=== PATIENT | female | born 1990 | race Caucasian/White ===

== ENCOUNTER 2016-06-28 21:13 | Emergency (ER) | payer OTHER ==
[2016-06-28 21:19] VITALS: RESP 16; TEMP 99.4
--- NOTE | 2016-06-28 22:00 | ED ---
General Adult HPI - General Chief complaint: Abdominal Pain Stated complaint: 17 weeks PG/ Abd Pain/back pain Time Seen by Provider: 06/28/16 21:20 Source: patient, RN notes reviewed, old records reviewed Mode of arrival: ambulatory Limitations: no limitations - History of Present Illness Initial comments: This is a 25-year-old female the ER for evaluation. This patient does reevaluation of abdominal pain. Cramping in lower pelvic pain beginning this morning. No bleeding. No significant change in discharge will she has had persistent discharge. No nausea vomiting or diarrhea. Patient was recently in the ER a few days ago for evaluation of cough and congestion, patient is a smoker, patient found to have bronchitis at the time of surgery on azithromycin. No new significant complaints. No fever. No other modifying factors for symptoms. Patient denies vaginal bleeding patient's concern is that she had similar symptoms before with prior miscarriage - Related Data Home Medications Medication Instructions Recorded Confirmed Albuterol Inhaler [Ventolin Hfa 1 puff INHALATION RT-BID PRN 04/15/14 06/28/16 Inhaler] Pnv with Ca,No.72/Iron/FA 1 tab PO DAILY 05/02/16 06/28/16 [ Plus Tablet] Acetaminophen Tab [Tylenol Tab] 650 mg PO Q6H PRN 06/28/16 06/28/16 Previous Rx's Medication Instructions Recorded Azithromycin [Zithromax Z-pack] 250 mg PO DIRECTED #6 tab 06/25/16 Allergies Allergy/AdvReac Type Severity Reaction Status Date / Time metronidazole [From Flagyl] AdvReac Nausea Verified 06/28/16 21:16 Metronidazole HCl AdvReac Nausea Verified 06/28/16 21:16 [From Flagyl] tramadol AdvReac Nausea Verified 06/28/16 21:16 Review of Systems ROS Statement: Those systems with pertinent positive or pertinent negative responses have been documented in the HPI. ROS Other: All systems not noted in ROS Statement are negative. Past Medical History Additional Past Medical History / Comment(s): poly cystic ovarian syndrome History of Any Multi-Drug Resistant Organisms: None Reported Past Surgical History: Adenoidectomy, Cholecystectomy, Orthopedic Surgery, Tonsillectomy Additional Past Surgical History / Comment(s): right knee; ganglion cyst removal bilateral hands Past Anesthesia/Blood Transfusion Reactions: No Reported Reaction Past Psychological History: Anxiety, Bipolar, Depression Smoking Status: Current every day smoker Past Alcohol Use History: None Reported Past Drug Use History: None Reported General Exam Limitations: no limitations General appearance: alert, in no apparent distress Head exam: Present: atraumatic, normocephalic, normal inspection Eye exam: Present: normal appearance, PERRL, EOMI. Absent: scleral icterus, conjunctival injection, periorbital swelling ENT exam: Present: normal exam, mucous membranes moist Neck exam: Present: normal inspection. Absent: tenderness, meningismus, lymphadenopathy Respiratory exam: Present: normal lung sounds bilaterally. Absent: respiratory distress, wheezes, rales, rhonchi, stridor Cardiovascular Exam: Present: regular rate, normal rhythm, normal heart sounds. Absent: systolic murmur, diastolic murmur, rubs, gallop, clicks GI/Abdominal exam: Present: soft, normal bowel sounds. Absent: distended, tenderness, guarding, rebound, rigid Extremities exam: Present: normal inspection, full ROM, normal capillary refill. Absent: tenderness, pedal edema, joint swelling, calf tenderness Back exam: Present: normal inspection Neurological exam: Present: alert, oriented X3, CN II-XII intact Psychiatric exam: Present: normal affect, normal mood Skin exam: Present: warm, dry, intact, normal color. Absent: rash Course Vital Signs 06/28/16 21:16 Temperature 99.4 F Pulse Rate 91 Respiratory 16 Rate Blood Pressure 131/69 O2 Sat by Pulse 97 Oximetry Medical Decision Making - Medical Decision Making 25 female with abdominal pain and . Patient will continue outpatient treatment for bronchitis, ultrasound shows positive IUP, urine is negative we' ll culture patient can be discharged home - Lab Data Lab Results 06/28/16 Range/Units 21:30 Urine Color Yellow Urine Appearance Cloudy H (Clear) Urine pH 6.5 (5.0-8.0) Ur Specific [place] 1.011 (1.001-1.035) Urine Protein Negative (Negative) Urine Glucose (UA) Negative (Negative) Urine Ketones Negative (Negative) Urine Blood Negative (Negative) Urine Nitrate Negative (Negative) Urine Bilirubin Negative (Negative) Urine Urobilinogen <2.0 (<2.0) mg/dL Ur Leukocyte Esterase Trace H (Negative) Urine RBC 1 (0-5) /hpf Urine WBC 7 H (0-5) /hpf Ur Squamous Epith Cells 40 H (0-4) /hpf Amorphous Sediment Occasional H (None) /hpf Hyaline Casts 5 H (0-2) /lpf Urine Mucus Rare H (None) /hpf - Radiology Data Radiology results: report reviewed (Ultrasound abdomen and pelvis positive IUP heart rate 142), image reviewed Disposition Clinical Impression: Abdominal pain, Abdominal pain affecting Disposition: HOME SELF-CARE Condition: Good Instructions: Abdominal Pain in (ED) Referrals: Manuel Melgar DO [Primary Care Provider] - 1-2 days
[2016-06-28 22:14] LABS: Amorphous Sediment,Urine Occasional /hpf; Appearance,Urine Cloudy (Clear); Bilirubin,Urine Negative (Negative); Glucose,Urine (UA) Negative (Negative); Ketones,Urine Negative (Negative); Leukocyte Esterase,Urine Trace (Negative); Mucus,Urine Rare /hpf; Nitrite,Urine Negative (Negative); PH, Urine 6.5 (5.0-8.0); Particle Count 14108; Protein,Urine Negative (Negative); RBC,Urine 1 /hpf (0-5); Specific Gravity,Urine 1.011 (1.001-1.035); Squamous Epithelial Cell,Urine 40 /hpf (0-4); UA Billing (MACRO vs. MICRO) MICRO; Urobilinogen,Urine <2.0 mg/dL (<2.0); WBC,Urine 7 /hpf (0-5)
--- NOTE | 2016-06-29 00:07 | US ---
EXAMINATION TYPE: US OB >= 14 wk fetus DATE OF EXAM: 06/28/2016 10:52 PM COMPARISON:05/02/2016 CLINICAL HISTORY: Pelvic pain, no bleeding TECHNIQUE: TA GESTATIONAL AGE / DATING Physician Established: (17 weeks/0 days) EDC: 12/06/2016 Dates by LMP: (18 weeks/3 days) EDC: 11/26/2016 Dates by First Scan: (17 weeks/0 days) EDC: 12/06/2016 Dates by Current Scan: (17 weeks/3 days) EDC: 12/03/2016 SURVEY PLACENTA: anterior PREVIA: No Previa SHIRA: 14.4 cm CERVICAL LENGTH (transabdominal: norm > 3.0cm): 3.1 cm BIOMETRY LIE: vertex BPD: 3.9 cm 17 weeks / 5 days HC: 14.4 cm 17 weeks / 4 days AC: 11.2 cm 17 weeks / 0 days FL: 2.5 cm 17 weeks / 3 days ESTIMATED WEIGHT IN GRAMS: 187 grams ESTIMATED WEIGHT IN LBS/OZS: 0 lbs. 7 oz. WEIGHT PERCENTAGE BASED ON ESTABLISHED DATES: 61% HC/AC: 1.2 Normal FL/AC: 21.9 Normal HEART RATE: 142 bpm RHYTHM: Normal IMPRESSION: Single live intrauterine of 17 weeks and 3 days with a heart rate of 1 42 bpm. Average gestational age by current ultrasound is 17 weeks and 3 days with ABIGAIL of 12/03/2016.
[2016-06-29 00:30] VITALS: BP 110/64; PULSE 64
== END 2016-06-29 00:30 | disposition home or self-care (01) ==
LOC: EC 21:13
DX: O26.92 Pregnancy related conditions, unspecified, second trimester (principal); R10.9 Unspecified abdominal pain; F17.200 Nicotine dependence, unspecified, uncomplicated; Z3A.17 17 weeks gestation of pregnancy; Z88.5 Allergy status to narcotic agent; Z88.1 Allergy status to other antibiotic agents
CPT/HCPCS: 76805; 81001; 87086; 87491; 87591; 99284

== ENCOUNTER 2017-08-31 11:02 | Emergency (ER) | payer OTHER ==
[2017-08-31 11:15] VITALS: BP 118/75; PULSE 85; RESP 18; TEMP 97.5
--- NOTE | 2017-08-31 11:47 | XR ---
EXAMINATION TYPE: XR hand complete RT DATE OF EXAM: 08/31/2017 COMPARISON: 12/05/2014 HISTORY: Pain after fall TECHNIQUE: Three-view right hand FINDINGS: Soft tissues appear normal. Joint spaces are preserved. No acute fractures are evident. Follow-up exam can be performed 7-10 days from acute trauma for continued pain. IMPRESSION: 1. Normal three-view right hand.
--- NOTE | 2017-08-31 11:51 | ED ---
Upper Extremity HPI - General Chief Complaint: Extremity Injury, Upper Stated Complaint: RT HAND INJURY Time Seen by Provider: 08/31/17 11:40 Source: patient, RN notes reviewed Mode of arrival: ambulatory Limitations: no limitations - History of Present Illness Initial Comments: This is a 26-year-old old female who presents to the emergency department with chief complaint of right hand injury. Patient states that at approximately 10: 30 this morning she was coming down a set of stairs at home when she tripped on her child's blanket and hit her hand on the wall. She has full range of motion of her fingers but has noticed bruising and swelling. Denies any other injury or trauma. Denies fever, chills, abdominal pain, nausea or vomiting, numbness or tingling, headache or vision changes. - Related Data Home Medications Medication Instructions Recorded Confirmed Citalopram Hydrobromide [CeleXA] 20 mg PO DAILY 08/31/17 08/31/17 LORazepam [Ativan] 1 mg PO TID 08/31/17 08/31/17 Allergies Allergy/AdvReac Type Severity Reaction Status Date / Time metronidazole [From Flagyl] AdvReac Nausea Verified 08/31/17 11:25 Metronidazole HCl AdvReac Nausea Verified 08/31/17 11:25 [From Flagyl] tramadol AdvReac Nausea Verified 08/31/17 11:25 Review of Systems ROS Statement: Those systems with pertinent positive or pertinent negative responses have been documented in the HPI. ROS Other: All systems not noted in ROS Statement are negative. Past Medical History Additional Past Medical History / Comment(s): poly cystic ovarian syndrome History of Any Multi-Drug Resistant Organisms: None Reported Past Surgical History: Adenoidectomy, Cholecystectomy, Orthopedic Surgery, Tonsillectomy Additional Past Surgical History / Comment(s): right knee; ganglion cyst removal bilateral hands Past Anesthesia/Blood Transfusion Reactions: No Reported Reaction Past Psychological History: Anxiety, Bipolar, Depression Smoking Status: Current every day smoker Past Alcohol Use History: None Reported Past Drug Use History: Marijuana General Exam - General Exam Comments Initial Comments: General: Awake and alert, well-developed; in no apparent distress. HEENT: Head atraumatic, normocephalic. Pupils are equal, round and reactive to light. Extraocular movements intact. Oropharynx moist without erythema or exudate. Neck: Supple. Normal ROM. Cardiovascular: Regular rate and rhythm. No murmurs, rubs or gallops. Chest symmetrical. Respiratory: Lungs clear to auscultation bilaterally. No wheezes, rales or rhonchi. Normal respiratory effort with no use of accessory muscles. Musculoskeletal: Normal range of motion of right hand and digits. There is mild soft tissue swelling and bruising noted to the ulnar aspect dorsal hand. Tenderness on palpation of metacarpals 3 through 5. Sensation is intact. Radial pulses are 2+ equal and palpable bilaterally. Skin: [place], warm and dry without rashes or lesions. Neurological: Alert and oriented x3. CN II-XII grossly intact. Speech is fluent and answers are appropriate. No focal neuro deficits. Psychiatric: Normal mood and affect. No overt signs of depression or anxiety noted. Limitations: no limitations Course Vital Signs 08/31/17 11:11 Temperature 97.5 F L Pulse Rate 85 Respiratory 18 Rate Blood Pressure 118/75 O2 Sat by Pulse 98 Oximetry Medical Decision Making - Medical Decision Making This is a 26-year-old female who presents to the emergency department with chief complaint of right hand injury. There is bruising and mild soft tissue swelling noted to the ulnar aspect of the dorsal right hand. Patient has full range of motion and is neurovascularly intact. X-ray revealed no evidence for an acute fracture or dislocation. Patient suffering from a hand contusion. Recommended ice, elevation, compression and use of Tylenol or Motrin for pain. She is in no acute distress and will be discharged home. She is in agreement with plan and voices understanding. All questions were answered. - Radiology Data Radiology results: report reviewed X-ray right hand findings: Soft tissues appear normal. Joint spaces are preserved. No acute fractures are evident. Impression: Normal 3 view right hand. Disposition Clinical Impression: Hand contusion Disposition: HOME SELF-CARE Condition: Good Instructions: Contusion in Adults (ED) Additional Instructions: Please ice, elevate and use Tylenol or Motrin as needed for pain. Please follow up with primary care provider within 1-2 days. Return to emergency department if symptoms should worsen or any concerns arise. Referrals: Manuel Melgar DO [Primary Care Provider] - 1-2 days Time of Disposition: 12:00
== END 2017-08-31 12:12 | disposition home or self-care (01) ==
LOC: EC 11:02
DX: S60.221A Contusion of right hand, initial encounter (principal); F41.9 Anxiety disorder, unspecified; F32.9 Major depressive disorder, single episode, unspecified; F17.200 Nicotine dependence, unspecified, uncomplicated; Z79.899 Other long term (current) drug therapy; Z88.1 Allergy status to other antibiotic agents; Z88.6 Allergy status to analgesic agent; W22.01XA Walked into wall, initial encounter; Y92.009 Unspecified place in unspecified non-institutional (private) residence as the place of occurrence of the external cause; Y93.89 Activity, other specified
CPT/HCPCS: 99283

== ENCOUNTER 2018-04-21 19:15 | Emergency (ER) | payer OTHER ==
[2018-04-21 19:31] VITALS: BP 134/85; PULSE 99; RESP 18; TEMP 98.5
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
--- NOTE | 2018-04-21 20:19 | XR ---
EXAMINATION TYPE: XR hand complete bilateral DATE OF EXAM: 04/21/2018 COMPARISON: Right hand 08/31/2017 HISTORY: Pain TECHNIQUE: 3 views each hand FINDINGS: 3 views of each hand were obtained and show no fracture nor dislocation. Joint spaces are n ormal. Metacarpals are intact. IMPRESSION: Negative bilateral hand exam. No fracture.
--- NOTE | 2018-04-21 20:22 | XR ---
EXAMINATION TYPE: XR wrist complete LT DATE OF EXAM: 04/21/2018 COMPARISON: NONE HISTORY: Pain TECHNIQUE: 4 views FINDINGS: Carpal bones are intact. I see no fracture nor dislocation. Joint spaces are normal. IMPRESSION: Negative left wrist exam.
== END 2018-04-21 21:10 | disposition home or self-care (01) ==
LOC: EC 19:15
DX: S60.221A Contusion of right hand, initial encounter (principal); S10.91XA Abrasion of unspecified part of neck, initial encounter; S69.92XA Unspecified injury of left wrist, hand and finger(s), initial encounter; F31.9 Bipolar disorder, unspecified; F41.9 Anxiety disorder, unspecified; F17.200 Nicotine dependence, unspecified, uncomplicated; Z79.899 Other long term (current) drug therapy; Z88.5 Allergy status to narcotic agent; Z88.1 Allergy status to other antibiotic agents; Y04.0XXA Assault by unarmed brawl or fight, initial encounter
CPT/HCPCS: 99284

== ENCOUNTER → 2018-10-24 | Outpatient (CLI) | payer OTHER ==
--- NOTE | 2018-10-25 07:44 | CT ---
EXAMINATION TYPE: CT brain wo/w con DATE OF EXAM: 10/24/2018 COMPARISON: 01/17/2015 HISTORY: 27-year-old female with migraines X 1 month TECHNIQUE: Examination was done in axial plane before and after IV contrast administration. 100 mL I sovue 300 IV contrast was administered. Coronal and sagittal reconstructions performed. CT DLP: 2131 mGycm Automated exposure control for dose reduction was used. FINDINGS: There is no evidence of acute intracranial hemorrhage, acute ischemic changes, mass, mass-effect, or extra-axial fluid collection. There is no effacement of cerebral sulci or basal subarachnoid cister ns. There is no hydrocephalus. There is no midline shift. Limon-white matter distinction is preserv ed. The craniocervical junction appears normal. No empty sella. No enhancing intracranial lesions are identified. Dural venous sinuses are patent. There is moderate mucosal thickening throughout the ethmoid air cells, increased from 2014 and trace within the bilateral maxillary sinuses. Mastoid air cells well pneumatized. Orbits and globes appear intact. IMPRESSION: No intracranial abnormality seen. If chronic migraines and concern for secondary areas of ischemic de myelination, MRI can further evaluate. Moderate chronic ethmoid sinus disease and trace within the maxillary sinuses.
== END | disposition home or self-care (01) ==
LOC: RADCTMAIN 15:29
PROVIDERS: ATTEND Family Medicine
DX: G43.909 Migraine, unspecified, not intractable, without status migrainosus (principal)
CPT/HCPCS: 70470; Q9967

== ENCOUNTER 2019-10-12 15:16 | Emergency (ER) | payer OTHER ==
[2019-10-12 16:09] LABS: Appearance,Urine Clear (Clear); Bacteria,Urine Rare /hpf; Bilirubin,Urine Negative (Negative); Blood,Urine Trace (Negative); Color,Urine Light Yellow; Glucose,Urine (UA) Negative (Negative); Ketones,Urine Negative (Negative); Leukocyte Esterase,Urine Negative (Negative); Mucus,Urine Rare /hpf; Nitrite,Urine Negative (Negative); Protein,Urine Negative (Negative); RBC,Urine 1 /hpf (0-5); Specific Gravity,Urine 1.015 (1.001-1.035); Squamous Epithelial Cell,Urine 4 /hpf (0-4); Urobilinogen,Urine <2.0 mg/dL (<2.0); WBC,Urine 1 /hpf (0-5)
[2019-10-12 16:19] LABS: Basophils # (A) 0.1 k/uL (0-0.2); Basophils % (A) 1 %; Eosinophils # (A) 0.6 k/uL (0-0.7); Eosinophils % (A) 4 %; HCT 45.7 % (34.0-46.0); HGB 15.2 gm/dL (11.4-16.0); Lymphocytes # (A) 2.5 k/uL (1.0-4.8); Lymphocytes % (A) 18 %; MCHC 33.3 g/dL (31.0-37.0); Mean Platelet Volume 8.4; Monocytes # (A) 0.3 k/uL (0-1.0); Monocytes % (A) 2 %; Neutrophils # (A) 10.3 k/uL (1.3-7.7); Neutrophils % (A) 74 %; Platelet Count 275 k/uL (150-450); RBC 5.26 m/uL (3.80-5.40); RDW 12.8 % (11.5-15.5); WBC 13.9 k/uL (3.8-10.6)
--- NOTE | 2019-10-12 16:30 | XR ---
EXAMINATION TYPE: XR KUB DATE OF EXAM: 10/12/2019 Comparison: 04/07/2014 Clinical History: 28-year-old female abdominal pain Findings: Lung bases are clear. No evidence for free intraperitoneal air. No dilated small bowel or air-fluid levels. Air throughout the colon extending distally to the rectum. No significant stool burden. Cholecystectomy clips. No suspicious calcifications seen. Gentle dextroconvex curvature of the lumbar spine. Impression: No evidence for free air or bowel obstruction. No significant stool burden.
[2019-10-12 16:32] LABS: ALT 19 U/L (4-34); AST 21 U/L (14-36); African American GFR (CKD) >90 (>60 ml/min/1.73 sqM); Albumin 4.6 g/dL (3.5-5.0); Alkaline Phosphatase 63 U/L (38-126); Amylase 63 U/L (30-110); Anion Gap 9 mmol/L; Blood Urea Nitrogen 13 mg/dL (7-17); Calcium 9.6 mg/dL (8.4-10.2); Carbon Dioxide 24 mmol/L (22-30); Chloride 106 mmol/L (98-107); Glucose 89 mg/dL (74-99); Non-African American GFR(CKD) >90 (>60 ml/min/1.73 sqM); Potassium 4.7 mmol/L (3.5-5.1); Sodium 139 mmol/L (137-145); Total Bilirubin 0.3 mg/dL (0.2-1.3); Total Protein 7.7 g/dL (6.3-8.2)
[2019-10-12 16:50] LABS: HCG,Quantitative Serum <2.4 mIU/mL
--- NOTE | 2019-10-12 17:05 | ED ---
Abdominal Pain HPI - General Chief Complaint: Abdominal Pain Stated Complaint: Abd pain Time Seen by Provider: 10/12/19 15:35 Source: patient Mode of arrival: ambulatory Limitations: no limitations - History of Present Illness Initial Comments: 28-year-old female presenting today for chief complaint of crampy pain in the right lower area of the pelvic region. Patient states that today she developed a crampy sensation in the right pelvic region. She states it feels ovarian. Patient denies any vaginal bleeding but states she has not had a period Sep . She states that in August she did have a positive urine test. Patient states she's had subsequent negative test and did have some bleeding on 08/22 that was after her period. She states it was light however has not tried any heavy bleeding since. Patient denies a vaginal discharge or odors. Patient denies any pain with sex. Patient denies dysuria urgency frequency or hematuria denies any flank pain. Patient denies any upper abdominal pain she denies any nausea vomiting or fevers. Patient denies any lack of appetite. Patient does not appears in distress on arrival. Urine HCG (- ). - Related Data Home Medications Medication Instructions Recorded Confirmed Citalopram Hydrobromide [CeleXA] 20 mg PO DAILY 08/31/17 08/31/17 LORazepam [Ativan] 1 mg PO TID 08/31/17 08/31/17 Allergies Allergy/AdvReac Type Severity Reaction Status Date / Time metronidazole [From Flagyl] AdvReac Nausea Verified 10/12/19 15:33 Metronidazole HCl AdvReac Nausea Verified 10/12/19 15:33 [From Flagyl] tramadol AdvReac Nausea Verified 10/12/19 15:33 Review of Systems ROS Statement: Those systems with pertinent positive or pertinent negative responses have been documented in the HPI. ROS Other: All systems not noted in ROS Statement are negative. Past Medical History Additional Past Medical History / Comment(s): poly cystic ovarian syndrome History of Any Multi-Drug Resistant Organisms: None Reported Past Surgical History: Adenoidectomy, Cholecystectomy, Orthopedic Surgery, Tonsillectomy Additional Past Surgical History / Comment(s): right knee; ganglion cyst removal bilateral hands Past Anesthesia/Blood Transfusion Reactions: No Reported Reaction Past Psychological History: Anxiety, Bipolar, Depression Smoking Status: Current every day smoker Past Alcohol Use History: None Reported Past Drug Use History: Marijuana General Exam - General Exam Comments Initial Comments: General: The patient is awake and alert, in no distress, and does not appear acutely ill. Eye: +3 mm pupils are equal, round and reactive to light, extra-ocular movements are intact. No nystagmus. There is normal conjunctiva bilaterally. No signs of icterus. Ears, nose, mouth and throat: There are moist mucous membranes and no oral lesions. Neck: The neck is supple, there is no tenderness or JVD. Cardiovascular: There is a regular rate and rhythm. No murmur, rub or gallop is appreciated. Respiratory: Lungs are clear to auscultation, respirations are non-labored, breath sounds are equal. No wheezes, stridor, rales, or rhonchi. Gastrointestinal: Soft, non-distended, what appears and is described as mild tenderness to palpation of the right lower pelvic region, no pain at McBurneys point, no pain in the left pelvic region or upper abdomen, remaining abdomen without masses or organomegaly noted. There is no rebound or guarding present. Musculoskeletal: Normal ROM, no tenderness. Strength 5/5. Sensation intact. Radial pulses equal bilaterally 2+. Neurological: A&O x 3. CN II-XII intact grossly, There are no obvious motor or sensory deficits. Coordination appears grossly intact. Speech is normal. Skin: Skin is warm and dry and no rashes or lesions are noted. Psychiatric: Cooperative, appropriate mood & affect, normal judgment. Limitations: no limitations Course Vital Signs 10/12/19 10/12/19 15:32 17:51 Temperature 98.8 F 98.2 F Pulse Rate 81 68 Respiratory 17 16 Rate Blood Pressure 120/80 120/73 O2 Sat by Pulse 98 100 Oximetry Medical Decision Making - Medical Decision Making 28 yo female presenting for pelvic pain,right sided, HCG serum and urine (-). Labs mild leukocytosis. Denies concern for STI. no vaginal discharge. Patient US revealed most likely ruptured ovarian cyst which appears to clinically correlate. Patient states she is comfortable at this time. Patient VS stable. Discussed appropriate f/u. Return parameters and taking at home over the country an[place]. patient is agreeable. Patient discharged appearing well. - Lab Data Result diagrams: 10/12/19 16:05 10/12/19 16:05 Lab Results 10/12/19 10/12/19 10/12/19 Range/Units 15:50 15:50 16:05 WBC 13.9 H (3.8-10.6) k/uL RBC 5.26 (3.80-5.40) m/uL Hgb 15.2 (11.4-16.0) gm/dL Hct 45.7 (34.0-46.0) % MCV 87.0 (80.0-100.0) fL MCH 29.0 (25.0-35.0) pg MCHC 33.3 (31.0-37.0) g/dL RDW 12.8 (11.5-15.5) % Plt Count 275 (150-450) k/uL Neutrophils % 74 % Lymphocytes % 18 % Monocytes % 2 % Eosinophils % 4 % Basophils % 1 % Neutrophils # 10.3 H (1.3-7.7) k/uL Lymphocytes # 2.5 (1.0-4.8) k/uL Monocytes # 0.3 (0-1.0) k/uL Eosinophils # 0.6 (0-0.7) k/uL Basophils # 0.1 (0-0.2) k/uL Sodium (137-145) mmol/L Potassium (3.5-5.1) mmol/L Chloride (98-107) mmol/L Carbon Dioxide (22-30) mmol/L Anion Gap mmol/L BUN (7-17) mg/dL Creatinine (0.52-1.04) mg/dL Est GFR (CKD-EPI)AfAm (>60 ml/min/1.73 sqM) Est GFR (CKD-EPI)NonAf (>60 ml/min/1.73 sqM) Glucose (74-99) mg/dL Calcium (8.4-10.2) mg/dL Total Bilirubin (0.2-1.3) mg/dL AST (14-36) U/L ALT (4-34) U/L Alkaline Phosphatase (38-126) U/L Total Protein (6.3-8.2) g/dL Albumin (3.5-5.0) g/dL Amylase (30-110) U/L Lipase (23-300) U/L HCG, Quant mIU/mL Urine Color Light Yellow Urine Appearance Clear (Clear) Urine pH 7.0 (5.0-8.0) Ur Specific [place] 1.015 (1.001-1.035) Urine Protein Negative (Negative) Urine Glucose (UA) Negative (Negative) Urine Ketones Negative (Negative) Urine Blood Trace H (Negative) Urine Nitrite Negative (Negative) Urine Bilirubin Negative (Negative) Urine Urobilinogen <2.0 (<2.0) mg/dL Ur Leukocyte Esterase Negative (Negative) Urine RBC 1 (0-5) /hpf Urine WBC 1 (0-5) /hpf Ur Squamous Epith Cells 4 (0-4) /hpf Urine Bacteria Rare H (None) /hpf Urine Mucus Rare H (None) /hpf Urine HCG, Qual Not Detected (Not Detectd) 10/12/19 Range/Units 16:05 WBC (3.8-10.6) k/uL RBC (3.80-5.40) m/uL Hgb (11.4-16.0) gm/dL Hct (34.0-46.0) % MCV (80.0-100.0) fL MCH (25.0-35.0) pg MCHC (31.0-37.0) g/dL RDW (11.5-15.5) % Plt Count (150-450) k/uL Neutrophils % % Lymphocytes % % Monocytes % % Eosinophils % % Basophils % % Neutrophils # (1.3-7.7) k/uL Lymphocytes # (1.0-4.8) k/uL Monocytes # (0-1.0) k/uL Eosinophils # (0-0.7) k/uL Basophils # (0-0.2) k/uL Sodium 139 (137-145) mmol/L Potassium 4.7 (3.5-5.1) mmol/L Chloride 106 (98-107) mmol/L Carbon Dioxide 24 (22-30) mmol/L Anion Gap 9 mmol/L BUN 13 (7-17) mg/dL Creatinine 0.73 (0.52-1.04) mg/dL Est GFR (CKD-EPI)AfAm >90 (>60 ml/min/1.73 sqM) Est GFR (CKD-EPI)NonAf >90 (>60 ml/min/1.73 sqM) Glucose 89 (74-99) mg/dL Calcium 9.6 (8.4-10.2) mg/dL Total Bilirubin 0.3 (0.2-1.3) mg/dL AST 21 (14-36) U/L ALT 19 (4-34) U/L Alkaline Phosphatase 63 (38-126) U/L Total Protein 7.7 (6.3-8.2) g/dL Albumin 4.6 (3.5-5.0) g/dL Amylase 63 (30-110) U/L Lipase 112 (23-300) U/L HCG, Quant <2.4 mIU/mL Urine Color Urine Appearance (Clear) Urine pH (5.0-8.0) Ur Specific [place] (1.001-1.035) Urine Protein (Negative) Urine Glucose (UA) (Negative) Urine Ketones (Negative) Urine Blood (Negative) Urine Nitrite (Negative) Urine Bilirubin (Negative) Urine Urobilinogen (<2.0) mg/dL Ur Leukocyte Esterase (Negative) Urine RBC (0-5) /hpf Urine WBC (0-5) /hpf Ur Squamous Epith Cells (0-4) /hpf Urine Bacteria (None) /hpf Urine Mucus (None) /hpf Urine HCG, Qual (Not Detectd) Disposition Clinical Impression: Ovarian cyst, Pelvic pain Disposition: HOME SELF-CARE Condition: Good Instructions (If sedation given, give patient instructions): Ovarian Cyst (ED), Ruptured Ovarian Cyst (ED) Additional Instructions: Please use medication as discussed. Please follow-up with family doctor in the next 2 days, Dr Jeff in next week, contact her office to discuss results and follow-up. Please return to emergency room if the symptoms increase or worsen or for any other concerns. Is patient prescribed a controlled substance at d/c from ED?: No Referrals: Manuel Melgar DO [Primary Care Provider] - 1-2 days Yesy Esquivel MD [REFERRING] - 1-2 days Time of Disposition: 17:29
--- NOTE | 2019-10-12 17:19 | US ---
EXAMINATION TYPE: US transvaginal plus Dopplers DATE OF EXAM: 10/12/2019 COMPARISON: None CLINICAL HISTORY: 28-year-old female right ovarian pain. Right pelvic pain x 1 day, 6, para 1 , miscarriage 5 TECHNIQUE: Transvaginal ER exam. Color Doppler and spectral waveform analysis of the ovarian arteries and veins. Date of LMP: 08/13/2019 FINDINGS: EXAM MEASUREMENTS: Uterus: 7.8 x 3.8 x 5.1 cm Endometrial Stripe: 0.6 cm Right Ovary: 3.4 x 3.1 x 2.8 cm for a volume of 15.5 mL Left Ovary: 3.6 x 2.3 x 1.7 cm for a volume of 7.4 mL 1. Uterus: anteverted, wnl 2. Endometrium: wnl 3. Right Ovary: 1.8 x 1.3 x 1.4cm thin-walled, hypoechoic area seen, a few follicles 4. Left Ovary: A few follicles Spectral, color and waveform doppler imaging shows good arterial and venous flow within the ovaries ; there is no evidence for ovarian torsion. 5. Bilateral Adnexa: wnl 6. Posterior cul-de-sac: small amount of free fluid IMPRESSION: 1. No sonographic evidence for ovarian torsion 2. A 1.8 cm thin-walled hypoechoic structure within the right ovary, suspect hemorrhagic cyst/hemorrh agic corpus luteum. Follow-up in 6-8 weeks to assess for involution. 3. Small amount of cul-de-sac free fluid likely physiologic.
[2019-10-12 17:53] VITALS: BP 120/73; PULSE 68; RESP 16; TEMP 98.2
== END 2019-10-12 17:53 | disposition home or self-care (01) ==
LOC: EC 15:16
DX: N83.201 Unspecified ovarian cyst, right side (principal); D72.829 Elevated white blood cell count, unspecified; F31.9 Bipolar disorder, unspecified; F41.9 Anxiety disorder, unspecified; F17.200 Nicotine dependence, unspecified, uncomplicated; Z79.899 Other long term (current) drug therapy; Z88.1 Allergy status to other antibiotic agents; Z88.6 Allergy status to analgesic agent; Z90.49 Acquired absence of other specified parts of digestive tract
CPT/HCPCS: 36415; 74018; 76830; 80053; 81001; 81025; 82150; 83690; 84702; 85025; 93975; 99284

== ENCOUNTER 2019-11-30 21:31 | Emergency (ER) | payer OTHER ==
[2019-11-30 21:40] VITALS: TEMP 98
[2019-11-30] MEDS ORDERED: SODIUM CHLORIDE 0.9% 1,000 ML IV STA (22:02)
[2019-11-30] MEDS ORDERED: diphenhydrAMINE 50 MG/ML 1 ML VIAL IVP STA (22:02)
[2019-11-30] MEDS ORDERED: PANTOPRAZOLE 40 MG/10 ML VIAL IVP STA (22:02)
[2019-11-30] MEDS ORDERED: LORazepam 2 MG/ML INJ IV STA (22:02)
[2019-11-30] MEDS ORDERED: KETOROLAC 30 MG/ML 1 ML VIAL IVP STA (22:02)
[2019-11-30] MEDS ORDERED: METOCLOPRAMIDE 5 MG/ML 2 ML VIAL IVP STA (22:02)
--- NOTE | 2019-11-30 22:10 | ED ---
Headache HPI - General Chief Complaint: Headache Stated Complaint: Migraine, vomiting Time Seen by Provider: 11/30/19 21:57 Source: RN notes reviewed, old records reviewed Mode of arrival: ambulatory Limitations: no limitations - History of Present Illness Initial Comments: This is a 29-year-old female DF for evaluation history of headaches coming with likely. No traumas no fevers. No recent travel history or sick contacts. Patient states headache is a normal headache in nature. Denies chance or possibility of .Patient does admit active nausea and vomiting. Symptoms are throbbing headache with nausea and photophobia and phonophobia patient takes Topamax for was unable to keep it down MD Complaint: headache, "migraine" -: hour(s) Onset Description: gradual Location: frontal, temporal Severity: moderate Severity scale (1-10): 6 Quality: aching, throbbing Consistency: constant Improves With: nothing Worsens With: none Context: occurred at rest Associated Symptoms: nausea, vomiting Treatments Prior to Arrival: none - Related Data Home Medications Medication Instructions Recorded Confirmed Citalopram Hydrobromide [CeleXA] 20 mg PO DAILY 08/31/17 08/31/17 LORazepam [Ativan] 1 mg PO TID 08/31/17 08/31/17 Allergies Allergy/AdvReac Type Severity Reaction Status Date / Time metronidazole [From Flagyl] AdvReac Nausea Verified 11/30/19 21:40 Metronidazole HCl AdvReac Nausea Verified 11/30/19 21:40 [From Flagyl] tramadol AdvReac Nausea Verified 11/30/19 21:40 Review of Systems ROS Statement: Those systems with pertinent positive or pertinent negative responses have been documented in the HPI. ROS Other: All systems not noted in ROS Statement are negative. Past Medical History Additional Past Medical History / Comment(s): poly cystic ovarian syndrome History of Any Multi-Drug Resistant Organisms: None Reported Past Surgical History: Adenoidectomy, Cholecystectomy, Orthopedic Surgery, Tonsillectomy Additional Past Surgical History / Comment(s): right knee; ganglion cyst removal bilateral hands Past Anesthesia/Blood Transfusion Reactions: No Reported Reaction Past Psychological History: Anxiety, Bipolar, Depression Smoking Status: Current every day smoker Past Alcohol Use History: None Reported Past Drug Use History: Marijuana General Exam Limitations: no limitations General appearance: alert, in no apparent distress Head exam: Present: atraumatic, normocephalic, normal inspection Eye exam: Present: normal appearance, PERRL, EOMI. Absent: scleral icterus, conjunctival injection, periorbital swelling ENT exam: Present: normal exam, mucous membranes moist Neck exam: Present: normal inspection. Absent: tenderness, meningismus, lymphadenopathy Respiratory exam: Present: normal lung sounds bilaterally. Absent: respiratory distress, wheezes, rales, rhonchi, stridor Cardiovascular Exam: Present: regular rate, normal rhythm, normal heart sounds. Absent: systolic murmur, diastolic murmur, rubs, gallop, clicks GI/Abdominal exam: Present: soft, normal bowel sounds. Absent: distended, tenderness, guarding, rebound, rigid Extremities exam: Present: normal inspection, full ROM, normal capillary refill. Absent: tenderness, pedal edema, joint swelling, calf tenderness Back exam: Present: normal inspection Neurological exam: Present: alert, oriented X3, CN II-XII intact Psychiatric exam: Present: normal affect, normal mood Skin exam: Present: warm, dry, intact, normal color. Absent: rash Course Vital Signs 11/30/19 11/30/19 21:37 23:14 Temperature 98 F Pulse Rate 84 75 Respiratory 18 16 Rate Blood Pressure 139/78 101/51 O2 Sat by Pulse 100 100 Oximetry - Reevaluation(s) Reevaluation #1: Medical records reviewed Headache resolved Medical Decision Making - Medical Decision Making 29 female acute on chronic headaches. No acute distress headache resolved patient can be discharged - Lab Data Lab Results 11/30/19 11/30/19 Range/Units 22:15 22:15 Urine Color Yellow Urine Appearance Turbid H (Clear) Urine pH 6.0 (5.0-8.0) Ur Specific [place] 1.026 (1.001-1.035) Urine Protein 1+ H (Negative) Urine Glucose (UA) Negative (Negative) Urine Ketones Negative (Negative) Urine Blood Small H (Negative) Urine Nitrite Negative (Negative) Urine Bilirubin Negative (Negative) Urine Urobilinogen 2.0 (<2.0) mg/dL Ur Leukocyte Esterase Small H (Negative) Urine RBC 16 H (0-5) /hpf Urine WBC 8 H (0-5) /hpf Ur Squamous Epith Cells 104 H (0-4) /hpf Calcium Oxalate Crystal Few H (None) /hpf Urine Mucus Many H (None) /hpf Urine HCG, Qual Not Detected (Not Detectd) Disposition Clinical Impression: Migraine headache, Vomiting Disposition: HOME SELF-CARE Condition: Good Instructions (If sedation given, give patient instructions): Acute Headache (ED) Is patient prescribed a controlled substance at d/c from ED?: No Referrals: Manuel Melgar DO [Primary Care Provider] - 1-2 days
[2019-11-30 22:25] LABS: Appearance,Urine Turbid (Clear); Bilirubin,Urine Negative (Negative); Blood,Urine Small (Negative); Calcium Oxalate Crystals,Urine Few /hpf; Color,Urine Yellow; Glucose,Urine (UA) Negative (Negative); Ketones,Urine Negative (Negative); Leukocyte Esterase,Urine Small (Negative); Mucus,Urine Many /hpf; Nitrite,Urine Negative (Negative); Protein,Urine 1+ (Negative); RBC,Urine 16 /hpf (0-5); Specific Gravity,Urine 1.026 (1.001-1.035); Squamous Epithelial Cell,Urine 104 /hpf (0-4); WBC,Urine 8 /hpf (0-5)
[2019-11-30 23:14] VITALS: BP 101/51; PULSE 75; RESP 16
== END 2019-11-30 23:15 | disposition home or self-care (01) ==
LOC: EC 21:31
DX: G43.909 Migraine, unspecified, not intractable, without status migrainosus (principal); F41.9 Anxiety disorder, unspecified; F31.9 Bipolar disorder, unspecified; F17.200 Nicotine dependence, unspecified, uncomplicated; Z79.899 Other long term (current) drug therapy; Z88.5 Allergy status to narcotic agent; Z88.1 Allergy status to other antibiotic agents
CPT/HCPCS: 81001; 81025; 99283; 96365; 96375 ×5; J2060; J1200; J2765; J2930; J1885; C9113

== ENCOUNTER → 2020-02-22 | Outpatient (CLI) | payer OTHER ==
--- NOTE | 2020-02-22 11:16 | XR ---
EXAMINATION TYPE: XR hand complete RT DATE OF EXAM: 02/22/2020 CLINICAL HISTORY: pain TECHNIQUE: Frontal, lateral and oblique images of the right hand are obtained. COMPARISON: None. FINDINGS: There is no acute fracture/dislocation evident. The joint spaces appear within normal limi ts. The overlying soft tissue appears unremarkable. IMPRESSION: There is no acute fracture or dislocation ICD 10 NO FRACTURE, INITIAL EVALUATION
== END | disposition home or self-care (01) ==
LOC: RADXRMAIN 10:54
PROVIDERS: ATTEND Family Medicine
DX: M79.643 Pain in unspecified hand (principal)

== ENCOUNTER → 2020-04-08 | Outpatient (CLI) | payer OTHER | END | disposition home or self-care (01) | LOC: LABWHC1 08:36 | PROVIDERS: ATTEND Family Medicine | DX: Z20.828 Contact with and (suspected) exposure to other viral communicable diseases (principal) | CPT/HCPCS: U0003; C9803 ==

== ENCOUNTER 2020-06-29 14:05 | Emergency (ER) | payer OTHER ==
[2020-06-29 14:16] VITALS: RESP 18
[2020-06-29] MEDS ORDERED: SODIUM CHLORIDE 0.9% 1,000 ML IV STA (14:16)
[2020-06-29 14:49] LABS: Basophils # (A) 0.2 k/uL (0-0.2); Basophils % (A) 1 %; Eosinophils # (A) 0.6 k/uL (0-0.7); Eosinophils % (A) 5 %; HGB 16.4 gm/dL (11.4-16.0); Lymphocytes % (A) 23 %; MCH 29.3 pg (25.0-35.0); MCHC 34.1 g/dL (31.0-37.0); Mean Platelet Volume 8.4; Monocytes # (A) 0.5 k/uL (0-1.0); Monocytes % (A) 4 %; Neutrophils # (A) 8.7 k/uL (1.3-7.7); Neutrophils % (A) 67 %; Platelet Count 255 k/uL (150-450); RBC 5.58 m/uL (3.80-5.40); RDW 13.1 % (11.5-15.5)
[2020-06-29 15:17] LABS: ALT 25 U/L (4-34); AST 18 U/L (14-36); African American GFR (CKD) >90 (>60 ml/min/1.73 sqM); Albumin 3.7 g/dL (3.5-5.0); Alkaline Phosphatase 53 U/L (38-126); Anion Gap 4 mmol/L; Blood Urea Nitrogen 11 mg/dL (7-17); Calcium 9.2 mg/dL (8.4-10.2); Carbon Dioxide 22 mmol/L (22-30); Chloride 111 mmol/L (98-107); Glucose 117 mg/dL (74-99); Magnesium 1.8 mg/dL (1.6-2.3); Non-African American GFR(CKD) >90 (>60 ml/min/1.73 sqM); Potassium 4.3 mmol/L (3.5-5.1); Sodium 137 mmol/L (137-145); Total Bilirubin 0.3 mg/dL (0.2-1.3); Total Protein 6.3 g/dL (6.3-8.2)
[2020-06-29 15:19] LABS: Prothrombin Time 10.3 sec (9.0-12.0)
[2020-06-29 15:45] VITALS: BP 106/74; PULSE 90; TEMP 98
--- NOTE | 2020-06-29 15:48 | XR ---
EXAMINATION TYPE: XR chest 2V DATE OF EXAM: 06/29/2020 COMPARISON: NONE HISTORY: Syncope TECHNIQUE: 2 views FINDINGS: Heart and mediastinum are normal. Lungs are clear. Diaphragm is normal. Bony thorax appears normal. IMPRESSION: Normal chest
[2020-06-29 15:51] LABS: Appearance,Urine Cloudy (Clear); Bacteria,Urine Rare /hpf; Bilirubin,Urine Negative (Negative); Blood,Urine Trace (Negative); Calcium Oxalate Crystals,Urine Many /hpf; Color,Urine Yellow; Glucose,Urine (UA) Negative (Negative); Ketones,Urine Negative (Negative); Leukocyte Esterase,Urine Negative (Negative); Mucus,Urine Many /hpf; Nitrite,Urine Negative (Negative); Protein,Urine Trace (Negative); RBC,Urine 2 /hpf (0-5); Specific Gravity,Urine 1.024 (1.001-1.035); Squamous Epithelial Cell,Urine 13 /hpf (0-4); WBC,Urine 4 /hpf (0-5)
--- NOTE | 2020-06-29 16:13 | XR ---
EXAMINATION TYPE: XR lumbar spine 2 or 3V DATE OF EXAM: 06/29/2020 COMPARISON: NONE HISTORY: Back pain TECHNIQUE: 3 views FINDINGS: Lumbar vertebra have normal spacing and alignment. Posterior elements are intact. There is no compression fracture. Sacroiliac joints appear normal. IMPRESSION: Negative lumbar spine exam.
--- NOTE | 2020-06-29 16:14 | XR ---
EXAMINATION TYPE: XR wrist complete RT DATE OF EXAM: 06/29/2020 COMPARISON: NONE HISTORY: Wrist pain. Fall. TECHNIQUE: 4 views FINDINGS: Carpal bones appear intact. Joint spaces are normal. Soft tissues appear normal. Metacarpal s appear intact. There are no pathologic calcifications. IMPRESSION: Negative right wrist exam.
--- NOTE | 2020-06-29 16:34 | CT ---
EXAMINATION TYPE: CT brain lizabethine wo con DATE OF EXAM: 06/29/2020 COMPARISON: CT brain 10/24/2018 HISTORY: syncope Headache. Neck pain CT DLP: 1401.4 mGycm Automated exposure control for dose reduction was used. The ventricles and sulci appear normal. There is no mass effect nor midline shift. There is no sign o f intracranial hemorrhage. The calvarium is intact. Cervical vertebra have normal alignment. Posterior elements are intact. Facet joints appear normal. D isc spaces are normal. There is normal aeration of the mastoid sinuses. Skull base is intact. I see n o bony destructive process. IMPRESSION: Normal CT scan of the brain. Normal CT scan cervical spine.
--- NOTE | 2020-06-29 16:56 | ED ---
General Adult HPI - General Chief complaint: Syncope Stated complaint: Syncope Time Seen by Provider: 06/29/20 14:16 Source: EMS Mode of arrival: EMS Limitations: no limitations - History of Present Illness Initial comments: 29-year-old female presenting today for chief complaint of syncopal episode. Patient states she had a syncopal episode approximately 20 minute after donating plasma she states that she went to rock [employer] told to perform [facility] when she was at checkout she felt like her vision was getting black and spotty and she told because she recall the EMS because she was not feeling right and she states she passed out she states she is not sure if she fell and hit her head. Patient states she only has right wrist pain and some low back pain she denies any headache dizziness nausea vomiting chest pain shortness of breath pain with deep inspiration leg swelling calf pain or recent upper respiratory infection or fevers. Patient denies . She denies abdominal pain she denies noting need upper back pain. Patient states the last time she gave plasma approximately one year ago she had a syncopal episode just like today. She states the first time since then that she has given plasma. Patient believes this is all secondary to donating plasma. Patient denies additional complaints and she denies any family history of sudden cardiac arrest or HOCM. patient denies any known heart conditions. patient very pleasant and appears well on arrival - Related Data Home Medications Medication Instructions Recorded Confirmed Citalopram Hydrobromide [CeleXA] 20 mg PO DAILY 08/31/17 08/31/17 LORazepam [Ativan] 1 mg PO TID 08/31/17 08/31/17 Allergies Allergy/AdvReac Type Severity Reaction Status Date / Time metronidazole [From Flagyl] AdvReac Nausea Verified 06/29/20 14:16 Metronidazole HCl AdvReac Nausea Verified 06/29/20 14:16 [From Flagyl] tramadol AdvReac Nausea Verified 06/29/20 14:16 Review of Systems ROS Statement: Those systems with pertinent positive or pertinent negative responses have been documented in the HPI. ROS Other: All systems not noted in ROS Statement are negative. Past Medical History Additional Past Medical History / Comment(s): poly cystic ovarian syndrome History of Any Multi-Drug Resistant Organisms: None Reported Past Surgical History: Adenoidectomy, Cholecystectomy, Orthopedic Surgery, Tonsillectomy Additional Past Surgical History / Comment(s): right knee; ganglion cyst removal bilateral hands Past Anesthesia/Blood Transfusion Reactions: No Reported Reaction Past Psychological History: Anxiety, Bipolar, Depression Smoking Status: Current every day smoker Past Alcohol Use History: None Reported Past Drug Use History: Marijuana General Exam - General Exam Comments Initial Comments: General: The patient is awake and alert, in no distress, and does not appear acutely ill. Eye: +3 mm pupils are equal, round and reactive to light, extra-ocular movements are intact. No nystagmus. There is normal conjunctiva bilaterally. No signs of icterus. Ears, nose, mouth and throat: There are moist mucous membranes and no oral lesions. No raccoon or Morrow sign Neck: The neck is supple, there is no tenderness or JVD. No midline tenderness with patient the cervical spine Cardiovascular: There is a regular rate and rhythm. No murmur, rub or gallop is appreciated. Respiratory: Lungs are clear to auscultation, respirations are non-labored, breath sounds are equal. No wheezes, stridor, rales, or rhonchi. Gastrointestinal: Soft, non-distended, non-tender abdomen without masses or organomegaly noted. There is no rebound or guarding present. Musculoskeletal: Normal ROM, no tenderness. Strength 5/5 of all 5 digits of the right hand as well as LE and wrists b/l. no snuffbox tenderness, pain along the ulnar aspect.. Sensation intact of the UE and LE b/l. Radial pulses equal bilaterally 2+. Neurological: A&O x 3. CN II-XII intact, There are no obvious motor or sensory deficits. Coordination appears grossly intact. Speech is normal. Skin: Skin is warm and dry and no rashes or lesions are noted. No scalp hematomas or any lacerations appreciated. No LE edema. no calf pain. Psychiatric: Cooperative, appropriate mood & affect, normal judgment. Limitations: no limitations Course Vital Signs 06/29/20 06/29/20 14:09 15:33 Temperature 99.1 F 98 F Pulse Rate 92 90 Respiratory 18 18 Rate Blood Pressure 106/76 106/74 O2 Sat by Pulse 97 100 Oximetry EKG Findings - EKG Comments: EKG Findings:: Ventricular rate 60 bpm, SC interval 150 ms, QRS duration 84 ms, QT/QTC 398/[address] elevation or depression no evidence of Brugada syndrome or delta wave. Medical Decision Making - Medical Decision Making labs stable. hcg (-). ekg no acute findings. no murmur on exam. no extremity findings such as swelling.pain to palpation ulnar aspect of right wrist. Neurovascularly intact. No snuffbox tenderness. Patient x-ray negative for a cute osseous process. As well as the lumbar spine imaging studies. No loss of bowel bladder control or urinary retention no loss of sensation or radiation of pain down the legs and no weakness of the lower extremities patient is able to her. She denies any current symptoms aside from wrist and mild low back pain. Patient at this time feel stiffer discharge with outpatient f/u. patient discharged appearing well. Dr Oro agreeable to care plan. - Lab Data Result diagrams: 06/29/20 14:40 06/29/20 14:40 Lab Results 06/29/20 06/29/20 06/29/20 Range/Units 14:40 14:40 14:40 WBC 13.0 H (3.8-10.6) k/uL RBC 5.58 H (3.80-5.40) m/uL Hgb 16.4 H (11.4-16.0) gm/dL Hct 48.0 H (34.0-46.0) % MCV 86.0 (80.0-100.0) fL MCH 29.3 (25.0-35.0) pg MCHC 34.1 (31.0-37.0) g/dL RDW 13.1 (11.5-15.5) % Plt Count 255 (150-450) k/uL MPV 8.4 Neutrophils % 67 % Lymphocytes % 23 % Monocytes % 4 % Eosinophils % 5 % Basophils % 1 % Neutrophils # 8.7 H (1.3-7.7) k/uL Lymphocytes # 3.0 (1.0-4.8) k/uL Monocytes # 0.5 (0-1.0) k/uL Eosinophils # 0.6 (0-0.7) k/uL Basophils # 0.2 (0-0.2) k/uL PT 10.3 (9.0-12.0) sec INR 1.0 (<1.2) APTT 22.0 (22.0-30.0) sec Sodium 137 (137-145) mmol/L Potassium 4.3 (3.5-5.1) mmol/L Chloride 111 H (98-107) mmol/L Carbon Dioxide 22 (22-30) mmol/L Anion Gap 4 mmol/L BUN 11 (7-17) mg/dL Creatinine 0.77 (0.52-1.04) mg/dL Est GFR (CKD-EPI)AfAm >90 (>60 ml/min/1.73 sqM) Est GFR (CKD-EPI)NonAf >90 (>60 ml/min/1.73 sqM) Glucose 117 H (74-99) mg/dL Calcium 9.2 (8.4-10.2) mg/dL Magnesium 1.8 (1.6-2.3) mg/dL Total Bilirubin 0.3 (0.2-1.3) mg/dL AST 18 (14-36) U/L ALT 25 (4-34) U/L Alkaline Phosphatase 53 (38-126) U/L Troponin I (0.000-0.034) ng/mL Total Protein 6.3 (6.3-8.2) g/dL Albumin 3.7 (3.5-5.0) g/dL Urine Color Urine Appearance (Clear) Urine pH (5.0-8.0) Ur Specific [place] (1.001-1.035) Urine Protein (Negative) Urine Glucose (UA) (Negative) Urine Ketones (Negative) Urine Blood (Negative) Urine Nitrite (Negative) Urine Bilirubin (Negative) Urine Urobilinogen (<2.0) mg/dL Ur Leukocyte Esterase (Negative) Urine RBC (0-5) /hpf Urine WBC (0-5) /hpf Ur Squamous Epith Cells (0-4) /hpf Calcium Oxalate Crystal (None) /hpf Urine Bacteria (None) /hpf Urine Mucus (None) /hpf Urine HCG, Qual (Not Detectd) 06/29/20 06/29/20 06/29/20 Range/Units 14:40 15:19 15:19 WBC (3.8-10.6) k/uL RBC (3.80-5.40) m/uL Hgb (11.4-16.0) gm/dL Hct (34.0-46.0) % MCV (80.0-100.0) fL MCH (25.0-35.0) pg MCHC (31.0-37.0) g/dL RDW (11.5-15.5) % Plt Count (150-450) k/uL MPV Neutrophils % % Lymphocytes % % Monocytes % % Eosinophils % % Basophils % % Neutrophils # (1.3-7.7) k/uL Lymphocytes # (1.0-4.8) k/uL Monocytes # (0-1.0) k/uL Eosinophils # (0-0.7) k/uL Basophils # (0-0.2) k/uL PT (9.0-12.0) sec INR (<1.2) APTT (22.0-30.0) sec Sodium (137-145) mmol/L Potassium (3.5-5.1) mmol/L Chloride (98-107) mmol/L Carbon Dioxide (22-30) mmol/L Anion Gap mmol/L BUN (7-17) mg/dL Creatinine (0.52-1.04) mg/dL Est GFR (CKD-EPI)AfAm (>60 ml/min/1.73 sqM) Est GFR (CKD-EPI)NonAf (>60 ml/min/1.73 sqM) Glucose (74-99) mg/dL Calcium (8.4-10.2) mg/dL Magnesium (1.6-2.3) mg/dL Total Bilirubin (0.2-1.3) mg/dL AST (14-36) U/L ALT (4-34) U/L Alkaline Phosphatase (38-126) U/L Troponin I <0.012 (0.000-0.034) ng/mL Total Protein (6.3-8.2) g/dL Albumin (3.5-5.0) g/dL Urine Color Yellow Urine Appearance Cloudy H (Clear) Urine pH 6.0 (5.0-8.0) Ur Specific [place] 1.024 (1.001-1.035) Urine Protein Trace H (Negative) Urine Glucose (UA) Negative (Negative) Urine Ketones Negative (Negative) Urine Blood Trace H (Negative) Urine Nitrite Negative (Negative) Urine Bilirubin Negative (Negative) Urine Urobilinogen 2.0 (<2.0) mg/dL Ur Leukocyte Esterase Negative (Negative) Urine RBC 2 (0-5) /hpf Urine WBC 4 (0-5) /hpf Ur Squamous Epith Cells 13 H (0-4) /hpf Calcium Oxalate Crystal Many H (None) /hpf Urine Bacteria Rare H (None) /hpf Urine Mucus Many H (None) /hpf Urine HCG, Qual Not Detected (Not Detectd) Disposition Clinical Impression: Syncope, Right wrist pain, Low back pain Disposition: HOME SELF-CARE Condition: Good Instructions (If sedation given, give patient instructions): Syncope (ED), R.I.C.E. Treatment (ED) Additional Instructions: Please use medication as discussed. Please follow-up with family doctor in the next 2 days. Please return to emergency room if the symptoms increase or worsen or for any other concerns. Is patient prescribed a controlled substance at d/c from ED?: No Referrals: Manuel Melgar DO [Primary Care Provider] - 1-2 days Time of Disposition: 16:55
== END 2020-06-29 17:34 | disposition home or self-care (01) ==
LOC: EC 14:05
DX: R55 Syncope and collapse (principal); M54.5 Low back pain; M25.531 Pain in right wrist; F41.9 Anxiety disorder, unspecified; F31.9 Bipolar disorder, unspecified; F17.200 Nicotine dependence, unspecified, uncomplicated; Z79.899 Other long term (current) drug therapy; Z88.1 Allergy status to other antibiotic agents; Z88.6 Allergy status to analgesic agent; Z90.49 Acquired absence of other specified parts of digestive tract; Z90.89 Acquired absence of other organs
CPT/HCPCS: 36415; 70450; 71046; 72100; 72125; 80053; 81001; 81025; 83735; 84484; 85025; 85610; 85730; 93005; 96360; 96361; 99284

== ENCOUNTER 2020-12-07 17:21 | Emergency (ER) | payer OTHER ==
[2020-12-07 17:28] VITALS: RESP 18
--- NOTE | 2020-12-07 17:45 | ED ---
General Adult HPI - General Chief complaint: Psychiatric Symptoms Stated complaint: Mental health Time Seen by Provider: 12/07/20 17:42 Source: patient, EMS Mode of arrival: EMS Limitations: no limitations - History of Present Illness Initial comments: Patient presents to the ED by ambulance for evaluation. Patient states she got into a verbal argument with her mother earlier today, then ran out of the house, stating that she wanted to kill herself by driving her car into a tree. Patient now states that she was very upset when she made these comments, and she denies being suicidal. Patient admits to marijuana use earlier today. Patient denies any other illicit drug use or alcohol use. Patient denies medication abuse or overdose. Patient denies suicidal attempt, homicidal ideations, hallucinations, trauma or injury, any pain, fever or chills, dyspnea, dizziness, nausea or vomiting, or any other symptoms or complaints. - Related Data Home Medications Medication Instructions Recorded Confirmed Citalopram Hydrobromide [CeleXA] 20 mg PO DAILY 08/31/17 08/31/17 LORazepam [Ativan] 1 mg PO TID 08/31/17 08/31/17 Allergies Allergy/AdvReac Type Severity Reaction Status Date / Time metronidazole [From Flagyl] AdvReac Nausea Verified 06/29/20 14:16 Metronidazole HCl AdvReac Nausea Verified 06/29/20 14:16 [From Flagyl] tramadol AdvReac Nausea Verified 06/29/20 14:16 Review of Systems ROS Statement: Those systems with pertinent positive or pertinent negative responses have been documented in the HPI. ROS Other: All systems not noted in ROS Statement are negative. Past Medical History Past Medical History: Asthma Additional Past Medical History / Comment(s): poly cystic ovarian syndrome History of Any Multi-Drug Resistant Organisms: None Reported Past Surgical History: Adenoidectomy, Cholecystectomy, Orthopedic Surgery, Tonsillectomy Additional Past Surgical History / Comment(s): right knee; ganglion cyst removal bilateral hands, hemroidectomy 2019. Past Anesthesia/Blood Transfusion Reactions: No Reported Reaction Past Psychological History: ADD/ADHD, Anxiety, Bipolar, Depression Smoking Status: Current every day smoker Past Alcohol Use History: None Reported Past Drug Use History: Marijuana General Exam Limitations: no limitations General appearance: alert, in no apparent distress Head exam: Present: atraumatic, normocephalic Eye exam: Present: normal appearance, PERRL, EOMI ENT exam: Present: mucous membranes moist Neck exam: Present: other (Trachea is in midline) Respiratory exam: Present: normal lung sounds bilaterally. Absent: respiratory distress, wheezes, rales, rhonchi, stridor Cardiovascular Exam: Present: regular rate, normal rhythm, normal heart sounds, other (Normal radial pulses bilaterally) GI/Abdominal exam: Present: soft. Absent: distended, tenderness, guarding Extremities exam: Absent: tenderness, pedal edema Neurological exam: Present: alert, oriented X3. Absent: motor sensory deficit Psychiatric exam: Present: normal affect, normal mood Skin exam: Present: warm, dry, intact, normal color Course Vital Signs 12/07/20 12/07/20 17:22 21:38 Temperature 98.4 F 98.7 F Pulse Rate 78 67 Respiratory 18 18 Rate Blood Pressure 124/86 132/84 O2 Sat by Pulse 97 99 Oximetry Medical Decision Making - Medical Decision Making Patient denies being suicidal and she states that her suicidal remarks were made out of frustration. Patient has been seen and evaluated by EPS nurse in the ED. EPS nurse recommends discharging the patient home with outpatient psychiatric/[facility] follow-up. - Lab Data Lab Results 12/07/20 Range/Units 18:17 Urine Opiates Screen Not Detected (NotDetected) Ur Oxycodone Screen Not Detected (NotDetected) Urine Methadone Screen Not Detected (NotDetected) Ur Propoxyphene Screen Not Detected (NotDetected) Ur Barbiturates Screen Not Detected (NotDetected) U Tricyclic Antidepress Not Detected (NotDetected) Ur Phencyclidine Scrn Not Detected (NotDetected) Ur Amphetamines Screen Detected H (NotDetected) U Methamphetamines Scrn Not Detected (NotDetected) U Benzodiazepines Scrn Not Detected (NotDetected) Urine Cocaine Screen Not Detected (NotDetected) U Marijuana (THC) Screen Detected H (NotDetected) Disposition Clinical Impression: Drug abuse Narrative: suicidal remarks Disposition: HOME SELF-CARE Condition: Stable Instructions (If sedation given, give patient instructions): Suicide Prevention (ED), Cannabis Abuse (ED) Additional Instructions: Return to the ER if you develop thoughts of hurting herself or others, hallucinations, any significant pain, shortness of breath, feeling dizzy or faint, or new or worsening symptoms. Follow up closely with your primary care provider, as well as psychiatry. Is patient prescribed a controlled substance at d/c from ED?: No Referrals: Manuel Melgar DO [Primary Care Provider] - 1-2 days Time of Disposition: 21:45
[2020-12-07 18:44] LABS: Amphetamine Screen,Urine Detected (NotDetected); Barbiturate Screen,Urine Not Detected (NotDetected); Benzodiazepines Screen,Urine Not Detected (NotDetected); Cocaine Screen,Urine Not Detected (NotDetected); Methadone Screen, Urine Not Detected (NotDetected); Opiate Screen,Urine Not Detected (NotDetected); Oxycodone Screen, Urine Not Detected (NotDetected); Phencyclidine Screen,Urine Not Detected (NotDetected); Tricyclic Antidepressant,Urine Not Detected (NotDetected); Urn Cannabinoid Scrn Detected (NotDetected)
[2020-12-07 21:39] VITALS: BP 132/84; PULSE 67; TEMP 98.7
== END 2020-12-07 22:09 | disposition home or self-care (01) ==
LOC: EC 17:21
DX: F19.10 Other psychoactive substance abuse, uncomplicated (principal); R45.851 Suicidal ideations; J45.909 Unspecified asthma, uncomplicated; F31.9 Bipolar disorder, unspecified; F41.9 Anxiety disorder, unspecified; F90.9 Attention-deficit hyperactivity disorder, unspecified type; F17.200 Nicotine dependence, unspecified, uncomplicated; F12.90 Cannabis use, unspecified, uncomplicated; Z88.1 Allergy status to other antibiotic agents; Z88.5 Allergy status to narcotic agent; Z88.8 Allergy status to other drugs, medicaments and biological substances
CPT/HCPCS: 80306; 82075; 99284

== ENCOUNTER → 2021-01-08 | Outpatient (CLI) | payer OTHER ==
--- NOTE | 2021-01-08 21:07 | CONS ---
CONSULTATION DATE OF SERVICE: 01/08/2021 This is a 30-year-old lady has been evaluated in the sleep center for possible obstructive sleep apnea-hypopnea syndrome and significant excessive daytime sleepiness. HISTORY OF PRESENT ILLNESS/ SLEEP-WAKE EVALUATION: SLEEP SCHEDULE: Patient usual sleep schedule from 10 p.m. until 9:00 am. FALLING ASLEEP: The patient does have problems with falling asleep, has TV set in bedroom. DURING SLEEP: She sleeps in different position. According to her mother, she snores and has episodes of stopped breathing during sleep. Positive history of sleep talking. The patient wakes up from sleep 3 times with nocturia. No history of sleep paralysis or hypnogogical hallucinations. Patient may be experiencing some new weakness in her chest area during this strong emotions like laughing which might indicate symptoms of cataplexy, but definitely not typical. DURING THE DAY/SLEEP WAKE EVALUATION: [place] Sleepiness Scale today is 12. She may take naps several times during the day and she seeing dreams during the naps. Patient is on treatment with D amphetamine and with that medication her [place] sleep scale is 12. The patient has difficulties paying attention during the day, has problems with concentration, irritability, depression, anxiety. PAST MEDICAL HISTORY: Positive for depression, anxiety, acid reflux, ADHD. SOCIAL HISTORY: Patient smokes for 12 years, presently 1 pack a day. Alcohol consumption: None. MEDICATIONS: Hydroxyzine 25 mg 3 times a day as needed. Fluoxetine 40 mg once a day. Omeprazole 20 mg once a day. 1 time at bedtime, D amphetamine 30 mg once a day, topiramate 50 mg at bedtime. PAST SURGICAL HISTORY: Tonsillectomy and adenoidectomy, right knee arthroscopic surgery, right wrist cyst removed. FAMILY HISTORY: Positive for hypertension, stroke, emphysema, cancer. REVIEW OF SYSTEMS: Multiple awakenings from sleep. Significant sleepiness during the day. PHYSICAL EXAMINATION: GENERAL: Patient in no distress. BP 128/68, HR 76, RR 18, height 5 feet 1 inch, weight 224.6, temperature 96.3, oxygen saturation at room air 96%, BMI of 42.3. HEENT: PERRLA, EOMI. Oropharynx low position of soft palate. Mallampati 3. Wide neck 18 inches in circumference. NECK: Supple, no JVD. Thyroid is not palpable. LUNGS: Clear to percussion and to auscultation. Good air exchange. No wheezing or rhonchi. HEART: S1, S2 regular. No murmurs, gallops, or rubs. ABDOMEN: Obese. Soft and nontender. Bowel sounds are present. No organomegaly appreciated. EXTREMITIES: No clubbing or cyanosis. SKIDDER LOADER: Awake, alert, and oriented X3. Cranial nerves 2 to 7 intact. There is no fasciculation or atrophy. noted. No focal deficits observed. IMPRESSION: 1. Snoring, witnessed episodes of stopped breathing during sleep. Low position of soft palate, wide neck 18 inches in circumference, sleepiness, obstructive sleep apnea-hypopnea syndrome. 2. Very strong sleepiness during specific situations, positive history of vivid dreams, naps several times during the day. Differential diagnosis should include narcolepsy. [place] Sleepiness Scale is 12 while patient is on treatment with D amphetamine. 3. Obesity. BMI 42.3. 4. Depression. 5. Anxiety. 6. History of attention-deficit/hyperactivity disorder. 7. Acid reflux. PLAN: PLAN: 1. Polysomnography for evaluation of patient's breathing during sleep. 2. CPAP/BiPAP titration if sleep study confirms obstructive sleep apnea-hypopnea syndrome. 3. Preferable position during sleep on the side. 4. No driving if patient feels any sleepiness. 5. I will see patient for follow up visit to explain results of testing and following plan. 6. The patient may need multiple sleep latency test for objective evaluation of symptoms of excessive daytime sleepiness. If she will continue to feel sleepy while her respirations under full control. Thank you very much for referring this patient for consultation. Sincerely. Biju Castillo MD, PhD, FAASM Diplomat of [employer] Producer of [facility] MMODL / IJN: [id number] /
== END ==
LOC: SLEEP 13:31
PROVIDERS: ATTEND Internal Medicine
DX: G47.33 Obstructive sleep apnea (adult) (pediatric) (principal); E66.9 Obesity, unspecified; F32.9 Major depressive disorder, single episode, unspecified; F41.9 Anxiety disorder, unspecified; K21.9 Gastro-esophageal reflux disease without esophagitis; F90.9 Attention-deficit hyperactivity disorder, unspecified type; F17.200 Nicotine dependence, unspecified, uncomplicated; Z68.41 Body mass index [BMI] 40.0-44.9, adult; Z79.899 Other long term (current) drug therapy; Z88.1 Allergy status to other antibiotic agents; Z88.6 Allergy status to analgesic agent
CPT/HCPCS: 99211

== ENCOUNTER → 2021-03-06 | Outpatient (CLI) | payer OTHER ==
--- NOTE | 2021-03-06 13:07 | XR ---
EXAMINATION TYPE: XR hand complete RT DATE OF EXAM: 03/06/2021 CLINICAL HISTORY: pain TECHNIQUE: Frontal, lateral and oblique images of the right hand are obtained. COMPARISON: None. FINDINGS: There is no acute fracture/dislocation evident. The joint spaces appear within normal limi ts. The overlying soft tissue appears unremarkable. IMPRESSION: There is no acute fracture or dislocation ICD 10 NO FRACTURE, INITIAL EVALUATION
== END | disposition home or self-care (01) ==
LOC: RADXRMAIN 12:41
PROVIDERS: ATTEND Family Medicine
DX: M79.641 Pain in right hand (principal)

== ENCOUNTER 2021-03-09 09:51 | Inpatient (IN) | payer MEDICAID, OTHER ==
[2021-03-09] MEDS ORDERED: LIDOCAINE 1% INJ 10MG/ML (20 ML MDV) SQ ONE (10:43)
[2021-03-09 11:12] LABS: Amphetamine Screen,Urine Not Detected (NotDetected); Barbiturate Screen,Urine Not Detected (NotDetected); Benzodiazepines Screen,Urine Not Detected (NotDetected); Cocaine Screen,Urine Not Detected (NotDetected); Methadone Screen, Urine Not Detected (NotDetected); Opiate Screen,Urine Not Detected (NotDetected); Oxycodone Screen, Urine Not Detected (NotDetected); Phencyclidine Screen,Urine Not Detected (NotDetected); Tricyclic Antidepressant,Urine Not Detected (NotDetected); Urn Cannabinoid Scrn Detected (NotDetected)
--- NOTE | 2021-03-09 12:18 | ED ---
Psych HPI - General Chief Complaint: Psychiatric Symptoms Stated Complaint: Mental Health/wrist lac Time Seen by Provider: 03/09/21 10:34 Source: patient Mode of arrival: ambulatory - History of Present Illness Initial Comments: Patient is a 30-year-old female presenting to the emergency department for psychiatric evaluation. Patient states that her and her boyfriend got into an argument, and when the boyfriend went to leave and she got mad, took a razor she uses from her eyebrows and cut the inside of her left arm. Patient told triage that she was still suicidal. When asked at this time, she denies being suicidal, no suicidal thoughts, no homicidal thoughts. She denies any alcohol or drug use. She does take Ativan and Celexa, prescribed by her primary doctor, she does see a counselor however has not seen her in quite some time. Patient denies any other complaints today, no chest pain or shortness of breath, she denies being . She has no further complaints. Her vital signs are stable upon arrival. - Related Data Home Medications Medication Instructions Recorded Confirmed Citalopram Hydrobromide [CeleXA] 20 mg PO DAILY 08/31/17 08/31/17 LORazepam [Ativan] 1 mg PO TID 08/31/17 08/31/17 Allergies Allergy/AdvReac Type Severity Reaction Status Date / Time metronidazole [From Flagyl] AdvReac Nausea & Verified 03/09/21 13:30 Vomiting & Diarrhea Metronidazole HCl AdvReac Nausea & Verified 03/09/21 13:30 [From Flagyl] Vomiting tramadol AdvReac Nausea & Verified 03/09/21 13:30 Vomiting & Diarrhea Review of Systems ROS Statement: Those systems with pertinent positive or pertinent negative responses have been documented in the HPI. ROS Other: All systems not noted in ROS Statement are negative. Past Medical History Past Medical History: Asthma Additional Past Medical History / Comment(s): poly cystic ovarian syndrome History of Any Multi-Drug Resistant Organisms: None Reported Past Surgical History: Adenoidectomy, Cholecystectomy, Orthopedic Surgery, Tonsillectomy Additional Past Surgical History / Comment(s): right knee; ganglion cyst removal bilateral hands, hemroidectomy 2019. Past Anesthesia/Blood Transfusion Reactions: No Reported Reaction Past Psychological History: ADD/ADHD, Anxiety, Bipolar, Depression Smoking Status: Current every day smoker Past Alcohol Use History: None Reported Past Drug Use History: Marijuana General Exam - General Exam Comments Initial Comments: GENERAL: Patient is well-developed and well-nourished. Patient is nontoxic and in no acute distress. HEAD: Atraumatic, normocephalic. EYES: Pupils equal round and reactive to light, extraocular movements intact, sclera anicteric, conjunctiva are normal. Eyelids were unremarkable. ENT: Nares patent, oropharynx clear without exudates. Moist mucous membranes. NECK: Normal range of motion, supple without lymphadenopathy or JVD. LUNGS: Unlabored respirations. Breath sounds clear to auscultation bilaterally and equal. No wheezes rales or rhonchi. HEART: Regular rate and rhythm without murmurs, rubs or gallops. ABDOMEN: Soft, nontender, normoactive bowel sounds. No guarding, no rebound. No masses appreciated. : Deferred MUSCULOSKELETAL: Normal extremities with adequate strength and normal range of motion, no pitting or edema. No clubbing or cyanosis. NEUROLOGICAL: Patient is alert and oriented x 3. Motor and sensory are also intact. Cranial nerves II through XII grossly intact. Symmetrical smile. Normal speech, normal gait. PSYCH: Normal mood, normal affect. SKIN: Warm, Dry, normal turgor. Patient has an approximate 12 cm laceration on the palmar aspect of her left forearm, most of it is superficial, about 3 cm of this wound is requiring suturing secondary to it being deeper. She also has a few other superficial lacerations to her left forearm also the inside part of her left leg. These appear old in nature and are healing appropriately, no signs of infection at this time. Limitations: no limitations Course Vital Signs 03/09/21 10:25 Temperature 98.1 F Pulse Rate 81 Respiratory 18 Rate Blood Pressure 139/98 O2 Sat by Pulse 95 Oximetry Procedures - Laceration Laceration #1 Consent Obtained: verbal consent Indication: laceration Site: upper extremity (Left forearm, palmar aspect) Size (cm): 3 Description: linear Depth: simple, single layer Anesthetic Used: lidocaine 1% Anesthesia Technique: local infiltration Amount (mls): 4 Pre-repair: irrigated extensively Type of Sutures: nylon Size of Sutures: 5-0 Number of Sutures: 8 Technique: simple, interrupted Patient Tolerated Procedure: well Medical Decision Making - Medical Decision Making Patient is a 30-year-old female here for psychiatric evaluation. Patient states she got RhoGAM with her boyfriend, the boyfriend went to leave and she did not want him to leave so took a razor blade to her left forearm. Patient has a superficial 12 cm wound to the left forearm, 3 cm of it did require suturing, did place 8 sutures. She tolerated procedure well. She denies any suicidal or homicidal thoughts at this time. Patient was evaluated by EPS and will be admitted. She signed herself in. Case discussed with Dr. Bryant. - Lab Data Lab Results 03/09/21 Range/Units 10:50 Urine Opiates Screen Not Detected (NotDetected) Ur Oxycodone Screen Not Detected (NotDetected) Urine Methadone Screen Not Detected (NotDetected) Ur Propoxyphene Screen Not Detected (NotDetected) Ur Barbiturates Screen Not Detected (NotDetected) U Tricyclic Antidepress Not Detected (NotDetected) Ur Phencyclidine Scrn Not Detected (NotDetected) Ur Amphetamines Screen Not Detected (NotDetected) U Methamphetamines Scrn Not Detected (NotDetected) U Benzodiazepines Scrn Not Detected (NotDetected) Urine Cocaine Screen Not Detected (NotDetected) U Marijuana (THC) Screen Detected H (NotDetected) Disposition Clinical Impression: Suicidal ideation Disposition: TRANSFER TO PSYCH HOSP/UNIT Condition: Stable Referrals: Manuel Melgar DO [Primary Care Provider] - 1-2 days Decision Date: 03/09/21 Decision Time: 13:42
[2021-03-09] MEDS ORDERED: ONDANSETRON ODT 4 MG TAB PO STA (12:28)
[2021-03-09] MEDS ORDERED: KETOROLAC 15 MG/ML 1 ML VIAL IM STA (12:28)
[2021-03-09] MEDS ORDERED: NICOTINE 14MG/24HR PATCH TRANSDERM STA (12:54)
[2021-03-09] MEDS ORDERED: MAGNESIUM HYDROXIDE 2,400 MG/10 ML CUP PO PRN (14:25)
[2021-03-09] MEDS ORDERED: MAG HYDROX/AL HYDROX/SIMETH 30 ML CUP PO PRN (14:25)
[2021-03-09] MEDS ORDERED: LORazepam 2 MG/ML INJ IM PRN (14:27)
[2021-03-09] MEDS ORDERED: FLUoxetine HCL 20 MG CAP PO SCH (14:30)
[2021-03-09] MEDS: PANTOPRAZOLE 40 MG TABLET PO SCH (15:26)
[2021-03-09] MEDS: FLUoxetine HCL 20 MG CAP PO SCH (15:27)
[2021-03-09] MEDS: hydrOXYzine HCL 25 MG TAB PO SCH ×2 (16:47→21:05)
[2021-03-09] MEDS: ACETAMINOPHEN TAB 325 MG TAB PO PRN (16:55)
[2021-03-09] MEDS ORDERED: cloNIDine HCL 0.1 MG TAB PO SCH (21:00)
[2021-03-09] MEDS: TOPIRAMATE 25 MG TAB PO SCH (21:05)
[2021-03-09] MEDS: ARIPiprazole 5 MG TAB PO SCH (21:05)
[2021-03-10 04:24] LABS: Hemoglobin A1C 5.5 % (4.0-6.0)
[2021-03-10 07:15] LABS: Basophils # (A) 0.1 k/uL (0-0.2); Basophils % (A) 1 %; Eosinophils # (A) 0.4 k/uL (0-0.7); Eosinophils % (A) 4 %; HCT 44.1 % (34.0-46.0); HGB 14.5 gm/dL (11.4-16.0); Lymphocytes % (A) 20 %; MCH 29.7 pg (25.0-35.0); Mean Platelet Volume 9.2; Monocytes # (A) 0.4 k/uL (0-1.0); Monocytes % (A) 4 %; Neutrophils # (A) 7.1 k/uL (1.3-7.7); Neutrophils % (A) 70 %; Platelet Count 253 k/uL (150-450); RBC 4.89 m/uL (3.80-5.40); WBC 10.1 k/uL (3.8-10.6)
[2021-03-10 07:35] LABS: ALT 31 U/L (4-34); AST 31 U/L (14-36); African American GFR (CKD) >90 (>60 ml/min/1.73 sqM); Albumin 3.8 g/dL (3.5-5.0); Alkaline Phosphatase 70 U/L (38-126); Anion Gap 7 mmol/L; Blood Urea Nitrogen 8 mg/dL (7-17); Calcium 9.6 mg/dL (8.4-10.2); Carbon Dioxide 24 mmol/L (22-30); Chloride 108 mmol/L (98-107); Glucose 104 mg/dL (74-99); Non-African American GFR(CKD) >90 (>60 ml/min/1.73 sqM); Potassium 4.6 mmol/L (3.5-5.1); Sodium 139 mmol/L (137-145); Total Bilirubin 0.4 mg/dL (0.2-1.3); Total Protein 6.4 g/dL (6.3-8.2)
[2021-03-10] MEDS: hydrOXYzine HCL 25 MG TAB PO SCH ×3 (08:10→21:35)
[2021-03-10] MEDS: FLUoxetine HCL 20 MG CAP PO SCH (08:10)
[2021-03-10] MEDS: PANTOPRAZOLE 40 MG TABLET PO SCH (08:10)
[2021-03-10] MEDS ORDERED: NICOTINE 14MG/24HR PATCH TRANSDERM SCH (09:00)
[2021-03-10] MEDS: NICOTINE 21MG/24HR PATCH TRANSDERM SCH (10:11)
--- NOTE | 2021-03-10 11:41 | P.HP ---
Psychiatric H&P - . H&P Date: 03/10/21 History & Physical: Allergies Allergy/AdvReac Type Severity Reaction Status Date / Time metronidazole From Flagyl AdvReac Nausea & Verified 03/09/21 13:30 Vomiting & Diarrhea Metronidazole HCl AdvReac Nausea & Verified 03/09/21 13:30 From Flagyl Vomiting tramadol AdvReac Nausea & Verified 03/09/21 13:30 Vomiting & Diarrhea Vital Signs Temp 97.6 F 03/10/21 06:36 Pulse 61 03/10/21 06:36 Resp 16 03/10/21 06:36 BP 102/67 03/10/21 06:36 Pulse Ox 97 03/09/21 15:00 Intake & Output 03/09/21 03/10/21 03/10/21 18:59 06:59 18:59 Weight 99.4 kg Laboratory Last Values WBC 10.1 k/uL (3.8-10.6) 03/10/21 06:54 RBC 4.89 m/uL (3.80-5.40) 03/10/21 06:54 Hgb 14.5 gm/dL (11.4-16.0) 03/10/21 06:54 Hct 44.1 % (34.0-46.0) 03/10/21 06:54 MCV 90.0 fL (80.0-100.0) 03/10/21 06:54 MCH 29.7 pg (25.0-35.0) 03/10/21 06:54 MCHC 33.0 g/dL (31.0-37.0) 03/10/21 06:54 RDW 13.0 % (11.5-15.5) 03/10/21 06:54 Plt Count 253 k/uL (150-450) 03/10/21 06:54 MPV 9.2 03/10/21 06:54 Neutrophils % 70 % 03/10/21 06:54 Lymphocytes % 20 % 03/10/21 06:54 Monocytes % 4 % 03/10/21 06:54 Eosinophils % 4 % 03/10/21 06:54 Basophils % 1 % 03/10/21 06:54 Neutrophils # 7.1 k/uL (1.3-7.7) 03/10/21 06:54 Lymphocytes # 2.0 k/uL (1.0-4.8) 03/10/21 06:54 Monocytes # 0.4 k/uL (0-1.0) 03/10/21 06:54 Eosinophils # 0.4 k/uL (0-0.7) 03/10/21 06:54 Basophils # 0.1 k/uL (0-0.2) 03/10/21 06:54 Sodium 139 mmol/L (137-145) 03/10/21 06:54 Potassium 4.6 mmol/L (3.5-5.1) 03/10/21 06:54 Chloride 108 mmol/L (98-107) H 03/10/21 06:54 Carbon Dioxide 24 mmol/L (22-30) 03/10/21 06:54 Anion Gap 7 mmol/L 03/10/21 06:54 BUN 8 mg/dL (7-17) 03/10/21 06:54 Creatinine 0.76 mg/dL (0.52-1.04) 03/10/21 06:54 Est GFR (CKD-EPI)AfAm >90 (>60 ml/min/1.73 sqM) 03/10/21 06:54 Est GFR (CKD-EPI)NonAf >90 (>60 ml/min/1.73 sqM) 03/10/21 06:54 Glucose 104 mg/dL (74-99) H 03/10/21 06:[address] Glu mg/dL 111 03/09/21 15:36 Hemoglobin A1c 5.5 % (4.0-6.0) 03/09/21 15:36 Calcium 9.6 mg/dL (8.4-10.2) 03/10/21 06:54 Total Bilirubin 0.4 mg/dL (0.2-1.3) 03/10/21 06:54 AST 31 U/L (14-36) 03/10/21 06:54 ALT 31 U/L (4-34) 03/10/21 06:54 Alkaline Phosphatase 70 U/L (38-126) 03/10/21 06:54 Total Protein 6.4 g/dL (6.3-8.2) 03/10/21 06:54 Albumin 3.8 g/dL (3.5-5.0) 03/10/21 06:54 TSH 0.975 mIU/L (0.465-4.680) 03/10/21 06:54 HCG, Quant <2.4 mIU/mL 03/09/21 15:36 Urine Opiates Screen Not Detected (NotDetected) 03/09/21 10:50 Ur Oxycodone Screen Not Detected (NotDetected) 03/09/21 10:50 Urine Methadone Screen Not Detected (NotDetected) 03/09/21 10:50 Ur Propoxyphene Screen Not Detected (NotDetected) 03/09/21 10:50 Ur Barbiturates Screen Not Detected (NotDetected) 03/09/21 10:50 U Tricyclic Antidepress Not Detected (NotDetected) 03/09/21 10:50 Ur Phencyclidine Scrn Not Detected (NotDetected) 03/09/21 10:50 Ur Amphetamines Screen Not Detected (NotDetected) 03/09/21 10:50 U Methamphetamines Scrn Not Detected (NotDetected) 03/09/21 10:50 U Benzodiazepines Scrn Not Detected (NotDetected) 03/09/21 10:50 Urine Cocaine Screen Not Detected (NotDetected) 03/09/21 10:50 U Marijuana (THC) Screen Detected (NotDetected) H 03/09/21 10:50 Coronavirus (PCR) Not Detected (Not Detectd) 03/09/21 12:56 03/10/21 11:06 IDENTIFYING DATA: Patient is a 30-year-old female who currently lives with her boyfriend, her son and currently works at a [employer]. HPI: Patient presented to the hospital yesterday for a psychiatric evaluation in the ER. Patient apparently had just been in a fight with her boyfriend who threatened to leave her. According to ER report patient took a razor blade and cut her left arm requiring sutures. Patient apparently was suicidal in the ER however denied it shortly after. She currently goes to [facility] for follow-up and also is doing counseling. Her UDS was positive for marijuana. Patient was admitted to the psychiatric unit for observation and treatment. Patient was seen in the hallways and agreeable to speak to assembly instructions writer today. Patient appeared to have a disheveled appearance with unkempt hair. She presented with a calm d emeanor however states that her and her boyfriend have been getting into more frequent arguments lately. She states that this is been a big stressor for her at home. She states that he recently relapsed back on drinking and had had a problem with up with alcoholism in the past. She states that this has been affecting their relationship. She also claims that he was packing his belongings and moving out of the apartment when she got upset with him and took a razor blade and cut her wrist. She states that after that he threatened to call the network admin and then left the apartment. She states that she got in her car and went to her mother's house who made her father bring her into the hospital. She claims that she is not suffering from depression at this time but does have significant anxiety. She states that she does have mood swings at times however has been smoking marijuana to help with this approximately $40 per day. She states that she does have an difficulty with anger management and also impulsivity. She is denying any racing thoughts or any other manic symptoms today. She claims that her sleep has been fair. She claims that she has been noncompliant with her medications and follows up at [facility] recently. She is denying any alcohol or any other recreational drug use. She states that she smokes cigarettes daily. Patient denies any current suicidal or homicidal ideations intent or plan. At this time patient denies any auditory or visual hallucinations. Patient denies any flight of ideas racing thoughts and increased in goal directed behavior. PAST PSYCHIATRIC HISTORY: Patient states that she was previously on Prozac, Abilify, Vistaril and being prescribed Adderall by her primary care physician. She also states that recently she started taking clonidine at nighttime however does not know why. She states that she has been following up with [facility] and was last seen in January 2021. She claims that she does do some counseling. She claims that this is her first psychiatric admission. Patient denies any history of suicide attempts in the past. PMH:denies ALLERGIES: as per EMR CHEMICAL DEPENDENCY HISTORY: as per HPI FAMILY PSYCHIATRIC/SUBSTANCE USE HISTORY: She states that her father and brother both have bipolar disorder. She states that her mother has depression. SOCIAL HISTORY: Patient was born and raised in [place]. She states that she completed up to the 10th grade and then dropped out. She states that she currently works at a [employer] and is currently living with her son and boyfriend in a apartment where the boyfriend has recently left. She states that she is currently on probation after being charged with assault and battery and also domestic violence in October 2020. MENTAL STATUS EXAM: General Appearance: Patient appears to be overweight, stated age is alert, directable, and attempts to cooperate. Patient appears to have poor hygiene and grooming. Unkempt hair. Behavior: Patient is seated without any agitated behavior. Vague and guarded at times. Speech: Patient's speech is fluent and nonpressured. Mood/Affect: Patient reports their mood is "anxious but not depressed", affect is congruent and constricted. Suicidality/Homicidality: Patient denies having any homicidal ideation intent or plan. Denies any suicidal ideations intent or plan Perceptions: Patient denies any visual hallucinations and denies any auditory hallucinations Though content/process: There is no evidence of any delusional thought content and thought process is linear and goal-directed. Focused on her medications and being discharged. Minimizing her symptoms. Memory and concentration: AOX3, grossly intact for the purposes of this session. Can spell "WORLD" backwards Judgment and insight: poor STRENGTHS/WEAKNESSES: strength is that patient is resilient. Weakness is that patient has poor judgment and is impulsive INTELLECT: average IMPRESSIONS: Bipolar disorder unspecified Likely borderline personality disorder Cannabis use disorder Nicotine dependence PLAN: -Patient is admitted under voluntary status to MHU for stabilization of psychiatric symptoms and safety. Patient has signed adult voluntary form and medication consent and is placed in patient's chart. -Medications : Will start patient on her home dose of Abilify 5 mg daily for mood stabilization. Discontinued Prozac at this time and replaced with Zoloft 50 mg daily for mood/anxiety. Decrease Vistaril to 50 mg 3 times a day for anxiety. Trazodone 50 mg daily at bedtime when necessary for insomnia. Discontinued clonidine. -Ativan and Haldol PRN for agitation/aggression -Patient was counselled on substance abuse and desired to cut back on use -Patient was informed of the risks, benefits and side effects of the medication and patient verbally consented to taking the medications. Patient signed med consent form and was placed in chart. -Internal Medicine consult to perform medical evaluation and physical. -NRT - nicotine patch -SW on board for discharge planning. Encourage patient to participate in groups to work on coping skills. 03/10/21 11:34
[2021-03-10 15:20] LABS: Chol/HDL Ratio 5.26; Cholesterol 179 mg/dL (0-200); LDL Cholesterol,Calculated 74.4 mg/dL (0.0-131.0)
[2021-03-10] MEDS: ARIPiprazole 5 MG TAB PO SCH (21:35)
[2021-03-10] MEDS: TOPIRAMATE 25 MG TAB PO SCH (21:35)
[2021-03-10] MEDS: traZODone HCL 50 MG TAB PO PRN (21:36)
[2021-03-11] MEDS: ACETAMINOPHEN TAB 325 MG TAB PO PRN (08:47)
[2021-03-11] MEDS: hydrOXYzine HCL 25 MG TAB PO SCH ×3 (08:47→20:30)
[2021-03-11] MEDS: PANTOPRAZOLE 40 MG TABLET PO SCH (08:48)
[2021-03-11] MEDS: NICOTINE 21MG/24HR PATCH TRANSDERM SCH (08:48)
[2021-03-11] MEDS: SERTRALINE 50 MG TAB PO SCH (08:48)
--- NOTE | 2021-03-11 10:17 | P.PN ---
Progress Note - Text Progress Note Date: 03/11/21 Interval History: Patient was seen lying in her bed today and was directable and agreeable to sp kali with procedure writer in the office. She claims that she is doing mildly better overall in terms of her mood and anxiety. She continues to have unkempt hair however states that she did shower yesterday. She claims that she has been going to groups and participating best she can however is not getting much out of the groups. She was asking about discharge before the weekend. She claims that she feels the Zoloft has been helping little bit more. She claims that she does feel tired during the day and was agreeable to have her Vistaril decreased. At this time patient denies any suicidal or homical ideations, intent or plan. Patient denies any auditory, visual hallucinations and denies any paranoia or delusions. She has been taking her medications. She continues to be fairly guarded about the events that occurred before coming into the hospital. Mental Status Exam: General Appearance: Patient appears to be overweight, stated age is alert, directable, and attempts to cooperate. Patient appears to have poor hygiene and grooming. Unkempt hair. Behavior: Patient is seated without any agitated behavior. Vague and guarded at times, improving mildly Speech: Patient's speech is fluent and nonpressured. [place] Mood/Affect: Patient reports their mood is improving mildly, affect is congruent and constricted. Suicidality/Homicidality: Patient denies having any homicidal ideation intent or plan. Denies any suicidal ideations intent or plan Perceptions: Patient denies any visual hallucinations and denies any auditory hallucinations Though content/process: There is no evidence of any delusional thought content and thought process is linear and goal-directed. Focused on being discharged. Minimizing her symptoms. Memory and concentration: AOX3, grossly intact for the purposes of this session. Judgment and insight: poor, improving mildly Assessment Bipolar disorder unspecified Likely borderline personality disorder Cannabis use disorder Nicotine dependence Plan: -Patient continues to meet criteria for inpatient psychiatric admission for symptom stabilization and safety. Patient has signed adult voluntary form and medication consent and was placed in patient's chart. -Medications: Continue with Abilify 5 mg daily for mood stabilization/mood adjunct, Zoloft 50 mg daily for mood/anxiety. Decrease Vistaril to 25 mg 3 times a day for anxiety. Continue trazodone 50 mg daily at bedtime when necessary for insomnia. -When necessary Ativan and Haldol for agitation/aggression. -NRT - nicotine patch -SW on board for discharge planning. Encouraged the patient to participate in milieu.
[2021-03-11] MEDS: ARIPiprazole 5 MG TAB PO SCH (20:30)
[2021-03-11] MEDS: traZODone HCL 50 MG TAB PO PRN (20:30)
[2021-03-11] MEDS: TOPIRAMATE 25 MG TAB PO SCH (20:30)
[2021-03-12] MEDS: NICOTINE 21MG/24HR PATCH TRANSDERM SCH (08:06)
[2021-03-12] MEDS: hydrOXYzine HCL 25 MG TAB PO SCH ×3 (08:06→20:32)
[2021-03-12] MEDS: SERTRALINE 50 MG TAB PO SCH (08:06)
[2021-03-12] MEDS: PANTOPRAZOLE 40 MG TABLET PO SCH (08:06)
--- NOTE | 2021-03-12 10:36 | P.PN ---
Progress Note - Text Progress Note Date: 03/12/21 Interval History: Patient was seen lying in her bed today and was directable and agreeable to arpita bass with credit underwriter in the office. She continues to claim that her mood and anxiety improving. She states that she had a nightmare last night and found it difficult to sleep however claims that it was most likely related to not taking her nicotine patch. She states that she has not spoken with her boyfriend since coming to the hospital and that they are on a "no contact order". She states that she will most likely be going to her mother's house upon discharge. She continues to have unkempt hair however states that she did shower yesterday and has been having in improving appetite. She claims that she has been going to groups and participating best she can however is not getting much out of the groups. He claims that her energy level during the day has been improving. At this time patient denies any suicidal or homical ideations, intent or plan. Patient denies any auditory, visual hallucinations and denies any paranoia or delusions. She has been taking her medications. Mental Status Exam: General Appearance: Patient appears to be overweight, stated age is alert, directable, and attempts to cooperate. Patient appears to have poor hygiene and grooming. Unkempt hair. Behavior: Patient is seated without any agitated behavior. Speech: Patient's speech is fluent and nonpressured. [place] Mood/Affect: Patient reports their mood is improving mildly, affect is congruent and constricted. Suicidality/Homicidality: Patient denies having any homicidal ideation intent or plan. Denies any suicidal ideations intent or plan Perceptions: Patient denies any visual hallucinations and denies any auditory hallucinations Though content/process: There is no evidence of any delusional thought content and thought process is linear and goal-directed. Focused on being discharged. Memory and concentration: AOX3, grossly intact for the purposes of this session. Judgment and insight: improving mildly Assessment Bipolar disorder unspecified Likely borderline personality disorder Cannabis use disorder Nicotine dependence Plan: -Patient continues to meet criteria for inpatient psychiatric admission for symptom stabilization and safety. Patient has signed adult voluntary form and medication consent and was placed in patient's chart. -Medications: Continue with Abilify 5 mg daily for mood stabilization/mood adjunct, Zoloft 50 mg daily for mood/anxiety. continue with Vistaril to 25 mg 3 times a day for anxiety. Continue trazodone 50 mg daily at bedtime when necessary for insomnia. -When necessary Ativan and Haldol for agitation/aggression. -NRT - nicotine patch -SW on board for discharge planning. Encouraged the patient to participate in milieu. sand control worker to call mother and prepare for likely discharge tomorrow.
[2021-03-12] MEDS: LORazepam 1 MG TAB PO PRN ×2 (13:28→22:05)
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
[2021-03-12] MEDS: ARIPiprazole 5 MG TAB PO SCH (20:32)
[2021-03-12] MEDS: TOPIRAMATE 25 MG TAB PO SCH (20:32)
[2021-03-12 21:58] LABS: Basophils # (A) 0.1 k/uL (0-0.2); Basophils % (A) 1 %; Eosinophils # (A) 0.5 k/uL (0-0.7); Eosinophils % (A) 4 %; HCT 43.6 % (34.0-46.0); HGB 14.6 gm/dL (11.4-16.0); Lymphocytes # (A) 2.9 k/uL (1.0-4.8); Lymphocytes % (A) 22 %; MCH 30.2 pg (25.0-35.0); MCHC 33.5 g/dL (31.0-37.0); MCV 90.4 fL (80.0-100.0); Mean Platelet Volume 8.8; Monocytes # (A) 0.4 k/uL (0-1.0); Monocytes % (A) 3 %; Neutrophils # (A) 8.9 k/uL (1.3-7.7); Neutrophils % (A) 69 %; Platelet Count 284 k/uL (150-450); RBC 4.82 m/uL (3.80-5.40); RDW 12.9 % (11.5-15.5); WBC 12.9 k/uL (3.8-10.6)
[2021-03-12] MEDS: polyethylene glycoL 3350 17 GM POWD.PACK PO SCH (22:03)
[2021-03-12] MEDS: traZODone HCL 50 MG TAB PO PRN (22:05)
[2021-03-12] MEDS: BENZOCAINE 20% HEMORRHOIDAL OINT 28GM RECTAL SCH (22:05)
[2021-03-13 07:13] VITALS: BP 101/53; PULSE 75; RESP 18; TEMP 97.7
[2021-03-13 07:28] LABS: Basophils # (A) 0.1 k/uL (0-0.2); Basophils % (A) 1 %; Eosinophils # (A) 0.4 k/uL (0-0.7); Eosinophils % (A) 4 %; HCT 43.9 % (34.0-46.0); HGB 14.3 gm/dL (11.4-16.0); Lymphocytes # (A) 2.5 k/uL (1.0-4.8); Lymphocytes % (A) 22 %; MCH 29.5 pg (25.0-35.0); MCHC 32.7 g/dL (31.0-37.0); MCV 90.1 fL (80.0-100.0); Mean Platelet Volume 8.8; Monocytes # (A) 0.4 k/uL (0-1.0); Monocytes % (A) 4 %; Neutrophils # (A) 7.8 k/uL (1.3-7.7); Neutrophils % (A) 69 %; Platelet Count 265 k/uL (150-450); RBC 4.87 m/uL (3.80-5.40); RDW 12.9 % (11.5-15.5); WBC 11.3 k/uL (3.8-10.6)
[2021-03-13] MEDS: NICOTINE 21MG/24HR PATCH TRANSDERM SCH (08:28)
[2021-03-13] MEDS: SERTRALINE 50 MG TAB PO SCH (08:28)
[2021-03-13] MEDS: hydrOXYzine HCL 25 MG TAB PO SCH (08:28)
[2021-03-13] MEDS: PANTOPRAZOLE 40 MG TABLET PO SCH (08:28)
[2021-03-13] MEDS: LORazepam 1 MG TAB PO PRN (08:29)
[2021-03-13] MEDS: BENZOCAINE 20% HEMORRHOIDAL OINT 28GM RECTAL SCH (08:29)
[2021-03-13] MEDS: polyethylene glycoL 3350 17 GM POWD.PACK PO SCH (08:29)
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
[2021-03-13] MEDS ORDERED: BACITRACIN OINT 1 EACH PACKET TOPICAL ONE (10:13)
== END 2021-03-13 11:03 | disposition home or self-care (01) | DRG 885 ==
LOC: EC 09:51 → 3MHU 14:17
PROVIDERS: ADMIT Psychiatry & Neurology Psychiatry; ATTEND Psychiatry & Neurology Psychiatry
PROC: 0JQH3ZZ Repair Left Lower Arm Subcutaneous Tissue and Fascia, Percutaneous Approach (ICD-10-PCS; principal; 2021-03-09)
DX: F31.9 Bipolar disorder, unspecified (principal); Z68.41 Body mass index [BMI] 40.0-44.9, adult; Z91.128 Patient's intentional underdosing of medication regimen for other reason; E28.2 Polycystic ovarian syndrome; F12.10 Cannabis abuse, uncomplicated; F60.3 Borderline personality disorder; F10.20 Alcohol dependence, uncomplicated; Z20.822 Contact with and (suspected) exposure to COVID-19; E66.9 Obesity, unspecified; F90.9 Attention-deficit hyperactivity disorder, unspecified type; S41.112A Laceration without foreign body of left upper arm, initial encounter; S61.519A Laceration without foreign body of unspecified wrist, initial encounter; F41.8 Other specified anxiety disorders; J45.909 Unspecified asthma, uncomplicated; K21.9 Gastro-esophageal reflux disease without esophagitis; R45.87 Impulsiveness; T50.906A Underdosing of unspecified drugs, medicaments and biological substances, initial encounter; G47.00 Insomnia, unspecified; F17.210 Nicotine dependence, cigarettes, uncomplicated; Z71.6 Tobacco abuse counseling; Z79.899 Other long term (current) drug therapy; Z90.49 Acquired absence of other specified parts of digestive tract; Z87.19 Personal history of other diseases of the digestive system; Z87.39 Personal history of other diseases of the musculoskeletal system and connective tissue; Z98.890 Other specified postprocedural states; Z65.3 Problems related to other legal circumstances; Z88.5 Allergy status to narcotic agent; Z88.8 Allergy status to other drugs, medicaments and biological substances; Z81.8 Family history of other mental and behavioral disorders
CPT/HCPCS: 12002; 80053; 80061; 80306; 82075; 83036; 84443; 84702; 85025; 87635; 96372; 99285

== ENCOUNTER → 2021-03-27 | Outpatient (CLI) | payer OTHER ==
--- NOTE | 2021-03-28 07:42 | MR ---
EXAMINATION TYPE: MR knee LT wo con DATE OF EXAM: 03/27/2021 COMPARISON: Outside left knee x-ray March 16, 2021 HISTORY: Twisted left knee 1.5 weeks ago, pain in the knee since. TECHNIQUE: Multiplanar, multisequence imaging of the left knee is performed without IV contrast. FINDINGS: Slightly suboptimal as there is some artifact related to patient motion. MEDIAL MENISCUS: Anterior and posterior horns are intact without tear. LATERAL MENISCUS: Anterior and posterior horns are intact without tear. CRUCIATE LIGAMENTS: The anterior and posterior cruciate ligaments are intact and unremarkable. COLLATERAL LIGAMENTS: The medial collateral ligament and lateral collateral ligament complex are inta ct and unremarkable. EXTENSOR MECHANISM: Visualized quadriceps and patellar tendons are intact. EFFUSION: No significant suprapatellar joint effusion. POPLITEAL CYST: No popliteal/dumont cyst. TRICOMPARTMENT SPACES: Tricompartment joint spaces are maintained. No significant spurring is seen. CARTILAGE: Tricompartment articular cartilage is preserved. BONE MARROW SIGNAL: Some heterogeneity consistent with red marrow reconversion. No suspicious edema. OTHER: No additional significant abnormality is appreciated. IMPRESSION: No meniscal or ligamentous tear is seen. Unremarkable study.
== END | disposition home or self-care (01) ==
LOC: RADMRIMAIN 20:16
PROVIDERS: ATTEND Orthopaedic Surgery
DX: M25.562 Pain in left knee (principal)

== ENCOUNTER 2021-08-16 22:22 | Emergency (ER) | payer OTHER ==
[2021-08-16 22:26] VITALS: TEMP 97.2
[2021-08-16] MEDS ORDERED: MORPHINE SULFATE 4 MG/ML SYRINGE IV STA (23:22)
[2021-08-16] MEDS ORDERED: ONDANSETRON 4 MG/2 ML VIAL IVP STA (23:22)
[2021-08-16] MEDS ORDERED: SODIUM CHLORIDE 0.9% 1,000 ML IV STA (23:22)
--- NOTE | 2021-08-16 23:39 | ED ---
General Adult HPI - General Chief complaint: Urogenital Stated complaint: Side pain Time Seen by Provider: 08/16/21 23:15 Source: patient, RN notes reviewed Mode of arrival: ambulatory Limitations: no limitations - History of Present Illness Initial comments: This is a pleasant 30-year-old female with history of asthma and previous cholecystectomy who presents to the emergency department with sharp left flank pain which started at about 4 PM. Her to quite suddenly. She also has urinary urgency. No hematuria. No changes in bowel movements. No vaginal discharge. Patient states her last menstrual period was July 19. No headache, no fever or chills, no changes in vision or hearing, no sore throat or difficulty with speech, no neck pain, no chest pain or shortness of breath, no nausea or vomiting, no changes in urination or bowel movements, no numbness or tingling, no extremity pain, no skin rashes or lesions. - Related Data Home Medications Medication Instructions Recorded Confirmed Topiramate [Topamax] 50 mg PO HS 03/09/21 07/23/21 Previous Rx's Medication Instructions Recorded ARIPiprazole [Abilify] 5 mg PO HS 30 Days #0 03/13/21 Acetaminophen Tab [Tylenol] 650 mg PO Q4HR PRN tab 03/13/21 HYDROcodone/APAP 5-325MG [[place] 1 tab PO Q6HR PRN 3 Days #12 tab 08/17/21 5-325] Naproxen [Naprosyn] 375 mg PO Q12HR PRN #20 tablet 08/17/21 Ondansetron Odt [Zofran Odt] 4 mg PO Q6HR PRN #20 tab 08/17/21 Sulfamethox-Tmp 800-160Mg [Bactrim 1 tab PO Q12HR #14 tab 08/17/21 DS 800-160 mg] Tamsulosin [Flomax] 0.4 mg PO DAILY #5 cap 08/17/21 Allergies Allergy/AdvReac Type Severity Reaction Status Date / Time metronidazole [From Flagyl] AdvReac Nausea & Verified 08/16/21 22:26 Vomiting & Diarrhea Metronidazole HCl AdvReac Nausea & Verified 08/16/21 22:26 [From Flagyl] Vomiting tramadol AdvReac Nausea & Verified 08/16/21 22:26 Vomiting & Diarrhea Review of Systems ROS Statement: Those systems with pertinent positive or pertinent negative responses have been documented in the HPI. ROS Other: All systems not noted in ROS Statement are negative. Past Medical History Past Medical History: Asthma Additional Past Medical History / Comment(s): polycystic ovarian syndrome History of Any Multi-Drug Resistant Organisms: None Reported Past Surgical History: Adenoidectomy, Cholecystectomy, Orthopedic Surgery, Tonsillectomy Additional Past Surgical History / Comment(s): right knee; ganglion cyst removal bilateral hands, hemroidectomy 2019. Past Anesthesia/Blood Transfusion Reactions: No Reported Reaction Past Psychological History: ADD/ADHD, Anxiety, Bipolar, Depression Smoking Status: Current every day smoker Past Alcohol Use History: None Reported Past Drug Use History: Marijuana General Exam - General Exam Comments Initial Comments: 30-year-old female in moderate distress secondary to left flank pain. Limitations: no limitations General appearance: alert, in distress, obese Head exam: Present: atraumatic, normocephalic, normal inspection Eye exam: Present: normal appearance, PERRL, EOMI. Absent: scleral icterus, conjunctival injection, periorbital swelling ENT exam: Present: normal exam, mucous membranes moist Neck exam: Present: normal inspection. Absent: tenderness, meningismus, lymphadenopathy Respiratory exam: Present: normal lung sounds bilaterally. Absent: respiratory distress, wheezes, rales, rhonchi, stridor Cardiovascular Exam: Present: regular rate, normal rhythm, normal heart sounds. Absent: systolic murmur, diastolic murmur, rubs, gallop, clicks GI/Abdominal exam: Present: soft, tenderness, normal bowel sounds, other (Patient has minimal tenderness in the area of the left flank and left CVA). Absent: distended, guarding, rebound, rigid Extremities exam: Present: normal inspection, full ROM, normal capillary refill. Absent: tenderness, pedal edema, joint swelling, calf tenderness Back exam: Present: normal inspection, CVA tenderness (L). Absent: CVA tenderness (R) Neurological exam: Present: alert, oriented X3, CN II-XII intact Psychiatric exam: Present: normal affect, normal mood Skin exam: Present: warm, dry, intact, normal color. Absent: rash Course Vital Signs 08/16/21 22:23 Temperature 97.2 F L Pulse Rate 79 Respiratory 18 Rate Blood Pressure 144/79 O2 Sat by Pulse 99 Oximetry - Reevaluation(s) Reevaluation #1: 08/17/21 00:22 Medical record is reviewed Symptoms are improved here in the emergency department Patient is informed of results and questions answered Patient in no distress Urinalysis shows significant number of red cells. Few white cells. Few bacteria. Going to cover the patient with Rocephin as she does have urinary urgency and elevated white blood cell count. Reevaluation #2: 08/17/21 01:35 Medical record is reviewed Symptoms are improved here in the emergency department Patient is informed of results and questions answered Patient in no distress Medical Decision Making - Medical Decision Making Given the patient's symptomology, ureteral stone/renal colic would be high on the list of the differential. Less likely to be infectious etiology or ovarian pathology given the distribution of the patient's pain. Patient given follow-up with urology. Patient was comfortable after medication here. There is a 5 mm distal left ureteral stone with mild hydronephrosis. Minh singh counseled on findings. Counseled on treatment plan. Voice understanding. All questions answered. The case was discussed in detail with ED attending physician. Presentation, findings, treatment plan discussed in detail. I am going to cover the patient with antibiotics based on the urinary tract findings. Patient was told to return to the ER for any signs or symptoms worsen. Told to return immediately if any other problems arise. All questions answered. Treatment plan discussed. Patient in agreement Every effort has been made to ensure accuracy of this dictation. However, due to the limitations of electronic medical records and dictation devices, errors in charting still occur. - Lab Data Result diagrams: 08/16/21 23:36 08/16/21 23:36 Lab Results 08/16/21 08/16/21 08/16/21 Range/Units 23:36 23:36 23:36 WBC 15.7 H (3.8-10.6) k/uL RBC 4.86 (3.80-5.40) m/uL Hgb 14.2 (11.4-16.0) gm/dL Hct 43.7 (34.0-46.0) % MCV 89.9 (80.0-100.0) fL MCH 29.3 (25.0-35.0) pg MCHC 32.6 (31.0-37.0) g/dL RDW 13.5 (11.5-15.5) % Plt Count 286 (150-450) k/uL MPV 8.2 Neutrophils % 78 % Lymphocytes % 13 % Monocytes % 4 % Eosinophils % 3 % Basophils % 1 % Neutrophils # 12.3 H (1.3-7.7) k/uL Lymphocytes # 2.1 (1.0-4.8) k/uL Monocytes # 0.6 (0-1.0) k/uL Eosinophils # 0.5 (0-0.7) k/uL Basophils # 0.1 (0-0.2) k/uL Sodium (137-145) mmol/L Potassium (3.5-5.1) mmol/L Chloride (98-107) mmol/L Carbon Dioxide (22-30) mmol/L Anion Gap mmol/L BUN (7-17) mg/dL Creatinine (0.52-1.04) mg/dL Est GFR (CKD-EPI)AfAm (>60 ml/min/1.73 sqM) Est GFR (CKD-EPI)NonAf (>60 ml/min/1.73 sqM) Glucose (74-99) mg/dL Calcium (8.4-10.2) mg/dL Total Bilirubin (0.2-1.3) mg/dL AST (14-36) U/L ALT (4-34) U/L Alkaline Phosphatase (38-126) U/L Total Protein (6.3-8.2) g/dL Albumin (3.5-5.0) g/dL Lipase (23-300) U/L Urine Color Yellow Urine Appearance Cloudy H (Clear) Urine pH 5.5 (5.0-8.0) Ur Specific [place] 1.028 (1.001-1.035) Urine Protein 1+ H (Negative) Urine Glucose (UA) Negative (Negative) Urine Ketones Negative (Negative) Urine Blood Large H (Negative) Urine Nitrite Negative (Negative) Urine Bilirubin Negative (Negative) Urine Urobilinogen 2.0 (<2.0) mg/dL Ur Leukocyte Esterase Trace H (Negative) Urine RBC 106 H (0-5) /hpf Urine WBC 6 H (0-5) /hpf Ur Squamous Epith Cells 11 H (0-4) /hpf Urine Bacteria Few H (None) /hpf Urine Mucus Many H (None) /hpf Urine HCG, Qual Not Detected (Not Detectd) 08/16/21 Range/Units 23:36 WBC (3.8-10.6) k/uL RBC (3.80-5.40) m/uL Hgb (11.4-16.0) gm/dL Hct (34.0-46.0) % MCV (80.0-100.0) fL MCH (25.0-35.0) pg MCHC (31.0-37.0) g/dL RDW (11.5-15.5) % Plt Count (150-450) k/uL MPV Neutrophils % % Lymphocytes % % Monocytes % % Eosinophils % % Basophils % % Neutrophils # (1.3-7.7) k/uL Lymphocytes # (1.0-4.8) k/uL Monocytes # (0-1.0) k/uL Eosinophils # (0-0.7) k/uL Basophils # (0-0.2) k/uL Sodium 140 (137-145) mmol/L Potassium 4.0 (3.5-5.1) mmol/L Chloride 108 H (98-107) mmol/L Carbon Dioxide 22 (22-30) mmol/L Anion Gap 10 mmol/L BUN 13 (7-17) mg/dL Creatinine 0.91 (0.52-1.04) mg/dL Est GFR (CKD-EPI)AfAm >90 (>60 ml/min/1.73 sqM) Est GFR (CKD-EPI)NonAf 85 (>60 ml/min/1.73 sqM) Glucose 133 H (74-99) mg/dL Calcium 10.0 (8.4-10.2) mg/dL Total Bilirubin 0.6 (0.2-1.3) mg/dL AST 28 (14-36) U/L ALT 43 H (4-34) U/L Alkaline Phosphatase 66 (38-126) U/L Total Protein 7.4 (6.3-8.2) g/dL Albumin 4.3 (3.5-5.0) g/dL Lipase 109 (23-300) U/L Urine Color Urine Appearance (Clear) Urine pH (5.0-8.0) Ur Specific [place] (1.001-1.035) Urine Protein (Negative) Urine Glucose (UA) (Negative) Urine Ketones (Negative) Urine Blood (Negative) Urine Nitrite (Negative) Urine Bilirubin (Negative) Urine Urobilinogen (<2.0) mg/dL Ur Leukocyte Esterase (Negative) Urine RBC (0-5) /hpf Urine WBC (0-5) /hpf Ur Squamous Epith Cells (0-4) /hpf Urine Bacteria (None) /hpf Urine Mucus (None) /hpf Urine HCG, Qual (Not Detectd) - Radiology Data Radiology results: report reviewed, image reviewed Disposition Clinical Impression: Ureterolithiasis, Renal colic on left side Disposition: HOME SELF-CARE Condition: Stable Instructions (If sedation given, give patient instructions): Kidney Stones (ED), How to Strain Your Urine (ED) Additional Instructions: Make a follow-up appointment with your regular physician. I also provided the on-call urologist name. Drink plenty of fluids. Take medications as directed. Follow-up with your regular physician as directed. Return to the ER immediately if any symptoms worsen, new symptoms arise, or any other problems develop. Prescriptions: Sulfamethox-Tmp 800-160Mg [Bactrim DS 800-160 mg] 1 tab PO Q12HR #14 tab Tamsulosin [Flomax] 0.4 mg PO DAILY #5 cap Naproxen [Naprosyn] 375 mg PO Q12HR PRN #20 tablet PRN Reason: Pain HYDROcodone/APAP 5-325MG [[place] 5-325] 1 tab PO Q6HR PRN 3 Days #12 tab PRN Reason: Pain Ondansetron Odt [Zofran Odt] 4 mg PO Q6HR PRN #20 tab PRN Reason: Nausea Is patient prescribed a controlled substance at d/c from ED?: Yes When asked, does pt state using other controlled substances?: No If prescribed controlled substance>3 days was MAPS reviewed?: Yes If opioid is for acute pain is fill amount 7 days or less?: Yes If Rx opioid, was Start Talking consent form obtained?: Yes Referrals: Manuel Melgar DO [Primary Care Provider] - 08/19/21 Zachery Powell MD [STAFF PHYSICIAN] - 08/19/21 Time of Disposition: 01:38
[2021-08-16 23:51] LABS: Basophils # (A) 0.1 k/uL (0-0.2); Basophils % (A) 1 %; Eosinophils # (A) 0.5 k/uL (0-0.7); Eosinophils % (A) 3 %; HCT 43.7 % (34.0-46.0); HGB 14.2 gm/dL (11.4-16.0); Lymphocytes # (A) 2.1 k/uL (1.0-4.8); Lymphocytes % (A) 13 %; MCH 29.3 pg (25.0-35.0); MCHC 32.6 g/dL (31.0-37.0); MCV 89.9 fL (80.0-100.0); Mean Platelet Volume 8.2; Monocytes # (A) 0.6 k/uL (0-1.0); Monocytes % (A) 4 %; Neutrophils # (A) 12.3 k/uL (1.3-7.7); Neutrophils % (A) 78 %; Platelet Count 286 k/uL (150-450); RBC 4.86 m/uL (3.80-5.40); RDW 13.5 % (11.5-15.5); WBC 15.7 k/uL (3.8-10.6)
[2021-08-17 00:01] LABS: Appearance,Urine Cloudy (Clear); Bacteria,Urine Few /hpf; Bilirubin,Urine Negative (Negative); Blood,Urine Large (Negative); Color,Urine Yellow; Glucose,Urine (UA) Negative (Negative); Ketones,Urine Negative (Negative); Leukocyte Esterase,Urine Trace (Negative); Mucus,Urine Many /hpf; Nitrite,Urine Negative (Negative); PH, Urine 5.5 (5.0-8.0); Protein,Urine 1+ (Negative); RBC,Urine 106 /hpf (0-5); Specific Gravity,Urine 1.028 (1.001-1.035); Squamous Epithelial Cell,Urine 11 /hpf (0-4); WBC,Urine 6 /hpf (0-5)
[2021-08-17] MEDS ORDERED: cefTRIAXone IN SWFI 1,000 MG/10 ML SYRINGE IVP STA (00:18)
--- NOTE | 2021-08-17 00:25 | CT ---
EXAMINATION TYPE: CT abdomen pelvis wo con DATE OF EXAM: 08/17/2021 COMPARISON: None HISTORY: left flank pain CT DLP: 1114.4 mGycm Automated exposure control for dose reduction was used. Images obtained from the diaphragm to the floor the pelvis with no contrast. The lung bases are clear. There is no pleural effusion. There is subsegmental atelectasis right lung base. Heart size is normal. There is no pericardial effusion. Liver spleen and stomach pancreas appear intact. The bile duct is not dilated. There are clips from c holecystectomy. There is no adrenal mass. Kidneys have normal size. There is left-sided hydronephrosis. There is a 5 mm obstructing calculus at the left ureteropelvic junction. There is mild edema. There is no retroper itoneal adenopathy. No other calculus seen. The appendix is posterior and appears normal. The bladder distends smoothly. There is no inguinal hernia. There is no free fluid in the pelvis. The uterus is anteverted. Lumbar vertebrae abnormal spacing and alignment. Posterior elements are intact. There is no compressi on fracture bony pelvis is intact. The hip joints are intact. Sacroiliac joints appear normal. There is no mesenteric edema. There is no ascites or free air. There is no bowel obstruction. IMPRESSION: Obstructing small calculus at the left ureteropelvic junction with left-sided hydronephrosis. Normal appendix.
[2021-08-17] MEDS ORDERED: TAMSULOSIN 0.4 MG CAP.ER.24H PO STA (00:37)
[2021-08-17] MEDS ORDERED: KETOROLAC 15 MG/ML 1 ML VIAL IVP STA (00:38)
[2021-08-17 01:34] LABS: ALT 43 U/L (4-34); AST 28 U/L (14-36); African American GFR (CKD) >90 (>60 ml/min/1.73 sqM); Albumin 4.3 g/dL (3.5-5.0); Alkaline Phosphatase 66 U/L (38-126); Anion Gap 10 mmol/L; Blood Urea Nitrogen 13 mg/dL (7-17); Carbon Dioxide 22 mmol/L (22-30); Chloride 108 mmol/L (98-107); Glucose 133 mg/dL (74-99); Lipase 109 U/L (23-300); Non-African American GFR(CKD) 85 (>60 ml/min/1.73 sqM); Sodium 140 mmol/L (137-145); Total Bilirubin 0.6 mg/dL (0.2-1.3); Total Protein 7.4 g/dL (6.3-8.2)
[2021-08-17 03:05] VITALS: BP 158/70; PULSE 88; RESP 15
== END 2021-08-17 03:19 | disposition home or self-care (01) ==
LOC: EC 22:22
DX: N20.1 Calculus of ureter (principal); N23 Unspecified renal colic; J45.909 Unspecified asthma, uncomplicated; F41.9 Anxiety disorder, unspecified; F31.9 Bipolar disorder, unspecified; F17.200 Nicotine dependence, unspecified, uncomplicated; F12.90 Cannabis use, unspecified, uncomplicated; Z88.1 Allergy status to other antibiotic agents; Z90.49 Acquired absence of other specified parts of digestive tract; F90.9 Attention-deficit hyperactivity disorder, unspecified type
CPT/HCPCS: 99284; 96374; 96375 ×3; 96361; 36415; 80053; 83690; 85025; 81001; 81025; 74176; J2270; J2405; J0696; J1885

== ENCOUNTER → 2021-10-15 | Outpatient (CLI) | payer OTHER ==
[2021-10-15 18:28] LABS: Basophils # (A) 0.04 X 10*3/uL (0.00-0.10); Basophils % (A) 0.2 %; Eosinophils # (A) 0.01 X 10*3/uL (0.04-0.35); Eosinophils % (A) 0.1 %; HCT 44.9 % (37.2-46.3); HGB 14.1 g/dL (12.0-15.0); Immature Grans, Automated 0.4 %; Lymphocytes # (A) 1.28 X 10*3/uL (0.90-5.00); Lymphocytes % (A) 7.1 %; MCH 28.1 pg (27.0-32.0); MCHC 31.4 g/dL (32.0-37.0); MCV 89.4 fL (80.0-97.0); Mean Platelet Volume 11.4 fL (9.5-12.2); Monocytes # (A) 0.41 X 10*3/uL (0.20-1.00); Monocytes % (A) 2.3 %; NRBC Per 100 WBC 0 /100 WBCS (0.0-0.0); Neutrophils # (A) 16.13 X 10*3/uL (1.80-7.70); Neutrophils % (A) 89.9 %; Platelet Count 294 X 10*3/uL (140-440); RBC 5.02 X 10*6/uL (4.10-5.20); RDW 13.6 % (11.5-14.5); WBC 17.95 X 10*3/uL (4.50-10.00)
[2021-10-15 18:30] LABS: African American GFR (CKD) 121.2 (60.0-200.0); Anion Gap 12.9 mmol/L (10.00-18.00); BUN/Creat Ratio 9.42 Ratio (12.00-20.00); Blood Urea Nitrogen 7.2 mg/dL (9.0-27.0); Calcium 9.3 mg/dL (8.7-10.3); Carbon Dioxide 21.6 mmol/L (20.0-27.5); Non-African American GFR(CKD) 104.6 (60.0-200.0); Potassium 4.3 mmol/L (3.5-5.5)
[2021-10-15 20:05] LABS: Appearance,Urine Clear (Clear); Bacteria,Urine None Seen /HPF (None Seen); Bilirubin,Urine Negative (Negative); Blood,Urine Negative (Negative); Color,Urine Yellow (Yellow); Ketones,Urine Negative (Negative); Nitrite,Urine Negative (Negative); Specific Gravity,Urine 1.013 (1.001-1.030); Urobilinogen,Urine 0.2 (0.2,1.0)
== END | disposition home or self-care (01) ==
LOC: LABPAT 11:09
PROVIDERS: ATTEND Urology
DX: Z01.812 Encounter for preprocedural laboratory examination (principal); N20.1 Calculus of ureter
CPT/HCPCS: 80048; 81001; 85025; 87086

== ENCOUNTER 2021-10-23 11:59 | Day surgery (SDC) | payer OTHER ==
[2021-10-21 12:44] VITALS: BMI 39.6
--- NOTE | 2021-10-23 10:49 | P.HPIHPCON ---
History of Present Illness H&P Date: 10/23/21 Chief Complaint: left-sided ureteral stone this is a 30-year-old female with history of a 5 mm left-sided ureteral stone, she is symptomatic from her stone, has failed medical expulsive therapy. Discussed with her the option of left-sided ureteroscopy with holmium laser lit hotripsy. Discussed the risk which includes but not limited to bleeding, infection, injury to the ureter. Discussed also risks from anesthesia. She understood all the risk and agreed to proceed left-sided ureteroscopy with holmium laser lithotripsy, stone basketing and stent insertion Consent for Procedure: I have explained the operation/procedure to the patient, including the risks, benefits, side effects, alternative therapies (including not receiving the proposed treatment or service), the likelihood of the patient achieving his/her goals, and potential recuperation problems for the procedure/sedation/analgesia, as well as any blood products, if indicated. I also explained to the patient the risks, benefits and side effects of the alternatives, as well as the risks related to not receiving the proposed procedure, care, treatment, or services. - Constitutional Constitutional: Denies chills, Denies fever - Cardiovascular Cardiovascular: Denies chest pain, Denies shortness of breath Past Medical History Past Medical History: Asthma Additional Past Medical History / Comment(s): Polycystic Ovarian Syndrome. History of Any Multi-Drug Resistant Organisms: None Reported Past Surgical History: Adenoidectomy, Cholecystectomy, Orthopedic Surgery, Tonsillectomy Additional Past Surgical History / Comment(s): Right knee surgery, ganglion cyst removal bilateral hands, hemorrhoidectomy, colonoscopy, EGD. Past Anesthesia/Blood Transfusion Reactions: No Reported Reaction Past Psychological History: ADD/ADHD, Anxiety, Bipolar, Depression Smoking Status: Current every day smoker Past Alcohol Use History: None Reported Additional Past Alcohol Use History / Comment(s): DOWN TO 3-4 CIGARETTES FROM 1PPD-HAS BEEN SMOKING SINCE AGE 18. Past Drug Use History: Marijuana Additional Drug Use History / Comment(s): Aware no Marijuana 24 hrs prior to procedure. - Past Family History Mother Family Medical History: No Reported History Medications and Allergies Home Medications Medication Instructions Recorded Confirmed Type ARIPiprazole [Abilify] 5 mg PO HS 30 Days #0 03/13/21 10/21/21 Rx Acetaminophen Tab [Tylenol] 650 mg PO Q4HR PRN tab 03/13/21 10/21/21 Rx Ondansetron Odt [Zofran ODT] 4 mg PO Q6HR PRN #20 tab 08/17/21 10/21/21 Rx Cyclobenzaprine [Flexeril] 10 mg PO TID 09/30/21 10/21/21 History Phentermine HCl [Adipex-P] 37.5 mg PO DAILY 09/30/21 10/21/21 History traMADol HCL [Ultram] 50 mg PO BID 09/30/21 10/21/21 History Omeprazole [PriLOSEC] 40 mg PO QAM 10/21/21 10/21/21 History Sertraline HCl [Zoloft] 100 mg PO HS 10/21/21 10/21/21 History Allergies Allergy/AdvReac Type Severity Reaction Status Date / Time metronidazole [From Flagyl] AdvReac Nausea & Verified 10/21/21 12:34 Vomiting & Diarrhea Metronidazole HCl AdvReac Nausea & Verified 10/21/21 12:34 [From Flagyl] Vomiting Surgical - Exam - General no distress, moderate pain - Eyes normal ocular movement, no pale - ENT normal nares, normal mucosa - Respiratory normal expansion, normal respiratory effort - Abdomen Abdomen: soft, non tender - Psychiatric oriented to time, oriented to person, oriented to place Assessment and Plan Assessment: OR for left-sided ureteroscopy with holmium laser lithotripsy, stone basketing and stent insertion
[~2021-10-23 11:59] MED LIST: DEXAMETHASONE SOD PHOSPHATE 4 MG/ML 1 ML VIAL IV ONE; LACTATED RINGERS 1,000 ML IV SCH; MIDAZOLAM 2 MG/2 ML VIAL IV PRN; ONDANSETRON 4 MG/2 ML VIAL IVP ONE; SCOPOLAMINE 1 MG/72 HR PATCH TRANSDERM ONE
--- NOTE | 2021-10-23 12:16 | XR ---
EXAMINATION TYPE: XR KUB DATE OF EXAM: 10/23/2021 12:09 PM CLINICAL HISTORY: Presurgical study. Left-sided kidney stone TECHNIQUE: Two supine KUB images of the abdomen are obtained. COMPARISON: Most recent CT October 01, 2021. FINDINGS: Small 5 to 6 mm calculus in the distal left ureter overlying the left pelvis on CT is less clearly seen on plain films. No additional renal calculi. Cholecystectomy clips are redemonstrated. Overall nonobstructive bowel gas pattern. Visualized osseou s structures are intact. Lung bases are clear. IMPRESSION: As above.
[2021-10-23] MEDS ORDERED: SUCCINYLCHOLINE CHLORIDE 100 MG/5 ML SYR IV ONE (14:08)
[2021-10-23] MEDS ORDERED: LIDOCAINE 2% INJ 20 MG/ML (2 ML VIAL) ONE (14:08)
[2021-10-23] MEDS ORDERED: PROPOFOL 10 MG/ML 20 ML VIAL IV ONE (14:08)
[2021-10-23] MEDS ORDERED: fentaNYL (PF) 50 MCG/ML 2 ML AMP ONE (14:08)
[2021-10-23] MEDS ORDERED: MIDAZOLAM 2 MG/2 ML VIAL ONE (14:08)
[2021-10-23 14:48] VITALS: RESP 16; TEMP 97
--- NOTE | 2021-10-23 14:51 | P.OP ---
Date of Procedure: 10/23/21 Preoperative Diagnosis: Left ureteral stone Postoperative Diagnosis: Same Procedure(s) Performed: Cystoscopy, left ureteroscopy Implants: None Anesthesia: EMILIA Surgeon: Jackson Buck Estimated Blood Loss (ml): 1 Pathology: none sent Condition: stable Disposition: PACU Indications for Procedure: this is a 30-year-old female with history of a 5 mm left-sided ureteral stone, she is symptomatic from her stone, has failed medical expulsive therapy. Discu ssed with her the option of left-sided ureteroscopy with holmium laser lithotripsy. Discussed the risk which includes but not limited to bleeding, infection, injury to the ureter. Discussed also risks from anesthesia. She understood all the risk and agreed to proceed left-sided ureteroscopy with holmium laser lithotripsy, stone basketing and stent insertion Operative Findings: Normal ureteroscopy, no stone visualized Description of Procedure: Patient brought to the operating room, general anesthesia was induced. She was prepped and draped in sterile fashion and placed in dorsal lithotomy position. Cystoscopy fitted 21-Italian sheath was inserted per urethra, cystoscopy was performed which showed no abnormality within the bladder. At this time a semirigid ureteroscope was inserted through the urethra and advanced up the left ureteral orifice. Of note the ureteral orifice was dilated. Next the semirigid ureteroscope was advanced up the ureter and the ureteroscope was advanced all the way up to the UPJ which showed no evidence of stones. Pullback ureteroscopy was performed showed no injury to the ureter or any ureteral stones. But of note the ureter was dilated consistent with a recent passed stone. The bladder was emptied at the end of the case. Patient tolerated procedure well was taken to recovery in stable condition
[2021-10-23] MEDS: HYDROmorphone 0.5 MG/0.5 ML SYRINGE IVP PRN ×2 (14:55→15:05)
[2021-10-23] MEDS ORDERED: diphenhydrAMINE 50 MG/ML 1 ML VIAL IVP ONE (15:16)
[2021-10-23 16:07] VITALS: BP 125/84; PULSE 72
== END 2021-10-23 16:21 | disposition home or self-care (01) ==
LOC: OR 11:59
PROVIDERS: ATTEND Urology
DX: N20.1 Calculus of ureter (principal); J45.909 Unspecified asthma, uncomplicated; E28.2 Polycystic ovarian syndrome; Z90.49 Acquired absence of other specified parts of digestive tract; Z98.890 Other specified postprocedural states; F90.9 Attention-deficit hyperactivity disorder, unspecified type; F41.9 Anxiety disorder, unspecified; F31.9 Bipolar disorder, unspecified; F17.210 Nicotine dependence, cigarettes, uncomplicated; K21.9 Gastro-esophageal reflux disease without esophagitis; Z97.2 Presence of dental prosthetic device (complete) (partial); Z79.891 Long term (current) use of opiate analgesic; Z79.899 Other long term (current) drug therapy; Z88.1 Allergy status to other antibiotic agents
CPT/HCPCS: 81025; 74018; 52351; C1769; J2250; J1200; J1100; J0690; J2405; J3010; J0330; J2704; J1170; J2001

== ENCOUNTER 2022-03-17 20:37 | Emergency (ER) | payer OTHER ==
[2022-03-17 20:54] VITALS: BP 115/69; RESP 24; TEMP 98.7
[2022-03-17] MEDS ORDERED: ALBUTEROL NEBULIZED 2.5 MG/3 ML INHALATION STA (21:24)
[2022-03-17] MEDS ORDERED: predniSONE 20 MG TAB PO STA (21:24)
--- NOTE | 2022-03-17 21:42 | ED ---
SOB HPI - General Chief Complaint: Shortness of Breath Stated Complaint: SOB Time Seen by Provider: 03/17/22 21:02 Source: patient Mode of arrival: ambulatory Limitations: no limitations - History of Present Illness Initial Comments: This patient is a 31-year-old woman who presents to evaluation of cough, congestion and right ear pain. She states the symptoms have been going on between 1 and 2 weeks. She was seen by the clinic doctor and she was given a course of antibiotic and steroid. She states that the symptoms had improved a bit but continued and then when the medications and she was feeling worse again. She states that things started with congestion, bilateral her pain, coughing and wheeze. She has not noted fevers. No chest pain. No thick productive sputum. MD Complaint: shortness of breath, cough Onset/Timin -: week(s) Consistency: constant Improves With: nothing Worsens With: nothing Associated Symptoms: cough Treatments Prior to Arrival: bronchodilator - Related Data Home Oxygen Therapy: No Home Medications Medication Instructions Recorded Confirmed Cyclobenzaprine [Flexeril] 10 mg PO TID 09/30/21 11/04/21 Phentermine HCl [Adipex-P] 37.5 mg PO DAILY 09/30/21 11/04/21 traMADol HCL [Ultram] 50 mg PO BID 09/30/21 11/04/21 Omeprazole [PriLOSEC] 40 mg PO QAM 10/21/21 11/04/21 Sertraline HCl [Zoloft] 100 mg PO HS 10/21/21 11/04/21 Previous Rx's Medication Instructions Recorded ARIPiprazole [Abilify] 5 mg PO HS 30 Days #0 03/13/21 Acetaminophen Tab [Tylenol] 650 mg PO Q4HR PRN tab 03/13/21 Albuterol Inhaler [Ventolin Hfa 1 - 2 puff INHALATION Q6HR PRN #1 03/17/22 Inhaler] each predniSONE 60 mg PO DAILY #30 tab 03/17/22 Allergies Allergy/AdvReac Type Severity Reaction Status Date / Time metronidazole [From Flagyl] AdvReac Nausea & Verified 03/17/22 20:54 Vomiting & Diarrhea Metronidazole HCl AdvReac Nausea & Verified 03/17/22 20:54 [From Flagyl] Vomiting Review of Systems ROS Statement: Those systems with pertinent positive or pertinent negative responses have been documented in the HPI. ROS Other: All systems not noted in ROS Statement are negative. Constitutional: Denies: fever, chills ENT: Reports: ear pain, congestion Respiratory: Reports: cough, dyspnea, wheezes Cardiovascular: Denies: chest pain, palpitations, edema, syncope Gastrointestinal: Denies: abdominal pain, vomiting, diarrhea Genitourinary: Denies: dysuria, hematuria Musculoskeletal: Denies: back pain Skin: Denies: rash Neurological: Denies: headache, weakness Past Medical History Past Medical History: Asthma Additional Past Medical History / Comment(s): Polycystic Ovarian Syndrome. History of Any Multi-Drug Resistant Organisms: None Reported Past Surgical History: Adenoidectomy, Cholecystectomy, Orthopedic Surgery, Tonsillectomy Additional Past Surgical History / Comment(s): Right knee surgery, ganglion cyst removal bilateral hands, hemorrhoidectomy, colonoscopy, EGD. Past Anesthesia/Blood Transfusion Reactions: No Reported Reaction Past Psychological History: ADD/ADHD, Anxiety, Bipolar, Depression Smoking Status: Current every day smoker Past Alcohol Use History: None Reported Past Drug Use History: Marijuana - Past Family History Mother Family Medical History: No Reported History General Exam Limitations: no limitations General appearance: alert, in no apparent distress Head exam: Present: atraumatic, normocephalic Eye exam: Present: normal appearance. Absent: scleral icterus, conjunctival injection ENT exam: Present: normal oropharynx, mucous membranes moist, TM's normal bilaterally, normal external ear exam Neck exam: Present: normal inspection, full ROM. Absent: meningismus Respiratory exam: Present: wheezes. Absent: respiratory distress, rales, rhonchi, stridor, accessory muscle use, decreased breath sounds, prolonged expiratory Cardiovascular Exam: Present: regular rate, normal rhythm, normal heart sounds. Absent: systolic murmur, diastolic murmur, rubs, gallop GI/Abdominal exam: Present: soft. Absent: distended, tenderness, guarding, rebound, rigid, mass Extremities exam: Present: normal inspection, normal capillary refill. Absent: pedal edema, calf tenderness Back exam: Present: normal inspection Neurological exam: Present: alert Skin exam: Present: warm, dry, intact, normal color. Absent: rash Course Vital Signs 03/17/22 03/17/22 03/17/22 20:49 21:59 22:09 Temperature 98.7 F Pulse Rate 84 80 83 Respiratory 24 Rate Blood Pressure 115/69 O2 Sat by Pulse 97 Oximetry Medical Decision Making - Lab Data Lab Results 03/17/22 Range/Units 21:28 Coronavirus (PCR) Not Detected (Not Detectd) Disposition Clinical Impression: Bronchitis Disposition: HOME SELF-CARE Condition: Good Instructions (If sedation given, give patient instructions): Acute Bronchitis (ED) Prescriptions: predniSONE 60 mg PO DAILY #30 tab Albuterol Inhaler [Ventolin Hfa Inhaler] 1 - 2 puff INHALATION Q6HR PRN #1 each PRN Reason: Wheezing Is patient prescribed a controlled substance at d/c from ED?: No Referrals: None,Stated [REFERRING] - 1-2 days
--- NOTE | 2022-03-17 21:58 | XR ---
EXAMINATION TYPE: XR chest 2V DATE OF EXAM: 03/17/2022 9:31 PM COMPARISON: Chest radiographs from TECHNIQUE: XR chest 2V Frontal and lateral views of the chest. CLINICAL INDICATION:Female, 31 years old with history of cough; FINDINGS: Lungs/Pleura: There is no evidence of pleural effusion, focal consolidation, or pneumothorax. Pulmonary vascularity: Unremarkable. Heart/mediastinum: Cardiomediastinal silhouette is unremarkable. Musculoskeletal: No acute osseous pathology. IMPRESSION: No acute cardiopulmonary disease/process.
[2022-03-17 22:09] VITALS: PULSE 83
== END 2022-03-17 23:08 | disposition home or self-care (01) ==
LOC: EC 20:37
DX: J45.909 Unspecified asthma, uncomplicated (principal); F31.9 Bipolar disorder, unspecified; F41.9 Anxiety disorder, unspecified; F17.200 Nicotine dependence, unspecified, uncomplicated; F12.90 Cannabis use, unspecified, uncomplicated; Z88.1 Allergy status to other antibiotic agents; Z79.51 Long term (current) use of inhaled steroids; Z79.899 Other long term (current) drug therapy; Z20.822 Contact with and (suspected) exposure to COVID-19
CPT/HCPCS: 94640; 87635; 71046; 99285; J7512

== ENCOUNTER 2022-05-02 18:32 | Emergency (ER) | payer OTHER ==
[2022-05-02] MEDS ORDERED: diphenhydrAMINE 50 MG/ML 1 ML VIAL IVP STA (19:50)
[2022-05-02] MEDS ORDERED: KETOROLAC 15 MG/ML 1 ML VIAL IVP STA (19:50)
[2022-05-02] MEDS ORDERED: SODIUM CHLORIDE 0.9% 1,000 ML IV STA (19:50)
[2022-05-02] MEDS ORDERED: DEXAMETHASONE SOD PHOSPHATE 10 MG/ML 1 ML VIAL IV STA (19:50)
[2022-05-02] MEDS ORDERED: METOCLOPRAMIDE 5 MG/ML 2 ML VIAL IVP STA (19:50)
[2022-05-02 19:52] VITALS: TEMP 98.2
--- NOTE | 2022-05-02 20:09 | ED ---
Headache HPI - General Chief Complaint: Headache Stated Complaint: Headache Time Seen by Provider: 05/02/22 19:43 Source: patient, RN notes reviewed Mode of arrival: ambulatory Limitations: no limitations - History of Present Illness Initial Comments: This is a 31-year-old female who presents to the emergency department with a migraine. Patient states that she has a history of migraines and this feels exactly the same. She would not describe this as the worst headache of her life. The migraine started this morning. Reports taking Tylenol and ibuprofen with no relief. She does get auras beforehand with spots in her vision. She is not on any preventative or abortive medication for migraines. States that she rarely gets them. She has nausea but denies any vomiting. Denies any fevers, chills, sore throat, cough, dyspnea, chest pain, palpitations, abdominal pain, vomiting, diarrhea, or back pain. MD Complaint: "migraine" Location: occipital Associated Symptoms: nausea Treatments Prior to Arrival: Acetaminophen, Ibuprofen - Related Data Previous Rx's Medication Instructions Recorded Ondansetron Odt [Zofran Odt] 4 mg PO Q8HR PRN #10 tab 05/02/22 SUMAtriptan succinate 100 mg PO DIRECTED PRN #15 05/02/22 tablet Allergies Allergy/AdvReac Type Severity Reaction Status Date / Time metronidazole [From Flagyl] Allergy Vomiting Verified 05/02/22 18:54 Review of Systems ROS Statement: Those systems with pertinent positive or pertinent negative responses have been documented in the HPI. ROS Other: All systems not noted in ROS Statement are negative. Past Medical History Past Medical History: Asthma Additional Past Medical History / Comment(s): migraine History of Any Multi-Drug Resistant Organisms: None Reported Past Surgical History: Adenoidectomy, Cholecystectomy, Orthopedic Surgery, Tonsillectomy Past Psychological History: Bipolar, Depression Smoking Status: Current every day smoker Past Alcohol Use History: None Reported Past Drug Use History: None Reported General Exam Limitations: no limitations General appearance: alert, in no apparent distress Head exam: Present: atraumatic, normocephalic, normal inspection Eye exam: Present: normal appearance, PERRL, EOMI. Absent: scleral icterus, conjunctival injection, periorbital swelling Neck exam: Present: normal inspection. Absent: tenderness, meningismus, lymphadenopathy Respiratory exam: Present: normal lung sounds bilaterally. Absent: respiratory distress, wheezes, rales, rhonchi, stridor Cardiovascular Exam: Present: regular rate, normal rhythm, normal heart sounds. Absent: systolic murmur, diastolic murmur, rubs, gallop, clicks Neurological exam: Present: alert, oriented X3, CN II-XII intact Psychiatric exam: Present: normal affect, normal mood Skin exam: Present: warm, dry, intact, normal color. Absent: rash Course Vital Signs 05/02/22 05/02/22 05/02/22 18:50 19:51 22:00 Temperature 98.1 F 98.2 F Pulse Rate 85 83 81 Respiratory 16 17 16 Rate Blood Pressure 110/70 123/70 121/77 O2 Sat by Pulse 98 98 98 Oximetry Medical Decision Making - Medical Decision Making This is a 31-year-old female who presents to the emergency department for a migraine. Cepheid 4-plex negative for COVID, influenza, and RSV. She was given a migraine cocktail consisting of Reglan, Benadryl, Decadron, and Toradol, along with IV fluids. States that this did substantially improve her migraine. She was then given a dose of sumatriptan and for additional relief. Patient stable for discharge home. Prescription for sumatriptan provided for any additional migraines. Instructed her to take this at the onset of a migraine when she is experiencing an aura, and repeating this in 2 hours if the migraine does not improve. She is instructed to avoid taking more than 2 tablets in a 24-hour period. Starter pack and prescription for Zofran provided as well. Return precautions reviewed in depth, the patient is instructed to return to the emergency department with any new, worsening, or concerning symptoms. Patient verbalized understanding. This case was discussed in detail with the attending ED physician. Presentation, findings, and treatment plan discussed in detail as well. - Lab Data Lab Results 05/02/22 Range/Units 19:29 Influenza Type A (PCR) Not Detected (Not Detectd) Influenza Type B (PCR) Not Detected (Not Detectd) RSV (PCR) Not Detected (Not Detectd) SARS-CoV-2 (PCR) Not Detected (Not Detectd) Disposition Clinical Impression: Migraine headache Disposition: HOME SELF-CARE Instructions (If sedation given, give patient instructions): Migraine Headache (ED) Additional Instructions: Return to the emergency department with any new, worsening, or concerning symptoms. If you get any migraines in the future, take a sumatriptan at the onset, such as when you experience an aura. You may repeat the dose in 2 hours if symptoms do not improve. Take the Zofran up to every 8 hours as needed for nausea and vomiting. Follow up with your primary care provider in 1-2 days. Prescriptions: SUMAtriptan succinate 100 mg PO DIRECTED PRN #15 tablet PRN Reason: Migraine Headache Ondansetron Odt [Zofran Odt] 4 mg PO Q8HR PRN #10 tab PRN Reason: Nausea And Vomiting Is patient prescribed a controlled substance at d/c from ED?: No Referrals: Manuel Melgar DO [Primary Care Provider] - 1-2 days
[2022-05-02] MEDS ORDERED: ONDANSETRON 4 MG ODT STARTER PACK 2 TAB BTL PO STA (21:08)
[2022-05-02] MEDS ORDERED: SUMAtriptan succinate 6 MG/0.5 ML VIAL SQ STA (21:25)
[2022-05-02 22:32] VITALS: BP 121/77; PULSE 81; RESP 16
== END 2022-05-02 22:32 | disposition home or self-care (01) ==
LOC: MERGE 18:32 → EC 18:32
DX: G43.909 Migraine, unspecified, not intractable, without status migrainosus (principal); J45.909 Unspecified asthma, uncomplicated; F31.9 Bipolar disorder, unspecified; F17.200 Nicotine dependence, unspecified, uncomplicated; Z88.1 Allergy status to other antibiotic agents; Z79.899 Other long term (current) drug therapy; Z20.822 Contact with and (suspected) exposure to COVID-19
CPT/HCPCS: 87636; 99284; 96374; 96375 ×3; 96361; J3030; J1200; J1100; J2765; J1885; S0119

== ENCOUNTER 2022-05-03 14:44 | Emergency (ER) | payer OTHER ==
[2022-05-03 15:36] VITALS: TEMP 98
[2022-05-03] MEDS ORDERED: KETOROLAC 15 MG/ML 1 ML VIAL IVP STA (16:26)
[2022-05-03] MEDS ORDERED: SODIUM CHLORIDE 0.9% 1,000 ML IV STA (16:26)
[2022-05-03] MEDS ORDERED: DEXAMETHASONE SOD PHOSPHATE 10 MG/ML 1 ML VIAL IV STA (16:26)
[2022-05-03] MEDS ORDERED: METOCLOPRAMIDE 5 MG/ML 2 ML VIAL IVP STA (16:26)
[2022-05-03] MEDS ORDERED: diphenhydrAMINE 50 MG/ML 1 ML VIAL IVP STA (16:26)
--- NOTE | 2022-05-03 17:08 | XR ---
EXAMINATION TYPE: XR ankle complete RT DATE OF EXAM: 05/03/2022 COMPARISON: NONE HISTORY: Pain TECHNIQUE: 3 views FINDINGS: There is mild soft tissue swelling over the lateral malleolus. Ankle mortise is anatomic. T here is no fracture nor dislocation. Joint spaces are normal. IMPRESSION: Soft tissue swelling. No fracture seen.
--- NOTE | 2022-05-03 17:22 | ED ---
Lower Extremity Injury HPI - General Chief Complaint: Extremity Injury, Lower Stated Complaint: Ankle injury,Headache Time Seen by Provider: 05/03/22 15:46 Source: patient Mode of arrival: ambulatory Limitations: no limitations - History of Present Illness Initial Comments: Patient is a 41-year-old female presenting with chief complaint of right ankle pain and headache. Patient has had a headache since yesterday, she has history of migraines and this feels consistent with her usual episodes. Her sumatriptan at home was not helping alleviate the pain. Patient states that her family at home was recently tested positive for Covid, she tested negative yesterday and earlier today. On her way here patient tripped on the curb and twisted her right ankle. She admits to pain and swelling. She is able to fully bear weight and ambulate. Denies numbness, tingling, weakness, neck pain or stiffness, nausea, vomiting, chest pain, difficulty breathing, fever, chills, cough, congestion. - Related Data Home Medications Medication Instructions Recorded Confirmed Cyclobenzaprine [Flexeril] 10 mg PO TID 09/30/21 11/04/21 Phentermine HCl [Adipex-P] 37.5 mg PO DAILY 09/30/21 11/04/21 traMADol HCL [Ultram] 50 mg PO BID 09/30/21 11/04/21 Omeprazole [PriLOSEC] 40 mg PO QAM 10/21/21 11/04/21 Sertraline HCl [Zoloft] 100 mg PO HS 10/21/21 11/04/21 Previous Rx's Medication Instructions Recorded ARIPiprazole [Abilify] 5 mg PO HS 30 Days #0 03/13/21 Acetaminophen Tab [Tylenol] 650 mg PO Q4HR PRN tab 03/13/21 Albuterol Inhaler [Ventolin Hfa 1 - 2 puff INHALATION Q6HR PRN #1 03/17/22 Inhaler] each Azithromycin [Zithromax] 0 mg PO DIRECTED #6 tab 03/17/22 predniSONE 60 mg PO DAILY #30 tab 03/17/22 Ondansetron Odt [Zofran Odt] 4 mg PO Q8HR PRN #10 tab 05/02/22 SUMAtriptan succinate 100 mg PO DIRECTED PRN #15 05/02/22 tablet Allergies Allergy/AdvReac Type Severity Reaction Status Date / Time metronidazole [From Flagyl] AdvReac Nausea & Verified 05/03/22 08:11 Vomiting & Diarrhea Metronidazole HCl AdvReac Nausea & Verified 05/03/22 08:11 [From Flagyl] Vomiting Review of Systems ROS Statement: Those systems with pertinent positive or pertinent negative responses have been documented in the HPI. ROS Other: All systems not noted in ROS Statement are negative. Past Medical History Past Medical History: Asthma Additional Past Medical History / Comment(s): migraine History of Any Multi-Drug Resistant Organisms: None Reported Past Surgical History: Adenoidectomy, Cholecystectomy, Orthopedic Surgery, Tonsillectomy Additional Past Surgical History / Comment(s): Right knee surgery, ganglion cyst removal bilateral hands, hemorrhoidectomy, colonoscopy, EGD. Past Anesthesia/Blood Transfusion Reactions: No Reported Reaction Past Psychological History: ADD/ADHD, Anxiety, Bipolar, Depression Past Drug Use History: Marijuana, None Reported - Past Family History Mother Family Medical History: No Reported History General Exam Limitations: no limitations General appearance: alert, in no apparent distress Head exam: Present: atraumatic, normocephalic, normal inspection Eye exam: Present: normal appearance, PERRL, EOMI. Absent: scleral icterus, conjunctival injection, periorbital swelling Pupils: Present: normal accommodation Neck exam: Present: normal inspection, full ROM. Absent: tenderness Respiratory exam: Present: normal lung sounds bilaterally. Absent: respiratory distress, wheezes, rales, rhonchi, stridor Cardiovascular Exam: Present: regular rate, normal rhythm, normal heart sounds. Absent: systolic murmur, diastolic murmur, rubs, gallop, clicks Right Ankle exam: Present: full ROM, tenderness, swelling, ecchymosis Neurovascular tendon exam: Present: no vascular compromise. Absent: motor deficit, sensory deficit, tendon deficit Neurological exam: Present: alert, oriented X3, CN II-XII intact Expanded Patient oriented to: Present: person, place, time Speech: Present: fluid speech Cranial nerves: EOM's Intact: Normal, Facial Sensation: Normal Sensory exam: Upper Extremity Light Touch: Normal, Lower Extremity Light Touch: Normal Motor strength exam: RUE: 5, LUE: 5, RLE: 5, LLE: 5 Eye Response: (4) open spontaneously Motor Response: (6) obeys commands Verbal Response: (5) oriented Hiram Total: 15 Psychiatric exam: Present: normal affect, normal mood Skin exam: Present: warm, dry, intact, normal color. Absent: rash Course Vital Signs 05/03/22 05/03/22 15:34 17:51 Temperature 98 F Pulse Rate 82 57 L Respiratory 16 18 Rate Blood Pressure 123/73 147/87 O2 Sat by Pulse 99 100 Oximetry Medical Decision Making - Medical Decision Making Patient is a 31-year-old female presenting for evaluation of migraine and right ankle pain. Patient states her migraines consistent with usual flareups, on her way here she twisted her right ankle. On physical examination there are no focal neurological deficits, patient has full range of motion of the neck tenderness. There is some lateral tenderness and swelling to the right ankle, some bruising is noted anteriorly. She has full range of motion and sensation, normal pulses. X-ray shows no acute fracture or dislocation. After migraine cocktail patient reports improvement in her symptoms. She provided with ankle stirrup splint and instructed to follow-up with her PCP. Educated on supportive treatment for migraines. Follow-up with PCP. Report back to ER with any new or worsening symptoms. Discussed return parameters and answered all questions. Patient conveyed verbal understanding and agreed to the plan. I discussed this case in detail with my attending Dr. Bryant Disposition Clinical Impression: Ankle sprain, Migraine Disposition: HOME SELF-CARE Condition: Good Instructions (If sedation given, give patient instructions): Ankle Sprain (ED), Migraine Headache (ED) Additional Instructions: Follow-up with PCP. Report back to ER with any new or worsening symptoms. Is patient prescribed a controlled substance at d/c from ED?: No Referrals: Manuel Melgar DO [Primary Care Provider] - 1-2 days Time of Disposition: 17:22
[2022-05-03 17:52] VITALS: BP 147/87; PULSE 57; RESP 18
== END 2022-05-03 17:51 | disposition home or self-care (01) ==
LOC: EC 14:44
DX: S93.401A Sprain of unspecified ligament of right ankle, initial encounter (principal); G43.909 Migraine, unspecified, not intractable, without status migrainosus; J45.909 Unspecified asthma, uncomplicated; F41.9 Anxiety disorder, unspecified; F31.9 Bipolar disorder, unspecified; F12.90 Cannabis use, unspecified, uncomplicated; Z88.1 Allergy status to other antibiotic agents; Z79.51 Long term (current) use of inhaled steroids; X50.9XXA Other and unspecified overexertion or strenuous movements or postures, initial encounter
CPT/HCPCS: 73610; 99284; 96374; 96375 ×3; 96361; J1200; J1100; J2765; J1885

== ENCOUNTER 2022-05-09 20:50 | Emergency (ER) | payer OTHER ==
[2022-05-09 21:17] VITALS: BP 108/77; PULSE 80; RESP 16; TEMP 97.7
[2022-05-09] MEDS ORDERED: ONDANSETRON 4 MG/2 ML VIAL IVP STA (21:29)
[2022-05-09] MEDS ORDERED: SODIUM CHLORIDE 0.9% 1,000 ML IV STA (21:29)
[2022-05-09] MEDS ORDERED: diphenhydrAMINE 50 MG/ML 1 ML VIAL IVP STA (21:29)
[2022-05-09] MEDS ORDERED: KETOROLAC 15 MG/ML 1 ML VIAL IVP STA (21:29)
--- NOTE | 2022-05-09 22:27 | ED ---
General Adult HPI - General Chief complaint: Headache Stated complaint: Covid +, Headache Time Seen by Provider: 05/09/22 21:24 Source: patient, RN notes reviewed Mode of arrival: ambulatory Limitations: no limitations - History of Present Illness Initial comments: 31-year-old female presents to the emergency Department with complaints of migraine headache, onset this afternoon. Describes this as typical migraine for her. Did take her Imitrex at home with no improvement. Complains of mild nausea and photophobia. Additionally, patient complains of body aches and cough. Reports close contact exposure to Covid-positive individual. Denies fever, chills, dizziness, vision changes, chest pain, shortness of breath, abdominal pain, diarrhea, dysuria, hematuria, loss of appetite. - Related Data Home Medications Medication Instructions Recorded Confirmed Cyclobenzaprine [Flexeril] 10 mg PO TID 09/30/21 11/04/21 Phentermine HCl [Adipex-P] 37.5 mg PO DAILY 09/30/21 11/04/21 traMADol HCL [Ultram] 50 mg PO BID 09/30/21 11/04/21 Omeprazole [PriLOSEC] 40 mg PO QAM 10/21/21 11/04/21 Sertraline HCl [Zoloft] 100 mg PO HS 10/21/21 11/04/21 Previous Rx's Medication Instructions Recorded ARIPiprazole [Abilify] 5 mg PO HS 30 Days #0 03/13/21 Acetaminophen Tab [Tylenol] 650 mg PO Q4HR PRN tab 03/13/21 Albuterol Inhaler [Ventolin Hfa 1 - 2 puff INHALATION Q6HR PRN #1 03/17/22 Inhaler] each Azithromycin [Zithromax] 0 mg PO DIRECTED #6 tab 03/17/22 predniSONE 60 mg PO DAILY #30 tab 03/17/22 Ondansetron Odt [Zofran Odt] 4 mg PO Q8HR PRN #10 tab 05/02/22 SUMAtriptan succinate 100 mg PO DIRECTED PRN #15 05/02/22 tablet Allergies Allergy/AdvReac Type Severity Reaction Status Date / Time metronidazole [From Flagyl] AdvReac Nausea & Verified 05/09/22 21:14 Vomiting & Diarrhea Metronidazole HCl AdvReac Nausea & Verified 11/13/22 21:14 [From Flagyl] Vomiting Review of Systems ROS Statement: Those systems with pertinent positive or pertinent negative responses have been documented in the HPI. ROS Other: All systems not noted in ROS Statement are negative. Past Medical History Past Medical History: Asthma Additional Past Medical History / Comment(s): migraine History of Any Multi-Drug Resistant Organisms: None Reported Past Surgical History: Adenoidectomy, Cholecystectomy, Orthopedic Surgery, Tonsillectomy Additional Past Surgical History / Comment(s): Right knee surgery, ganglion cyst removal bilateral hands, hemorrhoidectomy, colonoscopy, EGD. Past Anesthesia/Blood Transfusion Reactions: No Reported Reaction Past Psychological History: ADD/ADHD, Anxiety, Bipolar, Depression Past Drug Use History: Marijuana, None Reported - Past Family History Mother Family Medical History: No Reported History General Exam Limitations: no limitations General appearance: alert, in no apparent distress Eye exam: Present: normal appearance, PERRL, EOMI. Absent: scleral icterus, conjunctival injection ENT exam: Present: normal exam, normal oropharynx, mucous membranes moist Respiratory exam: Present: normal lung sounds bilaterally. Absent: respiratory distress, wheezes, rales, rhonchi, stridor Cardiovascular Exam: Present: regular rate, normal rhythm, normal heart sounds. Absent: systolic murmur, diastolic murmur, rubs, gallop, clicks GI/Abdominal exam: Present: soft, normal bowel sounds. Absent: distended, tenderness, guarding, rebound, rigid Neurological exam: Present: alert, oriented X3, CN II-XII intact, normal gait Psychiatric exam: Present: normal affect, normal mood Skin exam: Present: warm, dry, intact, normal color. Absent: rash Course Vital Signs 05/09/22 21:14 Temperature 97.7 F Pulse Rate 80 Respiratory 16 Rate Blood Pressure 108/77 O2 Sat by Pulse 98 Oximetry - Reevaluation(s) Reevaluation #1: 05/09/22 22:23 Upon reassessment, patient reports feeling improved. Nausea has resolved, headache is minimal. Discussed results. Patient will be given a work note and is instructed to home for the next 5 days. Medical Decision Making - Medical Decision Making This is a 31-year-old female with a past medical history of migraine headaches presents to the emergency department for evaluation of headache and body aches. Patient reports close contact Covid exposure. Upon exam, patient is neurolo gically intact with no focal deficits. Lung sounds are clear to auscultation with no evidence of increased work of breathing. Vital signs are stable. Patient was given migraine cocktail with significant improvement. Covid test is positive. Patient is instructed quarantine for the next 5 days and was provided a note for work. Symptomatic treatment was discussed. Patient is encouraged follow-up with her PCP for recheck if needed. Return parameters were discussed in detail. Patient verbalizes understanding and agrees with this plan. Attending: Segundo. - Lab Data Lab Results 05/09/22 Range/Units 21:17 Coronavirus (PCR) Detected A (Not Detectd) Disposition Clinical Impression: COVID-19, Migraine headache Disposition: HOME SELF-CARE Condition: Stable Instructions (If sedation given, give patient instructions): COVID-19 (Coronavirus Disease 2019) (ED) Additional Instructions: Rest. Increase fluids. Take Tylenol or Motrin for fever and body aches. Remain home for the next 5 days. Follow-up with your PCP for a recheck if needed. Return to the emergency department with any new, worsening, or concerning symptoms. Is patient prescribed a controlled substance at d/c from ED?: No Referrals: Manuel Melgar DO [Primary Care Provider] - 1-2 days Time of Disposition: 22:26
== END 2022-05-09 22:47 | disposition home or self-care (01) ==
LOC: EC 20:50
DX: U07.1 COVID-19 (principal); J45.909 Unspecified asthma, uncomplicated; F90.9 Attention-deficit hyperactivity disorder, unspecified type; F41.9 Anxiety disorder, unspecified; F31.9 Bipolar disorder, unspecified; F12.90 Cannabis use, unspecified, uncomplicated; Z79.51 Long term (current) use of inhaled steroids; Z79.899 Other long term (current) drug therapy; Z88.1 Allergy status to other antibiotic agents
CPT/HCPCS: 87635; 99284; 96374; 96375 ×2; 96361; J1200; J2405; J1885

== ENCOUNTER → 2022-06-07 | Outpatient (CLI) | payer OTHER ==
[2022-06-07 11:17] VITALS: BMI 40.4
== END | disposition home or self-care (01) ==
LOC: BARWHC3 08:44
PROVIDERS: ATTEND Surgery Plastic and Reconstructive Surgery
DX: Z71.3 Dietary counseling and surveillance (principal); E66.01 Morbid (severe) obesity due to excess calories; Z88.8 Allergy status to other drugs, medicaments and biological substances; F17.200 Nicotine dependence, unspecified, uncomplicated; Z68.41 Body mass index [BMI] 40.0-44.9, adult
CPT/HCPCS: 97804

== ENCOUNTER 2022-06-12 20:42 | Emergency (ER) | payer OTHER ==
[2022-06-12 20:55] VITALS: RESP 18; TEMP 99
[2022-06-12] MEDS ORDERED: SODIUM CHLORIDE 0.9% 1,000 ML IV STA (21:44)
[2022-06-12] MEDS ORDERED: ONDANSETRON 4 MG/2 ML VIAL IVP STA (21:44)
[2022-06-12] MEDS ORDERED: DEXAMETHASONE SOD PHOSPHATE 10 MG/ML 1 ML VIAL IVP STA (21:45)
--- NOTE | 2022-06-12 22:43 | XR ---
EXAMINATION TYPE: XR chest 2V DATE OF EXAM: 06/12/2022 COMPARISON: 03/17/2022 HISTORY: Short of breath TECHNIQUE: 2 views FINDINGS: Heart and mediastinum are normal. Lungs are clear. The diaphragm is normal. Bony thorax appears normal. Costophrenic angles are clear IMPRESSION: Normal chest. No change.
[2022-06-12 22:45] LABS: Basophils # (A) 0.1 k/uL (0-0.2); Basophils % (A) 1 %; Eosinophils # (A) 0.3 k/uL (0-0.7); Eosinophils % (A) 4 %; HCT 37.4 % (34.0-46.0); Lymphocytes # (A) 0.6 k/uL (1.0-4.8); Lymphocytes % (A) 9 %; MCH 29.6 pg (25.0-35.0); MCHC 34.7 g/dL (31.0-37.0); MCV 85.3 fL (80.0-100.0); Monocytes # (A) 0.3 k/uL (0-1.0); Monocytes % (A) 5 %; Neutrophils # (A) 5.5 k/uL (1.3-7.7); Neutrophils % (A) 81 %; Platelet Count 87 k/uL (150-450); RBC 4.38 m/uL (3.80-5.40); RDW 13.9 % (11.5-15.5); WBC 6.7 k/uL (3.8-10.6)
--- NOTE | 2022-06-12 22:47 | ED ---
General Adult HPI - General Chief complaint: Upper Respiratory Infection Stated complaint: Body aches Time Seen by Provider: 06/12/22 21:02 Source: patient, RN notes reviewed Mode of arrival: ambulatory Limitations: no limitations - History of Present Illness Initial comments: 31-year-old female presents to the emergency Department with complaints of body aches, fever, and cough, onset today. Patient states she woke up feeling this way. Reports having taken Tylenol at home without improvement. Has had multiple sick contacts. Reports feeling short of breath with coughing and activity. Complains of migraine headache with photophobia and mild nausea. Denies chest pain, abdominal pain, vomiting, diarrhea, and dysuria. - Related Data Home Medications Medication Instructions Recorded Confirmed Cyclobenzaprine [Flexeril] 10 mg PO TID 09/30/21 11/04/21 Phentermine HCl [Adipex-P] 37.5 mg PO DAILY 09/30/21 11/04/21 traMADol HCL [Ultram] 50 mg PO BID 09/30/21 11/04/21 Omeprazole [PriLOSEC] 40 mg PO QAM 10/21/21 11/04/21 Sertraline HCl [Zoloft] 100 mg PO HS 10/21/21 11/04/21 Previous Rx's Medication Instructions Recorded ARIPiprazole [Abilify] 5 mg PO HS 30 Days #0 03/13/21 Acetaminophen Tab [Tylenol] 650 mg PO Q4HR PRN tab 03/13/21 Albuterol Inhaler [Ventolin Hfa 1 - 2 puff INHALATION Q6HR PRN #1 03/17/22 Inhaler] each Azithromycin [Zithromax] 0 mg PO DIRECTED #6 tab 03/17/22 predniSONE 60 mg PO DAILY #30 tab 03/17/22 Ondansetron Odt [Zofran Odt] 4 mg PO Q8HR PRN #10 tab 05/02/22 SUMAtriptan succinate 100 mg PO DIRECTED PRN #15 05/02/22 tablet Oseltamivir Phosphate 75 mg PO BID 5 Days #10 capsule 06/12/22 Allergies Allergy/AdvReac Type Severity Reaction Status Date / Time metronidazole [From Flagyl] AdvReac Nausea & Verified 06/12/22 20:55 Vomiting & Diarrhea Metronidazole HCl AdvReac Nausea & Verified 06/12/22 20:55 [From Flagyl] Vomiting Review of Systems ROS Statement: Those systems with pertinent positive or pertinent negative responses have been documented in the HPI. ROS Other: All systems not noted in ROS Statement are negative. Past Medical History Past Medical History: Asthma Additional Past Medical History / Comment(s): migraine History of Any Multi-Drug Resistant Organisms: None Reported Past Surgical History: Adenoidectomy, Cholecystectomy, Orthopedic Surgery, Ton sillectomy Additional Past Surgical History / Comment(s): Right knee surgery, ganglion cyst removal bilateral hands, hemorrhoidectomy, colonoscopy, EGD. Past Anesthesia/Blood Transfusion Reactions: No Reported Reaction Past Psychological History: ADD/ADHD, Anxiety, Bipolar, Depression Smoking Status: Current every day smoker Past Alcohol Use History: None Reported Past Drug Use History: Marijuana, None Reported - Past Family History Mother Family Medical History: No Reported History General Exam Limitations: no limitations General appearance: alert, in no apparent distress ENT exam: Present: normal exam, normal oropharynx, mucous membranes moist, TM's normal bilaterally Neck exam: Present: normal inspection, full ROM. Absent: lymphadenopathy Respiratory exam: Present: normal lung sounds bilaterally. Absent: respiratory distress, wheezes, rales, rhonchi, stridor, chest wall tenderness Cardiovascular Exam: Present: regular rate, normal rhythm, normal heart sounds. Absent: systolic murmur, diastolic murmur, rubs, gallop, clicks GI/Abdominal exam: Present: soft, normal bowel sounds. Absent: distended, tenderness, guarding, rebound, rigid Neurological exam: Present: alert, oriented X3, CN II-XII intact Psychiatric exam: Present: normal affect, normal mood Skin exam: Present: warm, dry, intact, normal color. Absent: rash Course Vital Signs 06/12/22 06/13/22 20:49 00:07 Temperature 99.0 F Pulse Rate 99 85 Respiratory 18 18 Rate Blood Pressure 119/78 127/75 O2 Sat by Pulse 99 99 Oximetry - Reevaluation(s) Reevaluation #1: 06/12/22 23:54 Patient updated on results. Reports improvement. Will be discharged home with prescription for Tamiflu and instructed to follow up with PCP for recheck. Medical Decision Making - Medical Decision Making Mrs. fernandez 31-year-old female who presents to the emergency Department with complaints of headache and body aches accompanied by fever. Upon exam, patient is well-appearing and in no acute distress. She has no neck pain, nuchal rigidity, or altered level of consciousness. Patient does have dry cough and mild nausea. Laboratory studies were obtained and indicative of viral infection. Swab positive for influenza A. patient given migraine cocktail and IV fluids with improvement. She is prescribed Tamiflu as her symptoms began less than 24 hours ago. Encouraged to follow up with PCP for a recheck this week. Return parameters discussed in detail. Patient verbalizes understanding and agrees with this plan. Attending: Viola. - Lab Data Result diagrams: 06/12/22 22:20 06/12/22 22:20 Lab Results 06/12/22 06/12/22 06/12/22 Range/Units 22:20 22:20 22:20 WBC 6.7 (3.8-10.6) k/uL RBC 4.38 (3.80-5.40) m/uL Hgb 13.0 (11.4-16.0) gm/dL Hct 37.4 (34.0-46.0) % MCV 85.3 (80.0-100.0) fL MCH 29.6 (25.0-35.0) pg MCHC 34.7 (31.0-37.0) g/dL RDW 13.9 (11.5-15.5) % Plt Count 87 L (150-450) k/uL MPV 11.0 Neutrophils % 81 % Lymphocytes % 9 % Monocytes % 5 % Eosinophils % 4 % Basophils % 1 % Neutrophils # 5.5 (1.3-7.7) k/uL Lymphocytes # 0.6 L (1.0-4.8) k/uL Monocytes # 0.3 (0-1.0) k/uL Eosinophils # 0.3 (0-0.7) k/uL Basophils # 0.1 (0-0.2) k/uL Sodium 138 (137-145) mmol/L Potassium 4.2 (3.5-5.1) mmol/L Chloride 110 H (98-107) mmol/L Carbon Dioxide 22 (22-30) mmol/L Anion Gap 6 mmol/L BUN 6 L (7-17) mg/dL Creatinine 0.67 (0.52-1.04) mg/dL Est GFR (CKD-EPI)AfAm >90 (>60 ml/min/1.73 sqM) Est GFR (CKD-EPI)NonAf >90 (>60 ml/min/1.73 sqM) Glucose 94 (74-99) mg/dL Calcium 8.6 (8.4-10.2) mg/dL Total Bilirubin 0.2 (0.2-1.3) mg/dL AST 22 (14-36) U/L ALT 21 (4-34) U/L Alkaline Phosphatase 53 (38-126) U/L Total Protein 6.0 L (6.3-8.2) g/dL Albumin 3.7 (3.5-5.0) g/dL Urine Color Urine Appearance (Clear) Urine pH (5.0-8.0) Ur Specific [place] (1.001-1.035) Urine Protein (Negative) Urine Glucose (UA) (Negative) Urine Ketones (Negative) Urine Blood (Negative) Urine Nitrite (Negative) Urine Bilirubin (Negative) Urine Urobilinogen (<2.0) mg/dL Ur Leukocyte Esterase (Negative) Urine RBC (0-5) /hpf Urine WBC (0-5) /hpf Ur Squamous Epith Cells (0-4) /hpf Amorphous Sediment (None) /hpf Urine Bacteria (None) /hpf Urine Mucus (None) /hpf Urine HCG, Qual (Not Detectd) Coronavirus (PCR) (Not Detectd) Influenza Type A RNA Detected H (Not Detectd) Influenza Type B (PCR) Not Detected (Not Detectd) 06/12/22 06/12/22 06/12/22 Range/Units 22:20 23:24 23:24 WBC (3.8-10.6) k/uL RBC (3.80-5.40) m/uL Hgb (11.4-16.0) gm/dL Hct (34.0-46.0) % MCV (80.0-100.0) fL MCH (25.0-35.0) pg MCHC (31.0-37.0) g/dL RDW (11.5-15.5) % Plt Count (150-450) k/uL MPV Neutrophils % % Lymphocytes % % Monocytes % % Eosinophils % % Basophils % % Neutrophils # (1.3-7.7) k/uL Lymphocytes # (1.0-4.8) k/uL Monocytes # (0-1.0) k/uL Eosinophils # (0-0.7) k/uL Basophils # (0-0.2) k/uL Sodium (137-145) mmol/L Potassium (3.5-5.1) mmol/L Chloride (98-107) mmol/L Carbon Dioxide (22-30) mmol/L Anion Gap mmol/L BUN (7-17) mg/dL Creatinine (0.52-1.04) mg/dL Est GFR (CKD-EPI)AfAm (>60 ml/min/1.73 sqM) Est GFR (CKD-EPI)NonAf (>60 ml/min/1.73 sqM) Glucose (74-99) mg/dL Calcium (8.4-10.2) mg/dL Total Bilirubin (0.2-1.3) mg/dL AST (14-36) U/L ALT (4-34) U/L Alkaline Phosphatase (38-126) U/L Total Protein (6.3-8.2) g/dL Albumin (3.5-5.0) g/dL Urine Color Yellow Urine Appearance Cloudy H (Clear) Urine pH 6.5 (5.0-8.0) Ur Specific [place] 1.025 (1.001-1.035) Urine Protein Trace H (Negative) Urine Glucose (UA) Negative (Negative) Urine Ketones Negative (Negative) Urine Blood Negative (Negative) Urine Nitrite Negative (Negative) Urine Bilirubin Negative (Negative) Urine Urobilinogen 2.0 (<2.0) mg/dL Ur Leukocyte Esterase Negative (Negative) Urine RBC 1 (0-5) /hpf Urine WBC 3 (0-5) /hpf Ur Squamous Epith Cells 10 H (0-4) /hpf Amorphous Sediment Occasional H (None) /hpf Urine Bacteria Rare H (None) /hpf Urine Mucus Few H (None) /hpf Urine HCG, Qual Not Detected (Not Detectd) Coronavirus (PCR) Not Detected (Not Detectd) Influenza Type A RNA (Not Detectd) Influenza Type B (PCR) (Not Detectd) - Radiology Data Radiology results: report reviewed, image reviewed Interpreted by me: Chest x-ray interpreted by me shows no focal area of consolidation or infiltrate. Two-view chest x-ray was obtained. Report was reviewed in its entirety. Impression per Dr. Tierney is normal chest. No change. Disposition Clinical Impression: Influenza A Disposition: HOME SELF-CARE Condition: Stable Instructions (If sedation given, give patient instructions): Influenza (ED) Additional Instructions: Rest. Increase fluids. Alternate Tylenol and Motrin for fever control and body aches. Take Tamiflu as prescribed. Follow up with PCP for recheck in 48-72 hours. Return to the emergency department with any new, worsening, or concerning symptoms. Prescriptions: Oseltamivir Phosphate 75 mg PO BID 5 Days #10 capsule Is patient prescribed a controlled substance at d/c from ED?: No Referrals: Manuel Melgar DO [Primary Care Provider] - 1-2 days Time of Disposition: 23:56
[2022-06-12 23:01] LABS: ALT 21 U/L (4-34); AST 22 U/L (14-36); African American GFR (CKD) >90 (>60 ml/min/1.73 sqM); Albumin 3.7 g/dL (3.5-5.0); Alkaline Phosphatase 53 U/L (38-126); Anion Gap 6 mmol/L; Blood Urea Nitrogen 6 mg/dL (7-17); Calcium 8.6 mg/dL (8.4-10.2); Carbon Dioxide 22 mmol/L (22-30); Chloride 110 mmol/L (98-107); Glucose 94 mg/dL (74-99); Non-African American GFR(CKD) >90 (>60 ml/min/1.73 sqM); Potassium 4.2 mmol/L (3.5-5.1); Sodium 138 mmol/L (137-145); Total Bilirubin 0.2 mg/dL (0.2-1.3)
[2022-06-12 23:54] LABS: Amorphous Sediment,Urine Occasional /hpf; Appearance,Urine Cloudy (Clear); Bacteria,Urine Rare /hpf; Bilirubin,Urine Negative (Negative); Blood,Urine Negative (Negative); Color,Urine Yellow; Glucose,Urine (UA) Negative (Negative); Ketones,Urine Negative (Negative); Leukocyte Esterase,Urine Negative (Negative); Mucus,Urine Few /hpf; Nitrite,Urine Negative (Negative); PH, Urine 6.5 (5.0-8.0); Protein,Urine Trace (Negative); RBC,Urine 1 /hpf (0-5); Specific Gravity,Urine 1.025 (1.001-1.035); Squamous Epithelial Cell,Urine 10 /hpf (0-4); WBC,Urine 3 /hpf (0-5)
[2022-06-13 00:08] VITALS: BP 127/75; PULSE 85
== END 2022-06-13 00:07 | disposition home or self-care (01) ==
LOC: EC 20:42
DX: J10.1 Influenza due to other identified influenza virus with other respiratory manifestations (principal); J45.909 Unspecified asthma, uncomplicated; F17.200 Nicotine dependence, unspecified, uncomplicated; F12.90 Cannabis use, unspecified, uncomplicated; F41.9 Anxiety disorder, unspecified; F32.A Depression, unspecified; Z20.822 Contact with and (suspected) exposure to COVID-19; Z90.89 Acquired absence of other organs; Z79.899 Other long term (current) drug therapy
CPT/HCPCS: 36415; 80053; 85025; 81001; 81025; 87502; 87635; 71046; 99284; 96374; 96375; 96361; J1100; J2405

== ENCOUNTER 2022-06-19 03:17 | Emergency (ER) | payer OTHER ==
[2022-06-19 03:23] VITALS: BP 133/83; PULSE 78; RESP 16; TEMP 98.1
[2022-06-19] MEDS ORDERED: OFLOXACIN 0.3% OPHTH DROPS 5 ML BOTTLE RIGHT EAR STA (03:31)
--- NOTE | 2022-06-19 03:34 | ED ---
ENT HPI - General Chief complaint: ENT Stated complaint: Ear Pain Time Seen by Provider: 06/19/22 03:20 Source: patient, RN notes reviewed Mode of arrival: ambulatory Limitations: no limitations - History of Present Illness Initial comments: This is a pleasant 31-year-old female with a history of asthma and a recent upper respiratory infection. Patient is in complaining of right ear pain which was bothering her all day. Patient then started using [id number]-scivtod eardrops and now noticed a small amount of bleeding from the right ear. Patient was concerned about a perforated tympanic membrane. No headache, no fever or chills, RIGHT ear pain, no sore throat or difficulty with speech, no neck pain, no chest pain or shortness of breath, no abdominal pain, no nausea or vomiting, no changes in urination or bowel movements, no numbness or tingling, no extremity pain, no skin rashes or lesions. Past medical, surgical, social, and family history reviewed. Positive cigarette smoker, denies chance of - Related Data Home Medications Medication Instructions Recorded Confirmed Cyclobenzaprine [Flexeril] 10 mg PO TID 09/30/21 11/04/21 Phentermine HCl [Adipex-P] 37.5 mg PO DAILY 09/30/21 11/04/21 traMADol HCL [Ultram] 50 mg PO BID 09/30/21 11/04/21 Omeprazole [PriLOSEC] 40 mg PO QAM 10/21/21 11/04/21 Sertraline HCl [Zoloft] 100 mg PO HS 10/21/21 11/04/21 Previous Rx's Medication Instructions Recorded ARIPiprazole [Abilify] 5 mg PO HS 30 Days #0 03/13/21 Acetaminophen Tab [Tylenol] 650 mg PO Q4HR PRN tab 03/13/21 Albuterol Inhaler [Ventolin Hfa 1 - 2 puff INHALATION Q6HR PRN #1 03/17/22 Inhaler] each Azithromycin [Zithromax] 0 mg PO DIRECTED #6 tab 03/17/22 predniSONE 60 mg PO DAILY #30 tab 03/17/22 Ondansetron Odt [Zofran Odt] 4 mg PO Q8HR PRN #10 tab 05/02/22 SUMAtriptan succinate 100 mg PO DIRECTED PRN #15 05/02/22 tablet Oseltamivir Phosphate 75 mg PO BID 5 Days #10 capsule 06/12/22 Ofloxacin 0.3% Otic Soln [Floxin 5 drops RIGHT EAR BID #5 ml 06/19/22 0.3% Otic Soln] Allergies Allergy/AdvReac Type Severity Reaction Status Date / Time metronidazole [From Flagyl] AdvReac Nausea & Verified 06/19/22 03:19 Vomiting & Diarrhea Metronidazole HCl AdvReac Nausea & Verified 06/19/22 03:19 [From Flagyl] Vomiting Review of Systems ROS Statement: Those systems with pertinent positive or pertinent negative responses have been documented in the HPI. ROS Other: All systems not noted in ROS Statement are negative. Past Medical History Past Medical History: Asthma Additional Past Medical History / Comment(s): migraine History of Any Multi-Drug Resistant Organisms: None Reported Past Surgical History: Adenoidectomy, Cholecystectomy, Orthopedic Surgery, Tonsillectomy Additional Past Surgical History / Comment(s): Right knee surgery, ganglion cyst removal bilateral hands, hemorrhoidectomy, colonoscopy, EGD. Past Anesthesia/Blood Transfusion Reactions: No Reported Reaction Past Psychological History: ADD/ADHD, Anxiety, Bipolar, Depression Smoking Status: Current every day smoker Past Alcohol Use History: None Reported Past Drug Use History: Marijuana, None Reported - Past Family History Mother Family Medical History: No Reported History General Exam - General Exam Comments Initial Comments: Patient in no significant distress. Minimal serous drainage with a tiny amount of blood noticed from the right ear. Limitations: no limitations General appearance: alert, in no apparent distress Head exam: Present: atraumatic, normocephalic, normal inspection Eye exam: Present: normal appearance, EOMI. Absent: scleral icterus, conjunctival injection ENT exam: Present: mucous membranes moist, normal external ear exam Expanded TM/Canal exam: Erythema: Right TM, Effusion: Right TM (Serious), Perforation: Right TM (Perforation with some evidence of serous fluid, no definitive purulent fluid.) Mouth exam: Present: normal external inspection, tongue normal. Absent: drooling, trismus, muffled voice, tongue elevation, laceration Teeth exam: Present: normal inspection, dental caries Throat exam: normal inspection Respiratory exam: Present: normal lung sounds bilaterally. Absent: respiratory distress, wheezes, rales, rhonchi, stridor Cardiovascular Exam: Present: regular rate, normal rhythm, normal heart sounds. Absent: systolic murmur, diastolic murmur, rubs, gallop, clicks GI/Abdominal exam: Present: soft. Absent: tenderness Extremities exam: Present: normal inspection Back exam: Present: normal inspection Neurological exam: Present: alert, oriented X3, CN II-XII intact. Absent: motor sensory deficit Psychiatric exam: Present: normal affect, normal mood Skin exam: Present: warm, dry, intact, normal color. Absent: rash, cyanosis, diaphoretic, erythema, urticaria, vesicles Course Vital Signs 06/19/22 03:19 Temperature 98.1 F Pulse Rate 78 Respiratory 16 Rate Blood Pressure 133/83 O2 Sat by Pulse 98 Oximetry Medical Decision Making - Medical Decision Making Was pt. sent in by a medical professional or institution? @ -no Did you speak to anyone other than the patient for history? @ -no Did you review nursing and triage notes? @ -yes Were old charts reviewed? @ -no Differential Diagnosis? @ -Otitis externa, otitis media, mastoiditis, perforated tympanic membrane, barotrauma, Belle Zhou syndrome What meds were considered but not given? Why? @ -I did consider oral antibiotics. However ofloxacin is an appropriate treatment for ear infection with tympanic membrane perforation. Did you discuss the management of the patient with other professionals? @ -ED attending physician Did you reconcile home meds? @ -. Was smoking cessation discussed for >3mins.? @ -Was counseled on smoking cessation for greater than 3 minutes. Concurs with need to stop. What co-morbidities impacted this encounter? (DM, HTN, Smoking, COPD, CAD, Cancer, CVA, Hep., AIDS, mental health diagnosis, sleep apnea, morbid obesity)? @ -Asthma, cigarette smoking Was patient admitted / discharged? @ -Patient was discharged in stable condition. Ofloxacin was started here in the ER. Undiagnosed new problem with uncertain prognosis? @ -[none] Drug Therapy requiring intensive monitoring for toxicity (Heparin, Nitro, Insulin, Cardizem)? @ -[none] Were any procedures done? @ -[none] Diagnosis/symptom? @ -Otalgia with right tympanic membrane perforation Acute, or Chronic, or Acute on Chronic? @ -Acute Uncomplicated (without systemic symptoms) or Complicated (systemic symptoms)? @ -Upper located Side effects of treatment? @ -[none] Exacerbation, Progression, or Severe Exacerbation] @ -[no] Poses a threat to life or bodily function? @ -[Unlikely Disposition Clinical Impression: Perforated right tympanic membrane on examination, Otalgia, right ear, Cigarette smoker Disposition: HOME SELF-CARE Condition: Good Instructions (If sedation given, give patient instructions): Ruptured Eardrum (ED), Earache (ED), How to Stop Smoking (ED) Additional Instructions: Ofloxacin eardrops, 5 drops to the affected ear twice daily for 7 days. Follow- up with your regular physician as directed. Return to the ER immediately if any symptoms worsen, new symptoms arise, or any other problems develop. Follow-up with your regular physician or the ear nose and throat doctor Prescriptions: Ofloxacin 0.3% Otic Soln [Floxin 0.3% Otic Soln] 5 drops RIGHT EAR BID #5 ml Is patient prescribed a controlled substance at d/c from ED?: No Referrals: Kang Velasquez MD [STAFF PHYSICIAN] - 06/23/22 Manuel Melgar DO [Primary Care Provider] - 06/23/22 Time of Disposition: 03:33
== END 2022-06-19 04:25 | disposition home or self-care (01) ==
LOC: EC 03:17
DX: H72.01 Central perforation of tympanic membrane, right ear (principal); J45.909 Unspecified asthma, uncomplicated; F90.9 Attention-deficit hyperactivity disorder, unspecified type; F41.9 Anxiety disorder, unspecified; F32.A Depression, unspecified; F17.200 Nicotine dependence, unspecified, uncomplicated; F12.90 Cannabis use, unspecified, uncomplicated; Z79.899 Other long term (current) drug therapy; Z88.1 Allergy status to other antibiotic agents
CPT/HCPCS: 99282

== ENCOUNTER 2022-06-20 18:26 | Emergency (ER) | payer OTHER ==
[2022-06-20 18:39] VITALS: RESP 18; TEMP 98.7
--- NOTE | 2022-06-20 20:37 | ED ---
General Adult HPI - General Chief complaint: ENT Stated complaint: Ear Pain Time Seen by Provider: 06/20/22 20:19 Source: patient Mode of arrival: ambulatory Limitations: no limitations - History of Present Illness Initial comments: Dictation was produced using [employer] dictation software. please excuse any grammatical, word or spelling errors. Chief Complaint: 31-year-old female presents to the emergency department with persistent right ear pain History of Present Illness: 31-year-old female she was seen here in emergency department yesterday for right ear pain she was diagnosed with ear infection. She was prescribed ofloxacin otic drops. Patient states that she had a conversation with the family member told her to stop taking eardrops and to come to the emergency department to be reevaluated. Patient complains of right mastoid pain. Patient also has a cough. Denies . Patient does utilize marijuana regularly. The ROS documented in this emergency department record has been reviewed and confirmed by me. Those systems with pertinent positive or negative responses have been documented in the HPI. All other systems are other negative and/or noncontributory. PHYSICAL EXAM: General Impression: Alert and oriented x3, not in acute distress HEENT: Normocephalic atraumatic, extra-ocular movements intact, pupils equal and reactive to light bilaterally, mucous membranes moist, palpatory right mastoid pain, tenderness with manipulation of the external ear, probably erythematous tympanic membrane on the right Cardiovascular: Heart regular rate and rhythm Chest: Able to complete full sentences, no retractions, no tachypnea Abdomen: abdomen soft, non-tender, non-distended, no organomegaly Musculoskeletal: Pulses present and equal in all extremities, no peripheral edema Motor: no focal deficits noted Neurological: CN II-XII grossly intact, no focal motor or sensory deficits noted Skin: Intact with no visualized rashes Psych: Normal affect and mood ED course: 31-year-old female presents emergency department for right ear pain. She has associated right mastoid pain. Vital signs upon arrival are within acceptable limits. Nursing notes and chart review was performed For panel viral PCR is negative per chest x-ray is negative. Computed tomography scan of the mastoids shows severe pansinusitis and severe mastoiditis. Patient started on vancomycin and Zosyn. We do not have ENT coverage today. It's unclear if we have ENT coverage over the week. Case discussed with [facility] emergency department. Patient will be transferred for further care. Patient case accepted by Dr. Ireland at [facility]. - Related Data Home Medications Medication Instructions Recorded Confirmed Cyclobenzaprine [Flexeril] 10 mg PO TID 09/30/21 11/04/21 Phentermine HCl [Adipex-P] 37.5 mg PO DAILY 09/30/21 11/04/21 traMADol HCL [Ultram] 50 mg PO BID 09/30/21 11/04/21 Omeprazole [PriLOSEC] 40 mg PO QAM 10/21/21 11/04/21 Sertraline HCl [Zoloft] 100 mg PO HS 10/21/21 11/04/21 Previous Rx's Medication Instructions Recorded ARIPiprazole [Abilify] 5 mg PO HS 30 Days #0 03/13/21 Acetaminophen Tab [Tylenol] 650 mg PO Q4HR PRN tab 03/13/21 Albuterol Inhaler [Ventolin Hfa 1 - 2 puff INHALATION Q6HR PRN #1 03/17/22 Inhaler] each Azithromycin [Zithromax] 0 mg PO DIRECTED #6 tab 03/17/22 predniSONE 60 mg PO DAILY #30 tab 03/17/22 Ondansetron Odt [Zofran Odt] 4 mg PO Q8HR PRN #10 tab 05/02/22 SUMAtriptan succinate 100 mg PO DIRECTED PRN #15 05/02/22 tablet Oseltamivir Phosphate 75 mg PO BID 5 Days #10 capsule 06/12/22 Ofloxacin 0.3% Otic Soln [Floxin 5 drops RIGHT EAR BID #5 ml 06/19/22 0.3% Otic Soln] Allergies Allergy/AdvReac Type Severity Reaction Status Date / Time metronidazole [From Flagyl] AdvReac Nausea & Verified 06/20/22 18:39 Vomiting & Diarrhea Metronidazole HCl AdvReac Nausea & Verified 06/20/22 18:39 [From Flagyl] Vomiting Review of Systems ROS Statement: Those systems with pertinent positive or pertinent negative responses have been documented in the HPI. ROS Other: All systems not noted in ROS Statement are negative. Past Medical History Past Medical History: Asthma Additional Past Medical History / Comment(s): migraine History of Any Multi-Drug Resistant Organisms: None Reported Past Surgical History: Adenoidectomy, Cholecystectomy, Orthopedic Surgery, Tonsillectomy Additional Past Surgical History / Comment(s): Right knee surgery, ganglion cyst removal bilateral hands, hemorrhoidectomy, colonoscopy, EGD. Past Anesthesia/Blood Transfusion Reactions: No Reported Reaction Past Psychological History: ADD/ADHD, Anxiety, Bipolar, Depression Smoking Status: Current every day smoker Past Alcohol Use History: None Reported Past Drug Use History: Marijuana, None Reported - Past Family History Mother Family Medical History: No Reported History General Exam Limitations: no limitations Course Vital Signs 06/20/22 06/20/22 18:37 22:14 Temperature 98.7 F Pulse Rate 90 88 Respiratory 18 18 Rate Blood Pressure 113/71 120/73 O2 Sat by Pulse 99 98 Oximetry Medical Decision Making - Lab Data Lab Results 06/20/22 Range/Units 20:35 Influenza Type A (PCR) Not Detected (Not Detectd) Influenza Type B (PCR) Not Detected (Not Detectd) RSV (PCR) Not Detected (Not Detectd) SARS-CoV-2 (PCR) Not Detected (Not Detectd) Disposition Clinical Impression: Mastoiditis Disposition: OTHER INSTITUTION NOT DEFINED Condition: Serious Referrals: Manuel Melgar DO [Primary Care Provider] - 1-2 days Time of Disposition: 22:36 - Out of Hospital Transfer - Req. Specs Out of Hospital Transfer - Requested Specifics: Other Emergency Center ([facility])
--- NOTE | 2022-06-20 20:57 | XR ---
EXAMINATION TYPE: XR chest 2V DATE OF EXAM: 06/20/2022 COMPARISON: 06/12/2022 HISTORY: Cough TECHNIQUE: FINDINGS: Heart is normal. Lungs are clear. Diaphragm is normal. Bony thorax appears normal. IMPRESSION: Normal chest. No change.
--- NOTE | 2022-06-20 21:19 | CT ---
EXAMINATION TYPE: CT mastoid wo con DATE OF EXAM: 06/20/2022 COMPARISON: CT brain 06/29/2020 HISTORY: Right mastoid pain. CT DLP: 387.4 mGycm Automated exposure control for dose reduction was used. Images obtained from the bottom of the skull base to the frontal sinuses with no contrast. There is extensive mucosal thickening in the mastoid air cells. There is extensive mucosal thickening in the maxillary frontal ethmoid and sphenoid sinuses. No focal bone destruction. There is extensive bilateral opacification of the middle ear cavities. There is mucosal thickening at the internal shy ry canal on the left side adjacent to the tympanic membrane. No focal bone destruction. The internal auditory canals are symmetric. No evidence of cerebellopontine angle mass. IMPRESSION: Severe pansinusitis. Severe mastoiditis. Opacification is seen significantly in the middle ear cavity consistent with otit is media. There is also evidence for left-sided otitis externa..
[2022-06-20] MEDS ORDERED: VANCOMYCIN IV PER PHARMACY 1 EACH MISC MISCELLANE PRN (21:45)
[2022-06-20] MEDS ORDERED: PIPERACILLIN-TAZOBACTAM 3.375 GM in SODIUM CHLORIDE 0.9% 100 ML IVPB STA (21:46)
[2022-06-20] MEDS ORDERED: MORPHINE SULFATE 4 MG/ML SYRINGE IVP STA (21:50)
[2022-06-20 23:05] LABS: Basophils # (A) 0.1 k/uL (0-0.2); Basophils % (A) 1 %; Eosinophils # (A) 0.5 k/uL (0-0.7); Eosinophils % (A) 4 %; HCT 42.1 % (34.0-46.0); HGB 14.1 gm/dL (11.4-16.0); Lymphocytes % (A) 24 %; MCH 28.5 pg (25.0-35.0); MCHC 33.5 g/dL (31.0-37.0); MCV 85.1 fL (80.0-100.0); Mean Platelet Volume 9.7; Monocytes # (A) 0.6 k/uL (0-1.0); Monocytes % (A) 5 %; Neutrophils # (A) 8.1 k/uL (1.3-7.7); Neutrophils % (A) 65 %; RBC 4.95 m/uL (3.80-5.40); RDW 13.4 % (11.5-15.5); WBC 12.5 k/uL (3.8-10.6)
[2022-06-20 23:10] LABS: Platelet Count 308 k/uL (150-450)
[2022-06-20] MEDS ORDERED: VANCOMYCIN 2,000 MG in SODIUM CHLORIDE 0.9% 500 ML 500 ML IVPB ONE (23:30)
[2022-06-20 23:33] LABS: African American GFR (CKD) >90 (>60 ml/min/1.73 sqM); Anion Gap 8 mmol/L; Blood Urea Nitrogen 8 mg/dL (7-17); Calcium 9.2 mg/dL (8.4-10.2); Carbon Dioxide 23 mmol/L (22-30); Chloride 108 mmol/L (98-107); Glucose 87 mg/dL (74-99); Non-African American GFR(CKD) >90 (>60 ml/min/1.73 sqM); Potassium 3.9 mmol/L (3.5-5.1); Sodium 139 mmol/L (137-145)
[2022-06-20 23:52] VITALS: BP 122/81; PULSE 82
== END 2022-06-20 23:52 | disposition other institution (70) ==
LOC: EC 18:26
DX: H70.91 Unspecified mastoiditis, right ear (principal); H60.92 Unspecified otitis externa, left ear; J45.909 Unspecified asthma, uncomplicated; J32.4 Chronic pansinusitis; F17.200 Nicotine dependence, unspecified, uncomplicated; F12.90 Cannabis use, unspecified, uncomplicated; F90.9 Attention-deficit hyperactivity disorder, unspecified type; F41.9 Anxiety disorder, unspecified; F31.9 Bipolar disorder, unspecified; Z20.822 Contact with and (suspected) exposure to COVID-19; Z88.1 Allergy status to other antibiotic agents
CPT/HCPCS: 36415; 80048; 85025; 87040; 87636; 71046; 70486; 99285; 96365; 96367; 96375; J2543; J3370; J2270

== ENCOUNTER → 2022-09-16 | Outpatient (CLI) | payer OTHER ==
--- NOTE | 2022-09-16 13:22 | XR ---
EXAMINATION TYPE: XR ankle complete 3 views RT, XR foot complete 3 views RT DATE OF EXAM: 09/16/2022 COMPARISON: NONE HISTORY: 31-year-old female M2 5.571, pain especially to the fifth metatarsal FINDINGS: Ankle: The ankle mortise is congruent with preservation of the distal tibiofibular overlap. Talar dome is in tact. No acute fracture, subluxation, or dislocation. Tiny posterior and plantar heel spurs. Subtalar joint align. Foot: No acute fracture, subluxation, dislocation is seen. There may be very minimal early marginal spurrin g at the first MTP joint. IMPRESSION: Right ankle and foot without acute osseous abnormality seen.
== END | disposition home or self-care (01) ==
LOC: RADXRMAIN 09:20
PROVIDERS: ATTEND Family Medicine
DX: M25.571 Pain in right ankle and joints of right foot (principal)

== ENCOUNTER 2022-09-22 18:51 | Emergency (ER) | payer OTHER ==
--- NOTE | 2022-09-22 19:25 | ED ---
ENT HPI - General Source: patient Mode of arrival: ambulatory Limitations: no limitations <Emily Bang - Last Filed: 09/22/22 19:35> - General Source: RN notes reviewed, old records reviewed <Mike Jon Pacheco - Last Filed: 09/22/22 23:05> - General Chief complaint: ENT Stated complaint: headache Time Seen by Provider: 09/22/22 19:25 - History of Present Illness Initial comments: Patient is a 31 year old female who presents to the emergency department for right ear pain. Patient has history of right mastoiditis is diagnosed here in the emergency department in May and transferred to [facility] for management by ENT. Patient states she was discharged with antibiotics her symptoms did improve however they never resolved fully. Patient reports intermittent right ear and right jaw pain which has became consistent for the past 2 days. Patient reports worsening of pain. She does have some nausea without any vomiting. Denies fever, chills, cough, sore throat, trouble breathing. Patient has appointment with her ENT specialist Dr. Santiago on September 28. (Emily Bang) - Related Data Home Medications Medication Instructions Recorded Confirmed Cyclobenzaprine [Flexeril] 10 mg PO TID 09/30/21 11/04/21 Phentermine HCl [Adipex-P] 37.5 mg PO DAILY 09/30/21 11/04/21 traMADol HCL [Ultram] 50 mg PO BID 09/30/21 11/04/21 Omeprazole [PriLOSEC] 40 mg PO QAM 10/21/21 11/04/21 Sertraline HCl [Zoloft] 100 mg PO HS 10/21/21 11/04/21 Previous Rx's Medication Instructions Recorded ARIPiprazole [Abilify] 5 mg PO HS 30 Days #0 03/13/21 Acetaminophen Tab [Tylenol] 650 mg PO Q4HR PRN tab 03/13/21 Albuterol Inhaler [Ventolin Hfa 1 - 2 puff INHALATION Q6HR PRN #1 03/17/22 Inhaler] each Azithromycin [Zithromax] 0 mg PO DIRECTED #6 tab 03/17/22 predniSONE 60 mg PO DAILY #30 tab 03/17/22 Ondansetron Odt [Zofran Odt] 4 mg PO Q8HR PRN #10 tab 05/02/22 SUMAtriptan succinate 100 mg PO DIRECTED PRN #15 05/02/22 tablet Oseltamivir Phosphate 75 mg PO BID 5 Days #10 capsule 06/12/22 Ofloxacin 0.3% Otic Soln [Floxin 5 drops RIGHT EAR BID #5 ml 06/19/22 0.3% Otic Soln] Ibuprofen [Motrin] 600 mg PO Q8HR PRN #30 tab 08/14/22 Allergies Allergy/AdvReac Type Severity Reaction Status Date / Time metronidazole [From Flagyl] AdvReac Nausea & Verified 09/22/22 19:12 Vomiting & Diarrhea Metronidazole HCl AdvReac Nausea & Verified 09/22/22 19:12 [From Flagyl] Vomiting Review of Systems ROS Other: All systems not noted in ROS Statement are negative. <Emily Bang - Last Filed: 09/22/22 19:35> ROS Other: All systems not noted in ROS Statement are negative. <Mike Jon - Last Filed: 09/22/22 23:05> ROS Statement: Those systems with pertinent positive or pertinent negative responses have been documented in the HPI. Past Medical History Past Medical History: Asthma Additional Past Medical History / Comment(s): migraine History of Any Multi-Drug Resistant Organisms: None Reported Past Surgical History: Adenoidectomy, Cholecystectomy, Orthopedic Surgery, Tonsillectomy Additional Past Surgical History / Comment(s): Right knee surgery, ganglion cyst removal bilateral hands, hemorrhoidectomy, colonoscopy, EGD. Past Anesthesia/Blood Transfusion Reactions: No Reported Reaction Past Psychological History: ADD/ADHD, Anxiety, Bipolar, Depression Smoking Status: Current every day smoker Past Alcohol Use History: None Reported Past Drug Use History: Marijuana, None Reported - Past Family History Mother Family Medical History: No Reported History <Emily Bang - Last Filed: 09/22/22 19:35> General Exam Limitations: no limitations <Emily Bang - Last Filed: 09/22/22 19:35> General appearance: alert, in no apparent distress Head exam: Present: atraumatic, normocephalic Eye exam: Present: normal appearance, PERRL ENT exam: Present: normal oropharynx. Absent: TM's normal bilaterally (Right tympanic membrane is opacified) Respiratory exam: Present: normal lung sounds bilaterally. Absent: respiratory distress, wheezes Cardiovascular Exam: Present: regular rate, normal rhythm GI/Abdominal exam: Present: soft. Absent: distended, tenderness Extremities exam: Present: normal inspection, normal capillary refill Neurological exam: Present: alert, oriented X3 Psychiatric exam: Present: normal affect, normal mood Skin exam: Present: warm, dry, intact, other (Mastoid on the right, not erythematous, no induration no significant tenderness) <Mike Jon N - Last Filed: 09/22/22 23:05> - General Exam Comments Initial Comments: Visual Physical Exam Vital signs reviewed General: Well-appearing, nontoxic, no acute distress. Head: Normocephalic, atraumatic Eyes: PERRLA, EOMI ENT: Airway patent Chest: Nonlabored breathing Skin: No visual rash, normal skin tone Neuro: Alert and oriented 3 Musculoskeletal: No gross abnormalities (BetiHudsonEmily) Course Vital Signs 09/22/22 19:09 Temperature 98.1 F Pulse Rate 73 Respiratory 20 Rate Blood Pressure 105/71 O2 Sat by Pulse 99 Oximetry Medical Decision Making - Lab Data Result diagrams: 09/22/22 22:16 09/22/22 22:16 <Mike Jon N - Last Filed: 09/22/22 23:05> - Medical Decision Making Was pt. sent in by a medical professional or institution (MILY Ramirez, [employer], urgent care, hospital, or custodial...) When possible be specific @ -No Did you speak to anyone other than the patient for history (EMS, parent, family, police, friend...)? What history was obtained from this source @ -No Did you review nursing and triage notes (agree or disagree)? Why? @ -I reviewed and agree with nursing and triage notes Were old charts reviewed (outside hosp., previous admission, EMS record, old EKG, old radiological studies, urgent care reports/EKG's, custodial records)? Report findings @ -No old charts were reviewed Differential Diagnosis (chest pain, altered mental status, abdominal pain women, abdominal pain men, vaginal bleeding, weakness, fever, dyspnea, syncope, headache, dizziness, GI bleed, back pain, seizure, CVA, palpatations, mental health, musculoskeletal)? @ -Otitis media, otitis externa, mastoiditis EKG interpreted by me (3pts min.). @ -As above X-rays interpreted by me (1pt min.). @ -None done CT interpreted by me (1pt min.). @ -CT negative for mastoiditis, no acute findings U/S interpreted by me (1pt. min.). @ -None done What testing was considered but not performed or refused? (CT, X-rays, U/S, labs)? Why? @ -None What meds were considered but not given or refused? Why? @ -None Did you discuss the management of the patient with other professionals (professionals i.e. , PA, SURGICAL [employer], lab, RT, psych nurse, rn social services, sow manager, teacher, boating safety officer, disability case manager)? Give summary @ -No Was smoking cessation discussed for >3mins.? @ -No Was critical care preformed (if so, how long)? @ -No Were there social determinants of health that impacted care today? How? (Homelessness, low income, unemployed, alcoholism, drug addiction, transportation, low edu. Level, literacy, decrease access to med. care, penitentiary, rehab)? @ -No Was there de-escalation of care discussed even if they declined (Discuss DNR or withdrawal of care, Hospice)? DNR status @ -No What co-morbidities impacted this encounter? (DM, HTN, Smoking, COPD, CAD, Cancer, CVA, ARF, Chemo, Hep., AIDS, mental health diagnosis, sleep apnea, morbid obesity)? @ -None Was patient admitted / discharged? Hospital course, mention meds given and route, prescriptions, significant lab abnormalities, going to OR and other pertinent info. @ -Patient with history of mastoiditis presenting with right ear pain. Workup in the emergency Department is unremarkable, stable vitals, no fever. No erythema over the mastoid. There is some opacification of the right tympanic membrane. Patient has an appointment with ENT in 4 days. She started on Augmentin. Undiagnosed new problem with uncertain prognosis? @ Drug Therapy requiring intensive monitoring for toxicity (Heparin, Nitro, Insulin, Cardizem)? @ -No Were any procedures done? @ -No Diagnosis/symptom? @ -Otitis media Acute, or Chronic, or Acute on Chronic? @ -Acute on chronic Uncomplicated (without systemic symptoms) or Complicated (systemic symptoms)? @ -Complicated (Helmreich,Mike N) - Lab Data Lab Results 09/22/22 09/22/22 09/22/22 Range/Units 22:16 22:16 22:16 WBC 10.4 (3.8-10.6) k/uL RBC 4.78 (3.80-5.40) m/uL Hgb 13.3 (11.4-16.0) gm/dL Hct 41.5 (34.0-46.0) % MCV 86.9 (80.0-100.0) fL MCH 27.8 (25.0-35.0) pg MCHC 32.1 (31.0-37.0) g/dL RDW 13.9 (11.5-15.5) % Plt Count 330 (150-450) k/uL MPV 8.5 Neutrophils % 61 % Lymphocytes % 26 % Monocytes % 4 % Eosinophils % 6 % Basophils % 1 % Neutrophils # 6.4 (1.3-7.7) k/uL Lymphocytes # 2.7 (1.0-4.8) k/uL Monocytes # 0.4 (0-1.0) k/uL Eosinophils # 0.6 (0-0.7) k/uL Basophils # 0.1 (0-0.2) k/uL Sodium 141 (137-145) mmol/L Potassium 4.1 (3.5-5.1) mmol/L Chloride 105 (98-107) mmol/L Carbon Dioxide 28 (22-30) mmol/L Anion Gap 8 mmol/L BUN 10 (7-17) mg/dL Creatinine 0.77 (0.52-1.04) mg/dL Est GFR (CKD-EPI)AfAm >90 (>60 ml/min/1.73 sqM) Est GFR (CKD-EPI)NonAf >90 (>60 ml/min/1.73 sqM) Glucose 97 (74-99) mg/dL Plasma Lactic Acid Artie 1.5 (0.7-2.0) mmol/L Calcium 9.3 (8.4-10.2) mg/dL Total Bilirubin 0.2 (0.2-1.3) mg/dL AST 18 (14-36) U/L ALT 23 (4-34) U/L Alkaline Phosphatase 51 (38-126) U/L Total Protein 6.9 (6.3-8.2) g/dL Albumin 4.1 (3.5-5.0) g/dL Disposition <Emily Bang - Last Filed: 09/22/22 19:35> Is patient prescribed a controlled substance at d/c from ED?: No Time of Disposition: 23:05 <Mike Jon - Last Filed: 09/22/22 23:05> Clinical Impression: Otitis media Disposition: HOME SELF-CARE Condition: Good Instructions (If sedation given, give patient instructions): Earache (ED) Additional Instructions: Please follow up with your ENT as planned. Referrals: Manuel Melgar DO [Primary Care Provider] - 1-2 days
--- NOTE | 2022-09-22 20:15 | CT ---
EXAMINATION TYPE: CT mastoid wo con DATE OF EXAM: 09/22/2022 COMPARISON: None HISTORY: right ear pain CT DLP: 291.2 mGycm Automated exposure control for dose reduction was used. Images obtained from the skull base to the top of the orbits without contrast. There is normal aeration of the mastoid air cells. The external auditory canals appear normal. There is normal aeration of the epitympanic recess bilaterally. The temporal bones appear intact. The inter nal auditory canals appear intact. No evidence of a posterior fossa mass. The fourth ventricle is in the midline. No focal bone destruction. The temporomandibular joints appear intact. Zygomatic arches appear normal. IMPRESSION: Negative CT scan of the temporal bones. I do not see a cause for right-sided pain.
[2022-09-22 22:25] LABS: Basophils # (A) 0.1 k/uL (0-0.2); Basophils % (A) 1 %; Eosinophils # (A) 0.6 k/uL (0-0.7); Eosinophils % (A) 6 %; HCT 41.5 % (34.0-46.0); HGB 13.3 gm/dL (11.4-16.0); Lymphocytes # (A) 2.7 k/uL (1.0-4.8); Lymphocytes % (A) 26 %; MCH 27.8 pg (25.0-35.0); MCHC 32.1 g/dL (31.0-37.0); MCV 86.9 fL (80.0-100.0); Mean Platelet Volume 8.5; Monocytes # (A) 0.4 k/uL (0-1.0); Monocytes % (A) 4 %; Neutrophils # (A) 6.4 k/uL (1.3-7.7); Neutrophils % (A) 61 %; Platelet Count 330 k/uL (150-450); RBC 4.78 m/uL (3.80-5.40); RDW 13.9 % (11.5-15.5); WBC 10.4 k/uL (3.8-10.6)
[2022-09-22] MEDS ORDERED: KETOROLAC 15 MG/ML 1 ML VIAL IVP STA (22:33)
[2022-09-22 22:35] LABS: Potassium 4.1 mmol/L (3.5-5.1)
[2022-09-22 22:36] LABS: ALT 23 U/L (4-34); AST 18 U/L (14-36); African American GFR (CKD) >90 (>60 ml/min/1.73 sqM); Albumin 4.1 g/dL (3.5-5.0); Alkaline Phosphatase 51 U/L (38-126); Anion Gap 8 mmol/L; Blood Urea Nitrogen 10 mg/dL (7-17); Calcium 9.3 mg/dL (8.4-10.2); Carbon Dioxide 28 mmol/L (22-30); Chloride 105 mmol/L (98-107); Glucose 97 mg/dL (74-99); Non-African American GFR(CKD) >90 (>60 ml/min/1.73 sqM); Sodium 141 mmol/L (137-145); Total Bilirubin 0.2 mg/dL (0.2-1.3); Total Protein 6.9 g/dL (6.3-8.2)
[2022-09-22] MEDS ORDERED: AMOXIC-POT CLAV 875-125MG 1 EACH TAB PO STA (23:02)
[2022-09-23 01:03] VITALS: BP 127/72; PULSE 67; RESP 16; TEMP 98.7
== END 2022-09-23 01:09 | disposition home or self-care (01) ==
LOC: EC 18:51
DX: H66.91 Otitis media, unspecified, right ear (principal); J45.909 Unspecified asthma, uncomplicated; F41.9 Anxiety disorder, unspecified; F31.9 Bipolar disorder, unspecified; F12.90 Cannabis use, unspecified, uncomplicated; F17.200 Nicotine dependence, unspecified, uncomplicated; Z79.52 Long term (current) use of systemic steroids; Z79.899 Other long term (current) drug therapy; Z88.1 Allergy status to other antibiotic agents; Z88.8 Allergy status to other drugs, medicaments and biological substances
CPT/HCPCS: 36415; 80053; 83605; 85025; 70486; 99284; 96374; J1885

== ENCOUNTER 2022-10-04 15:30 | Emergency (ER) | payer OTHER ==
[2022-10-04 15:33] VITALS: TEMP 98.1
--- NOTE | 2022-10-04 16:42 | ED ---
General Adult HPI - General Source: patient, RN notes reviewed Mode of arrival: ambulatory Limitations: no limitations <Brianna Fuentes - Last Filed: 10/04/22 16:40> <Juan Luis Rod - Last Filed: 10/04/22 21:15> - General Chief complaint: Back Pain/Injury Stated complaint: Abd Pain Time Seen by Provider: 10/04/22 16:40 - History of Present Illness Initial comments: 31-year-old female with no significant past medical history presents to the emergency department with a chief complaint of right flank pain that started last name. She is complaining of his associated symptoms of dysuria. Denies any fever, chills, nausea, vomiting. (Brianna Fuentes) - Related Data Home Medications Medication Instructions Recorded Confirmed Cyclobenzaprine [Flexeril] 10 mg PO TID 09/30/21 11/04/21 Phentermine HCl [Adipex-P] 37.5 mg PO DAILY 09/30/21 11/04/21 traMADol HCL [Ultram] 50 mg PO BID 09/30/21 11/04/21 Omeprazole [PriLOSEC] 40 mg PO QAM 10/21/21 11/04/21 Sertraline HCl [Zoloft] 100 mg PO HS 10/21/21 11/04/21 Previous Rx's Medication Instructions Recorded ARIPiprazole [Abilify] 5 mg PO HS 30 Days #0 03/13/21 Acetaminophen Tab [Tylenol] 650 mg PO Q4HR PRN tab 03/13/21 Albuterol Inhaler [Ventolin Hfa 1 - 2 puff INHALATION Q6HR PRN #1 03/17/22 Inhaler] each Azithromycin [Zithromax] 0 mg PO DIRECTED #6 tab 03/17/22 predniSONE 60 mg PO DAILY #30 tab 03/17/22 Ondansetron Odt [Zofran Odt] 4 mg PO Q8HR PRN #10 tab 05/02/22 SUMAtriptan succinate 100 mg PO DIRECTED PRN #15 05/02/22 tablet Oseltamivir Phosphate 75 mg PO BID 5 Days #10 capsule 06/12/22 Ofloxacin 0.3% Otic Soln [Floxin 5 drops RIGHT EAR BID #5 ml 06/19/22 0.3% Otic Soln] Ibuprofen [Motrin] 600 mg PO Q8HR PRN #30 tab 08/14/22 Allergies Allergy/AdvReac Type Severity Reaction Status Date / Time metronidazole [From Flagyl] AdvReac Nausea & Verified 09/22/22 19:12 Vomiting & Diarrhea Metronidazole HCl AdvReac Nausea & Verified 09/22/22 19:12 [From Flagyl] Vomiting Review of Systems ROS Other: All systems not noted in ROS Statement are negative. <Brianna Fuentes - Last Filed: 10/04/22 16:40> ROS Other: All systems not noted in ROS Statement are negative. <Juan Luis Rod - Last Filed: 10/04/22 21:15> ROS Statement: Those systems with pertinent positive or pertinent negative responses have been documented in the HPI. Past Medical History Past Medical History: Asthma Additional Past Medical History / Comment(s): migraine History of Any Multi-Drug Resistant Organisms: None Reported Past Surgical History: Adenoidectomy, Cholecystectomy, Orthopedic Surgery, Tonsillectomy Additional Past Surgical History / Comment(s): Right knee surgery, ganglion cyst removal bilateral hands, hemorrhoidectomy, colonoscopy, EGD. Past Anesthesia/Blood Transfusion Reactions: No Reported Reaction Past Psychological History: ADD/ADHD, Anxiety, Bipolar, Depression Smoking Status: Current every day smoker Past Alcohol Use History: None Reported Past Drug Use History: Marijuana, None Reported - Past Family History Mother Family Medical History: No Reported History <Brianna Fuentes - Last Filed: 10/04/22 16:40> General Exam Limitations: no limitations <Brianna Fuentes - Last Filed: 10/04/22 16:40> - General Exam Comments Initial Comments: Visual Physical Exam Vital signs reviewed General: Well-appearing, nontoxic, no acute distress. Head: Normocephalic, atraumatic Eyes: PERRLA, EOMI ENT: Airway patent Chest: Nonlabored breathing Skin: No visual rash, normal skin tone Neuro: Alert and oriented 3 Musculoskeletal: No gross abnormalities (Brianna Fuentes) Course Vital Signs 10/04/22 10/04/22 15:31 18:37 Temperature 98.1 F Pulse Rate 72 63 Respiratory 18 17 Rate Blood Pressure 125/75 101/60 O2 Sat by Pulse 99 98 Oximetry Medical Decision Making - Lab Data Result diagrams: 10/04/22 17:50 10/04/22 17:50 <Juan Luis Rod - Last Filed: 10/04/22 21:15> - Lab Data Lab Results 10/04/22 10/04/22 10/04/22 Range/Units 17:03 17:03 17:50 WBC 12.5 H (3.8-10.6) k/uL RBC 5.08 (3.80-5.40) m/uL Hgb 14.1 (11.4-16.0) gm/dL Hct 43.2 (34.0-46.0) % MCV 85.1 (80.0-100.0) fL MCH 27.8 (25.0-35.0) pg MCHC 32.7 (31.0-37.0) g/dL RDW 13.8 (11.5-15.5) % Plt Count 317 (150-450) k/uL MPV 8.7 Neutrophils % 64 % Lymphocytes % 24 % Monocytes % 4 % Eosinophils % 5 % Basophils % 1 % Neutrophils # 8.1 H (1.3-7.7) k/uL Lymphocytes # 3.0 (1.0-4.8) k/uL Monocytes # 0.5 (0-1.0) k/uL Eosinophils # 0.6 (0-0.7) k/uL Basophils # 0.1 (0-0.2) k/uL Sodium (137-145) mmol/L Potassium (3.5-5.1) mmol/L Chloride (98-107) mmol/L Carbon Dioxide (22-30) mmol/L Anion Gap mmol/L BUN (7-17) mg/dL Creatinine (0.52-1.04) mg/dL Est GFR (CKD-EPI)AfAm (>60 ml/min/1.73 sqM) Est GFR (CKD-EPI)NonAf (>60 ml/min/1.73 sqM) Glucose (74-99) mg/dL Calcium (8.4-10.2) mg/dL Total Bilirubin (0.2-1.3) mg/dL AST (14-36) U/L ALT (4-34) U/L Alkaline Phosphatase (38-126) U/L Total Protein (6.3-8.2) g/dL Albumin (3.5-5.0) g/dL Urine Color Yellow Urine Appearance Cloudy H (Clear) Urine pH 6.0 (5.0-8.0) Ur Specific Weaver 1.021 (1.001-1.035) Urine Protein Trace H (Negative) Urine Glucose (UA) Negative (Negative) Urine Ketones Negative (Negative) Urine Blood Negative (Negative) Urine Nitrite Negative (Negative) Urine Bilirubin Negative (Negative) Urine Urobilinogen <2.0 (<2.0) mg/dL Ur Leukocyte Esterase Trace H (Negative) Urine RBC 2 (0-5) /hpf Urine WBC 2 (0-5) /hpf Ur Squamous Epith Cells 7 H (0-4) /hpf Urine Mucus Few H (None) /hpf Urine HCG, Qual Not Detected (Not Detectd) 10/04/22 Range/Units 17:50 WBC (3.8-10.6) k/uL RBC (3.80-5.40) m/uL Hgb (11.4-16.0) gm/dL Hct (34.0-46.0) % MCV (80.0-100.0) fL MCH (25.0-35.0) pg MCHC (31.0-37.0) g/dL RDW (11.5-15.5) % Plt Count (150-450) k/uL MPV Neutrophils % % Lymphocytes % % Monocytes % % Eosinophils % % Basophils % % Neutrophils # (1.3-7.7) k/uL Lymphocytes # (1.0-4.8) k/uL Monocytes # (0-1.0) k/uL Eosinophils # (0-0.7) k/uL Basophils # (0-0.2) k/uL Sodium 140 (137-145) mmol/L Potassium 4.5 (3.5-5.1) mmol/L Chloride 107 (98-107) mmol/L Carbon Dioxide 24 (22-30) mmol/L Anion Gap 9 mmol/L BUN 10 (7-17) mg/dL Creatinine 0.71 (0.52-1.04) mg/dL Est GFR (CKD-EPI)AfAm >90 (>60 ml/min/1.73 sqM) Est GFR (CKD-EPI)NonAf >90 (>60 ml/min/1.73 sqM) Glucose 99 (74-99) mg/dL Calcium 9.7 (8.4-10.2) mg/dL Total Bilirubin 0.3 (0.2-1.3) mg/dL AST 21 (14-36) U/L ALT 28 (4-34) U/L Alkaline Phosphatase 56 (38-126) U/L Total Protein 7.3 (6.3-8.2) g/dL Albumin 4.4 (3.5-5.0) g/dL Urine Color Urine Appearance (Clear) Urine pH (5.0-8.0) Ur Specific Weaver (1.001-1.035) Urine Protein (Negative) Urine Glucose (UA) (Negative) Urine Ketones (Negative) Urine Blood (Negative) Urine Nitrite (Negative) Urine Bilirubin (Negative) Urine Urobilinogen (<2.0) mg/dL Ur Leukocyte Esterase (Negative) Urine RBC (0-5) /hpf Urine WBC (0-5) /hpf Ur Squamous Epith Cells (0-4) /hpf Urine Mucus (None) /hpf Urine HCG, Qual (Not Detectd) Disposition <Brianna Fuentes - Last Filed: 10/04/22 16:40> Is patient prescribed a controlled substance at d/c from ED?: No Time of Disposition: 21:10 <Juan Luis Rod - Last Filed: 10/04/22 21:15> Clinical Impression: Thoracic back pain, Mid back pain, Kidney stones Disposition: HOME SELF-CARE Condition: Good Instructions (If sedation given, give patient instructions): Acute Low Back Pain (ED), Kidney Stones (ED) Referrals: Manuel Melgar DO [Primary Care Provider] - 1-2 days
[2022-10-04 17:16] LABS: Appearance,Urine Cloudy (Clear); Bilirubin,Urine Negative (Negative); Blood,Urine Negative (Negative); Color,Urine Yellow; Glucose,Urine (UA) Negative (Negative); Ketones,Urine Negative (Negative); Leukocyte Esterase,Urine Trace (Negative); Mucus,Urine Few /hpf; Nitrite,Urine Negative (Negative); Protein,Urine Trace (Negative); RBC,Urine 2 /hpf (0-5); Specific Gravity,Urine 1.021 (1.001-1.035); Squamous Epithelial Cell,Urine 7 /hpf (0-4); Urobilinogen,Urine <2.0 mg/dL (<2.0); WBC,Urine 2 /hpf (0-5)
[2022-10-04 18:27] LABS: ALT 28 U/L (4-34); AST 21 U/L (14-36); African American GFR (CKD) >90 (>60 ml/min/1.73 sqM); Albumin 4.4 g/dL (3.5-5.0); Alkaline Phosphatase 56 U/L (38-126); Anion Gap 9 mmol/L; Blood Urea Nitrogen 10 mg/dL (7-17); Calcium 9.7 mg/dL (8.4-10.2); Carbon Dioxide 24 mmol/L (22-30); Chloride 107 mmol/L (98-107); Glucose 99 mg/dL (74-99); Non-African American GFR(CKD) >90 (>60 ml/min/1.73 sqM); Potassium 4.5 mmol/L (3.5-5.1); Sodium 140 mmol/L (137-145); Total Bilirubin 0.3 mg/dL (0.2-1.3); Total Protein 7.3 g/dL (6.3-8.2)
[2022-10-04 18:39] VITALS: BP 101/60; PULSE 63; RESP 17
[2022-10-04 19:05] LABS: Basophils # (A) 0.1 k/uL (0-0.2); Basophils % (A) 1 %; Eosinophils # (A) 0.6 k/uL (0-0.7); Eosinophils % (A) 5 %; HCT 43.2 % (34.0-46.0); HGB 14.1 gm/dL (11.4-16.0); Lymphocytes % (A) 24 %; MCH 27.8 pg (25.0-35.0); MCHC 32.7 g/dL (31.0-37.0); MCV 85.1 fL (80.0-100.0); Mean Platelet Volume 8.7; Monocytes # (A) 0.5 k/uL (0-1.0); Monocytes % (A) 4 %; Neutrophils # (A) 8.1 k/uL (1.3-7.7); Neutrophils % (A) 64 %; Platelet Count 317 k/uL (150-450); RBC 5.08 m/uL (3.80-5.40); RDW 13.8 % (11.5-15.5); WBC 12.5 k/uL (3.8-10.6)
--- NOTE | 2022-10-04 19:11 | CT ---
The EXAMINATION TYPE: CT abdomen pelvis wo con DATE OF EXAM: 10/04/2022 COMPARISON: 10/01/2021 HISTORY: right flank pain CT DLP: 1084.4 mGycm Examination of the solid and hollow viscera is limited given the lack of contrast. FINDINGS: LUNG BASES: No evidence for nodule. No evidence for infiltrate. LIVER/GB: The gallbladder is surgically absent. No space-occupying hepatic lesion. PANCREAS: No pancreatic mass identified. No inflammatory process seen. SPLEEN: No evidence for splenomegaly. No intrasplenic lesions seen. ADRENALS: No adrenal nodules identified. No evidence for thickening. KIDNEYS: No evidence for renal mass. No nephrolithiasis. No hydronephrosis. BOWEL: Appendix has a normal appearance. No evidence of bowel obstruction. No inflammatory process. Lymph nodes: No evidence for adenopathy greater than 1 cm. Abdominal aorta: Atheromatous changes seen. No evidence for aneurysm. Genital organs: No significant abnormality. Other: No significant abnormality. IMPRESSION: NO ACUTE PROCESS IDENTIFIED AT THIS TIME.
[2022-10-04] MEDS ORDERED: KETOROLAC 15 MG/ML 1 ML VIAL IVP STA (20:07)
[2022-10-04] MEDS ORDERED: MORPHINE SULFATE 4 MG/ML SYRINGE IVP STA (20:07)
[2022-10-04] MEDS ORDERED: TAMSULOSIN 0.4 MG CAP.ER.24H PO STA (20:07)
[2022-10-04] MEDS ORDERED: ONDANSETRON 4 MG/2 ML VIAL IVP STA (20:07)
== END 2022-10-04 21:28 | disposition home or self-care (01) ==
LOC: EC 15:30
DX: M54.6 Pain in thoracic spine (principal); N20.0 Calculus of kidney; J45.909 Unspecified asthma, uncomplicated; F41.9 Anxiety disorder, unspecified; F31.9 Bipolar disorder, unspecified; F17.200 Nicotine dependence, unspecified, uncomplicated; F12.90 Cannabis use, unspecified, uncomplicated; Z88.8 Allergy status to other drugs, medicaments and biological substances; Z79.899 Other long term (current) drug therapy
CPT/HCPCS: 36415; 80053; 85025; 81001; 81025; 74176; 99284; 96374; 96375; J2405; J1885

== ENCOUNTER 2022-10-26 17:06 | Emergency (ER) | payer OTHER ==
[2022-10-26 17:34] VITALS: BP 129/89; PULSE 107; RESP 18; TEMP 98
[2022-10-26 19:47] LABS: Amphetamine Screen,Urine Not Detected (NotDetected); Barbiturate Screen,Urine Not Detected (NotDetected); Benzodiazepines Screen,Urine Detected (NotDetected); Cocaine Screen,Urine Not Detected (NotDetected); Methadone Screen, Urine Not Detected (NotDetected); Opiate Screen,Urine Not Detected (NotDetected); Oxycodone Screen, Urine Not Detected (NotDetected); Phencyclidine Screen,Urine Not Detected (NotDetected); Tricyclic Antidepressant,Urine Not Detected (NotDetected); Urn Cannabinoid Scrn Detected (NotDetected)
[2022-10-26 20:18] LABS: Appearance,Urine Cloudy (Clear); Bacteria,Urine Rare /hpf; Bilirubin,Urine Negative (Negative); Blood,Urine Trace (Negative); Color,Urine Yellow; Glucose,Urine (UA) Negative (Negative); Ketones,Urine Negative (Negative); Leukocyte Esterase,Urine Small (Negative); Mucus,Urine Few /hpf; Nitrite,Urine Negative (Negative); Protein,Urine 1+ (Negative); RBC,Urine 5 /hpf (0-5); Specific Gravity,Urine 1.027 (1.001-1.035); Squamous Epithelial Cell,Urine 33 /hpf (0-4); WBC,Urine 14 /hpf (0-5)
[2022-10-26] MEDS ORDERED: IBUPROFEN 400 MG TAB PO STA (21:14)
--- NOTE | 2022-10-26 21:50 | ED ---
Psych HPI - General Chief Complaint: Psychiatric Symptoms Stated Complaint: Mental Health Issues Time Seen by Provider: 10/26/22 19:05 Source: patient Mode of arrival: ambulatory - History of Present Illness Initial Comments: Patient is a 31-year-old female presenting with chief complaint of suicidal ideation. Patient states she started experiencing these thoughts yesterday. S he states that she has a plan "anything sharp or some pills". She is having no thoughts of harming others. She states that she has had some relationship troubles with her . Patient is complaining of a mild headache, "because I have been crying so much", no other symptoms at this time. - Related Data Home Medications Medication Instructions Recorded Confirmed Phentermine HCl [Adipex-P] 37.5 mg PO DAILY 09/30/21 10/26/22 Albuterol Inhaler [Ventolin Hfa 1 - 2 puff INHALATION RT-Q6H PRN 10/26/22 10/26/22 Inhaler] Varenicline [Chantix Starter Pack] See Taper PO DIRECTED 10/26/22 10/26/22 Allergies Allergy/AdvReac Type Severity Reaction Status Date / Time metronidazole [From Flagyl] AdvReac Nausea & Verified 10/26/22 20:37 Vomiting & Diarrhea Metronidazole HCl AdvReac Nausea & Verified 10/26/22 20:37 [From Flagyl] Vomiting Review of Systems ROS Statement: Those systems with pertinent positive or pertinent negative responses have been documented in the HPI. ROS Other: All systems not noted in ROS Statement are negative. Past Medical History Past Medical History: Asthma Additional Past Medical History / Comment(s): migraine History of Any Multi-Drug Resistant Organisms: None Reported Past Surgical History: Adenoidectomy, Cholecystectomy, Orthopedic Surgery, Tonsillectomy Additional Past Surgical History / Comment(s): Right knee surgery, ganglion cyst removal bilateral hands, hemorrhoidectomy, colonoscopy, EGD. Past Anesthesia/Blood Transfusion Reactions: No Reported Reaction Past Psychological History: ADD/ADHD, Anxiety, Bipolar, Depression Smoking Status: Current every day smoker Past Alcohol Use History: None Reported Past Drug Use History: Marijuana - Past Family History Mother Family Medical History: No Reported History General Exam Limitations: no limitations General appearance: alert, in no apparent distress Head exam: Present: atraumatic, normocephalic, normal inspection Eye exam: Present: normal appearance, EOMI. Absent: scleral icterus, periorbi andrew swelling Neck exam: Present: normal inspection, full ROM Respiratory exam: Present: normal lung sounds bilaterally. Absent: respiratory distress, wheezes, rales, rhonchi, stridor Cardiovascular Exam: Present: regular rate, normal rhythm, normal heart sounds. Absent: systolic murmur, diastolic murmur, rubs, gallop, clicks Neurological exam: Present: alert, oriented X3, CN II-XII intact Psychiatric exam: Present: normal affect, normal mood Skin exam: Present: warm, dry, intact, normal color. Absent: rash Course Vital Signs 10/26/22 17:31 Temperature 98 F Pulse Rate 107 H Respiratory 18 Rate Blood Pressure 129/89 O2 Sat by Pulse 99 Oximetry Medical Decision Making - Medical Decision Making Was pt. sent in by a medical professional or institution (, [facility]ILY, [employer], urgent care, hospital, or senior care...) When possible be specific @ -No Did you speak to anyone other than the patient for history (EMS, parent, family, police, friend...)? What history was obtained from this source @ -No Did you review nursing and triage notes (agree or disagree)? Why? @ -I reviewed and agree with nursing and triage notes Were old charts reviewed (outside hosp., previous admission, EMS record, old EKG, old radiological studies, urgent care reports/EKG's, senior care records)? Report findings @ -No old charts were reviewed Differential Diagnosis (chest pain, altered mental status, abdominal pain women, abdominal pain men, vaginal bleeding, weakness, fever, dyspnea, syncope, headache, dizziness, GI bleed, back pain, seizure, CVA, palpatations, mental health, musculoskeletal)? @ -Differential Mental Health Depression, anxiety, bipolar, psychosis, schizophrenia, borderline personality, situational depression, adjustment disorder, behavioral disorder, brain tumor, malingering, substance abuse, encephalopathy, medication reaction, dementia, hypothyroidism, degenerative neurologic disorder, lupus.... This is not meant to be all-inclusive list EKG interpreted by me (3pts min.). @ -As above X-rays interpreted by me (1pt min.). @ -None done CT interpreted by me (1pt min.). @ -None done U/S interpreted by me (1pt. min.). @ -None done What testing was considered but not performed or refused? (CT, X-rays, U/S, labs)? Why? @ -None What meds were considered but not given or refused? Why? @ -None Did you discuss the management of the patient with other professionals (professionals i.e. , PA, [employer]ER, lab, RT, psych nurse, social worker palliative care, cobbler upper, teacher, hotel security officer, correctional case manager)? Give summary @ -EPS nurse, who states that the patient is very nature oriented and her mother is able to stay with her in the coming days. She believes the patient is stable to be discharged home Was smoking cessation discussed for >3mins.? @ -No Was critical care preformed (if so, how long)? @ -No Were there social determinants of health that impacted care today? How? (Homelessness, low income, unemployed, alcoholism, drug addiction, transportation, low edu. Level, literacy, decrease access to med. care, longterm, rehab)? @ -No Was there de-escalation of care discussed even if they declined (Discuss DNR or withdrawal of care, Hospice)? DNR status @ -No What co-morbidities impacted this encounter? (DM, HTN, Smoking, COPD, CAD, Cancer, CVA, ARF, Chemo, Hep., AIDS, mental health diagnosis, sleep apnea, morbid obesity)? @ -None Was patient admitted / discharged? Hospital course, mention meds given and route, prescriptions, significant lab abnormalities, going to OR and other pertinent info. @ -Patient is a 31-year-old female presenting with chief complaint of suicidal ideation that started after her reportedly left her. No attempts. No homicidal ideation. Patient has a mild headache at this time, no other symptoms. Physical examination is WNL. Headache responds well to ibuprofen. Patient is evaluated by emergency psychiatric nurse, she reports to me that the patient is very future oriented and currently has her mother who she can stay within the coming days. EPS nurse and patient are comfortable with discharge home at this time.Follow-up with PCP. Report back to ER with any new or worsening symptoms. Discussed return parameters and answered all questions. Patient conveyed verbal understanding and agreed to the plan. I discussed this case in detail with my attending Dr. Plascencia Undiagnosed new problem with uncertain prognosis? @ -No Drug Therapy requiring intensive monitoring for toxicity (Heparin, Nitro, Insulin, Cardizem)? @ -No Were any procedures done? @ -No Diagnosis/symptom? @ -Acute adjustment reaction of adult life Acute, or Chronic, or Acute on Chronic? @ -Acute Uncomplicated (without systemic symptoms) or Complicated (systemic symptoms)? @ -Complicated Side effects of treatment? @ -No Exacerbation, Progression, or Severe Exacerbation? @ -No Poses a threat to life or bodily function? How? (Chest pain, [place], [place], pneumonia, PE, COPD, DKA, ARF, appy, cholecystitis, CVA, Diverticulitis, Homicidal, Suicidal, threat to staff... and all critical care pts) @ -Unlikely - Lab Data Lab Results 10/26/22 10/26/22 Range/Units 19:27 19:27 Urine Color Yellow Urine Appearance Cloudy H (Clear) Urine pH 6.0 (5.0-8.0) Ur Specific [place] 1.027 (1.001-1.035) Urine Protein 1+ H (Negative) Urine Glucose (UA) Negative (Negative) Urine Ketones Negative (Negative) Urine Blood Trace H (Negative) Urine Nitrite Negative (Negative) Urine Bilirubin Negative (Negative) Urine Urobilinogen 2.0 (<2.0) mg/dL Ur Leukocyte Esterase Small H (Negative) Urine RBC 5 (0-5) /hpf Urine WBC 14 H (0-5) /hpf Ur Squamous Epith Cells 33 H (0-4) /hpf Urine Bacteria Rare H (None) /hpf Urine Mucus Few H (None) /hpf Urine HCG, Qual Not Detected (Not Detectd) Urine Opiates Screen Not Detected (NotDetected) Ur Oxycodone Screen Not Detected (NotDetected) Urine Methadone Screen Not Detected (NotDetected) Ur Propoxyphene Screen Not Detected (NotDetected) Ur Barbiturates Screen Not Detected (NotDetected) U Tricyclic Antidepress Not Detected (NotDetected) Ur Phencyclidine Scrn Not Detected (NotDetected) Ur Amphetamines Screen Not Detected (NotDetected) U Methamphetamines Scrn Not Detected (NotDetected) U Benzodiazepines Scrn Detected H (NotDetected) Urine Cocaine Screen Not Detected (NotDetected) U Marijuana (THC) Screen Detected H (NotDetected) Disposition Clinical Impression: Adjustment reaction of adult life, Acute anxiety, Depression Disposition: HOME SELF-CARE Condition: Fair Instructions (If sedation given, give patient instructions): Depression (ED), Suicide Prevention (ED) Additional Instructions: Follow-up with PCP. Report back to ER with any new or worsening symptoms, including but not limited to thoughts of wanting to harm herself or others. Therapy may be beneficial. Follow plan developed with EPS Is patient prescribed a controlled substance at d/c from ED?: No Referrals: Manuel Melgar DO [Primary Care Provider] - 1-2 days Time of Disposition: 23:25
== END 2022-10-26 23:44 | disposition home or self-care (01) ==
LOC: EC 17:06
DX: F43.20 Adjustment disorder, unspecified (principal); F41.9 Anxiety disorder, unspecified; F32.A Depression, unspecified; J45.909 Unspecified asthma, uncomplicated; F90.9 Attention-deficit hyperactivity disorder, unspecified type; F17.200 Nicotine dependence, unspecified, uncomplicated; F12.90 Cannabis use, unspecified, uncomplicated; Z79.899 Other long term (current) drug therapy; Z88.8 Allergy status to other drugs, medicaments and biological substances
CPT/HCPCS: 80306; 81001; 81025; 82075; 99285

== ENCOUNTER 2023-01-22 01:05 | Emergency (ER) | payer OTHER ==
[2023-01-22 01:51] VITALS: TEMP 97.9
[2023-01-22] MEDS ORDERED: KETOROLAC 15 MG/ML 1 ML VIAL IM STA (02:16)
[2023-01-22] MEDS ORDERED: LIDOCAINE 5% PATCH TOPICAL STA (02:16)
[2023-01-22] MEDS ORDERED: methocarbamoL 750 MG TAB PO ONE (02:16)
[2023-01-22] MEDS ORDERED: HYDROmorphone 0.5 MG/0.5 ML SYRINGE IM STA (02:16)
--- NOTE | 2023-01-22 03:24 | ED ---
Back Pain HPI - General Chief Complaint: Back Pain/Injury Stated Complaint: Back pain shooting down legs Time Seen by Provider: 01/22/23 01:59 Source: patient, RN notes reviewed Mode of arrival: ambulatory Limitations: no limitations - History of Present Illness Initial Comments: This is a 32-year-old female who presents to the emergency department for lower back pain. 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 She ended up picking him up and turning at the same time, and has since had pain to her right lower back. Pain goes down the right leg. Denies any loss of bowel/bladder control or saddle anesthesia. She does have problems with chronic back pain and receives injections each month, but states that this is different from her typical back pain. Denies any fevers, chills, sore throat, cough, dyspnea, chest pain, palpitations, abdominal pain, nausea, vomiting, diarrhea, or headaches. MD Complaint: back pain - Related Data Home Medications Medication Instructions Recorded Confirmed Phentermine HCl [Adipex-P] 37.5 mg PO DAILY 09/30/21 10/26/22 Albuterol Inhaler [Ventolin Hfa 1 - 2 puff INHALATION RT-Q6H PRN 10/26/22 10/26/22 Inhaler] Varenicline [Chantix Starter Pack] See Taper PO DIRECTED 10/26/22 10/26/22 Previous Rx's Medication Instructions Recorded Lidocaine 5% Patch [Lidoderm 5% 1 patch TOPICAL DAILY PRN #30 patch 01/22/23 Patch] methocarbamoL [Robaxin-750] 1,500 mg PO QID PRN #30 tab 01/22/23 predniSONE 50 mg PO DAILY 5 Days #5 tab 01/22/23 Allergies Allergy/AdvReac Type Severity Reaction Status Date / Time metronidazole [From Flagyl] AdvReac Nausea & Verified 01/22/23 01:46 Vomiting & Diarrhea Metronidazole HCl AdvReac Nausea & Verified 01/22/23 01:46 [From Flagyl] Vomiting Review of Systems ROS Statement: Those systems with pertinent positive or pertinent negative responses have been documented in the HPI. ROS Other: All systems not noted in ROS Statement are negative. Past Medical History Past Medical History: Asthma Additional Past Medical History / Comment(s): migraine History of Any Multi-Drug Resistant Organisms: None Reported Past Surgical History: Adenoidectomy, Cholecystectomy, Orthopedic Surgery, Tons illectomy Additional Past Surgical History / Comment(s): Right knee surgery, ganglion cyst removal bilateral hands, hemorrhoidectomy, colonoscopy, EGD. Past Anesthesia/Blood Transfusion Reactions: No Reported Reaction Past Psychological History: ADD/ADHD, Anxiety, Bipolar, Depression Smoking Status: Current every day smoker Past Alcohol Use History: None Reported Past Drug Use History: Marijuana - Past Family History Mother Family Medical History: No Reported History General Exam Limitations: no limitations General appearance: alert, in no apparent distress Head exam: Present: atraumatic, normocephalic, normal inspection Respiratory exam: Present: normal lung sounds bilaterally. Absent: respiratory distress, wheezes, rales, rhonchi, stridor Cardiovascular Exam: Present: regular rate, normal rhythm, normal heart sounds. Absent: systolic murmur, diastolic murmur, rubs, gallop, clicks Back exam: Present: normal inspection, tenderness (Right lower back) Neurological exam: Present: alert, oriented X3, CN II-XII intact Psychiatric exam: Present: normal affect, normal mood Skin exam: Present: warm, dry, intact, normal color. Absent: rash Course Vital Signs 01/22/23 01/22/23 01:46 04:09 Temperature 97.9 F Pulse Rate 80 76 Respiratory 16 20 Rate Blood Pressure 110/78 113/78 O2 Sat by Pulse 98 96 Oximetry Medical Decision Making - Medical Decision Making This is a 32-year-old female who presents to the emergency department for lower back pain. Was pt. sent in by a medical professional or institution? @ -No Did you speak to anyone other than the patient for history? @ -No Did you review nursing and triage notes? @ -Yes, and I agree, it is accurate with regards to the patient's symptoms. Were old charts reviewed? @ -No Differential Diagnosis? @ -Differential Back Pain: Strain, zoster, cauda equina syndrome, epidural abscess, vertebral osteomyelitis, discitis, fracture, subluxation, disc herniation, DJD, spinal stenosis, dissection, AAA, pancreatitis, peptic ulcer disease, pyelonephritis, kidney stone, this is not meant to be an all-inclusive list. EKG interpreted by me (3pts min.)? @ -Not obtained X-rays interpreted by me (1pt min.)? @ -X-ray of the lumbar spine obtained. My interpretation identifies no acute fractures. CT interpreted by me (1pt min.)? @ -Not obtained U/S interpreted by me (1pt. min.)? @ -Not obtained What testing was considered but not performed? (CT, X-rays, U/S, labs)? Why? @ -None What meds were considered but not given? Why? @ -None Did you discuss the management of the patient with other professionals? @ -No Did you reconcile home meds? @ -No Was smoking cessation discussed for >3mins.? @ -No Was critical care preformed (if so, how long)? @ -No Were there social determinants of health that impacted care today? How? (Homelessness, low income, unemployed, alcoholism, drug addiction, transportation, low edu. Level, literacy, decrease access to med. care, assisted, rehab)? @ -No Was there de-escalation of care discussed even if they declined? (Discuss DNR or withdrawal of care, Hospice)? @ -No What co-morbidities impacted this encounter? (DM, HTN, Smoking, COPD, CAD, Cancer, CVA, Hep., AIDS, mental health diagnosis, sleep apnea, morbid obesity)? @ -Morbid obesity Was patient admitted / discharged? @ -Discharged. X-ray of the lumbar spine obtained revealing no acute findings. Patient has no red flag signs or symptoms. Advised that this is most likely related to a lumbar strain. Pain was controlled in the emergency department and she felt stable for discharge home. She was given a prescription for lidocaine patches, Robaxin, and a five-day course of prednisone. Dosing instructions reviewed. Advised that the Robaxin may be sedating and she should avoid driving or operating machinery when taking this. Undiagnosed new problem with uncertain prognosis? @ -None Drug Therapy requiring intensive monitoring for toxicity (Heparin, Nitro, Insulin, Cardizem)? @ -None Were any procedures done? @ -None Diagnosis/symptom? @ -Lumbar strain Acute, or Chronic, or Acute on Chronic? @ -Acute Uncomplicated (without systemic symptoms) or Complicated (systemic symptoms)? @ -Uncomplicated Side effects of treatment? @ -None Exacerbation, Progression, or Severe Exacerbation] @ -Not applicable Poses a threat to life or bodily function? @ -No Return precautions reviewed in depth, the patient is instructed to return to the emergency department with any new, worsening, or concerning symptoms. Patient verbalized understanding. This case was discussed in detail with the attending ED physician, Dr. Rod. Presentation, findings, and treatment plan discussed in detail as well. - Radiology Data Radiology results: report reviewed, image reviewed Disposition Clinical Impression: Strain of lumbar region Disposition: HOME SELF-CARE Condition: Stable Instructions (If sedation given, give patient instructions): Low Back Strain (ED), Acute Low Back Pain (ED) Additional Instructions: Return to the emergency department with any new, worsening, or concerning symptoms. Take the prednisone daily for 5 days. You can apply the lidocaine patches daily as well. Start with one tablet of the muscle relaxant and increased to 2 tablets if needed, up to 4 times daily. Beware that this may make you drowsy and he should avoid driving or operating machinery when taking this. Follow up with your primary care provider in 1-2 days. Prescriptions: Lidocaine 5% Patch [Lidoderm 5% Patch] 1 patch TOPICAL DAILY PRN #30 patch PRN Reason: Pain predniSONE 50 mg PO DAILY 5 Days #5 tab methocarbamoL [Robaxin-750] 1,500 mg PO QID PRN #30 tab PRN Reason: Pain Is patient prescribed a controlled substance at d/c from ED?: No Referrals: Manuel Melgar DO [Primary Care Provider] - 1-2 days
[2023-01-22] MEDS ORDERED: ACET/COD 300 MG/30 MG STARTER PACK 6 TAB BTL PO STA (03:53)
[2023-01-22] MEDS ORDERED: IBUPROFEN 600 MG STARTER PACK 4 TAB BTL PO STA (03:53)
[2023-01-22 04:10] VITALS: BP 113/78; PULSE 76; RESP 20
--- NOTE | 2023-01-22 05:28 | XR ---
EXAM: XR Lumbosacral Spine, 2 or 3 Views CLINICAL HISTORY: ITS.REASON XR Reason: Low back pain after injury TECHNIQUE: Frontal and lateral views of the lumbar spine and sacrum. COMPARISON: No relevant prior studies available. FINDINGS: Vertebrae: Mild S-shaped curvature to the thoracolumbar spine. No acute fracture. Sacrum/coccyx: Unremarkable as visualized. No acute fracture. Disc spaces: Mild degenerative changes are seen within the spine and hips. Soft tissues: Surgical clips are seen within the right upper quadrant. IMPRESSION: Mild degenerative changes with no acute findings.
== END 2023-01-22 04:36 | disposition home or self-care (01) ==
LOC: EC 01:05
DX: S39.012A Strain of muscle, fascia and tendon of lower back, initial encounter (principal); J45.909 Unspecified asthma, uncomplicated; F31.9 Bipolar disorder, unspecified; F41.9 Anxiety disorder, unspecified; F12.90 Cannabis use, unspecified, uncomplicated; F17.200 Nicotine dependence, unspecified, uncomplicated; Z79.899 Other long term (current) drug therapy; Z88.8 Allergy status to other drugs, medicaments and biological substances; Z88.1 Allergy status to other antibiotic agents; Z90.49 Acquired absence of other specified parts of digestive tract; X58.XXXA Exposure to other specified factors, initial encounter
CPT/HCPCS: 72100; 99284; 96372 ×2; J1885; J1170

== ENCOUNTER → 2023-02-01 | Outpatient (CLI) | payer OTHER ==
--- NOTE | 2023-02-01 22:37 | MR ---
EXAMINATION TYPE: MR lumbar spine wo con DATE OF EXAM: 02/01/2023 9:04 PM COMPARISON: None. CLINICAL INDICATION: Female, 32 years old with history of M54.16; PHH, Lower back pain into the right side TECHNIQUE: Multi planar, multi sequence imaging was performed utilizing: T1-weighted, T2-weighted, a nd turbo inversion recovery imaging of the lumbar spine. IV Contrast: None. FINDINGS: Alignment: The lumbar vertebral bodies have preserved heights and alignment. Cord: The conus medullaris and the distal spinal cord appear unremarkable with regards to their signa l intensity and morphology. Bones/Discs: Bone signal is within normal limits. No abnormal bony edema on inversion recovery sequen anne. Disc signal is maintained. T12-L1: No evidence of significant spinal canal stenosis or neural foraminal stenosis. L1-L2: No evidence of significant spinal canal stenosis or neural foraminal stenosis. L2-L3: No evidence of significant spinal canal stenosis or neural foraminal stenosis. L3-L4: No evidence of significant spinal canal stenosis or neural foraminal stenosis. L4-L5: No evidence of significant spinal canal stenosis or neural foraminal stenosis. L5-S1: The disc is rounded posterior morphology without significant spinal canal stenosis. Facet join t arthropathy with mild neural foraminal stenosis. No significant spinal canal or neural foraminal stenosis in the remainder of the visualized levels. Other findings: None. IMPRESSION: No definitive evidence of disc herniation or significant spinal canal or neural foraminal stenosis to explain the patient's pain.
== END | disposition home or self-care (01) ==
LOC: RADMRIMAIN 20:45
PROVIDERS: ATTEND Family Medicine
DX: M54.16 Radiculopathy, lumbar region (principal)
CPT/HCPCS: 72148

== ENCOUNTER 2023-04-08 15:38 | Emergency (ER) | payer OTHER ==
[2023-04-08 16:01] VITALS: PULSE 74; TEMP 98.5
[2023-04-08] MEDS ORDERED: MORPHINE SULFATE 4 MG/ML SYRINGE IM STA (16:35)
[2023-04-08] MEDS ORDERED: ACET/COD 300 MG/30 MG STARTER PACK 6 TAB BTL PO STA (16:36)
[2023-04-08] MEDS ORDERED: AMOXICILLIN 875 MG TAB PO STA (16:36)
--- NOTE | 2023-04-08 16:43 | ED ---
ENT HPI - General Chief complaint: ENT Stated complaint: right ear pain dizzy Time Seen by Provider: 04/08/23 16:23 Source: patient Mode of arrival: ambulatory Limitations: no limitations - History of Present Illness Initial comments: Patient is a 32-year-old female who presents to emergency Department for right ear pain. It started 2 days ago. Patient reports significant pain refractory to Tylenol or Motrin. States the pain is making her dizzy. She does have history of mastoiditis denies pain behind her ear. Denies fever, chills, other upper respiratory symptoms. No vomiting. - Related Data Home Medications Medication Instructions Recorded Confirmed Phentermine HCl [Adipex-P] 37.5 mg PO DAILY 09/30/21 10/26/22 Albuterol Inhaler [Ventolin Hfa 1 - 2 puff INHALATION RT-Q6H PRN 10/26/22 10/26/22 Inhaler] Varenicline [Chantix Starter Pack] See Taper PO DIRECTED 10/26/22 10/26/22 Previous Rx's Medication Instructions Recorded Lidocaine 5% Patch [Lidoderm 5% 1 patch TOPICAL DAILY PRN #30 patch 01/22/23 Patch] methocarbamoL [Robaxin-750] 1,500 mg PO QID PRN #30 tab 01/22/23 predniSONE 50 mg PO DAILY 5 Days #5 tab 01/22/23 Amoxicillin 875 mg PO Q12HR #20 tablet 04/08/23 Allergies Allergy/AdvReac Type Severity Reaction Status Date / Time metronidazole [From Flagyl] AdvReac Nausea & Verified 04/08/23 15:55 Vomiting & Diarrhea Metronidazole HCl AdvReac Nausea & Verified 04/08/23 15:55 [From Flagyl] Vomiting Review of Systems ROS Statement: Those systems with pertinent positive or pertinent negative responses have been documented in the HPI. ROS Other: All systems not noted in ROS Statement are negative. Past Medical History Past Medical History: Asthma Additional Past Medical History / Comment(s): migraine History of Any Multi-Drug Resistant Organisms: None Reported Past Surgical History: Adenoidectomy, Cholecystectomy, Orthopedic Surgery, Tonsillectomy Additional Past Surgical History / Comment(s): Right knee surgery, ganglion cyst removal bilateral hands, hemorrhoidectomy, colonoscopy, EGD. Past Anesthesia/Blood Transfusion Reactions: No Reported Reaction Past Psychological History: ADD/ADHD, Anxiety, Bipolar, Depression Smoking Status: Current every day smoker Past Alcohol Use History: None Reported Past Drug Use History: Marijuana - Past Family History Mother Family Medical History: No Reported History General Exam Limitations: no limitations General appearance: alert Eye exam: Present: normal appearance, PERRL, EOMI. Absent: scleral icterus, conjunctival injection, periorbital swelling ENT exam: Present: normal oropharynx, other (erythema and bulging right TM. No mastoid tenderness) Neck exam: Present: normal inspection, full ROM. Absent: tenderness, meningismus, lymphadenopathy Respiratory exam: Present: normal lung sounds bilaterally. Absent: respiratory distress, wheezes, rales, rhonchi, stridor Cardiovascular Exam: Present: regular rate, normal rhythm, normal heart sounds. Absent: systolic murmur, diastolic murmur, rubs, gallop, clicks Neurological exam: Present: alert Psychiatric exam: Present: normal affect, normal mood Skin exam: Present: warm, dry, intact, normal color. Absent: rash Course Vital Signs 04/08/23 15:53 Temperature 98.5 F Pulse Rate 74 Respiratory 18 Rate Blood Pressure 123/75 O2 Sat by Pulse 97 Oximetry Medical Decision Making - Medical Decision Making Was pt. sent in by a medical professional or institution (, PA, COMPENSATION SUPERVISOR, urgent care, hospital, or senior living...) When possible be specific @ -No Did you speak to anyone other than the patient for history (EMS, parent, family, police, friend...)? What history was obtained from this source @ -No Did you review nursing and triage notes (agree or disagree)? Why? @ -I reviewed and agree with nursing and triage notes Were old charts reviewed (outside hosp., previous admission, EMS record, old EKG, old radiological studies, urgent care reports/EKG's, senior living records)? Report findings @ -No old charts were reviewed Differential Diagnosis (chest pain, altered mental status, abdominal pain women, abdominal pain men, vaginal bleeding, weakness, fever, dyspnea, syncope, headache, dizziness, GI bleed, back pain, seizure, CVA, palpatations, mental health)? @ -[Acute otitis media, acute otitis externa, mastoiditis EKG interpreted by me (3pts min.). @ -As above X-rays interpreted by me (1pt min.). @ -None done CT interpreted by me (1pt min.). @ -None done U/S interpreted by me (1pt. min.). @ -None done What testing was considered but not performed or refused? (CT, X-rays, U/S, labs)? Why? @ -None What meds were considered but not given or refused? Why? @ -None Did you discuss the management of the patient with other professionals (professionals i.e. Dr., PA, COMPENSATION SUPERVISOR, lab, RT, psych nurse, social worker delinquency prevention, bacteriology research assistant, teacher, field artillery officer, case management manager)? Give summary @ -No Was smoking cessation discussed for >3mins.? @ -No Was critical care preformed (if so, how long)? @ -No Were there social determinants of health that impacted care today? How? (Homelessness, low income, unemployed, alcoholism, drug addiction, transportation, low edu. Level, literacy, decrease access to med. care, fpc, rehab)? @ -No Was there de-escalation of care discussed even if they declined (Discuss DNR or withdrawal of care, Hospice)? DNR status @ -No What co-morbidities impacted this encounter? (DM, HTN, Smoking, COPD, CAD, Cancer, CVA, ARF, Chemo, Hep., AIDS, mental health diagnosis, sleep apnea, morbid obesity)? @ -None Was patient admitted / discharged? Hospital course, mention meds given and route, prescriptions, significant lab abnormalities, going to OR and other pertinent info. @ -32-year-old with right ear pain. Acute otitis media is noted patient will be discharged with antibiotic treatment and pain management Undiagnosed new problem with uncertain prognosis? @ -No Drug Therapy requiring intensive monitoring for toxicity (Heparin, Nitro, Insulin, Cardizem)? @ -No Were any procedures done? @ -No Diagnosis/symptom? @ -right acute otitis media Acute, or Chronic, or Acute on Chronic? @ -acute Uncomplicated (without systemic symptoms) or Complicated (systemic symptoms)? @ -uncomplicated Side effects of treatment? @ -[No] Exacerbation, Progression, or Severe Exacerbation? @ -[No] Poses a threat to life or bodily function? How? (Chest pain, [place], [place], pneumonia, PE, COPD, DKA, ARF, appy, cholecystitis, CVA, Diverticulitis, Homicidal, Suicidal, threat to staff... and all critical care pts) @ -[No] Dr. Raymond is my attendin Disposition Clinical Impression: Right acute otitis media Disposition: HOME SELF-CARE Condition: Good Instructions (If sedation given, give patient instructions): Ear Infection (ED) Additional Instructions: Take medication as directed. Do not drink alcohol or operate machinery while taking Tylenol 3. Follow up with primary care provider in one to 2 days. Retur n to the emergency department if you experience new, concerning, or worsening symptoms Prescriptions: Amoxicillin 875 mg PO Q12HR #20 tablet Is patient prescribed a controlled substance at d/c from ED?: No Referrals: Manuel Melgar DO [Primary Care Provider] - 1-2 days
[2023-04-08 17:39] VITALS: BP 122/68; RESP 20
== END 2023-04-08 17:27 | disposition home or self-care (01) ==
LOC: EC 15:38
DX: H66.91 Otitis media, unspecified, right ear (principal); J45.909 Unspecified asthma, uncomplicated; F31.9 Bipolar disorder, unspecified; F41.9 Anxiety disorder, unspecified; F17.200 Nicotine dependence, unspecified, uncomplicated; F12.90 Cannabis use, unspecified, uncomplicated; Z88.1 Allergy status to other antibiotic agents; Z90.49 Acquired absence of other specified parts of digestive tract; Z79.899 Other long term (current) drug therapy
CPT/HCPCS: 99283; 96372; J2270

== ENCOUNTER 2023-06-05 08:35 | Emergency (ER) | payer OTHER ==
[2023-06-05 09:00] VITALS: TEMP 98.1
[2023-06-05] MEDS ORDERED: TRIAMCINOLONE 0.1% CREAM 80 GM TUBE TOPICAL ONE (09:20)
[2023-06-05] MEDS ORDERED: KETOROLAC 15 MG/ML 1 ML VIAL IM STA (09:20)
--- NOTE | 2023-06-05 09:20 | ED ---
ENT HPI - General Chief complaint: ENT Stated complaint: Congestion Time Seen by Provider: 06/05/23 08:47 Source: patient, RN notes reviewed Mode of arrival: ambulatory Limitations: no limitations - History of Present Illness Initial comments: This is a 32-year-old female who presents to the emergency department for right ear pain, congestion, a sore throat, and concerns of a rash. States that she had right sided ear pain beginning 10 days ago with some pain behind the ear as well. Denies any drainage from the ear or fevers. She was diagnosed with m astoiditis at our facility in May of last year and transferred to [facility] for further management. She was treated with antibiotics, however there was no surgical intervention. Symptoms are not as severe as they were at that time. While the ear pain started 10 days ago, the congestion and sore throat began yesterday. Also states that she has itching on the left side of her abdomen wrapping around to her back, but has not noticed a rash. This began yesterday. She had shingles on the left arm 10 years ago and had a burning and itching sensation that began before the rash, however she states that she only has the itching, denies currently having a burning sensation or any pain associated with this. MD complaint: ear pain - Related Data Home Medications Medication Instructions Recorded Confirmed Albuterol Inhaler [Ventolin Hfa 1 - 2 puff INHALATION RT-Q6H PRN 10/26/22 04/08/23 Inhaler] Previous Rx's Medication Instructions Recorded Amoxicillin 875 mg PO Q12HR #20 tablet 04/08/23 Amoxic-Pot Clav 875-125Mg 1 tab PO Q12HR 7 Days #14 tab 06/05/23 [Augmentin 875-125] Allergies Allergy/AdvReac Type Severity Reaction Status Date / Time metronidazole [From Flagyl] AdvReac Nausea & Verified 06/05/23 08:47 Vomiting & Diarrhea Metronidazole HCl AdvReac Nausea & Verified 06/05/23 08:47 [From Flagyl] Vomiting & Diarrhea Review of Systems ROS Statement: Those systems with pertinent positive or pertinent negative responses have been documented in the HPI. ROS Other: All systems not noted in ROS Statement are negative. Past Medical History Past Medical History: Asthma Additional Past Medical History / Comment(s): migraine History of Any Multi-Drug Resistant Organisms: None Reported Past Surgical History: Adenoidectomy, Cholecystectomy, Orthopedic Surgery, Tonsillectomy Additional Past Surgical History / Comment(s): Right knee surgery, ganglion cyst removal bilateral hands, hemorrhoidectomy, colonoscopy, EGD. Past Anesthesia/Blood Transfusion Reactions: No Reported Reaction Past Psychological History: ADD/ADHD, Anxiety, Bipolar, Depression Smoking Status: Current every day smoker Past Alcohol Use History: None Reported Past Drug Use History: Marijuana - Past Family History Mother Family Medical History: No Reported History General Exam Limitations: no limitations General appearance: alert, in no apparent distress Head exam: Present: atraumatic, normocephalic, normal inspection Eye exam: Present: normal appearance, PERRL, EOMI. Absent: scleral icterus, conjunctival injection, periorbital swelling ENT exam: Present: normal oropharynx, mucous membranes moist, other (Mild opacification of the right TM. There is no erythema or bulging. No tenderness to palpation of the tragus or pinna. Mild tenderness over the mastoid bone without any overlying erythema, swelling, or warmth.) Respiratory exam: Present: normal lung sounds bilaterally. Absent: respiratory distress, wheezes, rales, rhonchi, stridor Cardiovascular Exam: Present: regular rate, normal rhythm, normal heart sounds. Absent: systolic murmur, diastolic murmur, rubs, gallop, clicks Neurological exam: Present: alert, oriented X3, CN II-XII intact Psychiatric exam: Present: normal affect, normal mood Skin exam: Present: warm, dry, intact, normal color. Absent: rash Course Vital Signs 06/05/23 06/05/23 08:41 10:21 Temperature 98.1 F Pulse Rate 78 67 Respiratory 20 17 Rate Blood Pressure 112/77 115/78 O2 Sat by Pulse 97 97 Oximetry Medical Decision Making - Medical Decision Making This is a 32-year-old female who presents to the emergency department for coughing, congestion, and ear pain. Was pt. sent in by a medical professional or institution? @ -No Did you speak to anyone other than the patient for history? @ -No Did you review nursing and triage notes? @ -Yes, and I agree, it is accurate with regards to the patient's symptoms. Were old charts reviewed? @ -No Differential Diagnosis? @ -Differential Ear Pain: Otitis media, otitis externa, eustachian tube dysfunction, allergic rhinitis, barotrauma, bullous myringitis, this is not meant to be an all-inclusive list. EKG interpreted by me (3pts min.)? @ -Not obtained X-rays interpreted by me (1pt min.)? @ -Not obtained CT interpreted by me (1pt min.)? @ -Not obtained U/S interpreted by me (1pt. min.)? @ -Not obtained What testing was considered but not performed? (CT, X-rays, U/S, labs)? Why? @ -None What meds were considered but not given? Why? @ -None Did you discuss the management of the patient with other professionals? @ -No Did you reconcile home meds? @ -No Was smoking cessation discussed for >3mins.? @ -I discussed smoking cessation for greater than 3 minutes. The risk of smoking were discussed with the patient including but not limited to risks of cancer, stroke, coronary artery disease and COPD. Also discussed with patient were multiple methods of quitting smoking. Lastly we discussed the financial cost of smoking. Was critical care preformed (if so, how long)? @ -No Were there social determinants of health that impacted care today? How? (Homelessness, low income, unemployed, alcoholism, drug addiction, transportation, low edu. Level, literacy, decrease access to med. care, care home, rehab)? @ -No Was there de-escalation of care discussed even if they declined? (Discuss DNR or withdrawal of care, Hospice)? @ -No What co-morbidities impacted this encounter? (DM, HTN, Smoking, COPD, CAD, Cancer, CVA, Hep., AIDS, mental health diagnosis, sleep apnea, morbid obesity)? @ -Smoking Was patient admitted / discharged? @ -Discharged. COVID, influenza, and RSV testing are negative. Rapid strep test negative. Physical examination of the TM is consistent with possible mild serous otitis media. While she has minor tenderness over the mastoid process, there are no overlying skin changes or other findings to suggest mastoiditis, especially given the duration of her symptoms. Additionally, the area of pruritus on her abdomen has no associated rash. Advised she follow-up with her primary care provider or return to the emergency department if a rash develops, and she can be reevaluated for shingles, however no antiviral treatment will be initiated at this time. Rx for Augmentin provided with dosing instructions reviewed. Advised Ibuprofen and Tylenol as needed for pain relief. Patient discharged home in stable condition. Undiagnosed new problem with uncertain prognosis? @ -None Drug Therapy requiring intensive monitoring for toxicity (Heparin, Nitro, Insulin, Cardizem)? @ -None Were any procedures done? @ -None Diagnosis/symptom? @ -Serous otitis media, pruritis Acute, or Chronic, or Acute on Chronic? @ -Acute Uncomplicated (without systemic symptoms) or Complicated (systemic symptoms)? @ -Uncomplicated Side effects of treatment? @ -None Exacerbation, Progression, or Severe Exacerbation] @ -Not applicable Poses a threat to life or bodily function? @ -No Return precautions reviewed in depth, the patient is instructed to return to the emergency department with any new, worsening, or concerning symptoms. Patient verbalized understanding. This case was discussed in detail with the attending ED physician, Dr. Jon. Presentation, findings, and treatment plan discussed in detail as well. - Lab Data Lab Results 06/05/23 06/05/23 Range/Units 09:02 09:02 Influenza Type A (PCR) Not Detected (Not Detectd) Influenza Type B (PCR) Not Detected (Not Detectd) RSV (PCR) Not Detected (Not Detectd) SARS-CoV-2 (PCR) Not Detected (Not Detectd) Group A Strep (PCR) NOT DETECTED (Not Detectd) Disposition Clinical Impression: Nicotine dependence, Serous otitis media, Itching Disposition: HOME SELF-CARE Instructions (If sedation given, give patient instructions): Ear Infection (ED) Additional Instructions: Return to the emergency department with any new, worsening, or concerning symptoms especially if you develop a rash that looks like shingles. Take the antibiotic as prescribed for 7 days. Alternate with ibuprofen and Tylenol as needed for pain relief. Follow up with your primary care provider in 1-2 days. Prescriptions: Amoxic-Pot Clav 875-125Mg [Augmentin 875-125] 1 tab PO Q12HR 7 Days #14 tab Is patient prescribed a controlled substance at d/c from ED?: No Referrals: Manuel Melgar DO [Primary Care Provider] - 1-2 days
[2023-06-05] MEDS ORDERED: IBUPROFEN 600 MG STARTER PACK 4 TAB BTL PO STA (10:07)
[2023-06-05] MEDS ORDERED: ACET/COD 300 MG/30 MG STARTER PACK 6 TAB BTL PO STA (10:07)
[2023-06-05 10:33] VITALS: BP 115/78; PULSE 67; RESP 17
== END 2023-06-05 10:27 | disposition home or self-care (01) ==
LOC: EC 08:35
DX: H65.01 Acute serous otitis media, right ear (principal); L29.9 Pruritus, unspecified; F17.200 Nicotine dependence, unspecified, uncomplicated; J45.909 Unspecified asthma, uncomplicated; F41.9 Anxiety disorder, unspecified; F31.9 Bipolar disorder, unspecified; F12.90 Cannabis use, unspecified, uncomplicated; Z88.8 Allergy status to other drugs, medicaments and biological substances; Z79.899 Other long term (current) drug therapy; Z20.822 Contact with and (suspected) exposure to COVID-19
CPT/HCPCS: 87651; 87636; 99283; 96372; 99406; J1885

== ENCOUNTER 2023-07-01 02:26 | Emergency (ER) | payer OTHER ==
[2023-07-01 03:15] VITALS: TEMP 98.1
[2023-07-01 04:56] LABS: Basophils # (A) 0.1 k/uL (0-0.2); Basophils % (A) 1 %; Eosinophils # (A) 0.9 k/uL (0-0.7); Eosinophils % (A) 7 %; HGB 13.6 gm/dL (11.4-16.0); Lymphocytes # (A) 2.4 k/uL (1.0-4.8); Lymphocytes % (A) 20 %; MCH 29.2 pg (25.0-35.0); MCV 85.9 fL (80.0-100.0); Mean Platelet Volume 8.1; Monocytes # (A) 0.4 k/uL (0-1.0); Monocytes % (A) 4 %; Neutrophils # (A) 8.2 k/uL (1.3-7.7); Neutrophils % (A) 67 %; Platelet Count 269 k/uL (150-450); RBC 4.65 m/uL (3.80-5.40); WBC 12.1 k/uL (3.8-10.6)
[2023-07-01 05:06] LABS: ALT 20 U/L (4-34); AST 21 U/L (14-36); African American GFR (CKD) >90 (>60 ml/min/1.73 sqM); Albumin 3.6 g/dL (3.5-5.0); Alkaline Phosphatase 44 U/L (38-126); Anion Gap 9 mmol/L; Blood Urea Nitrogen 9 mg/dL (7-17); Carbon Dioxide 23 mmol/L (22-30); Chloride 107 mmol/L (98-107); Glucose 117 mg/dL (74-99); Non-African American GFR(CKD) >90 (>60 ml/min/1.73 sqM); Potassium 3.7 mmol/L (3.5-5.1); Sodium 139 mmol/L (137-145); Total Bilirubin 0.4 mg/dL (0.2-1.3)
[2023-07-01] MEDS ORDERED: HYDROCORTISONE SUPPOSITORY 25 MG SUPP RECTAL STA (06:19)
--- NOTE | 2023-07-01 06:19 | ED ---
GI Bleed HPI - General Chief complaint: GI Bleed Stated complaint: Bloody Stool Time Seen by Provider: 07/01/23 05:59 Source: patient, RN notes reviewed, old records reviewed Mode of arrival: ambulatory Limitations: no limitations - History of Present Illness Initial comments: This is a 32-year-old female to the ER today for evaluation today. Patient p resents today for evaluation regards to blood in stoo she has also noticed blood on the toiler paper also has been noticed. Patient fell fever has no other significant complaints MD complaint: blood on toilet paper, blood streaked stool -: days(s) Radiation: none Severity scale (1-10): 4 Quality: burning Consistency: constant Improves with: none Context: history of GI bleed, hemorrhoids Associated Symptoms: denies other symptoms Treatments Prior to Arrival: none - Related Data Home Medications Medication Instructions Recorded Confirmed Albuterol Inhaler [Ventolin Hfa 1 - 2 puff INHALATION RT-Q6H PRN 10/26/22 04/08/23 Inhaler] Previous Rx's Medication Instructions Recorded Amoxicillin 875 mg PO Q12HR #20 tablet 04/08/23 Amoxic-Pot Clav 875-125Mg 1 tab PO Q12HR 7 Days #14 tab 06/05/23 [Augmentin 875-125] Allergies Allergy/AdvReac Type Severity Reaction Status Date / Time metronidazole [From Flagyl] AdvReac Nausea & Verified 07/01/23 03:10 Vomiting & Diarrhea Metronidazole HCl AdvReac Nausea & Verified 07/01/23 03:10 [From Flagyl] Vomiting & Diarrhea Review of Systems ROS Statement: Those systems with pertinent positive or pertinent negative responses have been documented in the HPI. ROS Other: All systems not noted in ROS Statement are negative. Past Medical History Past Medical History: Asthma Additional Past Medical History / Comment(s): migraine History of Any Multi-Drug Resistant Organisms: None Reported Past Surgical History: Adenoidectomy, Cholecystectomy, Orthopedic Surgery, Tonsillectomy Additional Past Surgical History / Comment(s): Right knee surgery, ganglion cyst removal bilateral hands, hemorrhoidectomy, colonoscopy, EGD. Past Anesthesia/Blood Transfusion Reactions: No Reported Reaction Past Psychological History: ADD/ADHD, Anxiety, Bipolar, Depression Smoking Status: Current every day smoker Past Alcohol Use History: None Reported Past Drug Use History: Marijuana - Past Family History Mother Family Medical History: No Reported History General Exam Limitations: no limitations General appearance: alert, in no apparent distress Head exam: Present: atraumatic, normocephalic, normal inspection Eye exam: Present: normal appearance, PERRL, EOMI. Absent: scleral icterus, conjunctival injection, periorbital swelling ENT exam: Present: normal exam, mucous membranes moist Neck exam: Present: normal inspection. Absent: tenderness, meningismus, lymphadenopathy Respiratory exam: Present: normal lung sounds bilaterally. Absent: respiratory distress, wheezes, rales, rhonchi, stridor Cardiovascular Exam: Present: regular rate, normal rhythm, normal heart sounds. Absent: systolic murmur, diastolic murmur, rubs, gallop, clicks GI/Abdominal exam: Present: soft, normal bowel sounds. Absent: distended, tenderness, guarding, rebound, rigid Extremities exam: Present: normal inspection, full ROM, normal capillary refill. Absent: tenderness, pedal edema, joint swelling, calf tenderness Back exam: Present: normal inspection Neurological exam: Present: alert, oriented X3, CN II-XII intact Psychiatric exam: Present: normal affect, normal mood Skin exam: Present: warm, dry, intact, normal color. Absent: rash Course Vital Signs 07/01/23 07/01/23 03:10 06:32 Temperature 98.1 F Pulse Rate 71 Respiratory 16 Rate Blood Pressure 107/67 O2 Sat by Pulse 99 Oximetry - Reevaluation(s) Reevaluation #1: Medical record is reviewed Reevaluation #2: Patient symptoms are improved Reevaluation #3: Patient informed results and questions answered Reevaluation #4: Was pt. sent in by a medical professional or institution (, PA, WASTE DUSTER, urgent care, hospital, or snf...) When possible be specific @ -no Did you speak to anyone other than the patient for history (EMS, parent, family, police, friend...)? What history was obtained from this source @ -no Did you review nursing and triage notes (agree or disagree)? Why? @ -agree Are old charts reviewed (outside hosp., previous admission, EMS record, old EKG, old radiological studies, urgent care reports/EKG's, snf records)? Report findings @ -yes Differential Diagnosis (chest pain, altered mental status, abdominal pain women, abdominal pain men, vaginal bleeding, weakness, fever, dyspnea, syncope, headache, dizziness, GI bleed, back pain, seizure, CVA, palpatations, mental health, musculoskeletal)? @ -prior EKG interpreted by me (3pts min.). @ -no X-rays interpreted by me (1pt min.). @ -no CT interpreted by me (1pt min.). @ -no U/S interpreted by me (1pt. min.). @ -no What testing was considered but not performed or refused? (CT, X-rays, U/S, labs)? Why? @ -none What meds were considered but not given or refused? Why? @ -none Did you discuss the management of the patient with other professionals (professionals i.e. , PA, WASTE DUSTER, lab, RT, psych nurse, case management social worker, building inspection engineer, teacher, customer service officer, shoe parts caser)? Give summary @ -no Was smoking cessation discussed for >3mins.? @ -no Were there social determinants of health that impacted care today? How? (Homelessness, low income, unemployed, alcoholism, drug addiction, transportation, low edu. Level, literacy, decrease access to med. care, halfway, rehab)? @ -none Was there de-escalation of care discussed even if they declined (Discuss DNR or withdrawal of care, Hospice)? DNR status @ -no What co-morbidities impacted this encounter? (DM, HTN, Smoking, COPD, CAD, C ancer, CVA, ARF, Chemo, Hep., AIDS, mental health diagnosis, sleep apnea, morbid obesity)? @ -none Was patient admitted / discharged? Hospital course, mention meds given and route, prescriptions, significant lab abnormalities, going to OR and other pertinent info. @ - 32 female to the emergency department today for evaluation of GI bleed, hemorrhoids on exam. No abdominal pain and normal hemoglobin here in the ER patient can be discharged home Discharge Was critical care preformed (if so, how long)? @ -no Undiagnosed new problem with uncertain prognosis? @ -no Drug Therapy requiring intensive monitoring for toxicity (Heparin, Nitro, Insulin, Cardizem)? @ -no Were any procedures done? @ -no Diagnosis/symptom? @ -GI bleeding hemorrhoids Acute, or Chronic, or Acute on Chronic? @ -Acute Uncomplicated (without systemic symptoms) or Complicated (systemic symptoms)? @ -Complicated Side effects of treatment? @ -no Exacerbation, Progression, or Severe Exacerbation? @ -exacerbation Poses a threat to life or bodily function? How? (Chest pain, [place], [place], pneumonia, PE, COPD, DKA, ARF, appy, cholecystitis, CVA, Diverticulitis, Homicidal, Suicidal, threat to staff... and all critical care pts) @ -yes with acute and significant bleeding Medical Decision Making - Medical Decision Making 32 female to the emergency department today for evaluation of GI bleed, hemorrhoids on exam. No abdominal pain and normal hemoglobin here in the ER patient can be discharged home - Lab Data Result diagrams: 07/01/23 04:47 07/01/23 04:47 Lab Results 07/01/23 07/01/23 Range/Units 04:47 04:47 WBC 12.1 H (3.8-10.6) k/uL RBC 4.65 (3.80-5.40) m/uL Hgb 13.6 (11.4-16.0) gm/dL Hct 40.0 (34.0-46.0) % MCV 85.9 (80.0-100.0) fL MCH 29.2 (25.0-35.0) pg MCHC 34.0 (31.0-37.0) g/dL RDW 13.0 (11.5-15.5) % Plt Count 269 (150-450) k/uL MPV 8.1 Neutrophils % 67 % Lymphocytes % 20 % Monocytes % 4 % Eosinophils % 7 % Basophils % 1 % Neutrophils # 8.2 H (1.3-7.7) k/uL Lymphocytes # 2.4 (1.0-4.8) k/uL Monocytes # 0.4 (0-1.0) k/uL Eosinophils # 0.9 H (0-0.7) k/uL Basophils # 0.1 (0-0.2) k/uL Sodium 139 (137-145) mmol/L Potassium 3.7 (3.5-5.1) mmol/L Chloride 107 (98-107) mmol/L Carbon Dioxide 23 (22-30) mmol/L Anion Gap 9 mmol/L BUN 9 (7-17) mg/dL Creatinine 0.64 (0.52-1.04) mg/dL Est GFR (CKD-EPI)AfAm >90 (>60 ml/min/1.73 sqM) Est GFR (CKD-EPI)NonAf >90 (>60 ml/min/1.73 sqM) Glucose 117 H (74-99) mg/dL Calcium 9.0 (8.4-10.2) mg/dL Total Bilirubin 0.4 (0.2-1.3) mg/dL AST 21 (14-36) U/L ALT 20 (4-34) U/L Alkaline Phosphatase 44 (38-126) U/L Total Protein 6.0 L (6.3-8.2) g/dL Albumin 3.6 (3.5-5.0) g/dL Disposition Clinical Impression: Lower gastrointestinal hemorrhage, Hemorrhoids Disposition: HOME SELF-CARE Condition: Good Instructions (If sedation given, give patient instructions): Hemorrhoids (ED) Is patient prescribed a controlled substance at d/c from ED?: No Referrals: Manuel Melgar DO [Primary Care Provider] - 1-2 days Time of Disposition: 06:00
[2023-07-01 06:38] VITALS: BP 107/67; PULSE 71; RESP 16
== END 2023-07-01 06:51 | disposition home or self-care (01) ==
LOC: EC 02:26
DX: K92.2 Gastrointestinal hemorrhage, unspecified (principal); K64.9 Unspecified hemorrhoids; J45.909 Unspecified asthma, uncomplicated; F17.200 Nicotine dependence, unspecified, uncomplicated; F12.90 Cannabis use, unspecified, uncomplicated; Z79.899 Other long term (current) drug therapy; Z88.1 Allergy status to other antibiotic agents; Z90.49 Acquired absence of other specified parts of digestive tract
CPT/HCPCS: 36415; 80053; 85025; 99285

== ENCOUNTER 2023-08-09 06:13 | Emergency (ER) | payer OTHER ==
[2023-08-09 06:20] VITALS: BP 115/79; PULSE 75; RESP 18; TEMP 97.5
[2023-08-09] MEDS: ACET/COD 300 MG/30 MG STARTER PACK 6 TAB BTL PO STA (06:38)
[2023-08-09] MEDS: ORPHENADRINE 30 MG/ML 2 ML VIAL IM STA (06:38)
--- NOTE | 2023-08-09 06:38 | ED ---
Neck Injury/Pain HPI - General Chief Complaint: Neck Pain/Injury Stated Complaint: neck and shoulder pain Time Seen by Provider: 08/09/23 06:20 Source: RN notes reviewed Mode of arrival: ambulatory Limitations: no limitations - History of Present Illness Initial Comments: 32-year-old female presents emergency department chief complaint of right-sided neck, shoulder pain. Patient states that over the last day is worsening. She has pain that radiates down her right arm. She denies any focal weakness no trauma no rashes. - Related Data Home Medications Medication Instructions Recorded Confirmed Albuterol Inhaler [Ventolin Hfa 1 - 2 puff INHALATION RT-Q6H PRN 10/26/22 04/08/23 Inhaler] Previous Rx's Medication Instructions Recorded Amoxicillin 875 mg PO Q12HR #20 tablet 04/08/23 Amoxic-Pot Clav 875-125Mg 1 tab PO Q12HR 7 Days #14 tab 06/05/23 [Augmentin 875-125] Cyclobenzaprine [Flexeril] 10 mg PO TID PRN #15 tab 08/09/23 Ibuprofen [Motrin] 600 mg PO Q8HR PRN #20 tab 08/09/23 predniSONE 50 mg PO DAILY #5 tab 08/09/23 Allergies Allergy/AdvReac Type Severity Reaction Status Date / Time metronidazole [From Flagyl] AdvReac Nausea & Verified 08/09/23 06:19 Vomiting & Diarrhea Metronidazole HCl AdvReac Nausea & Verified 08/09/23 06:19 [From Flagyl] Vomiting & Diarrhea Review of Systems ROS Statement: Those systems with pertinent positive or pertinent negative responses have been documented in the HPI. ROS Other: All systems not noted in ROS Statement are negative. Past Medical History Past Medical History: Asthma Additional Past Medical History / Comment(s): migraine History of Any Multi-Drug Resistant Organisms: None Reported Past Surgical History: Adenoidectomy, Cholecystectomy, Orthopedic Surgery, Tonsillectomy Additional Past Surgical History / Comment(s): Right knee surgery, ganglion cyst removal bilateral hands, hemorrhoidectomy, colonoscopy, EGD. Past Anesthesia/Blood Transfusion Reactions: No Reported Reaction Past Psychological History: ADD/ADHD, Anxiety, Bipolar, Depression Smoking Status: Current every day smoker Past Alcohol Use History: None Reported Past Drug Use History: Marijuana - Past Family History Mother Family Medical History: No Reported History General Exam Limitations: no limitations General appearance: alert, in no apparent distress Head exam: Present: atraumatic, normocephalic, normal inspection Eye exam: Present: normal appearance, PERRL, EOMI. Absent: scleral icterus, conjunctival injection, periorbital swelling ENT exam: Present: normal exam, mucous membranes moist Neck exam: Present: normal inspection, tenderness (Right trapezius), full ROM (With moderate discomfort). Absent: meningismus, lymphadenopathy Respiratory exam: Present: normal lung sounds bilaterally. Absent: respiratory distress, wheezes, rales, rhonchi, stridor Cardiovascular Exam: Present: regular rate, normal rhythm, normal heart sounds. Absent: systolic murmur, diastolic murmur, rubs, gallop, clicks Extremities exam: Present: other (Upper extremity strength equal bilaterally, neurovascular intact) Neurological exam: Present: alert, oriented X3 Skin exam: Present: warm, dry, intact, normal color. Absent: rash Course Vital Signs 08/09/23 06:16 Temperature 97.5 F L Pulse Rate 75 Respiratory 18 Rate Blood Pressure 115/79 O2 Sat by Pulse 99 Oximetry Medical Decision Making - Medical Decision Making Was pt. sent in by a medical professional or institution (, PA, MARK UP DESIGNER, urgent care, hospital, or halfway...) When possible be specific @ -No Did you speak to anyone other than the patient for history (EMS, parent, family, police, friend...)? What history was obtained from this source @ -No Did you review nursing and triage notes (agree or disagree)? Why? @ -I reviewed and agree with nursing and triage notes Were old charts reviewed (outside hosp., previous admission, EMS record, old EKG, old radiological studies, urgent care reports/EKG's, halfway records)? Report findings @ -No old charts were reviewed Differential Diagnosis (chest pain, altered mental status, abdominal pain women, abdominal pain men, vaginal bleeding, weakness, fever, dyspnea, syncope, headache, dizziness, GI bleed, back pain, seizure, CVA, palpatations, mental health, musculoskeletal)? @ -Trapezius muscle spasm, cervical radiculopathy, cervical strain, shoulder strain EKG interpreted by me (3pts min.). @ -None none X-rays interpreted by me (1pt min.). @ -None done CT interpreted by me (1pt min.). @ -None done U/S interpreted by me (1pt. min.). @ -None done What testing was considered but not performed or refused? (CT, X-rays, U/S, labs)? Why? @ -None What meds were considered but not given or refused? Why? @ -None Did you discuss the management of the patient with other professionals (professionals i.e. DrBenjamin, PA, MARK UP DESIGNER, lab, RT, psych nurse, social services specialist, under cutting machine operator, teacher, public affairs officer, residential case manager)? Give summary @ -No Was smoking cessation discussed for >3mins.? @ -No Was critical care preformed (if so, how long)? @ -No Were there social determinants of health that impacted care today? How? (Homelessness, low income, unemployed, alcoholism, drug addiction, transportation, low edu. Level, literacy, decrease access to med. care, custodial, rehab)? @ -No Was there de-escalation of care discussed even if they declined (Discuss DNR or withdrawal of care, Hospice)? DNR status @ -No What co-morbidities impacted this encounter? (DM, HTN, Smoking, COPD, CAD, Cancer, CVA, ARF, Chemo, Hep., AIDS, mental health diagnosis, sleep apnea, morbid obesity)? @ -None Was patient admitted / discharged? Hospital course, mention meds given and route, prescriptions, significant lab abnormalities, going to OR and other pertinent info. @ -[Discharge patient has right trapezius muscle spasm, cervical C. Patient will be discharged in stable condition muscular x-rays return parameters lillian. Undiagnosed new problem with uncertain prognosis? @ -No Drug Therapy requiring intensive monitoring for toxicity (Heparin, Nitro, Insulin, Cardizem)? @ -No Were any procedures done? @ -No Diagnosis/symptom? @ -[Cervical radiculopathy Acute, or Chronic, or Acute on Chronic? @ -Acute Uncomplicated (without systemic symptoms) or Complicated (systemic symptoms)? @ -[Uncomplicated Side effects of treatment? @ -[No Exacerbation, Progression, or Severe Exacerbation? @ -No Poses a threat to life or bodily function? How? (Chest pain, [place], [place], pneumonia, PE, COPD, DKA, ARF, appy, cholecystitis, CVA, Diverticulitis, Homicidal, Suicidal, threat to staff... and all critical care pts) @ -No Disposition Clinical Impression: Trapezius muscle spasm, Neck pain Disposition: HOME SELF-CARE Condition: Stable Instructions (If sedation given, give patient instructions): Muscle Spasm (ED) Additional Instructions: Please return to the Emergency Department if symptoms worsen or any other concerns. Prescriptions: Cyclobenzaprine [Flexeril] 10 mg PO TID PRN #15 tab PRN Reason: Muscle Spasm Ibuprofen [Motrin] 600 mg PO Q8HR PRN #20 tab PRN Reason: Pain predniSONE 50 mg PO DAILY #5 tab Is patient prescribed a controlled substance at d/c from ED?: No Referrals: Manuel Melgar DO [Primary Care Provider] - 1-2 days Time of Disposition: 06:37
[2023-08-09] MEDS: HYDROcodone/APAP 5-325MG 1 EACH TAB PO STA (06:39)
== END 2023-08-09 06:50 | disposition home or self-care (01) ==
LOC: EC 06:13
DX: M62.830 Muscle spasm of back (principal); M54.2 Cervicalgia; J45.909 Unspecified asthma, uncomplicated; F17.200 Nicotine dependence, unspecified, uncomplicated; F12.90 Cannabis use, unspecified, uncomplicated; Z86.59 Personal history of other mental and behavioral disorders; Z88.8 Allergy status to other drugs, medicaments and biological substances
CPT/HCPCS: 99283; 96372; J2360

== ENCOUNTER 2023-09-13 06:05 | Emergency (ER) | payer OTHER ==
--- NOTE | 2023-09-13 06:28 | ED ---
Headache HPI - General Chief Complaint: Headache Stated Complaint: Headache Time Seen by Provider: 09/13/23 06:08 Source: patient, RN notes reviewed Mode of arrival: ambulatory Limitations: no limitations - History of Present Illness Initial Comments: 32-year-old female presents emergency department chief complaint of a headache. Patient states that she has been having ongoing headache which is typical for her. She states it starts at the base of her skull and wraps around like a band around her head. Patient states that she does take some Tylenol Motrin occasionally which seems to help but it comes back. She denies any fevers or chills no focal weakness no extremity injuries or weakness. Patient offers no other associated symptoms. - Related Data Home Medications Medication Instructions Recorded Confirmed Albuterol Inhaler [Ventolin Hfa 1 - 2 puff INHALATION RT-Q6H PRN 10/26/22 04/08/23 Inhaler] Previous Rx's Medication Instructions Recorded Amoxicillin 875 mg PO Q12HR #20 tablet 04/08/23 Amoxic-Pot Clav 875-125Mg 1 tab PO Q12HR 7 Days #14 tab 06/05/23 [Augmentin 875-125] Cyclobenzaprine [Flexeril] 10 mg PO TID PRN #15 tab 08/09/23 Ibuprofen [Motrin] 600 mg PO Q8HR PRN #20 tab 08/09/23 predniSONE 50 mg PO DAILY #5 tab 08/09/23 Allergies Allergy/AdvReac Type Severity Reaction Status Date / Time metronidazole [From Flagyl] AdvReac Nausea & Verified 09/13/23 06:23 Vomiting & Diarrhea Metronidazole HCl AdvReac Nausea & Verified 09/13/23 06:23 [From Flagyl] Vomiting & Diarrhea Review of Systems ROS Statement: Those systems with pertinent positive or pertinent negative responses have been documented in the HPI. ROS Other: All systems not noted in ROS Statement are negative. Past Medical History Past Medical History: Asthma Additional Past Medical History / Comment(s): migraine History of Any Multi-Drug Resistant Organisms: None Reported Past Surgical History: Adenoidectomy, Cholecystectomy, Orthopedic Surgery, Tonsillectomy Additional Past Surgical History / Comment(s): Right knee surgery, ganglion cyst removal bilateral hands, hemorrhoidectomy, colonoscopy, EGD. Past Anesthesia/Blood Transfusion Reactions: No Reported Reaction Past Psychological History: ADD/ADHD, Anxiety, Bipolar, Depression Smoking Status: Current every day smoker, Vaper Past Alcohol Use History: None Reported Past Drug Use History: Marijuana - Past Family History Mother Family Medical History: No Reported History General Exam Limitations: no limitations General appearance: alert, in no apparent distress Head exam: Present: atraumatic, normocephalic, normal inspection Eye exam: Present: normal appearance, PERRL, EOMI. Absent: scleral icterus, conjunctival injection, periorbital swelling ENT exam: Present: normal exam, normal oropharynx, mucous membranes moist Neck exam: Present: normal inspection, tenderness. Absent: meningismus, lymphadenopathy Respiratory exam: Present: normal lung sounds bilaterally. Absent: respiratory distress, wheezes, rales, rhonchi, stridor Cardiovascular Exam: Present: regular rate, normal rhythm, normal heart sounds. Absent: systolic murmur, diastolic murmur, rubs, gallop, clicks Neurological exam: Present: alert, oriented X3, CN II-XII intact, reflexes normal. Absent: motor sensory deficit Skin exam: Present: warm, dry, intact, normal color. Absent: rash Course Vital Signs 09/13/23 06:20 Temperature 98 F Pulse Rate 77 Respiratory 18 Rate Blood Pressure 111/66 O2 Sat by Pulse 98 Oximetry Medical Decision Making - Medical Decision Making Was pt. sent in by a medical professional or institution (MILY Ramirez, BAR ATTENDANT, urgent care, hospital, or jail...) When possible be specific @ -No Did you speak to anyone other than the patient for history (EMS, parent, family, police, friend...)? What history was obtained from this source @ -No Did you review nursing and triage notes (agree or disagree)? Why? @ -I reviewed and agree with nursing and triage notes Were old charts reviewed (outside hosp., previous admission, EMS record, old EKG, old radiological studies, urgent care reports/EKG's, jail records)? Report findings @ -No old charts were reviewed Differential Diagnosis (chest pain, altered mental status, abdominal pain women, abdominal pain men, vaginal bleeding, weakness, fever, dyspnea, syncope, headache, dizziness, GI bleed, back pain, seizure, CVA, palpatations, mental health, musculoskeletal)? @ -Differential Headache: Migraine, tension, cluster, carbon monoxide, central venous thrombosis, pension karma temporal arteritis, acute closure glaucoma, intercranial hemorrhage, mastoiditis, sinusitis, head injury, this is not meant to be an all-inclusive list. EKG interpreted by me (3pts min.). @ -None X-rays interpreted by me (1pt min.). @ -None done CT interpreted by me (1pt min.). @ -None done U/S interpreted by me (1pt. min.). @ -None done What testing was considered but not performed or refused? (CT, X-rays, U/S, labs)? Why? @ -None What meds were considered but not given or refused? Why? @ -None Did you discuss the management of the patient with other professionals (professionals i.e. Dr., PA, BAR ATTENDANT, lab, RT, psych nurse, psych social worker, kit planner, teacher, personnel officer, bottle caser)? Give summary @ -No Was smoking cessation discussed for >3mins.? @ -No Was critical care preformed (if so, how long)? @ -No Were there social determinants of health that impacted care today? How? (Homelessness, low income, unemployed, alcoholism, drug addiction, transportation, low edu. Level, literacy, decrease access to med. care, detention, rehab)? @ -No Was there de-escalation of care discussed even if they declined (Discuss DNR or withdrawal of care, Hospice)? DNR status @ -No What co-morbidities impacted this encounter? (DM, HTN, Smoking, COPD, CAD, Cancer, CVA, ARF, Chemo, Hep., AIDS, mental health diagnosis, sleep apnea, morbid obesity)? @ -None Was patient admitted / discharged? Hospital course, mention meds given and route, prescriptions, significant lab abnormalities, going to OR and other pertinent info. @ -Discharge patient presented for headache which is chronic issue. Patient was provided Norflex, Toradol and Benadryl. Patient agrees with this plan discharged in stable condition patient has neurological findings. Undiagnosed new problem with uncertain prognosis? @ -No Drug Therapy requiring intensive monitoring for toxicity (Heparin, Nitro, Insulin, Cardizem)? @ -No Were any procedures done? @ -No Diagnosis/symptom? @ -Headache Acute, or Chronic, or Acute on Chronic? @ -Acute Uncomplicated (without systemic symptoms) or Complicated (systemic symptoms)? @ -Uncomplicated Side effects of treatment? @ -No Exacerbation, Progression, or Severe Exacerbation? @ -No Poses a threat to life or bodily function? How? (Chest pain, [place], [place], pneumonia, PE, COPD, DKA, ARF, appy, cholecystitis, CVA, Diverticulitis, Homicidal, Suicidal, threat to staff... and all critical care pts) @ -No Disposition Clinical Impression: Headache Disposition: HOME SELF-CARE Condition: Stable Instructions (If sedation given, give patient instructions): Acute Headache (ED) Additional Instructions: Please return to the Emergency Department if symptoms worsen or any other concerns. Is patient prescribed a controlled substance at d/c from ED?: No Referrals: Manuel Melgar DO [Primary Care Provider] - 1-2 days Time of Disposition: 06:28
[2023-09-13] MEDS: KETOROLAC 15 MG/ML 1 ML VIAL IM STA (06:35)
[2023-09-13] MEDS: diphenhydrAMINE 50 MG CAP PO STA (06:36)
[2023-09-13] MEDS: ORPHENADRINE 30 MG/ML 2 ML VIAL IM STA (06:36)
[2023-09-13 06:39] VITALS: BP 111/66; PULSE 77; RESP 18; TEMP 98
== END 2023-09-13 07:02 | disposition home or self-care (01) ==
LOC: EC 06:05
DX: R51.9 Headache, unspecified (principal); F17.290 Nicotine dependence, other tobacco product, uncomplicated; Z88.8 Allergy status to other drugs, medicaments and biological substances; Z90.49 Acquired absence of other specified parts of digestive tract
CPT/HCPCS: 99284; 96372 ×2; J2360; J1885

== ENCOUNTER 2023-10-03 05:44 | Emergency (ER) | payer OTHER ==
[2023-10-03 06:03] VITALS: RESP 18
[2023-10-03] MEDS: KETOROLAC 15 MG/ML 1 ML VIAL IVP STA ×2 (06:46→07:32)
[2023-10-03] MEDS: SODIUM CHLORIDE 0.9% 500 ML 500 ML IV ONE (06:46)
[2023-10-03] MEDS: diphenhydrAMINE 50 MG/ML 1 ML VIAL IVP STA (06:46)
[2023-10-03] MEDS: ONDANSETRON 4 MG/2 ML VIAL IVP STA (06:46)
--- NOTE | 2023-10-03 06:46 | ED ---
Headache HPI - General Chief Complaint: Headache Stated Complaint: Migraine Time Seen by Provider: 10/03/23 06:01 Source: patient, RN notes reviewed Mode of arrival: ambulatory Limitations: no limitations - History of Present Illness Initial Comments: 32-year-old female with history of migraines presenting with headache x 12 hours. She describes a left-sided, throbbing pain that she describes as a 7 out of 10. She states this feels similar to previous migraines. She took Motrin and Tylenol at 3 AM with mild relief. Denies focal deficits, numbness, tingling, neck stiffness, fevers, chills, URI symptoms. She follows with her PCP regarding migraines however is not on any maintenance medications. Denies blood thinners, gastric bleeds, kidney issues, . - Related Data Home Medications Medication Instructions Recorded Confirmed Albuterol Inhaler [Ventolin Hfa 1 - 2 puff INHALATION RT-Q6H PRN 10/26/22 04/08/23 Inhaler] Previous Rx's Medication Instructions Recorded Amoxicillin 875 mg PO Q12HR #20 tablet 04/08/23 Amoxic-Pot Clav 875-125Mg 1 tab PO Q12HR 7 Days #14 tab 06/05/23 [Augmentin 875-125] Cyclobenzaprine [Flexeril] 10 mg PO TID PRN #15 tab 08/09/23 Ibuprofen [Motrin] 600 mg PO Q8HR PRN #20 tab 08/09/23 predniSONE 50 mg PO DAILY #5 tab 08/09/23 Allergies Allergy/AdvReac Type Severity Reaction Status Date / Time metronidazole [From Flagyl] AdvReac Nausea & Verified 10/03/23 05:55 Vomiting & Diarrhea Metronidazole HCl AdvReac Nausea & Verified 10/03/23 05:55 [From Flagyl] Vomiting & Diarrhea Review of Systems ROS Statement: Those systems with pertinent positive or pertinent negative responses have been documented in the HPI. ROS Other: All systems not noted in ROS Statement are negative. Past Medical History Past Medical History: Asthma Additional Past Medical History / Comment(s): migraine History of Any Multi-Drug Resistant Organisms: None Reported Past Surgical History: Adenoidectomy, Cholecystectomy, Orthopedic Surgery, Tonsillectomy Additional Past Surgical History / Comment(s): Right knee surgery, ganglion cyst removal bilateral hands, hemorrhoidectomy, colonoscopy, EGD. Past Anesthesia/Blood Transfusion Reactions: No Reported Reaction Past Psychological History: ADD/ADHD, Anxiety, Bipolar, Depression Smoking Status: Current every day smoker Past Alcohol Use History: None Reported Past Drug Use History: Marijuana - Past Family History Mother Family Medical History: No Reported History General Exam Limitations: no limitations General appearance: alert, in no apparent distress Head exam: Present: atraumatic, normocephalic, normal inspection Eye exam: Present: normal appearance, PERRL, EOMI. Absent: scleral icterus, conjunctival injection, periorbital swelling ENT exam: Present: normal exam, mucous membranes moist Neck exam: Present: normal inspection (Negative Kernig's and Bruzinski's sign). Absent: tenderness, meningismus, lymphadenopathy Respiratory exam: Present: normal lung sounds bilaterally. Absent: respiratory distress, wheezes, rales, rhonchi, stridor Cardiovascular Exam: Present: regular rate, normal rhythm, normal heart sounds. Absent: systolic murmur, diastolic murmur, rubs, gallop, clicks GI/Abdominal exam: Present: soft, normal bowel sounds. Absent: distended, tenderness, guarding, rebound, rigid Neurological exam: Present: alert, oriented X3, CN II-XII intact Psychiatric exam: Present: normal affect, normal mood Skin exam: Present: warm, dry, intact, normal color. Absent: rash Course Vital Signs 10/03/23 10/03/23 05:54 07:44 Temperature 97.7 F 97.9 F Pulse Rate 70 58 L Respiratory 18 18 Rate Blood Pressure 123/87 105/69 O2 Sat by Pulse 99 97 Oximetry Medical Decision Making - Medical Decision Making Was pt. sent in by a medical professional or institution (, PA, DIMENSIONAL INSPECTOR, urgent care, hospital, or assisted...) When possible be specific @ - Did you speak to anyone other than the patient for history (EMS, parent, family, police, friend...)? What history was obtained from this source @ -No Did you review nursing and triage notes (agree or disagree)? Why? @ -I reviewed and agree with nursing and triage notes Were old charts reviewed (outside hosp., previous admission, EMS record, old EKG, old radiological studies, urgent care reports/EKG's, assisted records)? Report findings @ -No old charts were reviewed Differential Diagnosis (chest pain, altered mental status, abdominal pain women, abdominal pain men, vaginal bleeding, weakness, fever, dyspnea, syncope, headache, dizziness, GI bleed, back pain, seizure, CVA, palpatations, mental health, musculoskeletal)? @ -Differential Headache: Migraine, tension, cluster, carbon monoxide, central venous thrombosis, pension karma temporal arteritis, acute closure glaucoma, intercranial hemorrhage, mastoiditis, sinusitis, head injury, this is not meant to be an all-inclusive list. EKG interpreted by me (3pts min.). @ -None X-rays interpreted by me (1pt min.). @ -None done CT interpreted by me (1pt min.). @ -None done U/S interpreted by me (1pt. min.). @ -None done What testing was considered but not performed or refused? (CT, X-rays, U/S, labs)? Why? @ -CT not performed due to no neurological symptoms and neuro examination normal. Previous CT scans performed with no changes What meds were considered but not given or refused? Why? @ -None Did you discuss the management of the patient with other professionals (professionals i.e. , PA, DIMENSIONAL INSPECTOR, lab, RT, psych nurse, social sciences chair, card maker, teacher, public affairs officer, catalytic case operator)? Give summary @ -No Was smoking cessation discussed for >3mins.? @ -No Was critical care preformed (if so, how long)? @ -No Were there social determinants of health that impacted care today? How? (Homelessness, low income, unemployed, alcoholism, drug addiction, transportatio n, low edu. Level, literacy, decrease access to med. care, residential, rehab)? @ -No Was there de-escalation of care discussed even if they declined (Discuss DNR or withdrawal of care, Hospice)? DNR status @ -No What co-morbidities impacted this encounter? (DM, HTN, Smoking, COPD, CAD, Cancer, CVA, ARF, Chemo, Hep., AIDS, mental health diagnosis, sleep apnea, morbid obesity)? @ -None Was patient admitted / discharged? Hospital course, mention meds given and route, prescriptions, significant lab abnormalities, going to OR and other pertinent info. @ -Discharged. Patient presented for a migraine headache with no neurological changes. Migraine cocktail given and tolerated well. Patient's symptoms resolved, and patient was discharged in stable condition. Case discussed with Dr. Martin Undiagnosed new problem with uncertain prognosis? @ -No Drug Therapy requiring intensive monitoring for toxicity (Heparin, Nitro, Insulin, Cardizem)? @ -No Were any procedures done? @ -No Diagnosis/symptom? @ -Migraine headache Acute, or Chronic, or Acute on Chronic? @ -Acute Uncomplicated (without systemic symptoms) or Complicated (systemic symptoms)? @ -Uncomplicated Side effects of treatment? @ -No Exacerbation, Progression, or Severe Exacerbation? @ -No Poses a threat to life or bodily function? How? (Chest pain, USA, [place], pneumonia, PE, COPD, DKA, ARF, appy, cholecystitis, CVA, Diverticulitis, Homicidal, Suicidal, threat to staff... and all critical care pts) @ -No Disposition Clinical Impression: Migraine headache Disposition: HOME SELF-CARE Condition: Good Instructions (If sedation given, give patient instructions): Acute Headache (ED) Additional Instructions: Please return to the Emergency Department if symptoms worsen or any other concerns. Is patient prescribed a controlled substance at d/c from ED?: No Referrals: Manuel Melgar DO [Primary Care Provider] - 1-2 days Time of Disposition: 08:16
[2023-10-03 08:02] VITALS: BP 105/69; PULSE 58; TEMP 97.9
== END 2023-10-03 08:24 | disposition home or self-care (01) ==
LOC: EC 05:44
DX: G43.909 Migraine, unspecified, not intractable, without status migrainosus (principal); F17.200 Nicotine dependence, unspecified, uncomplicated; F12.90 Cannabis use, unspecified, uncomplicated; Z88.8 Allergy status to other drugs, medicaments and biological substances
CPT/HCPCS: 99283; 96374; 96375 ×2; 96376; 96361; J1200; J2405; J1885

== ENCOUNTER 2023-11-04 20:36 | Emergency (ER) | payer OTHER ==
--- NOTE | 2023-11-04 20:45 | ED ---
General Adult HPI - General Source: patient, RN notes reviewed Mode of arrival: ambulatory Limitations: no limitations <Bertin Osorio - Last Filed: 11/04/23 20:45> <Mike Jon - Last Filed: 11/04/23 23:03> - General Chief complaint: Headache Stated complaint: Migraine Time Seen by Provider: 11/04/23 20:42 - History of Present Illness Initial comments: 32-year-old female presents to the ED with a chief complaint of headache. Patient states over the past few days has had a headache consistent with her history of migraines. However, reports despite taking [id number] meds has not gone away prompting presentation to the ED for further evaluation. (Bertin Osorio) 32-year-old female with chronic headache history, diagnosis of migraine headache. Patient states she has tried Tylenol Motrin and Benadryl [id number] without significant relief. Headaches been present for the past 3 days. It is predominantly occipital. She has some mild nausea and vomiting. No fevers. No focal numbness or weakness. Headache was gradual in onset. (Mike Jon) - Related Data Home Medications Medication Instructions Recorded Confirmed Albuterol Inhaler [Ventolin Hfa 1 - 2 puff INHALATION RT-Q6H PRN 10/26/22 04/08/23 Inhaler] Previous Rx's Medication Instructions Recorded Amoxicillin 875 mg PO Q12HR #20 tablet 04/08/23 Amoxic-Pot Clav 875-125Mg 1 tab PO Q12HR 7 Days #14 tab 06/05/23 [Augmentin 875-125] Cyclobenzaprine [Flexeril] 10 mg PO TID PRN #15 tab 08/09/23 Ibuprofen [Motrin] 600 mg PO Q8HR PRN #20 tab 08/09/23 predniSONE 50 mg PO DAILY #5 tab 08/09/23 Allergies Allergy/AdvReac Type Severity Reaction Status Date / Time metronidazole [From Flagyl] AdvReac Nausea & Verified 11/04/23 20:40 Vomiting & Diarrhea Metronidazole HCl AdvReac Nausea & Verified 11/04/23 20:40 [From Flagyl] Vomiting & Diarrhea Review of Systems ROS Other: All systems not noted in ROS Statement are negative. <Bertin Osorio - Last Filed: 11/04/23 20:45> ROS Other: All systems not noted in ROS Statement are negative. <Mike Jon Pacheco - Last Filed: 11/04/23 23:03> ROS Statement: Those systems with pertinent positive or pertinent negative responses have been documented in the HPI. Past Medical History Past Medical History: Asthma Additional Past Medical History / Comment(s): migraine History of Any Multi-Drug Resistant Organisms: None Reported Past Surgical History: Adenoidectomy, Cholecystectomy, Orthopedic Surgery, Tonsillectomy Additional Past Surgical History / Comment(s): Right knee surgery, ganglion cyst removal bilateral hands, hemorrhoidectomy, colonoscopy, EGD. Past Anesthesia/Blood Transfusion Reactions: No Reported Reaction Past Psychological History: ADD/ADHD, Anxiety, Bipolar, Depression Smoking Status: Current every day smoker Past Alcohol Use History: None Reported Past Drug Use History: Marijuana - Past Family History Mother Family Medical History: No Reported History <Bertin Osorio - Last Filed: 11/04/23 20:45> General Exam Limitations: no limitations <Bertin Osorio - Last Filed: 11/04/23 20:45> General appearance: alert, in no apparent distress Head exam: Present: atraumatic, normocephalic Eye exam: Present: normal appearance, PERRL ENT exam: Present: normal exam Neck exam: Present: normal inspection. Absent: tenderness, meningismus Respiratory exam: Present: normal lung sounds bilaterally. Absent: respiratory distress, wheezes Cardiovascular Exam: Present: regular rate, normal rhythm GI/Abdominal exam: Present: soft. Absent: distended, tenderness, guarding Extremities exam: Present: normal inspection, normal capillary refill Neurological exam: Present: alert, oriented X3, CN II-XII intact. Absent: motor sensory deficit Psychiatric exam: Present: normal affect, normal mood Skin exam: Present: warm, dry, intact <Mike Jon Pacheco - Last Filed: 11/04/23 23:03> - General Exam Comments Initial Comments: Visual Physical Exam Vital signs reviewed General: Well-appearing, nontoxic, no acute distress. Head: Normocephalic, atraumatic Eyes: PERRLA, EOMI ENT: Airway patent Chest: Nonlabored breathing Skin: No visual rash, normal skin tone Neuro: Alert and oriented 3 Musculoskeletal: No gross abnormalities (Bertin Osorio) Course <Mike Jon - Last Filed: 11/04/23 23:03> Vital Signs 11/04/23 20:40 Temperature 97.7 F Pulse Rate 69 Respiratory 16 Rate Blood Pressure 132/88 O2 Sat by Pulse 98 Oximetry - Reevaluation(s) Reevaluation #1: 11/04/23 23:03 Patient feeling better, eager for discharge (Mike Jon) Medical Decision Making <Bertin Osorio - Last Filed: 11/04/23 20:45> - Lab Data Result diagrams: 11/04/23 21:55 <Mike Jon - Last Filed: 11/04/23 23:03> - Medical Decision Making Quicknote portion performed. Signed Bertin Osorio PA-C (Bertin Osorio) Was pt. sent in by a medical professional or institution ([facility], SURGERY AID, urgent care, hospital, or [facility]...) When possible be specific @ -No Did you speak to anyone other than the patient for history (EMS, parent, family, police, friend...)? What history was obtained from this source @ -No Did you review nursing and triage notes (agree or disagree)? Why? @ -I reviewed and agree with nursing and triage notes Were old charts reviewed (outside hosp., previous admission, EMS record, old EKG, old radiological studies, urgent care reports/EKG's, [facility] records)? Report findings @ -No old charts were reviewed Differential Headache: Migraine, tension, cluster, carbon monoxide, central venous thrombosis, pension karma temporal arteritis, acute closure glaucoma, intercranial hemorrhage, mastoiditis, sinusitis, head injury, this is not meant to be an all-inclusive list. EKG interpreted by me (3pts min.). @ -As above X-rays interpreted by me (1pt min.). @ -None done CT interpreted by me (1pt min.). @ -None done U/S interpreted by me (1pt. min.). @ -None done What testing was considered but not performed or refused? (CT, X-rays, U/S, labs)? Why? @ -None What meds were considered but not given or refused? Why? @ -None Did you discuss the management of the patient with other professionals (professionals i.e. Dr., PA, SURGERY AID, lab, RT, psych nurse, foster care social worker, transport engineer, teacher, patrol officer, case liner)? Give summary @ -No Was smoking cessation discussed for >3mins.? @ -No Was critical care preformed (if so, how long)? @ -No Were there social determinants of health that impacted care today? How? (Home lessness, low income, unemployed, alcoholism, drug addiction, transportation, low edu. Level, literacy, decrease access to med. care, custodial, rehab)? @ -No Was there de-escalation of care discussed even if they declined (Discuss DNR or withdrawal of care, Hospice)? DNR status @ -No What co-morbidities impacted this encounter? (DM, HTN, Smoking, COPD, CAD, Cancer, CVA, ARF, Chemo, Hep., AIDS, mental health diagnosis, sleep apnea, morbid obesity)? @Recurrent headache, migraine headache Was patient admitted / discharged? Hospital course, mention meds given and route, prescriptions, significant lab abnormalities, going to OR and other pertinent info. @ -33-year-old female, well-appearing, normal vitals, normal exam. No active vomiting. Patient given symptomatic treatment in the emergency department with resolution in headache. Patient will continue her outpatient workup and evaluation as planned. Undiagnosed new problem with uncertain prognosis? @ -No Drug Therapy requiring intensive monitoring for toxicity (Heparin, Nitro, Insulin, Cardizem)? @ -No Were any procedures done? @ -No Diagnosis/symptom? @ -[Headache Acute, or Chronic, or Acute on Chronic? @ -Acute on chronic Uncomplicated (without systemic symptoms) or Complicated (systemic symptoms)? @ -Default Side effects of treatment? @ -No Exacerbation, Progression, or Severe Exacerbation? @ -No Poses a threat to life or bodily function? How? (Chest pain, USA, [place], pneumonia, PE, COPD, DKA, ARF, appy, cholecystitis, CVA, Diverticulitis, Homicidal, Suicidal, threat to staff... and all critical care pts) @ -No (Mike Jon) - Lab Data Lab Results 11/04/23 Range/Units 21:55 WBC 8.8 (3.8-10.6) k/uL RBC 4.67 (3.80-5.40) m/uL Hgb 13.2 (11.4-16.0) gm/dL Hct 41.4 (34.0-46.0) % MCV 88.8 (80.0-100.0) fL MCH 28.4 (25.0-35.0) pg MCHC 32.0 (31.0-37.0) g/dL RDW 13.8 (11.5-15.5) % Plt Count 263 (150-450) k/uL MPV 8.8 Neutrophils % 54 % Lymphocytes % 31 % Monocytes % 4 % Eosinophils % 8 % Basophils % 1 % Neutrophils # 4.8 (1.3-7.7) k/uL Lymphocytes # 2.7 (1.0-4.8) k/uL Monocytes # 0.4 (0-1.0) k/uL Eosinophils # 0.7 (0-0.7) k/uL Basophils # 0.1 (0-0.2) k/uL Disposition <Bertin Osorio - Last Filed: 11/04/23 20:45> Is patient prescribed a controlled substance at d/c from ED?: No Time of Disposition: 23:03 <Mike Jon - Last Filed: 11/04/23 23:03> Clinical Impression: Headache Disposition: HOME SELF-CARE Condition: Fair Instructions (If sedation given, give patient instructions): Acute Headache (ED) Referrals: Manuel Melgar DO [Primary Care Provider] - 1-2 days
[2023-11-04 21:07] VITALS: TEMP 97.7
[2023-11-04] MEDS: METOCLOPRAMIDE 5 MG/ML 2 ML VIAL IVP STA (21:50)
[2023-11-04] MEDS: KETOROLAC 15 MG/ML 1 ML VIAL IVP STA (21:50)
[2023-11-04] MEDS: SODIUM CHLORIDE 0.9% 1,000 ML IV ONE (21:50)
[2023-11-04 22:19] LABS: Basophils # (A) 0.1 k/uL (0-0.2); Basophils % (A) 1 %; Eosinophils # (A) 0.7 k/uL (0-0.7); Eosinophils % (A) 8 %; HCT 41.4 % (34.0-46.0); HGB 13.2 gm/dL (11.4-16.0); Lymphocytes # (A) 2.7 k/uL (1.0-4.8); Lymphocytes % (A) 31 %; MCH 28.4 pg (25.0-35.0); MCV 88.8 fL (80.0-100.0); Mean Platelet Volume 8.8; Monocytes # (A) 0.4 k/uL (0-1.0); Monocytes % (A) 4 %; Neutrophils # (A) 4.8 k/uL (1.3-7.7); Neutrophils % (A) 54 %; Platelet Count 263 k/uL (150-450); RBC 4.67 m/uL (3.80-5.40); RDW 13.8 % (11.5-15.5); WBC 8.8 k/uL (3.8-10.6)
[2023-11-04 23:24] LABS: ALT 25 U/L (4-34); AST 21 U/L (14-36); African American GFR (CKD) >90 (>60 ml/min/1.73 sqM); Albumin 3.8 g/dL (3.5-5.0); Alkaline Phosphatase 53 U/L (38-126); Anion Gap 8 mmol/L; Blood Urea Nitrogen 10 mg/dL (7-17); Calcium 9.1 mg/dL (8.4-10.2); Carbon Dioxide 22 mmol/L (22-30); Chloride 110 mmol/L (98-107); Glucose 105 mg/dL (74-99); Non-African American GFR(CKD) >90 (>60 ml/min/1.73 sqM); Potassium 3.7 mmol/L (3.5-5.1); Sodium 140 mmol/L (137-145); Total Bilirubin 0.4 mg/dL (0.2-1.3); Total Protein 6.5 g/dL (6.3-8.2)
[2023-11-04 23:56] VITALS: BP 128/82; PULSE 61; RESP 18
== END 2023-11-04 23:36 | disposition home or self-care (01) ==
LOC: EC 20:36
DX: G43.909 Migraine, unspecified, not intractable, without status migrainosus (principal); F17.200 Nicotine dependence, unspecified, uncomplicated; Z88.1 Allergy status to other antibiotic agents; Z88.8 Allergy status to other drugs, medicaments and biological substances; Z90.49 Acquired absence of other specified parts of digestive tract
CPT/HCPCS: 36415; 80053; 85025; 99283; 96374; 96375; 96361; J2765; J1885

== ENCOUNTER → 2023-11-16 | Outpatient (CLI) | payer OTHER ==
[2023-11-16 14:38] VITALS: BP 115/81; PULSE 65; RESP 16; TEMP 97.6; BMI 38.6
--- NOTE | 2023-11-16 15:18 | P.HPBAR ---
Bariatric H&P - History & Physicial H&P Date: 11/16/23 History & Physicial: Visit/CC: Pursuing Again Patient initial contact: weight. Initial weight: 96.162 kg Initial weight in pounds: 212.00 Height: 5 ft 2 in Initial BMI: 38.7 Last weight: Current weight: 95.878 kg Current weight in pounds: 211.38 Current BMI: 38.6 [place] body weight (based on NIH guidelines): 49.895 kg Excess body weight loss: 0.6% The patient is a 33 year-old F who presents for Bariatric Assessment. DATE OF SERVICE: 11/16/23 REASON FOR CONSULTATION: Initial bariatric evaluation. HISTORY OF PRESENT ILLNESS: Katie Vogt is a 33-year-old female who comes with lifelong morbid obesity. She is looking into the gastric bypass. Her mother had the gastric bypass. Her mother had the gastric bypass at the outside facility. She has fatty liver disease. She is smoking. She is drinking pop such as Mountain Dew. She lost weight 5 pounds in 1 month. At height of 5 feet 2 inches, her ideal body weight is 135 pounds. She comes in 211 pounds. Her body mass index is 38.7. She is 76 pounds overweight. PAST MEDICAL HISTORY: 1. Morbid obesity due to excess calories 2. Body mass index of 38.7 3. Attention deficit disorder with attention deficit hyperactive disorder 4. Generalized anxiety disorder 5. Bipolar disorder 6. Depressive disorder 7. Migraines 8. Asthma PAST SURGICAL HISTORY: 1. Excision of ganglion cyst bilateral hands 2. Colonoscopy 3. EGD 4. Right knee surgery 5. Hemorrhoid surgery 6. Cholecystectomy 7. Adenoidectomy 8. Tonsillectomy HOME MEDICATIONS: Home Medications Medication Instructions Recorded Confirmed Albuterol Sulfate [Ventolin HFA] 2 puff INHALATION QID PRN 12/06/23 12/08/23 Cholecalciferol [Vitamin D3 (25 25 mcg PO DAILY 12/06/23 12/08/23 Mcg = 1000 Iu)] Previous Rx's Medication Instructions Recorded Omeprazole [PriLOSEC] 40 mg PO DAILY #14 cap 12/08/23 Penicillin V Potassium [Pen Vee K] 500 mg PO BID 10 Days #20 tablet 12/15/23 Ipratropium-Albuterol Nebulize 3 ml INHALATION QID #25 each 12/18/23 [Duoneb 0.5 mg-3 mg/3 ml Soln] predniSONE 50 mg PO DAILY #5 tab 12/18/23 ALLERGIES: Allergies Allergy/AdvReac Type Severity Reaction Status Date / Time Metronidazole HCl AdvReac Nausea & Verified 12/28/23 19:40 [From Flagyl] Vomiting & Diarrhea SOCIAL HISTORY: Current tobacco use. Past history of marijuana use. FAMILY HISTORY: No family history of ulcerative colitis disease or Crohn's disease. Family history of morbid obesity. No lupus in the family. No reports of stomach or esophageal cancer. REVIEW OF ORGAN SYSTEMS: CONSTITUTIONAL: At height of 5 feet 2 inches, her ideal body weight is 135 pounds. She comes in 211 pounds. Her body mass index is 38.7. She is 76 pounds overweight. HEENT: Denies any active troubles with vision or hearing. ENDOCRINE: Denies diabetes. No hypothyroidism. CARDIOVASCULAR: Denies reports of palpitations or heart attacks or chest pain. RESPIRATORY: Has daytime somnolence. Has asthma. Has chronic obstructive pulmonary disease. GASTROINTESTINAL: Denies any bright red blood per rectum. No diarrhea. No constipation. Has gastroesophageal reflux disease. GENITOURINARY:No recent blood in urine MUSCULOSKELETAL: Has lower back pain and joint pain. NEURO: No headaches. No seizure disorders. PSYCH: Has depression. No suicidal ideation. RHEUMATOLOGIC: No lupus. No rheumatoid arthritis. HEMATOLOGIC: Denies any abnormal bleeding or bruising. SKIN: No rash. No skin cancer. PHYSICAL EXAM: VITAL SIGNS: Height 5 foot 2 inches, weight 211 pounds. BMI 38.7 Vital Signs Temp 97.6 F 11/16/23 14:23 Pulse 65 11/16/23 14:23 Resp 16 11/16/23 14:23 BP 115/81 11/16/23 14:23 Pulse Ox FiO2 GENERAL: Well-developed in no acute distress. HEENT: No scleral icterus. Extraocular movements grossly intact. Hears conversational speech. No nasal drainage. NECK: Supple without lymphadenopathy. CHEST: Nonlabored respirations with equal bilateral excursions. CARDIOVASCULAR: Regular rate and regular rhythm. Distal 2+ pulses. ABDOMEN: Obese, soft, nontender, nondistended. MUSCULOSKELETAL: No clubbing, cyanosis. NEURO: No focal or lateralizing signs. Cranial nerves 2 through 12 grossly within normal limits. PSYCH: Appropriate affect. Alert and oriented to person, place and time. SKIN: Good skin turgor. Well perfused. ASSESSMENT: 1. Morbid obesity due to excess calories 2. Body mass index of 38.7 3. Attention deficit disorder with attention deficit hyperactive disorder 4. Generalized anxiety disorder 5. Bipolar disorder 6. Depressive disorder 7. Migraines 8. Asthma 9. Tobacco abuse PLAN: 1. Surgical options including a band, gastric bypass, sleeve gastrectomy were described in detail. Alternatives such as gastric balloon including duodenal switch were described. She is looking into the gastric bypass. 2. The [place] bariatric surgical collaborative data and outcomes calculator were described with surgical options. 3. Recommend a bariatric metabolic panel to evaluate for micro- including macronutrient deficiencies. 4. For history of daytime somnolence, recommend evaluation and treatment for sleep apnea. 5. Dietary surveillance and counseling was reviewed. Increased protein intake over 65 grams daily advised. 6. Will need cardiac risk assessment. 7. Recommend medical risk assessment. 8. Psych assessment per insurance guidelines. 9. Recommend upper endoscopy. 10. Recommend 12-lead EKG. 11. Recommend tobacco cessation 12. Increase fluid intake 64 ounces daily Thank you for this consultation. Past Medical History Past Medical History: Asthma Additional Past Medical History / Comment(s): migraine History of Any Multi-Drug Resistant Organisms: None Reported Past Surgical History: Adenoidectomy, Cholecystectomy, Orthopedic Surgery, Tonsillectomy Additional Past Surgical History / Comment(s): Right knee surgery, ganglion cyst removal bilateral hands, hemorrhoidectomy, colonoscopy, EGD. Past Anesthesia/Blood Transfusion Reactions: No Reported Reaction Past Psychological History: ADD/ADHD, Anxiety, Bipolar, Depression Smoking Status: Current every day smoker Past Alcohol Use History: None Reported Additional Past Alcohol Use History / Comment(s): DOWN TO 3-4 CIGARETTES FROM 1PPD-HAS BEEN SMOKING SINCE AGE 18. Past Drug Use History: Marijuana - Past Family History Mother Family Medical History: No Reported History Surgical - Exam Vital Signs Temp Pulse Resp BP 97.6 F 65 16 115/81 11/16/23 14:23 11/16/23 14:23 11/16/23 14:23 11/16/23 14:23 Bariatric Checklist Checklist: Plan: Checklist: EGD: 1. Hiatal hernia: 2. H. Pylori: HgbA1c: Vitamin D: Smoking: Current every day smoker Primary care physician referral: [place] Psychiatry clearance: Cardiology clearance: Sleep study: Diet journal: VTE risk score: VTE risk level: Rehab needs at discharge:
== END ==
LOC: BARWHC3 13:50
PROVIDERS: ATTEND Surgery Plastic and Reconstructive Surgery
DX: E66.01 Morbid (severe) obesity due to excess calories (principal); F41.1 Generalized anxiety disorder; F90.1 Attention-deficit hyperactivity disorder, predominantly hyperactive type; F31.9 Bipolar disorder, unspecified; G43.909 Migraine, unspecified, not intractable, without status migrainosus; J45.909 Unspecified asthma, uncomplicated; F17.210 Nicotine dependence, cigarettes, uncomplicated; Z88.8 Allergy status to other drugs, medicaments and biological substances; Z68.38 Body mass index [BMI] 38.0-38.9, adult; Z79.52 Long term (current) use of systemic steroids; Z79.899 Other long term (current) drug therapy
CPT/HCPCS: 99211

== ENCOUNTER → 2023-11-17 | Outpatient (CLI) | payer OTHER ==
[2023-11-17 10:23] LABS: Partial Thromboplastin Time 24.3 sec (22.0-30.0); Prothrombin Time 10.7 sec (10.0-12.5)
[2023-11-17 14:39] LABS: HCT 46.9 % (37.2-46.3); HGB 15.2 g/dL (12.0-15.0); MCHC 32.4 g/dL (32.0-37.0); MCV 89.3 FL (80.0-97.0); Mean Platelet Volume 11.9 FL (9.5-12.2); NRBC Per 100 WBC 0 X 10*3/uL (0.00-0.01); Platelet Count 246 X 10*3/uL (140-440); RBC 5.25 X 10*6/uL (4.10-5.20); RDW 13.5 % (11.5-14.5); WBC 11.46 X 10*3/uL (4.50-10.00)
[2023-11-17 15:21] LABS: Prealbumin 25.1 mg/dL (18.0-42.0)
[2023-11-17 15:27] LABS: % Iron Saturation 29.04 (12.00-45.00); ALT 24 U/L (8-44); AST 16 U/L (13-35); Albumin 4.4 g/dL (3.8-4.9); Alkaline Phosphatase 62 U/L (41-126); BUN/Creat Ratio 14.11 Ratio (12.00-20.00); Blood Urea Nitrogen 12.7 mg/dL (9.0-27.0); Calcium 9.3 mg/dL (8.7-10.3); Carbon Dioxide 24.1 mmol/L (21.6-31.8); Chloride 104 mmol/L (96-109); Chol/HDL Ratio 5.59 Ratio; Ferritin 61.9 ng/mL (10.0-291.0); Globulin 2.1 g/dL (1.6-3.3); Glucose 89 mg/dL (70-110); Iron 115 UG/DL (50-170); LDL Cholesterol,Calculated 76.1 mg/dL (0.0-131.0); Phosphorus 3.6 mg/dL (2.4-5.1); Potassium 4.2 mmol/L (3.5-5.5); Sodium 140 mmol/L (135-145); Total Bilirubin 0.3 mg/dL (0.3-1.2); Total Iron Binding Capacity 396 UG/DL (228-460); Total Protein 6.5 g/dL (6.2-8.2)
[2023-11-18 12:16] LABS: Zinc, Serum 64 ug/dL (60-130)
== END | disposition home or self-care (01) ==
LOC: LABWHC1 09:05
PROVIDERS: ATTEND Surgery Plastic and Reconstructive Surgery
DX: E66.01 Morbid (severe) obesity due to excess calories (principal); E89.1 Postprocedural hypoinsulinemia; D50.8 Other iron deficiency anemias; K91.2 Postsurgical malabsorption, not elsewhere classified; E44.0 Moderate protein-calorie malnutrition; E45 Retarded development following protein-calorie malnutrition; E55.9 Vitamin D deficiency, unspecified; K74.1 Hepatic sclerosis; N19 Unspecified kidney failure; T56.894A Toxic effect of other metals, undetermined, initial encounter; K50.90 Crohn's disease, unspecified, without complications
CPT/HCPCS: 84255; 84134; 84425; 80061; 80053; 82607; 82728; 82525; 82746; 83540; 83550; 83735; 84100; 84443; 84590; 84630; 85027; 85610; 85730; 82306; 83970; 83036; 80307; 93005; 36415; G0480; 80323

== ENCOUNTER 2023-12-08 07:51 | Day surgery (SDC) | payer OTHER ==
[2023-12-06 10:57] VITALS: BMI 40.4
--- NOTE | 2023-12-08 07:36 | P.GSHP ---
History of Present Illness H&P Date: 12/08/23 CHIEF COMPLAINT: GERD and mention bowel habits HISTORY OF PRESENT ILLNESS: The patient is a 33-year-old female who presents with gastroesophageal reflux disease and change in bowel habits for over 6 months. Upper and lower endoscopy were offered for further evaluation and management. PAST MEDICAL HISTORY: Please see list. PAST SURGICAL HISTORY: Please see list. MEDICATIONS: Please see list. ALLERGIES: Please see list. SOCIAL HISTORY: No illicit drug use FAMILY HISTORY: No reports of Crohn disease or ulcerative colitis. REVIEW OF ORGAN SYSTEMS: CONSTITUTIONAL: No reports of fevers or chills. GI: Denies any blood in stools or constipation. PHYSICAL EXAM: VITAL SIGNS: Stable GENERAL: Well-developed pleasant in no acute distress. HEENT: No scleral icterus. Extraocular movements grossly intact. Moist buccal mucosa. NECK: Supple without lymphadenopathy. CHEST: Unlabored respirations. Equal bilateral excursions. CARDIOVASCULAR: Regular rate and rhythm. Distal 2+ pulses. ABDOMEN: Soft, nondistended. MUSCULOSKELETAL: No clubbing, cyanosis, or edema. ASSESSMENT: 1. Gastroesophageal reflux disease 2. Change in bowel habits. PLAN: 1. Recommend proceeding with an upper and lower endoscopy Past Medical History Past Medical History: Asthma Additional Past Medical History / Comment(s): migraine History of Any Multi-Drug Resistant Organisms: None Reported Past Surgical History: Adenoidectomy, Cholecystectomy, Orthopedic Surgery, Tonsillectomy Additional Past Surgical History / Comment(s): Right knee surgery, ganglion cyst removal bilateral hands, hemorrhoidectomy, colonoscopy, EGD, trigger finger release left middle finger Past Anesthesia/Blood Transfusion Reactions: No Reported Reaction Past Psychological History: ADD/ADHD, Anxiety, Bipolar, Depression Smoking Status: Former smoker Past Alcohol Use History: None Reported Additional Past Alcohol Use History / Comment(s): 1PPD-HAS BEEN SMOKING SINCE AGE 18-QUIT 11/19/23 Past Drug Use History: None Reported Additional Drug Use History / Comment(s): PAST HX MARIJUANA USE-NO LONGER USES - Past Family History Mother Family Medical History: No Reported History Medications and Allergies Home Medications Medication Instructions Recorded Confirmed Type Albuterol Sulfate [Ventolin HFA] 2 puff INHALATION QID PRN 12/06/23 12/06/23 History Cholecalciferol [Vitamin D3 (25 25 mcg PO DAILY 12/06/23 12/06/23 History Mcg = 1000 Iu)] Allergies Allergy/AdvReac Type Severity Reaction Status Date / Time Metronidazole HCl AdvReac Nausea & Verified 12/06/23 10:50 [From Flagyl] Vomiting & Diarrhea
[2023-12-08] MEDS: IV FLUID CONTINUATION 1,000 ML IV ONE ×2 (08:55→10:30)
[2023-12-08] MEDS: LACTATED RINGERS 1,000 ML IV SCH (08:57)
[2023-12-08 09:01] VITALS: TEMP 96.6
[2023-12-08] MEDS ORDERED: PROPOFOL 10 MG/ML 20 ML VIAL IV ONE (09:33)
[2023-12-08] MEDS ORDERED: MIDAZOLAM 2 MG/2 ML VIAL ONE (09:33)
[2023-12-08] MEDS ORDERED: fentaNYL (PF) 50 MCG/ML 2 ML AMP ONE (09:33)
[2023-12-08] MEDS ORDERED: LIDOCAINE 1% INJ 10MG/ML (20 ML MDV) ONE (09:33)
[2023-12-08 10:17] VITALS: RESP 16
[2023-12-08 10:32] VITALS: BP 111/70; PULSE 66
--- NOTE | 2023-12-08 10:57 | P.PCN ---
Date of Procedure: 12/08/23 Description of Procedure: PREOPERATIVE DIAGNOSIS: GI bleed POSTOPERATIVE DIAGNOSIS: Acute gastric ulcer with bleeding Acute gastritis Duodenitis Gastroesophageal reflux disease Morbid obesity due to excess calories, BMI 40.7 OPERATION: Esophagogastroduodenoscopy with biopsies along esophagus, antrum and duodenum SURGEON: Petra Mariscal MD ANESTHESIA: MAC. INDICATIONS: The patient is a 33-year-old female who presents with GI bleed. Benefits and risks of the procedure were described. Informed consent was obtained. DESCRIPTION: The patient was brought into the endoscopy suite and laid in the left lateral decubitus position. An Olympus gastroscope was passed along the posterior oropharynx down to the distal esophagus where the squamocolumnar junction was encountered at 35 cm from the incisors. The stomach was entered and no bile reflux was found. Additional findings are listed below. Biopsies with cold forceps were obtained of the antrum. The first through third portion of the duodenum was examined. Retroflexion of the scope confirmed Hill grade 3 lower esophageal valve. The squamocolumnar junction demonstrated LA grade B erosive esophagitis. The stomach was desufflated. The patient tolerated the procedure well. FINDINGS: Squamocolumnar junction 35 cm from the incisors. Diaphragmatic hiatus at 35 cm. Hill grade 2 acute gastric ulcer bleeding, lower esophageal valve. Acute gastric ulcer with bleeding, 3 mm, antrum Acute gastritis Acute duodenitis LA grade B erosive esophagitis. Biopsies obtained Biopsies obtained of the duodenum. Chronic gastritis with biopsies obtained. RECOMMENDATIONS: Omeprazole 40 mg daily for 2 weeks
--- NOTE | 2023-12-08 11:05 | P.PCN ---
Date of Procedure: 12/08/23 Description of Procedure: PREOPERATIVE DIAGNOSIS: GI bleed POSTOPERATIVE DIAGNOSIS: Tubular adenoma transverse colon OPERATION: Colonoscopy to the ileocecal valve and appendiceal orifice, cecum Colonoscopy with hot snare polypectomy SURGEON: Petra Mariscal MD. ANESTHESIA: MAC. INDICATIONS: The patient is an 33-year-old female who presents bleed. Benefits and risks were described and informed consent was obtained. DESCRIPTION OF PROCEDURE: The patient had undergone GoLytely prep. The patient had been brought into the operating room and laid in the left lateral decubitus position. After adequate intravenous sedation, the rectum was examined with 2% lidocaine jelly. External hemorrhoids were encountered. The rectal tone was within normal limits. No lesions were palpated in the rectal vault. An Olympus colonoscope was advanced until the cecum, ileocecal valve and appendiceal orifice were clearly viewed. The prep was fair. Sigmoid diverticulosis was encountered. Colonic polyps were found and removed. No evidence of focal colitis was found. Retroflexion of the scope demonstrated grade 2 internal hemorrhoids without active bleeding or inflammation. The colon was desufflated. The patient had tolerated the procedure well. Withdrawal time was over 6 minutes. FINDINGS: Aronchick preparation quality scale 2 (1-5) Internal hemorrhoids, grade 2 External hemorrhoids, grade 2 No arteriovenous malformations. No sigmoid diverticulosis Removal of 1 polyps: - Snare polypectomy mid transverse colon, 5 mm tubulovillous adenoma No focal colitis. RECOMMENDATIONS: Repeat colonoscopy 3 years, 2026 Plan - Discharge Summary Discharge Rx Participant: No New Discharge Prescriptions: New Omeprazole [PriLOSEC] 40 mg PO DAILY #14 cap Continue Cholecalciferol [Vitamin D3 (25 Mcg = 1000 Iu)] 25 mcg PO DAILY Albuterol Sulfate [Ventolin HFA] 2 puff INHALATION QID PRN PRN Reason: Dyspnea Discharge Medication List Albuterol Sulfate [Ventolin HFA] 2 puff INHALATION QID PRN 12/06/23 [History] Cholecalciferol [Vitamin D3 (25 Mcg = 1000 Iu)] 25 mcg PO DAILY 12/06/23 [History] Omeprazole [PriLOSEC] 40 mg PO DAILY #14 cap 12/08/23 [Rx] Follow up Appointment(s)/Referral(s): Petra Mariscal MD [STAFF PHYSICIAN] - 01/10/24 4:30 pm Patient Instructions/Handouts: *Surgery [facility] - (Anesthesia) Discharge In structions Outpatient Surgery, Diet for Stomach Ulcers and Gastritis (GEN), Colorectal Polyps (GEN) Activity/Diet/Wound Care/Special Instructions: Colonoscopy 3 years, 2026 Discharge Disposition: HOME SELF-CARE
== END 2023-12-08 10:54 | disposition home or self-care (01) ==
LOC: ORWHC2ENDO 07:51
PROVIDERS: ATTEND Surgery Plastic and Reconstructive Surgery
DX: K29.50 Unspecified chronic gastritis without bleeding (principal); K21.00 Gastro-esophageal reflux disease with esophagitis, without bleeding; K29.80 Duodenitis without bleeding; D12.3 Benign neoplasm of transverse colon; K25.3 Acute gastric ulcer without hemorrhage or perforation; J45.909 Unspecified asthma, uncomplicated; E66.01 Morbid (severe) obesity due to excess calories; Z68.41 Body mass index [BMI] 40.0-44.9, adult; Z87.891 Personal history of nicotine dependence; Z88.1 Allergy status to other antibiotic agents; Z90.49 Acquired absence of other specified parts of digestive tract; Z79.899 Other long term (current) drug therapy
CPT/HCPCS: 81025; 88305; 45385; 43239; J2250; J2001; J3010; J2704

== ENCOUNTER 2023-12-15 02:08 | Emergency (ER) | payer OTHER ==
--- NOTE | 2023-12-15 03:10 | ED ---
General Adult HPI - General Chief complaint: Upper Respiratory Infection Stated complaint: Throat pain Time Seen by Provider: 12/15/23 02:15 Source: patient, RN notes reviewed Mode of arrival: ambulatory Limitations: no limitations - History of Present Illness Initial comments: 33-year-old female presenting to the ED with a chief complaint of sore throat. Patient states onset of sore throat today. States as the day progressed she started to lose her voice. Patient reports pain in her throat seems to radiate down into her chest however otherwise denies chest pain. No difficulty swallowing. No difficulties breathing. No drooling. Does note some associated cough with this. No fever or chills. No other complaints at this time. - Related Data Home Medications Medication Instructions Recorded Confirmed Albuterol Sulfate [Ventolin HFA] 2 puff INHALATION QID PRN 12/06/23 12/08/23 Cholecalciferol [Vitamin D3 (25 25 mcg PO DAILY 12/06/23 12/08/23 Mcg = 1000 Iu)] Previous Rx's Medication Instructions Recorded Omeprazole [PriLOSEC] 40 mg PO DAILY #14 cap 12/08/23 Penicillin V Potassium [Pen Vee K] 500 mg PO BID 10 Days #20 tablet 12/15/23 Allergies Allergy/AdvReac Type Severity Reaction Status Date / Time Metronidazole HCl AdvReac Nausea & Verified 12/15/23 02:10 [From Flagyl] Vomiting & Diarrhea Review of Systems ROS Statement: Those systems with pertinent positive or pertinent negative responses have been documented in the HPI. ROS Other: All systems not noted in ROS Statement are negative. Past Medical History Past Medical History: Asthma Additional Past Medical History / Comment(s): migraine History of Any Multi-Drug Resistant Organisms: None Reported Past Surgical History: Adenoidectomy, Cholecystectomy, Orthopedic Surgery, Tonsillectomy Additional Past Surgical History / Comment(s): Right knee surgery, ganglion cyst removal bilateral hands, hemorrhoidectomy, colonoscopy, EGD. Past Anesthesia/Blood Transfusion Reactions: No Reported Reaction Past Psychological History: ADD/ADHD, Anxiety, Bipolar, Depression Smoking Status: Current every day smoker Past Drug Use History: Marijuana - Past Family History Mother Family Medical History: No Reported History General Exam Limitations: no limitations General appearance: alert, appears intoxicated Eye exam: Present: normal appearance ENT exam: Present: normal oropharynx, other (No evidence of abscess formation at this time. Tolerating secretions. No stridor.) Neck exam: Present: normal inspection Respiratory exam: Present: normal lung sounds bilaterally Cardiovascular Exam: Present: regular rate GI/Abdominal exam: Present: soft, normal bowel sounds. Absent: distended, tenderness, guarding, rebound, rigid Neurological exam: Present: alert, oriented X3 Skin exam: Present: warm, dry Course Vital Signs 12/15/23 02:10 Temperature 97.9 F Pulse Rate 70 Respiratory 17 Rate Blood Pressure 132/80 O2 Sat by Pulse 97 Oximetry Medical Decision Making - Medical Decision Making Was pt. sent in by a medical professional or institution (, PA, DURABLE MEDICAL EQUIPMENT TECHNICIAN, urgent care, hospital, or senior living...) When possible be specific @ -No Did you speak to anyone other than the patient for history (EMS, parent, family, police, friend...)? What history was obtained from this source @ -No Did you review nursing and triage notes (agree or disagree)? Why? @ -I reviewed and agree with nursing and triage notes Were old charts reviewed (outside hosp., previous admission, EMS record, old EKG, old radiological studies, urgent care reports/EKG's, senior living records)? Report findings @ -No old charts were reviewed Differential Diagnosis (chest pain, altered mental status, abdominal pain women, abdominal pain men, vaginal bleeding, weakness, fever, dyspnea, syncope, headache, dizziness, GI bleed, back pain, seizure, CVA, palpatations, mental health, musculoskeletal)? @ -Differential Fever: Pneumonia, viral URI, endocarditis, myocarditis, pericarditis, otitis, sinusitis, peritonsillar Abscess, retropharyngeal Abscess, epiglottitis, peritonitis, appendicitis, April cystitis, diverticulitis, hepatitis, colitis, UTI, PID, TOA, pyelonephritis, prostatitis, epididymitis, meningitis, encephalitis, pulmonary embolism, CVA, thyroid storm, pancreatitis, adrenal crisis, cavernous sinus thrombosis, this is not meant to be an all-inclusive list. EKG interpreted by me (3pts min.). @ -None X-rays interpreted by me (1pt min.). @ -Chest x-ray interpreted me which revealed no evidence of acute finding. CT interpreted by me (1pt min.). @ -None done U/S interpreted by me (1pt. min.). @ -None done What testing was considered but not performed or refused? (CT, X-rays, U/S, labs)? Why? @ -None What meds were considered but not given or refused? Why? @ -None Did you discuss the management of the patient with other professionals (professionals i.e. , PA, DURABLE MEDICAL EQUIPMENT TECHNICIAN, lab, RT, psych nurse, forensic social worker, chemical research worker, teacher, commissioned police officer, immigration case manager)? Give summary @ -No Was smoking cessation discussed for >3mins.? @ -No Was critical care preformed (if so, how long)? @ -No Were there social determinants of health that impacted care today? How? (Homelessness, low income, unemployed, alcoholism, drug addiction, transportation, low edu. Level, literacy, decrease access to med. care, correction, rehab)? @ -No Was there de-escalation of care discussed even if they declined (Discuss DNR or withdrawal of care, Hospice)? DNR status @ -No What co-morbidities impacted this encounter? (DM, HTN, Smoking, COPD, CAD, Cancer, CVA, ARF, Chemo, Hep., AIDS, mental health diagnosis, sleep apnea, morbid obesity)? @ -None Was patient admitted / discharged? Hospital course, mention meds given and route, prescriptions, significant lab abnormalities, going to OR and other pertinent info. @ -Discharge 33-year-old female presenting to the ED with complaint of sore throat for 1 day. Laboratory studies reviewed. Labs show patient positive for strep. Patient provided first dose of penicillin here and discharged home with prescription for penicillin. On examination there is no significant oropharyngeal swelling. She is tolerating secretions and there is no stridor. No evidence of abscess formation at this time. Discharged home in stable condition. Discussed return precautions with patient who verbalized agreement. Undiagnosed new problem with uncertain prognosis? @ -No Drug Therapy requiring intensive monitoring for toxicity (Heparin, Nitro, Insulin, Cardizem)? @ -No Were any procedures done? @ -No Diagnosis/symptom? @ -Streptococcal pharyngitis Acute, or Chronic, or Acute on Chronic? @ -Acute Uncomplicated (without systemic symptoms) or Complicated (systemic symptoms)? @ -Uncomplicated Side effects of treatment? @ -No Exacerbation, Progression, or Severe Exacerbation? @ -No Poses a threat to life or bodily function? How? (Chest pain, [place], [place], pneumonia, PE, COPD, DKA, ARF, appy, cholecystitis, CVA, Diverticulitis, Homicidal, Suicidal, threat to staff... and all critical care pts) @ -No - Lab Data Lab Results 12/15/23 12/15/23 Range/Units 02:41 02:41 Influenza Type A (PCR) Not Detected (Not Detectd) Influenza Type B (PCR) Not Detected (Not Detectd) RSV (PCR) Not Detected (Not Detectd) SARS-CoV-2 (PCR) Not Detected (Not Detectd) Group A Strep (PCR) DETECTED A (Not Detectd) Disposition Clinical Impression: Strep pharyngitis Disposition: HOME SELF-CARE Condition: Good Instructions (If sedation given, give patient instructions): Strep Throat (ED) Additional Instructions: Please return to the Emergency Department if symptoms worsen or any other concerns. Please follow-up with your primary care provider. Prescriptions: Penicillin V Potassium [Pen Vee K] 500 mg PO BID 10 Days #20 tablet Is patient prescribed a controlled substance at d/c from ED?: No Referrals: Manuel Melgar DO [Primary Care Provider] - 1-2 days Time of Disposition: 03:51
--- NOTE | 2023-12-15 04:01 | XR ---
EXAM: XR Chest, 2 Views CLINICAL HISTORY: ITS.REASON XR Reason: r/o pna TECHNIQUE: Frontal and lateral views of the chest. COMPARISON: No relevant prior studies available. FINDINGS: Lungs: Unremarkable. No consolidation. Pleural space: Unremarkable. No pneumothorax. Heart: Unremarkable. No cardiomegaly. Mediastinum: Unremarkable. Normal mediastinal contour. Bones/joints: Unremarkable. No acute fracture. IMPRESSION: No consolidation.
[2023-12-15] MEDS: PENICILLIN V POTASSIUM 250 MG TAB PO STA (04:10)
[2023-12-15 04:25] VITALS: BP 130/81; PULSE 72; RESP 18; TEMP 97.8
== END 2023-12-15 04:23 | disposition home or self-care (01) ==
LOC: EC 02:08
DX: J02.0 Streptococcal pharyngitis (principal); B95.0 Streptococcus, group A, as the cause of diseases classified elsewhere; F17.200 Nicotine dependence, unspecified, uncomplicated; Z88.1 Allergy status to other antibiotic agents
CPT/HCPCS: 71046; 87636; 87651; 99283

== ENCOUNTER 2023-12-18 19:28 | Emergency (ER) | payer OTHER ==
[2023-12-18 19:50] VITALS: TEMP 98
--- NOTE | 2023-12-18 20:06 | ED ---
URI HPI - General Chief Complaint: Upper Respiratory Infection Stated Complaint: Congestion, Ear pain, Migraine Time Seen by Provider: 12/18/23 19:40 Source: patient, RN notes reviewed Mode of arrival: ambulatory Limitations: no limitations - History of Present Illness Initial Comments: Is a 33-year-old female presents emergency department chief complaint of upper respiratory symptoms. Patient was seen in the emergency department on with a sore throat and was diagnosed with strep throat and sent home on penicillin. She states that over the past 3 days she has had worsening nasal congestion and sinus pressure, bilateral ear pain, productive cough, chills and fevers at home. She has a history of exercise-induced asthma and has been using her albuterol inhaler more frequently at home. She states that she has still been taking the penicillin as prescribed. She is no longer experiencing a sore throat. States that her son at home has been experiencing a cough as well. She has taken Tylenol Cold and flu at home. - Related Data Home Medications Medication Instructions Recorded Confirmed Albuterol Sulfate [Ventolin HFA] 2 puff INHALATION QID PRN 12/06/23 12/08/23 Cholecalciferol [Vitamin D3 (25 25 mcg PO DAILY 12/06/23 12/08/23 Mcg = 1000 Iu)] Previous Rx's Medication Instructions Recorded Omeprazole [PriLOSEC] 40 mg PO DAILY #14 cap 12/08/23 Penicillin V Potassium [Pen Vee K] 500 mg PO BID 10 Days #20 tablet 12/15/23 Ipratropium-Albuterol Nebulize 3 ml INHALATION QID #25 each 12/18/23 [Duoneb 0.5 mg-3 mg/3 ml Soln] predniSONE 50 mg PO DAILY #5 tab 12/18/23 Allergies Allergy/AdvReac Type Severity Reaction Status Date / Time Metronidazole HCl AdvReac Nausea & Verified 12/18/23 19:50 [From Flagyl] Vomiting & Diarrhea Review of Systems ROS Statement: Those systems with pertinent positive or pertinent negative responses have been documented in the HPI. ROS Other: All systems not noted in ROS Statement are negative. Past Medical History Past Medical History: Asthma Additional Past Medical History / Comment(s): migraine History of Any Multi-Drug Resistant Organisms: None Reported Past Surgical History: Adenoidectomy, Cholecystectomy, Orthopedic Surgery, Tonsillectomy Additional Past Surgical History / Comment(s): Right knee surgery, ganglion cyst removal bilateral hands, hemorrhoidectomy, colonoscopy, EGD. Past Anesthesia/Blood Transfusion Reactions: No Reported Reaction Past Psychological History: ADD/ADHD, Anxiety, Bipolar, Depression Smoking Status: Former smoker Past Alcohol Use History: None Reported Past Drug Use History: Marijuana - Past Family History Mother Family Medical History: No Reported History General Exam Limitations: no limitations General appearance: alert, in no apparent distress Head exam: Present: atraumatic, normocephalic, normal inspection Eye exam: Present: normal appearance, PERRL, EOMI. Absent: scleral icterus, conjunctival injection, periorbital swelling ENT exam: Present: normal oropharynx, mucous membranes moist Expanded Ear exam: Present: normal external inspection TM/Canal exam: Bulging: Right TM, Left TM Neck exam: Present: normal inspection. Absent: tenderness, meningismus, lymphadenopathy Respiratory exam: Present: wheezes. Absent: normal lung sounds bilaterally, rhonchi, stridor Cardiovascular Exam: Present: regular rate, normal rhythm, normal heart sounds. Absent: systolic murmur, diastolic murmur, rubs, gallop, clicks GI/Abdominal exam: Present: soft, normal bowel sounds. Absent: distended, tenderness, guarding, rebound, rigid Extremities exam: Present: normal inspection, full ROM, normal capillary refill. Absent: tenderness, pedal edema, joint swelling, calf tenderness Back exam: Present: normal inspection Neurological exam: Present: alert, oriented X3, CN II-XII intact Skin exam: Present: warm, dry, intact, normal color. Absent: rash Course Vital Signs 12/18/23 12/18/23 12/18/23 19:45 20:49 20:57 Temperature 98 F Pulse Rate 72 74 72 Respiratory 20 18 Rate Blood Pressure 158/88 120/75 O2 Sat by Pulse 98 98 Oximetry 12/18/23 20:58 Temperature Pulse Rate 75 Respiratory Rate Blood Pressure O2 Sat by Pulse Oximetry Medical Decision Making - Medical Decision Making Was pt. sent in by a medical professional or institution (, PA, SOFTWARE QUALITY AUTOMATION ENGINEER, urgent care, hospital, or senior living...) When possible be specific @ -No Did you speak to anyone other than the patient for history (EMS, parent, family, police, friend...)? What history was obtained from this source @ -No Did you review nursing and triage notes (agree or disagree)? Why? @ -I reviewed and agree with nursing and triage notes Were old charts reviewed (outside hosp., previous admission, EMS record, old EKG, old radiological studies, urgent care reports/EKG's, senior living records)? Report findings @ -Patient's previous emergency department visit where she was diagnosed with strep throat and sent home with a prescription for penicillin. Patient tested negative for COVID, flu, RSV. Differential Diagnosis (chest pain, altered mental status, abdominal pain women, abdominal pain men, vaginal bleeding, weakness, fever, dyspnea, syncope, headache, dizziness, GI bleed, back pain, seizure, CVA, palpatations, mental health, musculoskeletal)? @ -COVID 19, RSV, influenza, pneumonia, acute bronchitis, URI, this list is not all inclusive EKG interpreted by me (3pts min.). @ -none X-rays interpreted by me (1pt min.). @ -chest xray No acute cardiopulmonary process or disease. CT interpreted by me (1pt min.). @ -None done U/S interpreted by me (1pt. min.). @ -None done What testing was considered but not performed or refused? (CT, X-rays, U/S, labs)? Why? @ -None What meds were considered but not given or refused? Why? @ -None Did you discuss the management of the patient with other professionals (professionals i.e. , PA, SOFTWARE QUALITY AUTOMATION ENGINEER, lab, RT, psych nurse, social media community manager, lead caster helper, teacher, electrical engineering drafting officer, case specialist)? Give summary @ -No Was smoking cessation discussed for >3mins.? @ -No Was critical care preformed (if so, how long)? @ -No Were there social determinants of health that impacted care today? How? (Homelessness, low income, unemployed, alcoholism, drug addiction, transportation, low edu. Level, literacy, decrease access to med. care, usp, rehab)? @ -No Was there de-escalation of care discussed even if they declined (Discuss DNR or withdrawal of care, Hospice)? DNR status @ -No What co-morbidities impacted this encounter? (DM, HTN, Smoking, COPD, CAD, Cancer, CVA, ARF, Chemo, Hep., AIDS, mental health diagnosis, sleep apnea, morbid obesity)? @ -None Was patient admitted / discharged? Hospital course, mention meds given and route, prescriptions, significant lab abnormalities, going to OR and other pertinent info. @ -Discharged. 33-year-old female with productive cough, congestion, sinus pressure. On examination patient has noted to have bilateral expiratory wheezing. Additionally she has fluid behind bilateral TMs. Due to patient having a recent negative COVID, flu, and strep test she will be sent for evaluation via chest x-ray. Additionally she will be given a dose of a steroid and a breathing treatment to be administered. On reevaluation patient states that her memory has improved. Patient will be sent home with a short course of oral steroids and refills for her nebulizer. Recommend she continue to increase oral rehydration and use [id number] cold and flu medications such as Mucinex and Tylenol to alleviate symptoms. All questions answered at bedside and strict return parameters discussed with the patient and she verbalized understanding. Case discussed with Dr. Plascencia. Undiagnosed new problem with uncertain prognosis? @ -No Drug Therapy requiring intensive monitoring for toxicity (Heparin, Nitro, Insulin, Cardizem)? @ -No Were any procedures done? @ -No Diagnosis/symptom? @ -Wheezing, productive cough, upper respiratory infection Acute, or Chronic, or Acute on Chronic? @ -Acute Uncomplicated (without systemic symptoms) or Complicated (systemic symptoms)? @ -Uncomplicated Side effects of treatment? @ -No Exacerbation, Progression, or Severe Exacerbation? @ -No Poses a threat to life or bodily function? How? (Chest pain, USA, [place], pneumonia, PE, COPD, DKA, ARF, appy, cholecystitis, CVA, Diverticulitis, Homicidal, Suicidal, threat to staff... and all critical care pts) @ -No Disposition Clinical Impression: Nasal congestion, Productive cough, Wheezing Disposition: HOME SELF-CARE Condition: Good Instructions (If sedation given, give patient instructions): Upper Respiratory Infection (ED) Additional Instructions: Here in the emergency department if your symptoms worsen or not improved. Complete full course of steroids as prescribed. Use breathing treatments as needed. Recommend that you continue course of penicillin for diagnosis of strep throat. Prescriptions: Ipratropium-Albuterol Nebulize [Duoneb 0.5 mg-3 mg/3 ml Soln] 3 ml INHALATION QID #25 each predniSONE 50 mg PO DAILY #5 tab Is patient prescribed a controlled substance at d/c from ED?: No Referrals: Manuel Melgar DO [Primary Care Provider] - 1-2 days Time of Disposition: 20:48
[2023-12-18] MEDS: methylPREDNISolone SOD SUCCI 125 MG/2 ML VIAL IM ONE (20:12)
--- NOTE | 2023-12-18 20:31 | XR ---
EXAMINATION TYPE: XR chest 2V DATE OF EXAM: 12/18/2023 8:19 PM CLINICAL INDICATION:Female, 33 years old with history of productive cough, wheezing; [facility] COMPARISON: None TECHNIQUE: XR chest 2V Frontal and lateral views of the chest. FINDINGS: Lungs/Pleura: There is no evidence of pleural effusion, focal consolidation, or pneumothorax. Pulmonary vascularity: Unremarkable. Heart/mediastinum: Cardiomediastinal silhouette is unremarkable. Musculoskeletal: No acute osseous pathology. IMPRESSION: No acute cardiopulmonary disease/process.
[2023-12-18] MEDS: IPRATROPIUM-ALBUTEROL 3 ML NEB INHALATION STA (20:49)
[2023-12-18 20:58] VITALS: BP 120/75; PULSE 75; RESP 18
== END 2023-12-18 20:58 | disposition home or self-care (01) ==
LOC: EC 19:28
DX: R09.81 Nasal congestion (principal); R06.2 Wheezing; J06.9 Acute upper respiratory infection, unspecified; Z87.891 Personal history of nicotine dependence; Z88.1 Allergy status to other antibiotic agents
CPT/HCPCS: 94640; 71046; 99283; 96372; J2919

== ENCOUNTER 2023-12-28 19:31 | Emergency (ER) | payer OTHER ==
[2023-12-28 19:47] VITALS: RESP 18
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
[2023-12-28] MEDS: HYDROcodone/APAP 5-325MG 1 EACH TAB PO STA (21:29)
[2023-12-28] MEDS: IBUPROFEN 600 MG TAB PO STA (21:30)
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
[2023-12-28] MEDS: ONDANSETRON ODT 4 MG TAB PO STA (21:31)
[2023-12-28 21:52] VITALS: BP 122/78; PULSE 68; TEMP 98.3
== END 2023-12-28 21:51 | disposition home or self-care (01) ==
LOC: EC 19:31
DX: S20.219A Contusion of unspecified front wall of thorax, initial encounter (principal); Z87.891 Personal history of nicotine dependence; Z88.1 Allergy status to other antibiotic agents; V89.2XXA Person injured in unspecified motor-vehicle accident, traffic, initial encounter; Y92.411 Interstate highway as the place of occurrence of the external cause
CPT/HCPCS: 71046; 99284

== ENCOUNTER → 2024-01-11 | Outpatient (CLI) | payer OTHER | END | disposition home or self-care (01) | LOC: LABWHC1 15:30 | PROVIDERS: ATTEND Surgery Plastic and Reconstructive Surgery | DX: F17.200 Nicotine dependence, unspecified, uncomplicated (principal) | CPT/HCPCS: 80323 ==

== ENCOUNTER 2024-01-27 17:51 | Emergency (ER) | payer OTHER ==
[2024-01-27 18:17] VITALS: TEMP 98.2
--- NOTE | 2024-01-27 18:23 | ED ---
Abdominal Pain HPI - General Source: patient, RN notes reviewed Mode of arrival: ambulatory Limitations: no limitations <Carole Kelley - Last Filed: 01/27/24 18:31> - General Source: RN notes reviewed <Carmelita Bernardo - Last Filed: 01/27/24 23:49> - General Chief Complaint: Abdominal Pain Stated Complaint: L side back pain Time Seen by Provider: 01/27/24 18:23 - History of Present Illness Initial Comments: Quick Note: This is a 33-year-old female who presents emergency department for left flank pain. States that it started this morning. She is some associated nausea but denies any vomiting. Pain has not yet started to radiate. She has a history of kidney stones and states that symptoms feel similar. (Carole Kelley) 33-year-old female presenting to the ED for chief complaint of left flank pain. States the pain began this morning when she was lifting her nephew. She describes a constant, throbbing pain in her left flank that radiates to the left abdomen. She does have a history of kidney stones and states this feels similar. Denies dysuria, hematuria. Admits nausea but denies vomiting. She is tolerating orals well. (Carmelita Bernardo) - Related Data Home Medications Medication Instructions Recorded Confirmed Albuterol Sulfate [Ventolin HFA] 2 puff INHALATION QID PRN 12/06/23 01/11/24 Omeprazole [PriLOSEC] 40 mg PO HS 01/11/24 01/11/24 Rimegepant Sulfate [Nurtec Odt] 75 mg PO DAILY PRN 01/11/24 01/11/24 Allergies Allergy/AdvReac Type Severity Reaction Status Date / Time Metronidazole HCl AdvReac Nausea & Verified 01/27/24 18:17 [From Flagyl] Vomiting & Diarrhea Review of Systems ROS Other: All systems not noted in ROS Statement are negative. <Carole Kelley - Last Filed: 01/27/24 18:31> ROS Other: All systems not noted in ROS Statement are negative. <Carmelita Bernardo - Last Filed: 01/27/24 23:49> ROS Statement: Those systems with pertinent positive or pertinent negative responses have been documented in the HPI. Past Medical History Past Medical History: Asthma Additional Past Medical History / Comment(s): migraine History of Any Multi-Drug Resistant Organisms: None Reported Past Surgical History: Adenoidectomy, Cholecystectomy, Orthopedic Surgery, Tonsillectomy Additional Past Surgical History / Comment(s): Right knee surgery, ganglion cyst removal bilateral hands, hemorrhoidectomy, colonoscopy, EGD. Past Anesthesia/Blood Transfusion Reactions: No Reported Reaction Past Psychological History: ADD/ADHD, Anxiety, Bipolar, Depression Smoking Status: Former smoker Past Alcohol Use History: None Reported Past Drug Use History: Marijuana - Past Family History Mother Family Medical History: No Reported History <Carole Kelley - Last Filed: 01/27/24 18:31> General Exam Limitations: no limitations <Carole Kelley - Last Filed: 01/27/24 18:31> General appearance: alert, in no apparent distress Head exam: Present: atraumatic, normocephalic, normal inspection Eye exam: Present: normal appearance, PERRL, EOMI. Absent: scleral icterus, conjunctival injection, periorbital swelling Respiratory exam: Present: normal lung sounds bilaterally. Absent: respiratory distress, wheezes, rales, rhonchi, stridor Cardiovascular Exam: Present: regular rate, normal rhythm, normal heart sounds. Absent: systolic murmur, diastolic murmur, rubs, gallop, clicks GI/Abdominal exam: Present: soft, normal bowel sounds. Absent: distended, tenderness, guarding, rebound, rigid Extremities exam: Present: normal inspection, full ROM, normal capillary refill. Absent: tenderness, pedal edema, joint swelling, calf tenderness Neurological exam: Present: alert, oriented X3 Psychiatric exam: Present: normal affect, normal mood Skin exam: Present: warm, dry, intact, normal color. Absent: rash <Carmelita Bernardo - Last Filed: 01/27/24 23:49> - General Exam Comments Initial Comments: Visual Physical Exam Vital signs reviewed General: Well-appearing, nontoxic, no acute distress. Head: Normocephalic, atraumatic Eyes: PERRLA, EOMI ENT: Airway patent Chest: Nonlabored breathing Skin: No visual rash, normal skin tone Neuro: Alert and oriented 3 Musculoskeletal: No gross abnormalities (Carole Kelley) Course Vital Signs 01/27/24 01/27/24 18:15 22:39 Temperature 98.2 F Pulse Rate 68 63 Respiratory 18 15 Rate Blood Pressure 126/87 120/78 O2 Sat by Pulse 100 96 Oximetry Medical Decision Making <Carole Kelley - Last Filed: 01/27/24 18:31> - Lab Data Result diagrams: 01/27/24 21:57 01/27/24 21:57 <Carmelita Bernardo - Last Filed: 01/27/24 23:49> - Medical Decision Making I performed the QuickNote portion of this chart. Signed Carole Kelley PA-C. (Carole Kelley) Was pt. sent in by a medical professional or institution (MILY Ramirez, [employer], urgent care, hospital, or halfway...) When possible be specific @ -No Did you speak to anyone other than the patient for history (EMS, parent, family, police, friend...)? What history was obtained from this source @ -No Did you review nursing and triage notes (agree or disagree)? Why? @ -I reviewed and agree with nursing and triage notes Were old charts reviewed (outside hosp., previous admission, EMS record, old EKG, old radiological studies, urgent care reports/EKG's, halfway records)? Report findings @ -No old charts were reviewed Differential Diagnosis (chest pain, altered mental status, abdominal pain women, abdominal pain men, vaginal bleeding, weakness, fever, dyspnea, syncope, headache, dizziness, GI bleed, back pain, seizure, CVA, palpatations, mental health, musculoskeletal)? @ -Differential Abdominal Pain Women: Appendicitis, Cholecystitis, diverticulosis, ischemic bowel, pancreatitis, hepatitis, UTI, gastroenteritis, AAA, incarcerated hernia, bowel obstruction, constipation, inflammatory bowel, hepatitis, peptic ulcer disease, splenic infarction, perforated viscus, vulvitis, ovarian torsion, PID, kidney stone, placenta abruption, this is not meant to be an all-inclusive list EKG interpreted by me (3pts min.). @ -None X-rays interpreted by me (1pt min.). @ -None done CT interpreted by me (1pt min.). @ -CT revealed punctate right 2 mm nonobstructive renal stone, no obstructive uropathy or suspicious ureteral calculus, mild hepatomegaly at 18 cm with at least moderate hepatic steatosis U/S interpreted by me (1pt. min.). @ -None done What testing was considered but not performed or refused? (CT, X-rays, U/S, labs)? Why? @ -None What meds were considered but not given or refused? Why? @ -None Did you discuss the management of the patient with other professionals (professionals i.e. , PA, [employer] RESEARCHER, lab, RT, psych nurse, social worker aide, diesel dinkey operator, teacher, state highway police officer, home health care case manager)? Give summary @ -No Was smoking cessation discussed for >3mins.? @ -No Was critical care preformed (if so, how long)? @ -No Were there social determinants of health that impacted care today? How? (Homelessness, low income, unemployed, alcoholism, drug addiction, transportation, low edu. Level, literacy, decrease access to med. care, senior care, rehab)? @ -No Was there de-escalation of care discussed even if they declined (Discuss DNR or withdrawal of care, Hospice)? DNR status @ -No What co-morbidities impacted this encounter? (DM, HTN, Smoking, COPD, CAD, Cancer, CVA, ARF, Chemo, Hep., AIDS, mental health diagnosis, sleep apnea, mo rbid obesity)? @ -None Was patient admitted / discharged? Hospital course, mention meds given and ro [place], prescriptions, significant lab abnormalities, going to OR and other pertinent info. @ -Patient was discharged. Patient was seen and evaluated for left flank pain x 1 day. Patient has history of kidney stones and states this feels similar. Patient is tolerating orals. No red flag symptoms. Patient is afebrile, nontachycardic. Physical examination is unremarkable. Patient is given IV flu ids, Zofran, and Toradol. Lab work including CBC, CMP, lactic acid is unremarkable. Urine is negative for blood, bacteria, and ketones. Urine negative. CT reveals punctate right sided 2 mm nonobstructive renal stone, no obstructive uropathy or suspicious ureteral calculus, mild hepatom egaly at 18 cm with at least moderate hepatic steatosis. Upon reevaluation, patient states symptoms are improved. patient is aware of hepatomegaly and is following with PCP for this. Discussed with patient there are no signs of emergent etiology causing symptoms today. Given patient's symptoms began when picking up a child, symptoms likely musculoskeletal in nature. Patient agrees and states she feels stable for discharge. Return parameters discussed. Case was discussed with my ED attending Dr. Kendrick. Patient discharged in stable condition. Undiagnosed new problem with uncertain prognosis? @ -No Drug Therapy requiring intensive monitoring for toxicity (Heparin, Nitro, Insulin, Cardizem)? @ -No Were any procedures done? @ -No Diagnosis/symptom? @ -Abdominal pain Acute, or Chronic, or Acute on Chronic? @ -Acute Uncomplicated (without systemic symptoms) or Complicated (systemic symptoms)? @ -Default Side effects of treatment? @ -No Exacerbation, Progression, or Severe Exacerbation? @ -No Poses a threat to life or bodily function? How? (Chest pain, USA, SC, pneumonia, PE, COPD, DKA, ARF, appy, cholecystitis, CVA, Diverticulitis, Homicidal, Suicidal, threat to staff... and all critical care pts) @ -No (Carmelita Bernardo) - Lab Data Lab Results 01/27/24 01/27/24 01/27/24 Range/Units 18:30 18:30 21:56 WBC (3.8-10.6) k/uL RBC (3.80-5.40) m/uL Hgb (11.4-16.0) gm/dL Hct (34.0-46.0) % MCV (80.0-100.0) fL MCH (25.0-35.0) pg MCHC (31.0-37.0) g/dL RDW (11.5-15.5) % Plt Count (150-450) k/uL MPV Neutrophils % % Lymphocytes % % Monocytes % % Eosinophils % % Basophils % % Neutrophils # (1.3-7.7) k/uL Lymphocytes # (1.0-4.8) k/uL Monocytes # (0-1.0) k/uL Eosinophils # (0-0.7) k/uL Basophils # (0-0.2) k/uL Sodium (137-145) mmol/L Potassium (3.5-5.1) mmol/L Chloride (98-107) mmol/L Carbon Dioxide (22-30) mmol/L Anion Gap mmol/L BUN (7-17) mg/dL Creatinine (0.52-1.04) mg/dL Est GFR (CKD-EPI)AfAm (>60 ml/min/1.73 sqM) Est GFR (CKD-EPI)NonAf (>60 ml/min/1.73 sqM) Glucose (74-99) mg/dL Plasma Lactic Acid Artie 1.1 (0.7-2.0) mmol/L Calcium (8.4-10.2) mg/dL Total Bilirubin (0.2-1.3) mg/dL AST (14-36) U/L ALT (4-34) U/L Alkaline Phosphatase (38-126) U/L Total Protein (6.3-8.2) g/dL Albumin (3.5-5.0) g/dL Amylase (30-110) U/L Lipase (23-300) U/L Urine Color Colorless Urine Appearance Clear (Clear) Urine pH 6.0 (5.0-8.0) Ur Specific [place] 1.005 (1.001-1.035) Urine Protein Negative (Negative) Urine Glucose (UA) Negative (Negative) Urine Ketones Negative (Negative) Urine Blood Negative (Negative) Urine Nitrite Negative (Negative) Urine Bilirubin Negative (Negative) Urine Urobilinogen <2.0 (<2.0) mg/dL Ur Leukocyte Esterase Negative (Negative) Urine HCG, Qual Not Detected (Not Detectd) 01/27/24 01/27/24 Range/Units 21:57 21:57 WBC 12.1 H (3.8-10.6) k/uL RBC 4.99 (3.80-5.40) m/uL Hgb 14.3 (11.4-16.0) gm/dL Hct 44.0 (34.0-46.0) % MCV 88.1 (80.0-100.0) fL MCH 28.6 (25.0-35.0) pg MCHC 32.5 (31.0-37.0) g/dL RDW 13.5 (11.5-15.5) % Plt Count 221 (150-450) k/uL MPV 9.2 Neutrophils % 68 % Lymphocytes % 21 % Monocytes % 4 % Eosinophils % 6 % Basophils % 1 % Neutrophils # 8.1 H (1.3-7.7) k/uL Lymphocytes # 2.5 (1.0-4.8) k/uL Monocytes # 0.5 (0-1.0) k/uL Eosinophils # 0.7 (0-0.7) k/uL Basophils # 0.1 (0-0.2) k/uL Sodium 137 (137-145) mmol/L Potassium 4.1 (3.5-5.1) mmol/L Chloride 109 H (98-107) mmol/L Carbon Dioxide 23 (22-30) mmol/L Anion Gap 5 mmol/L BUN 10 (7-17) mg/dL Creatinine 0.65 (0.52-1.04) mg/dL Est GFR (CKD-EPI)AfAm >90 (>60 ml/min/1.73 sqM) Est GFR (CKD-EPI)NonAf >90 (>60 ml/min/1.73 sqM) Glucose 90 (74-99) mg/dL Plasma Lactic Acid Artie (0.7-2.0) mmol/L Calcium 9.3 (8.4-10.2) mg/dL Total Bilirubin 0.5 (0.2-1.3) mg/dL AST 31 (14-36) U/L ALT 38 H (4-34) U/L Alkaline Phosphatase 47 (38-126) U/L Total Protein 6.6 (6.3-8.2) g/dL Albumin 4.1 (3.5-5.0) g/dL Amylase 49 (30-110) U/L Lipase 83 (23-300) U/L Urine Color Urine Appearance (Clear) Urine pH (5.0-8.0) Ur Specific [place] (1.001-1.035) Urine Protein (Negative) Urine Glucose (UA) (Negative) Urine Ketones (Negative) Urine Blood (Negative) Urine Nitrite (Negative) Urine Bilirubin (Negative) Urine Urobilinogen (<2.0) mg/dL Ur Leukocyte Esterase (Negative) Urine HCG, Qual (Not Detectd) Disposition <Carole Kelley - Last Filed: 01/27/24 18:31> Is patient prescribed a controlled substance at d/c from ED?: No Time of Disposition: 23:40 <Carmelita Bernardo - Last Filed: 01/27/24 23:49> Clinical Impression: Abdominal pain Disposition: HOME SELF-CARE Condition: Stable Instructions (If sedation given, give patient instructions): Abdominal Pain (ED) Additional Instructions: Please return to the Emergency Department if symptoms worsen or any other concerns. Referrals: Manuel Melgar DO [Primary Care Provider] - 1-2 days
[2024-01-27 19:14] LABS: Appearance,Urine Clear (Clear); Bilirubin,Urine Negative (Negative); Blood,Urine Negative (Negative); Color,Urine Colorless; Glucose,Urine (UA) Negative (Negative); Ketones,Urine Negative (Negative); Leukocyte Esterase,Urine Negative (Negative); Nitrite,Urine Negative (Negative); Protein,Urine Negative (Negative); Specific Gravity,Urine 1.005 (1.001-1.035); Urobilinogen,Urine <2.0 mg/dL (<2.0)
--- NOTE | 2024-01-27 19:50 | CT ---
EXAMINATION TYPE: CT abdomen pelvis wo con DATE OF EXAM: 01/27/2024 COMPARISON: 10/04/2022 HISTORY: 33-year-old female Left side flank pain. Hx of renal stones. CT DLP: 1095.4 mGycm. Automated exposure control for dose reduction was used. TECHNIQUE: Contiguous axial scanning of the abdomen and pelvis without IV contrast. Coronal and sagit andrew reconstructions performed. FINDINGS: Heart normal size without pericardial effusion. Lung bases clear without pleural effusion. Liver mildly enlarged at 18.0 cm with diminished attenuation compatible with fatty infiltration. Chol ecystectomy clips. Adrenal glands, spleen, and pancreas within normal limits. Small inferior splenules. Punctate 2 mm nonobstructive right renal calculus. No hydronephrosis or suspicious ureteral stone is identified on either side. No dilated small bowel, free fluid, or free air. No mesenteric or retroperitoneal lymphadenopathy. Normal appendix. No significant stool burden. No pericolonic inflammatory change. Bladder partially distended. Uterus anteverted. Follicular changes in the ovaries. No abnormal fluid collection in the pelvis or pelvic lymphadenopathy. Bones: No osseous destructive process. IMPRESSION: 1. A punctate 2 mm nonobstructive right renal stone. 2. No obstructive uropathy or suspicious ureteral calculus identified. 3. Mild hepatomegaly at 18.0 cm with at least moderate hepatic steatosis appropriate clinical manage ment is advised.
[2024-01-27] MEDS: ONDANSETRON 4 MG/2 ML VIAL IVP STA (22:05)
[2024-01-27] MEDS: SODIUM CHLORIDE 0.9% 1,000 ML IV STA (22:05)
[2024-01-27] MEDS: KETOROLAC 15 MG/ML 1 ML VIAL IVP STA (22:05)
[2024-01-27 22:26] LABS: Basophils # (A) 0.1 k/uL (0-0.2); Basophils % (A) 1 %; Eosinophils # (A) 0.7 k/uL (0-0.7); Eosinophils % (A) 6 %; HGB 14.3 gm/dL (11.4-16.0); Lymphocytes # (A) 2.5 k/uL (1.0-4.8); Lymphocytes % (A) 21 %; MCH 28.6 pg (25.0-35.0); MCHC 32.5 g/dL (31.0-37.0); MCV 88.1 fL (80.0-100.0); Mean Platelet Volume 9.2; Monocytes # (A) 0.5 k/uL (0-1.0); Monocytes % (A) 4 %; Neutrophils # (A) 8.1 k/uL (1.3-7.7); Neutrophils % (A) 68 %; Platelet Count 221 k/uL (150-450); RBC 4.99 m/uL (3.80-5.40); RDW 13.5 % (11.5-15.5); WBC 12.1 k/uL (3.8-10.6)
[2024-01-27 22:40] VITALS: RESP 15
[2024-01-27 22:49] LABS: ALT 38 U/L (4-34); AST 31 U/L (14-36); African American GFR (CKD) >90 (>60 ml/min/1.73 sqM); Albumin 4.1 g/dL (3.5-5.0); Alkaline Phosphatase 47 U/L (38-126); Amylase 49 U/L (30-110); Anion Gap 5 mmol/L; Blood Urea Nitrogen 10 mg/dL (7-17); Calcium 9.3 mg/dL (8.4-10.2); Carbon Dioxide 23 mmol/L (22-30); Chloride 109 mmol/L (98-107); Glucose 90 mg/dL (74-99); Lipase 83 U/L (23-300); Non-African American GFR(CKD) >90 (>60 ml/min/1.73 sqM); Potassium 4.1 mmol/L (3.5-5.1); Sodium 137 mmol/L (137-145); Total Bilirubin 0.5 mg/dL (0.2-1.3); Total Protein 6.6 g/dL (6.3-8.2)
[2024-01-27 23:55] VITALS: BP 117/98; PULSE 69
== END 2024-01-27 23:55 | disposition home or self-care (01) ==
LOC: EC 17:51
DX: N20.0 Calculus of kidney (principal); Z87.891 Personal history of nicotine dependence; Z88.1 Allergy status to other antibiotic agents
CPT/HCPCS: 36415; 80053; 82150; 83605; 83690; 85025; 81003; 81025; 74176; 99284; 96374; 96375; 96361 ×2; J2405; J1885

== ENCOUNTER → 2024-03-12 | Outpatient (CLI) | payer OTHER ==
[2024-03-12 15:34] LABS: ALT 23 U/L (8-44); AST 18 U/L (13-35); Albumin 4.2 g/dL (3.8-4.9); Albumin/Globulin Ratio 1.91 Ratio (1.60-3.17); Alkaline Phosphatase 54 U/L (41-126); BUN/Creat Ratio 16.38 Ratio (12.00-20.00); Blood Urea Nitrogen 13.1 mg/dL (9.0-27.0); Calcium 9.2 mg/dL (8.7-10.3); Carbon Dioxide 24.1 mmol/L (21.6-31.8); Chloride 105 mmol/L (96-109); Globulin 2.2 g/dL (1.6-3.3); Glucose 113 mg/dL (70-110); Potassium 4.3 mmol/L (3.5-5.5); Sodium 140 mmol/L (135-145); Total Bilirubin 0.3 mg/dL (0.3-1.2); Total Protein 6.4 g/dL (6.2-8.2)
[2024-03-12 17:00] LABS: Basophils # (A) 0.06 X 10*3/uL (0.00-0.10); Basophils % (A) 0.7 %; Eosinophils # (A) 0.42 X 10*3/uL (0.04-0.35); Eosinophils % (A) 5.2 %; HCT 43.3 % (37.2-46.3); HGB 13.6 g/dL (12.0-15.0); Lymphocytes # (A) 1.69 X 10*3/uL (0.90-5.00); MCH 28.2 pg (27.0-32.0); MCHC 31.4 g/dL (32.0-37.0); MCV 89.8 FL (80.0-97.0); Mean Platelet Volume 11.4 FL (9.5-12.2); NRBC Per 100 WBC 0 X 10*3/uL (0.00-0.01); Neutrophils # (A) 5.46 X 10*3/uL (1.80-7.70); Neutrophils % (A) 67.7 %; Platelet Count 296 X 10*3/uL (140-440); RBC 4.82 X 10*6/uL (4.10-5.20); RDW 12.8 % (11.5-14.5); WBC 8.06 X 10*3/uL (4.50-10.00)
[2024-03-15 05:10] LABS: Anabasine Urine <2.0 ng/mL (<2.0)
== END | disposition home or self-care (01) ==
LOC: LABPAT 09:29
PROVIDERS: ATTEND Surgery Plastic and Reconstructive Surgery
DX: Z01.812 Encounter for preprocedural laboratory examination (principal)
CPT/HCPCS: 36415; 80053; 80323; 85025; 86850; 86900; 86901

== ENCOUNTER 2024-03-19 06:20 | Inpatient (IN) | payer OTHER ==
[~2024-03-19 06:20] MED LIST changes: -DEXAMETHASONE SOD PHOSPHATE 4 MG/ML 1 ML VIAL IV ONE; -LACTATED RINGERS 1,000 ML IV SCH; +LIDOCAINE 1% (10MG/ML) FOR IV START INTRADERMA PRN; -MIDAZOLAM 2 MG/2 ML VIAL IV PRN; -ONDANSETRON 4 MG/2 ML VIAL IVP ONE; +ONDANSETRON 4 MG/2 ML VIAL IVP PRN; -SCOPOLAMINE 1 MG/72 HR PATCH TRANSDERM ONE
[2024-03-19] MEDS: ACETAMINOPHEN TAB 500 MG TAB PO PRN (07:03)
[2024-03-19] MEDS: ALVIMOPAN 12 MG CAPSULE PO PRN (07:03)
[2024-03-19] MEDS: LACTATED RINGERS 1,000 ML IV SCH (07:03)
[2024-03-19] MEDS: IV FLUID CONTINUATION 1,000 ML IV ONE ×2 (07:03→15:15)
[2024-03-19 07:14] LABS: Glucose,Whole Blood 102 mg/dL (70-110)
[2024-03-19] MEDS: DEXAMETHASONE SOD PHOSPHATE 4 MG/ML 1 ML VIAL IV ONE (07:14)
[2024-03-19] MEDS: ONDANSETRON 4 MG/2 ML VIAL IVP ONE (07:14)
[2024-03-19] MEDS: MIDAZOLAM 2 MG/2 ML VIAL IV ONE (07:21)
[2024-03-19] MEDS: SCOPOLAMINE 1 MG/72 HR PATCH TRANSDERM STA (07:22)
[2024-03-19] MEDS: ENOXAPARIN 40 MG/0.4 ML SYRINGE SQ PRN (07:24)
--- NOTE | 2024-03-19 07:42 | P.GSHP ---
History of Present Illness H&P Date: 03/19/24 REASON FOR CONSULTATION: Initial bariatric evaluation. HISTORY OF PRESENT ILLNESS: Katie Vogt is a 33-year-old female who comes with lifelong morbid obesity. She is looking into the gastric bypass. Her mother had the gastric bypass. Her mother had the gastric bypass at the outside facility. She has fatty liver disease. She is smoking. She is drinking pop such as Mountain Dew. Patient reports chronic exposure tobacco abuse disorder. Urine nicotine continue to be elevated demonstrated after tobacco abuse. As a result of her active tobacco abuse disorder, alternatives of sleeve gastrectomy versus delay of her gastric bypass were described. Patient elected for sleeve gastrectomy. At height of 5 feet 2 inches, her ideal body weight is 135 pounds. She comes in 211 pounds. Her body mass index is 38.7. She is 76 pounds overweight. PAST MEDICAL HISTORY: 1. Morbid obesity due to excess calories 2. Body mass index of 38.7 3. Attention deficit disorder with attention deficit hyperactive disorder 4. Generalized anxiety disorder 5. Bipolar disorder 6. Depressive disorder 7. Migraines 8. Asthma PAST SURGICAL HISTORY: 1. Excision of ganglion cyst bilateral hands 2. Colonoscopy 3. EGD 4. Right knee surgery 5. Hemorrhoid surgery 6. Cholecystectomy 7. Adenoidectomy 8. Tonsillectomy HOME MEDICATIONS: Reviewed ALLERGIES: Review SOCIAL HISTORY: Current tobacco use. Past history of marijuana use. FAMILY HISTORY: No family history of ulcerative colitis disease or Crohn's disease. Family history of morbid obesity. No lupus in the family. No reports of stomach or esophageal cancer. REVIEW OF ORGAN SYSTEMS: CONSTITUTIONAL: At height of 5 feet 2 inches, her ideal body weight is 135 pounds. She comes in 211 pounds. Her body mass index is 38.7. She is 76 pounds overweight. HEENT: Denies any active troubles with vision or hearing. ENDOCRINE: Denies diabetes. No hypothyroidism. CARDIOVASCULAR: Denies reports of palpitations or heart attacks or chest pain. RESPIRATORY: Has daytime somnolence. Has asthma. Has chronic obstructive pulmonary disease. GASTROINTESTINAL: Denies any bright red blood per rectum. No diarrhea. No constipation. Has gastroesophageal reflux disease. GENITOURINARY:No recent blood in urine MUSCULOSKELETAL: Has lower back pain and joint pain. NEURO: No headaches. No seizure disorders. PSYCH: Has depression. No suicidal ideation. RHEUMATOLOGIC: No lupus. No rheumatoid arthritis. HEMATOLOGIC: Denies any abnormal bleeding or bruising. SKIN: No rash. No skin cancer. PHYSICAL EXAM: VITAL SIGNS: Height 5 foot 2 inches, weight 207 pounds. BMI 37.8 GENERAL: Well-developed in no acute distress. HEENT: No scleral icterus. Extraocular movements grossly intact. Hears conversational speech. No nasal drainage. NECK: Supple without lymphadenopathy. CHEST: Nonlabored respirations with equal bilateral excursions. CARDIOVASCULAR: Regular rate and regular rhythm. Distal 2+ pulses. ABDOMEN: Obese, soft, nontender, nondistended. MUSCULOSKELETAL: No clubbing, cyanosis. NEURO: No focal or lateralizing signs. Cranial nerves 2 through 12 grossly within normal limits. PSYCH: Appropriate affect. Alert and oriented to person, place and time. SKIN: Good skin turgor. Well perfused. ASSESSMENT: 1. Morbid obesity due to excess calories 2. Body mass index of 39.1 3. Attention deficit disorder with attention deficit hyperactive disorder 4. Generalized anxiety disorder 5. Bipolar disorder 6. Depressive disorder 7. Migraines 8. Asthma 9. Tobacco abuse PLAN: 1. Bariatric options between a sleeve, band and a Campbell-en-Y gastric bypass were reviewed in detail. The patient elected for a sleeve gastrectomy. Robotic assisted approach described. 2. The [place] [facility] Data was also reviewed with benefits and risks as described. 3. An 8 page second-generation bariatric consent form was reviewed in detail including potential of bleeding, infection, leaks, adequate weight loss, nutritional deficiencies which the patient demonstrated understanding of the risks. 4. A 2 week high-protein low caloric 800 kcal diet described to address hepatomegaly. 5. Preoperative labs including complete metabolic panel and CBC with type and screen recommended. 6. DVT prophylaxis per [place] [facility]. 7. Antibiotic prophylaxis. 8. Inpatient hospitalization anticipated for more than 2 nights. 9. All questions and concerns were addressed with the patient. 10. The patient is at elevated risk for perioperative complications with tobacco abuse disorder. 11. Overall, patient has expressed understanding of bariatric care including postoperative diet and commitment of lifestyle. Patient should benefit from surgical intervention for correction of morbid obesity. 12. She is elevated risk due to pre-existing comorbid conditions and tobacco abuse disorder. Past Medical History Past Medical History: Asthma Additional Past Medical History / Comment(s): migraine History of Any Multi-Drug Resistant Organisms: None Reported Past Surgical History: Adenoidectomy, Cholecystectomy, Orthopedic Surgery, Tonsillectomy Additional Past Surgical History / Comment(s): Right knee surgery, ganglion cyst removal bilateral hands, hemorrhoidectomy, colonoscopy, EGD. Past Anesthesia/Blood Transfusion Reactions: No Reported Reaction Smoking Status: Former smoker - Past Family History Mother Family Medical History: Cancer, Myocardial Infarction ([place]) Additional Family Medical History / Comment(s): basal cell ca Father Family Medical History: Cancer, COPD, Deep Vein Thrombosis (DVT), Vascular Disorder Additional Family Medical History / Comment(s): kidney ca Medications and Allergies Home Medications Medication Instructions Recorded Confirmed Type Albuterol Sulfate [Ventolin HFA] 2 puff INHALATION QID PRN 12/06/23 03/12/24 History Omeprazole [PriLOSEC] 40 mg PO HS 01/11/24 03/19/24 History Rimegepant Sulfate [Nurtec Odt] 75 mg PO DAILY PRN 01/11/24 03/19/24 History Furosemide [Lasix] 20 mg PO DAILY PRN 03/12/24 03/19/24 History Allergies Allergy/AdvReac Type Severity Reaction Status Date / Time Metronidazole HCl AdvReac Nausea & Verified 03/12/24 08:33 [From Flagyl] Vomiting & Diarrhea Surgical - Exam Vital Signs Temp Pulse Resp BP Pulse Ox 98.0 F 67 18 119/70 97 03/19/24 06:48 03/19/24 06:48 03/19/24 06:48 03/19/24 06:48 03/19/24 06:48
--- NOTE | 2024-03-19 07:54 | P.HPADDEND ---
H&P Addendum H&P Addendum Date: 03/19/24 Patient achieved her target weight of 10 pounds. Pain management including abdominal block described. Anticipated discharge same day for 24 hours reviewed pending postsurgical response.
[2024-03-19] MEDS: MIDAZOLAM 2 MG/2 ML VIAL IVP ONE (08:01)
[2024-03-19] MEDS ORDERED: GLYCOPYRROLATE 0.2 MG/ML 2 ML VIAL ONE (08:12)
[2024-03-19] MEDS ORDERED: SUCCINYLCHOLINE CHLORIDE 200 MG/10 ML VIAL IV ONE (08:12)
[2024-03-19] MEDS ORDERED: ROCURONIUM 10 MG/ML (5 ML VIAL) IV ONE (08:12)
[2024-03-19] MEDS ORDERED: ROPIVACAINE 5 MG/ML 30 ML VIAL ONE (08:12)
[2024-03-19] MEDS ORDERED: PROPOFOL 10 MG/ML 20 ML VIAL IV ONE (08:12)
[2024-03-19] MEDS ORDERED: NEOSTIGMINE 1 MG/ML 10 ML VIAL ONE (08:12)
[2024-03-19] MEDS ORDERED: LIDOCAINE 1% INJ 10MG/ML (20 ML MDV) ONE (08:12)
[2024-03-19] MEDS ORDERED: fentaNYL (PF) 50 MCG/ML 2 ML AMP ONE (08:12)
--- NOTE | 2024-03-19 08:13 | P.ANPRN ---
Procedure Note - Anesthesia - Nerve Block Performed Bilateral Erector Spinae Single Time Out Performed: Yes Date of Procedure: 03/19/24 Procedure Start Time: 08:00 Procedure Stop Time: 08:10 Location of Patient: PreOp Indication: Acute Post-Operative Pain, Analgesia, Requested by Surgeon Sedation Type: Sedate with meaningful contact maintained Preparation: Sterile Prep Position: Prone Catheter: None Needle Types: Pajunk Needle Gauge: 21 Ultrasound used to visualize needle placement: Yes Ultrasound used to observe medication spread: Yes Injectate: 0.5% Ropivacaine (see comment for volume) (rOPIV 20ML---eACH SIDE, T8-level.) Blood Aspirated: No Pain Paresthesia on Injection Noted: No Resistance on Injection: Normal Image Stored and Saved: Yes Events: Uneventful and Well Tolerated
[2024-03-19] MEDS: LIDOCAINE 1%-EPI 1:100,000 20 ML VIAL SQ ONE (08:39)
[2024-03-19] MEDS: LACTATED RINGERS 1,000 ML IV ONE (09:26)
[2024-03-19] MEDS ORDERED: NALOXONE 0.4 MG/ML 1 ML VIAL IV PRN (09:48)
[2024-03-19] MEDS ORDERED: SODIUM CHLORIDE 0.9% 2,000 ML IV ONE (09:48)
[2024-03-19] MEDS ORDERED: HYDROmorphone 1 MG/ML 1 ML SYRINGE IVP PRN (09:50)
[2024-03-19 09:53] VITALS: TEMP 97.1
--- NOTE | 2024-03-19 09:56 | P.OP ---
Date of Procedure: 03/19/24 Description of Procedure: SURGEON: MARY MACEDO MD PREOPERATIVE DIAGNOSES: 1. Morbid obesity due to excess calories POSTOPERATIVE DIAGNOSES: 1. Morbid obesity due to excess calories OPERATION: 1. Robotic assisted daVinci Xi laparoscopic sleeve gastrectomy with 40-Haitian bougie, multiport. 2. Intraoperative esophagogastroduodenoscopy. ANESTHESIA: Gen. local anesthetic ESTIMATED BLOOD LOSS: 5 mL SPECIMENS REMOVED: Sleeve gastrectomy COMPLICATIONS: None. FINDINGS: 1. Negative intraoperative esophagogastrojejunoscopy leak test. 2. Mild hepatomegaly with fatty liver disease and no hiatus hernia. 3. Total of 6 staplers used including 1 - 60 mm green, 5 - 60 mm blue robot loads used to create the gastric sleeve. 4. Sleeve gastrectomy, 25 x 6 cm INDICATIONS: The patient is a 33-year-old female who comes with lifelong morbid obesity. All surgical options for morbid obesity had been described using the [place] bariatric surgery collaborative comorbidity resolution including complication risk score. A second-generation bariatric consent form was described in detail including the possibility of protein malnutrition, leaks, gastric stricture, venous thrombosis, gastroesophageal reflux disease, need for further surgery for which she demonstrated understanding. Benefits and risks of the procedure were described at length. Informed consent was obtained. DESCRIPTION: The patient was brought into the operating room theater. Preoperatively she had received Lovenox subcutaneously for DVT prophylaxis. Additionally she had Peridex oral solution as an oral decontaminant. After general induction, the abdomen was prepped and draped in standard sterile fashion. An Ioban draping was placed along the abdomen. A robotic da Patti Xi system was prepped and primed. At 15 cm from the xiphoid, proposed port sites were marked with indelible marker along the anterior axillary line bilaterally, mid axillary line bilaterally with each ports were marked 10 to 15 cm from each other. The robotic stapler port was marked for the right midclavicular line. A 5 mm 0 degrees laparoscopic trocar entry was performed along the left upper quadrant. The abdomen was insufflated to 15 mmHg pressure was tolerated well. Diagnostic laparoscopy demonstrated no injury to bowel, viscera, or mesentery. No evidence of large hiatus hernia was identified. The liver edge was slightly thickened due to mild hepatomegaly despite 2-week protein diet. A 8 mm port was placed along the left upper abdominal wall after exchanging the 5 mm port. A separate 8 mm port was placed along the left lateral abdominal wall. Please note that the ports were placed at least 20 cm away from the target anatomy. Care was taken to check each robotic arms were safely away from collision with the bed or the patient. At the epigastrium, a medium sized Teja liver retractor was placed under direct visualization with the Iron Sewing Machine Attachment Tester placed under the right shoulder of the patient. Next, 12-mm robot stapler port was placed along the right upper quadrant. The camera 8-mm port was maintained along the epigastrium. The patient was repositioned in reverse Trendelenburg position at 21-degrees after lowering the bed. The robot was docked along the left side of the patient. Using a grasper for arm 4, a vessel sealer for arm 3, including grasper for arm 1, the robotic system was docked and primed as described. Instruments were interchanged by the learning support assistant for stapler loads. The camera was placed at 30- degrees down. I had sat at the console. The pylorus was identified and 6 cm proximally along the greater curvature of the stomach, the short gastrics were mobilized upwards to the angle of His using a vessel sealer. Hemostasis was excellent during this portion of the procedure. Next, the upper pole of the stomach was adherent to the left elio, which was gently dissected free using atraumatic grasper. I went to the head of the bed and placed 40-Haitian blunt bougie into the stomach. The bougie was readjusted by the nurse animal nurse. Robotic stapler black load 60 mm 1 followed by green 60 mm x 1, and blue 60 mm loads x 4 were used to create the sleeve. Initial firing was across the antrum of the stomach towards the angle of His. The staple line was linear without corkscrewing. The space from the angularis incisura of the sleeve was approximately 4 cm. I then went to the head of the bed to perform the intraoperative esophagogastroduodenoscopy leak test. The bougie was withdrawn. The upper pole of the stomach was bathed using normal saline solution. The scope was withdrawn with careful inspection along the staple line for which no leaks were found along the entire length. Additionally,the sleeve was completely hemostatic without any encroachment along the angularis incisura. Its topology was a soft "J". No stricture was encountered upon placement of the scope. The GI tract was desufflated. The patient tolerated this portion of the procedure well. The scope was completely withdrawn. The robot was undocked. I then rescrubbed into case, whereby the irrigation fluid was aspirated from the abdominal cavity. Tisseel fibrin sealant was placed along the entire staple length. Once dried the Teja liver retractor was removed. Attention was now brought to removal of the specimen. The distal end of the sleeve gastrectomy specimen was brought out through the 12 mm port at the left upper quadrant. The specimen was gently removed en total. No contamination had occurred during this process. All instruments and pneumoperitoneum including irrigation fluid was removed from the abdominal cavity. The 12 mm port site was closed using 0-Vicryl and Jesús Quevedo and irrigated with diluted hydrogen peroxide. The final incisions were closed using subcuticular interrupted suture of 4-0 Monocryl. Exofin was applied to the skin once the skin had been cleansed. OptiFoam dressing was placed along the stomach extraction site. The sleeve specimen was measured and checked also for leaks which none were found. At the end of the procedure, needle, sponge, and instrument count was verified correct by the ophthalmology surgical technician. The patient was taken to the postanesthesia care unit in stable condition. The patient had tolerated the procedure well. Intraoperative films and findings were reviewed with the patient's family. Plan - Discharge Summary Discharge Rx Participant: No New Discharge Prescriptions: No Action Albuterol Sulfate [Ventolin HFA] 2 puff INHALATION QID PRN PRN Reason: Dyspnea Omeprazole [PriLOSEC] 40 mg PO HS Rimegepant Sulfate [Nurtec Odt] 75 mg PO DAILY PRN PRN Reason: Migraine Headache Furosemide [Lasix] 20 mg PO DAILY PRN PRN Reason: Edema Discharge Medication List Albuterol Sulfate [Ventolin HFA] 2 puff INHALATION QID PRN 12/06/23 [History] Omeprazole [PriLOSEC] 40 mg PO HS 01/11/24 [History] Rimegepant Sulfate [Nurtec Odt] 75 mg PO DAILY PRN 01/11/24 [History] Furosemide [Lasix] 20 mg PO DAILY PRN 03/12/24 [History]
[2024-03-19] MEDS: droPERidol 5 MG/2 ML VIAL IVP ONE (10:00)
[2024-03-19] MEDS ORDERED: DEXAMETHASONE SOD PHOSPHATE 10 MG/ML 1 ML VIAL IVP ONE (10:30)
[2024-03-19] MEDS: HYDROmorphone 0.5 MG/0.5 ML SYRINGE IVP PRN (11:23)
[2024-03-19] MEDS ORDERED: ALBUTEROL NEBULIZED 2.5 MG/3 ML INHALATION SCH (12:00)
--- NOTE | 2024-03-19 15:37 | P.DS ---
Providers Date of admission: 03/19/24 06:20 Expected date of discharge: 03/19/24 Attending physician: Petra Mariscal Consults: 03/19/24 07:55 Consult Physician Routine Consulting Provider: [facility] Consult Reason/Comments: Abdominal wall block Do you want consulting provider notified?: Yes Primary care physician: [facility] Hospital Course: 1. Morbid obesity due to excess calories 2. Body mass index of 39.1 3. Attention deficit disorder with attention deficit hyperactive disorder 4. Generalized anxiety disorder 5. Bipolar disorder 6. Depressive disorder 7. Migraines 8. Asthma 9. Tobacco abuse COURSE: The patient is a 33-year-old female who comes with lifelong morbid obesity. She completed cardiac risk assessment, medical risk assessment, barriers risk assessment for sleeve gastrectomy. She underwent uncomplicated robotic sleeve gastrectomy. Prior to discharge, she was voiding spontaneously, she was tolerating liquids, pain was well-controlled. Follow-up with bariatric center in 72 hours described. Outpatient swallow study in 72 hours. Procedures: OPERATION: 1. Robotic assisted daVinci Xi laparoscopic sleeve gastrectomy with 40-Setswana bougie, multiport. 2. Intraoperative esophagogastroduodenoscopy. ANESTHESIA: Gen. local anesthetic ESTIMATED BLOOD LOSS: 5 mL SPECIMENS REMOVED: Sleeve gastrectomy COMPLICATIONS: None. FINDINGS: 1. Negative intraoperative esophagogastrojejunoscopy leak test. 2. Mild hepatomegaly with fatty liver disease and no hiatus hernia. 3. Total of 6 staplers used including 1 - 60 mm green, 5 - 60 mm blue robot loads used to create the gastric sleeve. 4. Sleeve gastrectomy, 25 x 6 cm Patient Condition at Discharge: Stable Plan - Discharge Summary Discharge Rx Participant: No New Discharge Prescriptions: New bisacodyL [Dulcolax] 5 mg PO DAILY PRN #10 tab PRN Reason: Constipation Simethicone 40 mg/0.6 ml Drops [Mylicon Drops] 40 mg PO PCHS PRN #30 ml PRN Reason: Gas Acetaminophen Tab [Tylenol Tab] 1,000 mg PO Q6HR PRN #30 tablet PRN Reason: Pain Ondansetron Odt [Zofran Odt] 4 mg PO Q8HR PRN #9 tab PRN Reason: Nausea Omeprazole [PriLOSEC] 40 mg PO DAILY #30 cap Continue Albuterol Sulfate [Ventolin HFA] 2 puff INHALATION QID PRN PRN Reason: Dyspnea Omeprazole [PriLOSEC] 40 mg PO HS Rimegepant Sulfate [Nurtec Odt] 75 mg PO DAILY PRN PRN Reason: Migraine Headache Discontinued Furosemide [Lasix] 20 mg PO DAILY PRN PRN Reason: Edema Discharge Medication List Albuterol Sulfate [Ventolin HFA] 2 puff INHALATION QID PRN 12/06/23 [History] Omeprazole [PriLOSEC] 40 mg PO HS 01/11/24 [History] Rimegepant Sulfate [Nurtec Odt] 75 mg PO DAILY PRN 01/11/24 [History] Acetaminophen Tab [Tylenol Tab] 1,000 mg PO Q6HR PRN #30 tablet 03/19/24 [Rx] Omeprazole [PriLOSEC] 40 mg PO DAILY #30 cap 03/19/24 [Rx] Ondansetron Odt [Zofran Odt] 4 mg PO Q8HR PRN #9 tab 03/19/24 [Rx] Simethicone 40 mg/0.6 ml Drops [Mylicon Drops] 40 mg PO PCHS PRN #30 ml 03/19/24 [Rx] bisacodyL [Dulcolax] 5 mg PO DAILY PRN #10 tab 03/19/24 [Rx] [facility]ment(s[facility]Ref[facility] [facility] [place] [place] [facility] [place]21[facility]24 3:00 pm (OBTAIN SWALLOW STUDY IN THE MORNING) Patient Instructions/Handouts: Nutrition after Bariatric Surgery (GEN), Laparoscopic Sleeve Gastrectomy (DC) Activity/Diet/Wound Care/Special Instructions: NO LONG DRIVES OR AIRPLANE RIDES OVER 30 MINUTES FOR THE NEXT 2 WEEKS, Apr 02, DUE TO HIGH RISK OF PULMONARY EMBOLISM/DVTs Liquid diet only for 2 weeks until Apr 02 May Shower. No soaking in bath tubs 2 weeks until Apr 02 Continue to use incentive spirometry to prevent pneumonias. Please continue to ambulate at home to prevent blood clots in legs. Please notify your surgeon if you develop nausea and vomiting including new onset of abdominal pain. No lifting over 4 pounds in 4 weeks, Apr 18 Drink 64 oz of fluid daily. Start protein shakes on . Notify bariatric center for temp over 101.0, increased pain, drainage from incisions. No straws or carbonated beverages. Liquid diet only. Sugar content should be less than 6 g to avoid dumping syndrome. Take MOM for constipation. CRUSH, OPEN, OR CUT TABLETS LARGER THAN A SIZE OF A TIC TAC Discharge Disposition: HOME SELF-CARE
[2024-03-19] MEDS: ONDANSETRON 4 MG/2 ML VIAL IVP SCH (16:40)
[2024-03-19 16:52] VITALS: BP 136/81; PULSE 56; RESP 20
[2024-03-19] MEDS ORDERED: diphenhydrAMINE 50 MG/ML 1 ML VIAL IVP SCH (18:00)
[2024-03-19] MEDS ORDERED: 0.9% NACL WITH KCL 20 MEQ/L 1,000 ML IV SCH (18:00)
[2024-03-19] MEDS ORDERED: HYOSCYAMINE ORAL DROPS 1.875 MG/15 ML BOTTLE PO SCH (18:00)
[2024-03-19] MEDS ORDERED: SIMETHICONE 80 MG CHEWABLE PO SCH (18:00)
[2024-03-19] MEDS ORDERED: ACETAMINOPHEN IV (For NPO) 1,000 MG in EMPTY BAG 1 BAG IVPB SCH (18:00)
[2024-03-19] MEDS ORDERED: PANTOPRAZOLE 40 MG/10 ML VIAL IV SCH (21:00)
[2024-03-20] MEDS ORDERED: 0.9% NACL WITH KCL 20 MEQ/L 1,000 ML IV SCH (08:00)
[2024-03-20] MEDS ORDERED: ENOXAPARIN 40 MG/0.4 ML SYRINGE SQ SCH (09:00)
[2024-03-21] MEDS ORDERED: bisacodyL 5 MG TABLET.DR PO PRN (08:00)
== END 2024-03-19 17:28 | disposition home or self-care (01) | DRG 403 ==
LOC: 2ORMAIN 06:20
PROVIDERS: ADMIT Surgery Plastic and Reconstructive Surgery; ATTEND Surgery Plastic and Reconstructive Surgery
PROC: 8E0W4CZ Robotic Assisted Procedure of Trunk Region, Percutaneous Endoscopic Approach (ICD-10-PCS; principal; 2024-03-19 08:00)
PROC: 0DB64Z3 Excision of Stomach, Percutaneous Endoscopic Approach, Vertical (ICD-10-PCS; principal; 2024-03-19 08:00)
PROC: 0DJ08ZZ Inspection of Upper Intestinal Tract, Via Natural or Artificial Opening Endoscopic (ICD-10-PCS; principal; 2024-03-19 08:00)
DX: E66.01 Morbid (severe) obesity due to excess calories (principal); F17.200 Nicotine dependence, unspecified, uncomplicated; F31.9 Bipolar disorder, unspecified; F41.1 Generalized anxiety disorder; F90.9 Attention-deficit hyperactivity disorder, unspecified type; G43.909 Migraine, unspecified, not intractable, without status migrainosus; J45.909 Unspecified asthma, uncomplicated; K76.0 Fatty (change of) liver, not elsewhere classified; Z68.39 Body mass index [BMI] 39.0-39.9, adult; Z79.899 Other long term (current) drug therapy
CPT/HCPCS: 64999; 81025; 88307

== ENCOUNTER → 2024-03-20 | Outpatient (CLI) | payer OTHER ==
[2024-03-20 10:20] VITALS: BP 130/84; PULSE 53; RESP 16; TEMP 98.3
[2024-03-20] MEDS: SODIUM CHLORIDE 0.9% 1,000 ML IV SCH (10:25)
[2024-03-20] MEDS: ONDANSETRON 4 MG/2 ML VIAL IVP STA (10:26)
[2024-03-20] MEDS: DEXAMETHASONE SOD PHOSPHATE 10 MG/ML 1 ML VIAL IVP STA (10:31)
[2024-03-20] MEDS: SCOPOLAMINE 1 MG/72 HR PATCH TRANSDERM STA (12:48)
== END ==
LOC: PROCWHC3 09:50
PROVIDERS: ATTEND Surgery Plastic and Reconstructive Surgery
DX: E86.0 Dehydration
CPT/HCPCS: 96360; 96361; 96374; 96375

== ENCOUNTER → 2024-03-21 | Outpatient (CLI) | payer OTHER ==
[2024-03-21 09:48] VITALS: BP 138/71; PULSE 52; RESP 16; TEMP 97.7
[2024-03-21 10:10] VITALS: BMI 39.9
--- NOTE | 2024-03-23 18:15 | P.BASOAP ---
Subjective Progress Note Date: 03/23/24 Patient intractable nausea and vomiting when she arrived at home yesterday. She had to return to the clinic for IV fluid hydration 2 L normal saline bolus. Fluid status improved. She is swallowing liquids. No dysphagia. No infection. Appropriate left upper quadrant incisional pain. No infection. Follow-up in 48 hours for repeat IV fluid boluses for pre-existing nausea. Objective - Vital Signs Vital signs: Vital Signs Temp 97.7 F 03/21/24 09:39 Pulse 52 L 03/21/24 09:39 Resp 16 03/21/24 09:39 BP 138/71 03/21/24 09:39 Pulse Ox 99 03/21/24 09:39 FiO2 Assessment/Plan Plan: Date: 03/21/24 Initial Weight: 96.162 kg Initial BMI: Current Weight: 95.878 kg Current BMI: 39.9 Type of Surgery: Total Volume in Band: Previous Volume: Volume Removed: Volume Added: Band Size:
== END ==
LOC: BARWHC3 09:28
PROVIDERS: ATTEND Surgery Plastic and Reconstructive Surgery
DX: E66.01 Morbid (severe) obesity due to excess calories (principal); Z68.39 Body mass index [BMI] 39.0-39.9, adult; Z71.3 Dietary counseling and surveillance; Z88.1 Allergy status to other antibiotic agents; F17.210 Nicotine dependence, cigarettes, uncomplicated
CPT/HCPCS: 97802; G0463; 99211

== ENCOUNTER → 2024-03-21 | Outpatient (CLI) | payer OTHER ==
--- NOTE | 2024-03-21 09:41 | FL ---
EXAMINATION TYPE: FL barium swallow DATE OF EXAM: 03/21/2024 LIMITED UGI-ESOPHAGRAM: CLINICAL HISTORY: Morbid Obesity, lap band placed earlier today. TECHNIQUE: Limited esophagram is performed utilizing Omnipaque 350. A total of not provided seconds of fluoroscopic time was utilized during procedure. FINDINGS: Preliminary view demonstrates postsurgical changes. Right hemidiaphragm elevated. The nikkie ent swallowed contrast without difficulty or delay. Esophageal peristalsis and motility are within n ormal limits. There is good flow of contrast along the diaphragmatic hiatus into the stomach, there i s no evidence of contrast extravasation to suggest leak. No persistent hiatal hernia is seen. IMPRESSION: No evidence of extravasation or significant obstruction. [facility], , 03/21/2024 9:38 AM
== END | disposition home or self-care (01) ==
LOC: RADFLMAIN 08:35
PROVIDERS: ATTEND Surgery Plastic and Reconstructive Surgery
DX: R13.10 Dysphagia, unspecified
CPT/HCPCS: 74220

== ENCOUNTER → 2024-03-23 | Outpatient (CLI) | payer OTHER ==
[2024-03-23 10:16] VITALS: BP 109/73; PULSE 58; RESP 14; TEMP 98.3; BMI 38.1
--- NOTE | 2024-03-23 18:11 | P.BASOAP ---
Subjective Progress Note Date: 03/23/24 Patient seen and evaluated. She had nausea. No troubles with swallowing. She is taking her medications. She reports being in a tobacco free environment. Her spouse is at bedside. IV fluid hydration advised for pre-existing nausea. Follow-up next week Tuesday at the bariatric clinic. IV fluid hydration advised. All questions addressed. Appropriate left upper quadrant incisional pain improving. Objective - Vital Signs Vital signs: Vital Signs Temp 98.3 F 03/23/24 09:59 Pulse 58 L 03/23/24 09:59 Resp 14 03/23/24 09:59 BP 109/73 03/23/24 09:59 Pulse Ox FiO2 Intake & Output 03/22/24 03/23/24 03/23/24 18:59 06:59 18:59 Weight 94.529 kg Assessment/Plan Plan: Date: 03/23/24 Initial Weight: 96.162 kg Initial BMI: 38.7 Current Weight: 94.529 kg Current BMI: 38.1 Type of Surgery: Total Volume in Band: Previous Volume: Volume Removed: Volume Added: Band Size:
== END ==
LOC: BARWHC3 09:37
PROVIDERS: ATTEND Surgery Plastic and Reconstructive Surgery
DX: E66.01 Morbid (severe) obesity due to excess calories (principal); F17.200 Nicotine dependence, unspecified, uncomplicated; Z88.8 Allergy status to other drugs, medicaments and biological substances; Z68.38 Body mass index [BMI] 38.0-38.9, adult
CPT/HCPCS: 99211

== ENCOUNTER → 2024-03-23 | Outpatient (CLI) | payer OTHER ==
[2024-03-23] MEDS: SODIUM CHLORIDE 0.9% 1,000 ML IV SCH (10:05)
[2024-03-23 10:26] VITALS: BP 109/73; PULSE 58; RESP 16; TEMP 98.3
== END ==
LOC: PROCWHC3 10:11
PROVIDERS: ATTEND Surgery Plastic and Reconstructive Surgery
DX: E86.0 Dehydration
CPT/HCPCS: 96360; 96361

== ENCOUNTER → 2024-03-28 | Outpatient (CLI) | payer OTHER ==
[2024-03-28 15:45] VITALS: BMI 37.3
[2024-03-28 15:46] VITALS: BP 119/81; PULSE 65; RESP 16; TEMP 97.9
--- NOTE | 2024-03-28 16:25 | P.BASOAP ---
Subjective Progress Note Date: 03/28/24 Her incisions looking. better. SHe is drinking her fluids. 20 pounds in 6 weeks. Protein 60 grams. NO GERD. She wanted to go home and did well. She had troubles drinking at home. SHe had gas x. The binder is helpful. Had enough education. Did great for surgery. Objective - Vital Signs Vital signs: Vital Signs Temp 97.9 F 03/28/24 15:37 Pulse 65 03/28/24 15:37 Resp 16 03/28/24 15:37 BP 119/81 03/28/24 15:37 Pulse Ox FiO2 Intake & Output 03/27/24 03/28/24 03/28/24 18:59 06:59 18:59 Weight 92.533 kg Assessment/Plan Plan: Date: 03/28/24 Initial Weight: 96.162 kg Initial BMI: 38.7 Current Weight: 92.533 kg Current BMI: 37.3 Type of Surgery: Total Volume in Band: Previous Volume: Volume Removed: Volume Added: Band Size:
== END ==
LOC: BARWHC3 14:48
PROVIDERS: ATTEND Surgery Plastic and Reconstructive Surgery
DX: E66.01 Morbid (severe) obesity due to excess calories (principal); F17.200 Nicotine dependence, unspecified, uncomplicated; Z71.3 Dietary counseling and surveillance; Z88.8 Allergy status to other drugs, medicaments and biological substances; Z68.37 Body mass index [BMI] 37.0-37.9, adult
CPT/HCPCS: 97803; G0463; 99211

== ENCOUNTER 2024-04-01 04:28 | Observation (INO) | payer OTHER ==
[2024-04-01] MEDS: MORPHINE SULFATE 4 MG/ML SYRINGE IVP STA (05:26)
[2024-04-01] MEDS: SODIUM CHLORIDE 0.9% 1,000 ML IV STA (05:27)
[2024-04-01] MEDS: ONDANSETRON 4 MG/2 ML VIAL IVP STA (05:31)
[2024-04-01 05:51] LABS: Basophils # (A) 0.1 k/uL (0-0.2); Basophils % (A) 1 %; Eosinophils # (A) 0.7 k/uL (0-0.7); Eosinophils % (A) 7 %; HCT 40.5 % (34.0-46.0); HGB 13.7 gm/dL (11.4-16.0); Lymphocytes # (A) 2.2 k/uL (1.0-4.8); Lymphocytes % (A) 21 %; MCH 29.4 pg (25.0-35.0); MCHC 33.7 g/dL (31.0-37.0); MCV 87.1 fL (80.0-100.0); Mean Platelet Volume 9.2; Monocytes # (A) 0.3 k/uL (0-1.0); Monocytes % (A) 3 %; Neutrophils % (A) 67 %; Platelet Count 322 k/uL (150-450); RBC 4.65 m/uL (3.80-5.40); RDW 12.9 % (11.5-15.5); WBC 10.4 k/uL (3.8-10.6)
[2024-04-01 06:07] LABS: ALT 32 U/L (4-34); AST 23 U/L (14-36); African American GFR (CKD) >90 (>60 ml/min/1.73 sqM); Albumin 4.1 g/dL (3.5-5.0); Alkaline Phosphatase 57 U/L (38-126); Anion Gap 7 mmol/L; Blood Urea Nitrogen 11 mg/dL (7-17); Calcium 9.8 mg/dL (8.4-10.2); Carbon Dioxide 23 mmol/L (22-30); Chloride 110 mmol/L (98-107); Glucose 91 mg/dL (74-99); Lipase 173 U/L (23-300); Non-African American GFR(CKD) >90 (>60 ml/min/1.73 sqM); Potassium 4.1 mmol/L (3.5-5.1); Sodium 140 mmol/L (137-145); Total Bilirubin 0.4 mg/dL (0.2-1.3); Total Protein 6.6 g/dL (6.3-8.2)
--- NOTE | 2024-04-01 06:41 | ED ---
General Adult HPI <LorekassieMike Pacheco - Last Filed: 04/01/24 09:15> - General Source: patient Mode of arrival: ambulatory Limitations: no limitations <Daniella Sesay - Last Filed: 04/17/24 14:39> - General Chief complaint: Recheck/Abnormal Lab/Rx Stated complaint: Post-Op Incision Irritation Time Seen by Provider: 04/01/24 04:40 - History of Present Illness Initial comments: 33-year-old female presents the emergency department with abdominal pain. States she had a sleeve gastrectomy done on by Dr. Mariscal. Since the procedure she has had generalized abdominal pain, especially underneath her incisions. States the worst of the pain is on the left side and the left upper quadrant. She has seen Dr. Mariscal about this. She has had no imaging since the reported pain. The pain became intense last night and therefore she came into the hospital for further evaluation. She denies any fevers. Admits nausea without vomiting. No changes in her bowel or bladder habits. Denies any urin jerardo complaints. No other alleviating, precipitating or modifying factors (Daniella Sesay) - Related Data Home Medications Medication Instructions Recorded Confirmed Gabapentin [Neurontin] 400 mg PO BID 04/04/24 04/12/24 Previous Rx's Medication Instructions Recorded Acetaminophen Tab [Tylenol] 1,000 mg PO Q6HR PRN #30 tablet 03/19/24 Omeprazole [PriLOSEC] 40 mg PO DAILY #30 cap 03/19/24 bisacodyL [Dulcolax] 5 mg PO DAILY PRN #10 tab 03/19/24 Allergies Allergy/AdvReac Type Severity Reaction Status Date / Time Metronidazole HCl AdvReac Nausea & Verified 04/01/24 12:11 [From Flagyl] Vomiting & Diarrhea Review of Systems ROS Other: All systems not noted in ROS Statement are negative. <Mike Jon - Last Filed: 04/01/24 09:15> ROS Other: All systems not noted in ROS Statement are negative. <Daniella Sesay - Last Filed: 04/17/24 14:39> ROS Statement: Those systems with pertinent positive or pertinent negative responses have been documented in the HPI. Past Medical History Past Medical History: Asthma Additional Past Medical History / Comment(s): migraine History of Any Multi-Drug Resistant Organisms: None Reported Past Surgical History: Adenoidectomy, Bariatric Surgery, Cholecystectomy, Orthopedic Surgery, Tonsillectomy Additional Past Surgical History / Comment(s): Right knee surgery, ganglion cyst removal bilateral hands, hemorrhoidectomy, colonoscopy, EGD. Gastric sleeve 03/19/24 Past Anesthesia/Blood Transfusion Reactions: Postoperative Nausea & Vomiting (PONV) Past Psychological History: ADD/ADHD, Anxiety, Bipolar, Depression Smoking Status: Former smoker Past Alcohol Use History: None Reported Past Drug Use History: Marijuana - Past Family History Mother Family Medical History: Cancer, Myocardial Infarction ([place]) Additional Family Medical History / Comment(s): basal cell ca Father Family Medical History: Cancer, COPD, Deep Vein Thrombosis (DVT), Vascular Disorder Additional Family Medical History / Comment(s): kidney ca <Daniella Sesay A - Last Filed: 04/17/24 14:39> General Exam Limitations: no limitations General appearance: alert, in no apparent distress Head exam: Present: atraumatic, normocephalic, normal inspection Eye exam: Present: normal appearance, PERRL, EOMI. Absent: scleral icterus, conjunctival injection, periorbital swelling ENT exam: Present: normal exam, mucous membranes moist Neck exam: Present: normal inspection. Absent: tenderness, meningismus, lymphadenopathy Respiratory exam: Present: normal lung sounds bilaterally. Absent: respiratory distress, wheezes, rales, rhonchi, stridor Cardiovascular Exam: Present: regular rate, normal rhythm, normal heart sounds. Absent: systolic murmur, diastolic murmur, rubs, gallop, clicks GI/Abdominal exam: Present: soft, tenderness (left upper quadrant), normal bowel sounds. Absent: distended, guarding, rebound, rigid Extremities exam: Present: normal inspection, full ROM, normal capillary refill. Absent: tenderness, pedal edema, joint swelling, calf tenderness Back exam: Present: normal inspection Neurological exam: Present: alert, oriented X3, CN II-XII intact Psychiatric exam: Present: normal affect, normal mood Skin exam: Present: warm, dry, intact, normal color. Absent: rash <Daniella Sesay - Last Filed: 04/17/24 14:39> Course Vital Signs 04/01/24 04/01/24 04/01/24 04:32 05:21 06:00 Temperature 97.8 F Pulse Rate 71 64 54 L Respiratory 18 18 18 Rate Blood Pressure 114/69 119/78 116/65 O2 Sat by Pulse 98 98 98 Oximetry 04/01/24 04/01/24 04/01/24 07:54 11:20 12:57 Temperature 97.6 F Pulse Rate 53 L 53 L 65 Respiratory 16 18 18 Rate Blood Pressure 118/79 129/86 122/85 O2 Sat by Pulse 98 96 97 Oximetry 04/01/24 18:00 Temperature 98.2 F Pulse Rate 60 Respiratory 18 Rate Blood Pressure 146/95 O2 Sat by Pulse 99 Oximetry Medical Decision Making - Lab Data Result diagrams: 04/01/24 05:38 04/01/24 05:38 <Mike Jon - Last Filed: 04/01/24 09:15> - Lab Data Result diagrams: 04/02/24 09:45 04/01/24 05:38 <Daniella Sesya - Last Filed: 04/17/24 14:39> - Medical Decision Making Patient admitted to Dr. Mariscal after discussion with Dr. Valencia for pain control and monitoring. (Mike Jon) Was pt. sent in by a medical professional or institution (, PA, BREADING MACHINE TENDER, urgent care, hospital, or alf...) When possible be specific @ -No Did you speak to anyone other than the patient for history (EMS, parent, family, police, friend...)? What history was obtained from this source @ -No Did you review nursing and triage notes (agree or disagree)? Why? @ -I reviewed and agree with nursing and triage notes Were old charts reviewed (outside hosp., previous admission, EMS record, old EKG, old radiological studies, urgent care reports/EKG's, alf records)? Report findings @ -I reviewed surgery procedure note from the Differential Diagnosis (chest pain, altered mental status, abdominal pain women, abdominal pain men, vaginal bleeding, weakness, fever, dyspnea, syncope, headache, dizziness, GI bleed, back pain, seizure, CVA, palpatations, mental health, musculoskeletal)? @ -Differential Abdominal Pain Women: Appendicitis, Cholecystitis, diverticulosis, ischemic bowel, pancreatitis, hepatitis, UTI, gastroenteritis, AAA, incarcerated hernia, bowel obstruction, constipation, inflammatory bowel, hepatitis, peptic ulcer disease, splenic infarction, perforated viscus, vulvitis, ovarian torsion, PID, kidney stone, placenta abruption, this is not meant to be an all-inclusive list EKG interpreted by me (3pts min.). @ -Not done X-rays interpreted by me (1pt min.). @ -None done CT interpreted by me (1pt min.). @ -Yes and demonstrates subcapsular hematoma of the spleen U/S interpreted by me (1pt. min.). @ -None done What testing was considered but not performed or refused? (CT, X-rays, U/S, labs)? Why? @ -None What meds were considered but not given or refused? Why? @ -None Did you discuss the management of the patient with other professionals (professionals i.e. , PA, BREADING MACHINE TENDER, lab, RT, psych nurse, protective services social worker, waste machine offbearer, teacher, chief learning officer, rn field case manager)? Give summary @ -Spoke with Dr. Valencia Was smoking cessation discussed for >3mins.? @ -No Was critical care preformed (if so, how long)? @ -No Were there social determinants of health that impacted care today? How? (Homelessness, low income, unemployed, alcoholism, drug addiction, transportation, low edu. Level, literacy, decrease access to med. care, shelter, rehab)? @ -No Was there de-escalation of care discussed even if they declined (Discuss DNR or withdrawal of care, Hospice)? DNR status @ -No What co-morbidities impacted this encounter? (DM, HTN, Smoking, COPD, CAD, Cancer, CVA, ARF, Chemo, Hep., AIDS, mental health diagnosis, sleep apnea, morbid obesity)? @ -Obesity Was patient admitted / discharged? Hospital course, mention meds given and route, prescriptions, significant lab abnormalities, going to OR and other pertinent info. @ -Upon arrival patient seen and evaluated in room 10. Thorough history and physical exam was performed. IV access was established. Laboratory studies are conducted. CT was performed which demonstrates a subcapsular hematoma of the spleen. I did speak with Dr. Valencia. Awaiting call back. Patient be signed out to Dr. Jon ([facility] - Lab Data Lab Results 10/12/1804/01/24 04/01/24 Range/Units 05:38 05:38 05:38 WBC 10.4 (3.8-10.6) k/uL RBC 4.65 (3.80-5.40) m/uL Hgb 13.7 (11.4-16.0) gm/dL Hct 40.5 (34.0-46.0) % MCV 87.1 (80.0-100.0) fL MCH 29.4 (25.0-35.0) pg MCHC 33.7 (31.0-37.0) g/dL RDW 12.9 (11.5-15.5) % Plt Count 322 (150-450) k/uL MPV 9.2 Neutrophils % 67 % Lymphocytes % 21 % Monocytes % 3 % Eosinophils % 7 % Basophils % 1 % Neutrophils # 7.0 (1.3-7.7) k/uL Lymphocytes # 2.2 (1.0-4.8) k/uL Monocytes # 0.3 (0-1.0) k/uL Eosinophils # 0.7 (0-0.7) k/uL Basophils # 0.1 (0-0.2) k/uL Sodium 140 (137-145) mmol/L Potassium 4.1 (3.5-5.1) mmol/L Chloride 110 H (98-107) mmol/L Carbon Dioxide 23 (22-30) mmol/L Anion Gap 7 mmol/L BUN 11 (7-17) mg/dL Creatinine 0.63 (0.52-1.04) mg/dL Est GFR (CKD-EPI)AfAm >90 (>60 ml/min/1.73 sqM) Est GFR (CKD-EPI)NonAf >90 (>60 ml/min/1.73 sqM) Glucose 91 (74-99) mg/dL Plasma Lactic Acid Artie 0.8 (0.7-2.0) mmol/L Calcium 9.8 (8.4-10.2) mg/dL Total Bilirubin 0.4 (0.2-1.3) mg/dL AST 23 (14-36) U/L ALT 32 (4-34) U/L Alkaline Phosphatase 57 (38-126) U/L Total Protein 6.6 (6.3-8.2) g/dL Albumin 4.1 (3.5-5.0) g/dL Lipase 173 (23-300) U/L Urine Color Urine Appearance (Clear) Urine pH (5.0-8.0) Ur Specific Cushing (1.001-1.035) Urine Protein (Negative) Urine Glucose (UA) (Negative) Urine Ketones (Negative) Urine Blood (Negative) Urine Nitrite (Negative) Urine Bilirubin (Negative) Urine Urobilinogen (<2.0) mg/dL Ur Leukocyte Esterase (Negative) Urine WBC (0-5) /hpf Ur Squamous Epith Cells (0-4) /hpf Urine Mucus (None) /hpf 04/01/24 Range/Units 07:41 WBC (3.8-10.6) k/uL RBC (3.80-5.40) m/uL Hgb (11.4-16.0) gm/dL Hct (34.0-46.0) % MCV (80.0-100.0) fL MCH (25.0-35.0) pg MCHC (31.0-37.0) g/dL RDW (11.5-15.5) % Plt Count (150-450) k/uL MPV Neutrophils % % Lymphocytes % % Monocytes % % Eosinophils % % Basophils % % Neutrophils # (1.3-7.7) k/uL Lymphocytes # (1.0-4.8) k/uL Monocytes # (0-1.0) k/uL Eosinophils # (0-0.7) k/uL Basophils # (0-0.2) k/uL Sodium (137-145) mmol/L Potassium (3.5-5.1) mmol/L Chloride (98-107) mmol/L Carbon Dioxide (22-30) mmol/L Anion Gap mmol/L BUN (7-17) mg/dL Creatinine (0.52-1.04) mg/dL Est GFR (CKD-EPI)AfAm (>60 ml/min/1.73 sqM) Est GFR (CKD-EPI)NonAf (>60 ml/min/1.73 sqM) Glucose (74-99) mg/dL Plasma Lactic Acid Artie (0.7-2.0) mmol/L Calcium (8.4-10.2) mg/dL Total Bilirubin (0.2-1.3) mg/dL AST (14-36) U/L ALT (4-34) U/L Alkaline Phosphatase (38-126) U/L Total Protein (6.3-8.2) g/dL Albumin (3.5-5.0) g/dL Lipase (23-300) U/L Urine Color Colorless Urine Appearance Cloudy H (Clear) Urine pH 7.5 (5.0-8.0) Ur Specific [place] >1.050 H (1.001-1.035) Urine Protein Negative (Negative) Urine Glucose (UA) Negative (Negative) Urine Ketones Negative (Negative) Urine Blood Negative (Negative) Urine Nitrite Negative (Negative) Urine Bilirubin Negative (Negative) Urine Urobilinogen <2.0 (<2.0) mg/dL Ur Leukocyte Esterase Negative (Negative) Urine WBC 2 (0-5) /hpf Ur Squamous Epith Cells 12 H (0-4) /hpf Urine Mucus Rare H (None) /hpf Disposition Is patient prescribed a controlled substance at d/c from ED?: No Time of Disposition: 09:16 <Mike Jon - Last Filed: 04/01/24 09:15> <Daniella Sesay - Last Filed: 04/17/24 14:39> Clinical Impression: Abdominal pain, Hematoma of spleen after non-spleen procedure Disposition: ADMITTED IP TO THIS HOSP Condition: Stable
--- NOTE | 2024-04-01 07:50 | CT ---
EXAMINATION TYPE: CT abdomen pelvis w con DATE OF EXAM: 04/01/2024 COMPARISON: 01/27/2024 INDICATION: pt had bariatric surgery on 03-19-24 pt has swelling pain at surgical sight. iso 300 100m l DLP: 1661.7 mGycm, Automated exposure control for dose reduction was used. CONTRAST: 100 mL of Isovue 370. Study performed without Oral Contrast TECHNIQUE: Axial images were obtained from above the diaphragm to the pubic rami in the axial plane a t 5 mm thick sections. Reconstructed images are reviewed on the computer in the coronal plane. FINDINGS: Limited CT sections are obtained the lung bases. The lung bases are clear. CT ABDOMEN: Liver: Enlarged measuring 17 cm in craniocaudal dimension. Left lobe liver wraps around left abdomen. Spleen: Somewhat prominent. There is a hypodense area within the superior medial aspect just above th e adrenal gland measuring 5.3 x 4.9 x 7.3 cm. Subcapsular hematoma should be considered. This is mona cent to gastric sleeve surgical clips. This may be considered a grade 2 splenic injury. One dimension of the hematoma is greater than 5 cm which could upgrade this to a grade 3. No free fluid is adjacen t or within the abdomen or pelvis. Finding is new from the comparison 01/27/2024. Report was called an d case discussed with the emergency room physician by Dr. Kiran by telephone at the time of interpr etation. Pancreas: Normal Adrenal glands: The adrenal glands are normal. Gallbladder: Surgically absent Kidneys: No masses are evident. No hydronephrosis is present. No cysts are present. Delayed images were obtained through the kidneys, which remain unremarkable. Aorta: Normal Inferior vena cava: Normal. CT PELVIS: Loops of bowel within the abdomen and pelvis are normal. This study is without oral contrast limi ts evaluation Appendix: Normal as visualized. Urinary bladder: Normal. Genitourinary structures: Uterus is normal and adnexa are unremarkable. Osseous structures: No suspicious lytic or sclerotic lesions. IMPRESSION: 1. Suspected subcapsular hematoma within the medial superior spleen. This could correlate with a gra de 2-3 splenic injury. No free fluid within the abdomen or pelvis or adjacent to the spleen is eviden t. [facility], Workstation: [facility], 04/01/2024 7:48 AM
[2024-04-01] MEDS: HYDROmorphone 1 MG/ML 1 ML SYRINGE IVP STA (07:58)
[2024-04-01 08:00] LABS: Appearance,Urine Cloudy (Clear); Bilirubin,Urine Negative (Negative); Blood,Urine Negative (Negative); Color,Urine Colorless; Glucose,Urine (UA) Negative (Negative); Ketones,Urine Negative (Negative); Leukocyte Esterase,Urine Negative (Negative); Mucus,Urine Rare /hpf; Nitrite,Urine Negative (Negative); PH, Urine 7.5 (5.0-8.0); Protein,Urine Negative (Negative); Squamous Epithelial Cell,Urine 12 /hpf (0-4); Urobilinogen,Urine <2.0 mg/dL (<2.0); WBC,Urine 2 /hpf (0-5)
[2024-04-01 08:01] LABS: Specific Gravity,Urine >1.050 (1.001-1.035)
[2024-04-01] MEDS ORDERED: ACETAMINOPHEN TAB 325 MG TAB PO PRN (09:14)
[2024-04-01] MEDS ORDERED: HYDROmorphone 0.5 MG/0.5 ML SYRINGE IVP PRN (09:14)
[2024-04-01] MEDS ORDERED: NALOXONE 0.4 MG/ML 1 ML VIAL IV PRN (09:14)
[2024-04-01] MEDS: SODIUM CHLORIDE 0.9% 1,000 ML IV SCH (09:33)
[2024-04-01] MEDS: ONDANSETRON 4 MG/2 ML VIAL IVP PRN (09:34)
[2024-04-01] MEDS: HYDROmorphone 1 MG/ML 1 ML SYRINGE IVP PRN (12:12)
[2024-04-01] MEDS: METOCLOPRAMIDE 5 MG/ML 2 ML VIAL IVP STA (12:53)
[2024-04-01] MEDS: DEXAMETHASONE SOD PHOSPHATE 4 MG/ML 1 ML VIAL IVP PRN (22:28)
[2024-04-01] MEDS: METOCLOPRAMIDE 5 MG/ML 2 ML VIAL IVP PRN (22:28)
[2024-04-02] MEDS ORDERED: METOCLOPRAMIDE 5 MG/ML 2 ML VIAL IVP SCH
[2024-04-02] MEDS: PANTOPRAZOLE 40 MG/10 ML VIAL IVP SCH (08:08)
[2024-04-02 08:30] VITALS: RESP 17
[2024-04-02 10:01] LABS: Basophils % (A) 0 %; Eosinophils # (A) 0.2 k/uL (0-0.7); Eosinophils % (A) 2 %; HCT 43.4 % (34.0-46.0); HGB 14.5 gm/dL (11.4-16.0); Lymphocytes % (A) 7 %; MCH 29.1 pg (25.0-35.0); MCHC 33.4 g/dL (31.0-37.0); MCV 87.1 fL (80.0-100.0); Mean Platelet Volume 9.1; Monocytes # (A) 0.2 k/uL (0-1.0); Monocytes % (A) 1 %; Neutrophils # (A) 12.3 k/uL (1.3-7.7); Neutrophils % (A) 89 %; Platelet Count 327 k/uL (150-450); RBC 4.98 m/uL (3.80-5.40); RDW 12.7 % (11.5-15.5); WBC 13.8 k/uL (3.8-10.6)
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
[2024-04-02] MEDS: KETOROLAC 15 MG/ML 1 ML VIAL IVP STA (15:55)
[2024-04-02 16:00] VITALS: BP 124/83; PULSE 53; TEMP 98.6
== END 2024-04-02 16:39 | disposition home or self-care (01) ==
LOC: EC 04:28 → 4SSUR 09:15 → 1SOBS 19:48
PROVIDERS: ADMIT Surgery Plastic and Reconstructive Surgery; ATTEND Surgery Plastic and Reconstructive Surgery
DX: D78.31 Postprocedural hematoma of the spleen following a procedure on the spleen (principal); J45.909 Unspecified asthma, uncomplicated; F31.9 Bipolar disorder, unspecified; F41.9 Anxiety disorder, unspecified; Z87.891 Personal history of nicotine dependence; Z98.84 Bariatric surgery status; Z79.899 Other long term (current) drug therapy; Z88.1 Allergy status to other antibiotic agents
CPT/HCPCS: 96376 ×3; 96375 ×3; 96361; 96374; 99285; 36415; 80053; 83605; 83690; 85025 ×2; 81001; 74177; G0378 ×2; J2270; J1100; J2765 ×2; J2405 ×2; J1171 ×2; J1885; Q9967; J2470

== ENCOUNTER → 2024-04-04 | Outpatient (CLI) | payer OTHER ==
[2024-04-04 13:10] VITALS: BP 112/79; PULSE 60; RESP 16; TEMP 98.6
--- NOTE | 2024-04-04 14:31 | P.BASOAP ---
Subjective Progress Note Date: 04/04/24 Has expected soreness at the left upper quadrant. She is pending vibrating massage ball. She is doing better. Follow up 1 month post op. Objective - Vital Signs Vital signs: Vital Signs Temp 98.6 F 04/04/24 12:57 Pulse 60 04/04/24 12:57 Resp 16 04/04/24 12:57 BP 112/79 04/04/24 12:57 Pulse Ox FiO2 Intake & Output 04/03/24 04/04/24 04/04/24 18:59 06:59 18:59 Weight 90.265 kg Assessment/Plan Plan: Date: 04/04/24 Initial Weight: 96.162 kg Initial BMI: Current Weight: 90.265 kg Current BMI: Type of Surgery: Total Volume in Band: Previous Volume: Volume Removed: Volume Added: Band Size:
== END | disposition home or self-care (01) ==
LOC: BARWHC3 11:07
PROVIDERS: ATTEND Surgery Plastic and Reconstructive Surgery
DX: E66.01 Morbid (severe) obesity due to excess calories (principal); F17.200 Nicotine dependence, unspecified, uncomplicated; Z68.36 Body mass index [BMI] 36.0-36.9, adult; Z88.8 Allergy status to other drugs, medicaments and biological substances
CPT/HCPCS: 99211

== ENCOUNTER → 2024-04-12 | Outpatient (CLI) | payer OTHER ==
--- NOTE | 2024-04-12 10:11 | US ---
EXAMINATION TYPE: US abdomen limited DATE OF EXAM: 04/12/2024 COMPARISON: CT: 04/01/24 CLINICAL INDICATION: Female, 33 years old with history of R10.84 ABDOMIANL PAIN; abdominal pain near umbilical area since bariatric surgery 03/20/24. TECHNIQUE: Grayscale imaging of the right upper quadrant was performed. FINDINGS: No obvious abnormality found in area of pain. No evidence for hernia mass or lymphadenopathy. No orga nizing fluid collection. IMPRESSION: No organizing fluid collection or mass visualized. [facility], , 04/12/2024 10:09 AM
== END | disposition home or self-care (01) ==
LOC: RADUSWWP 09:41
PROVIDERS: ATTEND Surgery Plastic and Reconstructive Surgery
DX: R10.84 Generalized abdominal pain (principal)
CPT/HCPCS: 76705

== ENCOUNTER → 2024-04-12 | Outpatient (CLI) | payer OTHER ==
--- NOTE | 2024-04-12 11:40 | P.GSHP ---
History of Present Illness H&P Date: 04/12/24 CHIEF COMPLAINT: Abdominal pain HISTORY OF PRESENT ILLNESS: The patient is a 33-year-old female status post sleeve gastrectomy March 19, 3+ weeks ago. She has had intermittent abdominal pain unrelated to her incisions primarily below the umbilicus. "I feels like burning sensation from the umbilicus towards my pelvis." She has been when abdominal binder and reports pressure and pain improves after lifting her pannus. No fevers or chills. No drainage along her incisions noted. Patient reports intentional weight loss down to 194 pounds. At her height of 5 feet 2 inches, her ideal body weight is 135 pounds. Her highest weight was 219 pounds. Today she comes in weighing 194 pounds. She has lost 5 pounds from her last visit 1 week ago. Body mass index reduced from 40.0-35.5. Lifetime weight loss 24 pounds. Percent excess lifetime weight loss 29%. ROS: No reports of nausea and vomiting. No fevers or chills. No new chest pain. No productive sputum PHYSICAL EXAM: VITAL SIGNS: Reviewed CONSTITUTIONAL: Well developed and in no acute distress. EYES: Conjuctivae without sclera icterus. Extraocular movements grossly intact. HEAD, EARS, NOSE, THROAT: Moist buccal mucosa. Head is atraumatic, normocephalic. Hears conversational speech. No nasal drainage. RESPIRATORY: Non-labored respirations and equal bilateral excursions. CARDIOVASCULAR: Palpable 2+ radial pulses. ABDOMEN: All incisions completely granulated. No cellulitis or infection. MUSCULOSKELETAL: No gross deformity of the lower extremities noted. No clubbing. No cyanosis. SKIN: Good skin turgor. Well perfused. NEUROLOGIC: Cranial nerves II through XII grossly intact. No focal or lateralizing signs. PSYCH: Appropriate affect. Alert and oriented to person, place and time. STUDIES: Ultrasound of the abdomen independently reviewed from earlier today demonstrates no fluid collection or signs of infection at location of pain. This is my independent interpretation. CT of the abdomen pelvis reports from 2 weeks ago also reviewed demonstrating no fluid collection along the abdominal wall or intra-abdominal fluid around her sleeve or incisions. This is my independent interpretation. REPORT: Ultrasound report demonstrates unremarkable finding for ultrasound. ASSESSMENT: 1. Abdominal pain due to adhesions 2. Status post sleeve gastrectomy 3. Chronic pain issues, pre-existing PLAN: 1. Patient was given encouragement for abdominal wall support including a more appropriate fitted abdominal binder. 2. Using warm compress and warm towels throughout the day as advised. Patient also reports warm heat improves her discomfort. 3. Tentative lysis of adhesions described however additional time of recovery was emphasized. 4. Patient notified that I will be out of town for the next 10 days from April 13 however return April 23. 5. Close follow-up with the bariatric center described. Past Medical History Past Medical History: Asthma Additional Past Medical History / Comment(s): migraine History of Any Multi-Drug Resistant Organisms: None Reported Past Surgical History: Adenoidectomy, Bariatric Surgery, Cholecystectomy, Orthopedic Surgery, Tonsillectomy Additional Past Surgical History / Comment(s): Right knee surgery, ganglion cyst removal bilateral hands, hemorrhoidectomy, colonoscopy, EGD. Gastric sleeve 03/19/24 Past Anesthesia/Blood Transfusion Reactions: Postoperative Nausea & Vomiting (PONV) Past Psychological History: ADD/ADHD, Anxiety, Bipolar, Depression Smoking Status: Former smoker Past Alcohol Use History: None Reported Additional Past Alcohol Use History / Comment(s): SMOKING SINCE AGE 18 quit October Past Drug Use History: Marijuana Additional Drug Use History / Comment(s): edibles - Past Family History Mother Family Medical History: Cancer, Myocardial Infarction ([place]) Additional Family Medical History / Comment(s): basal cell ca Father Family Medical History: Cancer, COPD, Deep Vein Thrombosis (DVT), Vascular Disorder Additional Family Medical History / Comment(s): kidney ca Medications and Allergies Home Medications Medication Instructions Recorded Confirmed Type Acetaminophen Tab [Tylenol] 1,000 mg PO Q6HR PRN #30 tablet 03/19/24 04/04/24 Rx Omeprazole [PriLOSEC] 40 mg PO DAILY #30 cap 03/19/24 04/04/24 Rx bisacodyL [Dulcolax] 5 mg PO DAILY PRN #10 tab 03/19/24 04/04/24 Rx Gabapentin [Neurontin] 400 mg PO BID 04/04/24 04/04/24 History Allergies Allergy/AdvReac Type Severity Reaction Status Date / Time Metronidazole HCl AdvReac Nausea & Verified 04/01/24 12:11 [From Flagyl] Vomiting & Diarrhea
[2024-04-12 11:54] VITALS: BP 117/78; PULSE 58; RESP 16; TEMP 97; BMI 35.4
== END ==
LOC: BARWHC3 10:05
PROVIDERS: ATTEND Surgery Plastic and Reconstructive Surgery
CPT/HCPCS: 99211

== ENCOUNTER 2024-08-31 22:41 | Inpatient (IN) | payer MEDICAID, OTHER ==
[2024-09-01 00:28] LABS: Amphetamine Screen,Urine Not Detected (NotDetected); Barbiturate Screen,Urine Not Detected (NotDetected); Benzodiazepines Screen,Urine Detected (NotDetected); Cocaine Screen,Urine Not Detected (NotDetected); Methadone Screen, Urine Not Detected (NotDetected); Opiate Screen,Urine Not Detected (NotDetected); Oxycodone Screen, Urine Not Detected (NotDetected); Phencyclidine Screen,Urine Not Detected (NotDetected); Tricyclic Antidepressant,Urine Not Detected (NotDetected); Urn Cannabinoid Scrn Detected (NotDetected)
[2024-09-01 00:32] LABS: Appearance,Urine Turbid (Clear); Bilirubin,Urine Negative (Negative); Blood,Urine Negative (Negative); Budding Yeast,Urine Occasional /hpf; Calcium Oxalate Crystals,Urine Few /hpf; Color,Urine Yellow; Glucose,Urine (UA) Negative (Negative); Ketones,Urine Negative (Negative); Leukocyte Esterase,Urine Negative (Negative); Mucus,Urine Many /hpf; Nitrite,Urine Negative (Negative); PH, Urine 6.5 (5.0-8.0); Protein,Urine Trace (Negative); RBC,Urine 2 /hpf (0-5); Specific Gravity,Urine 1.027 (1.001-1.035); Squamous Epithelial Cell,Urine 61 /hpf (0-4); WBC,Urine 3 /hpf (0-5)
[2024-09-01] MEDS: LORazepam 1 MG TAB PO STA (00:48)
--- NOTE | 2024-09-01 01:05 | ED ---
Psych HPI - General Chief Complaint: Psychiatric Symptoms Stated Complaint: Psych Eval Time Seen by Provider: 08/31/24 22:55 Source: patient Mode of arrival: ambulatory - History of Present Illness Initial Comments: 33-year-old female with past medical history of PTSD, depression, anxiety, borderline personality disorder who presents to the emergency department with s uicidal and homicidal ideations. States that she recently started taking medications which are prescribed by [facility] for her mental health. States that she has been on the medications for approximately 2 weeks and feels as if they are making her worse. She states that she is angry and having a hard time coping. States that she wants to hurt other people and herself. Admits that she uses marijuana. Denies alcohol or other illicit substance abuse. No concern for . Has not attempted to harm herself. No other alleviating, precipitating modifying factors - Related Data Home Medications Medication Instructions Recorded Confirmed Acetaminophen [Tylenol Extra 1,000 mg PO Q6HR PRN 04/19/24 04/19/24 Strength] Previous Rx's Medication Instructions Recorded Omeprazole [PriLOSEC] 40 mg PO DAILY #30 cap 03/19/24 Amoxic-Pot Clav 875-125Mg 1 tab PO Q12HR #20 tab 08/12/24 [Augmentin 875-125] Allergies Allergy/AdvReac Type Severity Reaction Status Date / Time Metronidazole HCl AdvReac Nausea & Verified 08/31/24 22:52 [From Flagyl] Vomiting & Diarrhea Review of Systems ROS Statement: Those systems with pertinent positive or pertinent negative responses have been documented in the HPI. ROS Other: All systems not noted in ROS Statement are negative. Past Medical History Past Medical History: Asthma, GERD/Reflux Additional Past Medical History / Comment(s): migraine, EXERCISE INDUCED ASTHMA History of Any Multi-Drug Resistant Organisms: None Reported Past Surgical History: Adenoidectomy, Bariatric Surgery, Cholecystectomy, Orthopedic Surgery, Tonsillectomy Additional Past Surgical History / Comment(s): Right knee surgery, ganglion cyst removal bilateral hands, hemorrhoidectomy, colonoscopy, EGD. Gastric sleeve 03/19/24, TRIGGER FINGER RELEASE LT MIDDLE FINGER, Past Anesthesia/Blood Transfusion Reactions: Postoperative Nausea & Vomiting (PONV) Past Psychological History: ADD/ADHD, Anxiety, Bipolar, Depression, PTSD Smoking Status: Former smoker Past Alcohol Use History: None Reported Past Drug Use History: Marijuana - Past Family History Mother Family Medical History: Cancer, Myocardial Infarction ([place]) Additional Family Medical History / Comment(s): basal cell ca Father Family Medical History: Cancer, COPD, Deep Vein Thrombosis (DVT), Vascular Disorder Additional Family Medical History / Comment(s): kidney ca General Exam Limitations: no limitations General appearance: alert, in no apparent distress Head exam: Present: atraumatic, normocephalic, normal inspection Eye exam: Present: normal appearance, PERRL, EOMI. Absent: scleral icterus, conjunctival injection, periorbital swelling ENT exam: Present: normal exam, mucous membranes moist Neck exam: Present: normal inspection. Absent: tenderness, meningismus, lymphadenopathy Respiratory exam: Present: normal lung sounds bilaterally. Absent: respiratory distress, wheezes, rales, rhonchi, stridor Cardiovascular Exam: Present: regular rate, normal rhythm, normal heart sounds. Absent: systolic murmur, diastolic murmur, rubs, gallop, clicks GI/Abdominal exam: Present: soft, normal bowel sounds. Absent: distended, tenderness, guarding, rebound, rigid Extremities exam: Present: normal inspection, full ROM, normal capillary refill. Absent: tenderness, pedal edema, joint swelling, calf tenderness Back exam: Present: normal inspection Neurological exam: Present: alert, oriented X3, CN II-XII intact Psychiatric exam: Present: depressed, suicidal ideation Skin exam: Present: warm, dry, intact, normal color. Absent: rash Course Vital Signs 08/31/24 22:49 Temperature 97.8 F Pulse Rate 60 Respiratory 18 Rate Blood Pressure 119/72 O2 Sat by Pulse 100 Oximetry Medical Decision Making - Medical Decision Making Was pt. sent in by a medical professional or institution (, PA, SOIL CHECKER, urgent care, hospital, or senior care...) When possible be specific @ -[No] Did you speak to anyone other than the patient for history (EMS, parent, family, police, friend...)? What history was obtained from this source @ -[No] Did you review nursing and triage notes (agree or disagree)? Why? @ -[I reviewed and agree with nursing and triage notes] Were old charts reviewed (outside hosp., previous admission, EMS record, old EKG, old radiological studies, urgent care reports/EKG's, senior care records)? Report findings @ -[No old charts were reviewed] Differential Diagnosis (chest pain, altered mental status, abdominal pain women, abdominal pain men, vaginal bleeding, weakness, fever, dyspnea, syncope, headache, dizziness, GI bleed, back pain, seizure, CVA, palpatations, mental health, musculoskeletal)? @ -[not applicable] EKG interpreted by me (3pts min.). @ -[As above] X-rays interpreted by me (1pt min.). @ -[None done] CT interpreted by me (1pt min.). @ -[None done] U/S interpreted by me (1pt. min.). @ -[None done] What testing was considered but not performed or refused? (CT, X-rays, U/S, labs)? Why? @ -[None] What meds were considered but not given or refused? Why? @ -[None] Did you discuss the management of the patient with other professionals (professionals i.e. , PA, SOIL CHECKER, lab, RT, psych nurse, sexual assault social worker, airworthiness inspector, teacher, chief data officer, pillowcase cutter)? Give summary @ -[No] Was smoking cessation discussed for >3mins.? @ -[No] Was critical care preformed (if so, how long)? @ -[No] Were there social determinants of health that impacted care today? How? (Homelessness, low income, unemployed, alcoholism, drug addiction, transportation, low edu. Level, literacy, decrease access to med. care, long term, rehab)? @ -[No] Was there de-escalation of care discussed even if they declined (Discuss DNR or withdrawal of care, Hospice)? DNR status @ -[No] What co-morbidities impacted this encounter? (DM, HTN, Smoking, COPD, CAD, Cancer, CVA, ARF, Chemo, Hep., AIDS, mental health diagnosis, sleep apnea, morbid obesity)? @ -[None] Was patient admitted / discharged? Hospital course, mention meds given and route, prescriptions, significant lab abnormalities, going to OR and other pertinent info. @ -[hospital course] Undiagnosed new problem with uncertain prognosis? @ -[No] Drug Therapy requiring intensive monitoring for toxicity (Heparin, Nitro, Insulin, Cardizem)? @ -[No] Were any procedures done? @ -[No] Diagnosis/symptom? @ -[default] Acute, or Chronic, or Acute on Chronic? @ -[default] Uncomplicated (without systemic symptoms) or Complicated (systemic symptoms)? @ -[default] Side effects of treatment? @ -[No] Exacerbation, Progression, or Severe Exacerbation? @ -[No] Poses a threat to life or bodily function? How? (Chest pain, [place], [place], pneumonia, PE, COPD, DKA, ARF, appy, cholecystitis, CVA, Diverticulitis, Homicidal, Suicidal, threat to staff... and all critical care pts) @ -[No] - Lab Data Lab Results 08/31/24 08/31/24 09/01/24 Range/Units 23:16 23:16 00:14 Urine Color Yellow Urine Appearance Turbid H (Clear) Urine pH 6.5 (5.0-8.0) Ur Specific [place] 1.027 (1.001-1.035) Urine Protein Trace H (Negative) Urine Glucose (UA) Negative (Negative) Urine Ketones Negative (Negative) Urine Blood Negative (Negative) Urine Nitrite Negative (Negative) Urine Bilirubin Negative (Negative) Urine Urobilinogen 4.0 (<2.0) mg/dL Ur Leukocyte Esterase Negative (Negative) Urine RBC 2 (0-5) /hpf Urine WBC 3 (0-5) /hpf Ur Squamous Epith Cells 61 H (0-4) /hpf Calcium Oxalate Crystal Few H (None) /hpf Urine Mucus Many H (None) /hpf Urine Yeast (Budding) Occasional H (None) /hpf Urine HCG, Qual Not Detected (Not Detectd) Urine Opiates Screen Not Detected (NotDetected) Ur Oxycodone Screen Not Detected (NotDetected) Urine Methadone Screen Not Detected (NotDetected) Ur Barbiturates Screen Not Detected (NotDetected) U Tricyclic Antidepress Not Detected (NotDetected) Ur Phencyclidine Scrn Not Detected (NotDetected) Ur Amphetamines Screen Not Detected (NotDetected) U Methamphetamines Scrn Not Detected (NotDetected) U Benzodiazepines Scrn Detected H (NotDetected) Urine Cocaine Screen Not Detected (NotDetected) U Marijuana (THC) Screen Detected H (NotDetected) SARS-CoV-2 (PCR) Not Detected (Not Detectd) Disposition Clinical Impression: Borderline personality disorder, Suicidal ideation Disposition: TRANSFER TO PSYCH HOSP/UNIT Condition: Stable Is patient prescribed a controlled substance at d/c from ED?: No Referrals: Manuel Melgar DO [Primary Care Provider] - 1-2 days Time of Disposition: 01:05
[2024-09-01] MEDS ORDERED: traZODone HCL 50 MG TAB PO PRN (03:19)
[2024-09-01] MEDS ORDERED: HALOPERIDOL LACTATE 5 MG/ML 1 ML VIAL IM PRN (03:19)
[2024-09-01] MEDS ORDERED: MAG HYDROX/AL HYDROX/SIMETH 355 ML BOTTLE PO PRN (03:19)
[2024-09-01] MEDS ORDERED: LORazepam 2 MG/ML INJ IM PRN (03:19)
[2024-09-01] MEDS ORDERED: MAGNESIUM HYDROXIDE 2,400 MG/30 ML CUP PO PRN (03:19)
[2024-09-01] MEDS: LORazepam 1 MG TAB PO PRN (03:51)
[2024-09-01 07:42] LABS: Basophils # (A) 0.1 k/uL (0-0.2); Basophils % (A) 1 %; Eosinophils # (A) 0.5 k/uL (0-0.7); Eosinophils % (A) 7 %; HCT 41.3 % (34.0-46.0); Lymphocytes # (A) 2.3 k/uL (1.0-4.8); Lymphocytes % (A) 33 %; MCH 28.9 pg (25.0-35.0); MCHC 31.5 g/dL (31.0-37.0); Mean Platelet Volume 9.6; Monocytes # (A) 0.3 k/uL (0-1.0); Monocytes % (A) 5 %; Neutrophils # (A) 3.9 k/uL (1.3-7.7); Neutrophils % (A) 54 %; Platelet Count 241 k/uL (150-450); RBC 4.49 m/uL (3.80-5.40); RDW 13.2 % (11.5-15.5); WBC 7.2 k/uL (3.8-10.6)
[2024-09-01 08:00] LABS: ALT 9 U/L (4-34); AST 15 U/L (14-36); African American GFR (CKD) >90 (>60 ml/min/1.73 sqM); Albumin 3.6 g/dL (3.5-5.0); Alkaline Phosphatase 51 U/L (38-126); Anion Gap 5 mmol/L; Bilirubin, Delta 0.2 mg/dL (0.0-0.2); Bilirubin,Unconjugated 0.4 mg/dL (0.0-1.1); Blood Urea Nitrogen 9 mg/dL (7-17); Calcium 9.2 mg/dL (8.4-10.2); Carbon Dioxide 25 mmol/L (22-30); Chloride 107 mmol/L (98-107); Glucose 76 mg/dL (74-99); Non-African American GFR(CKD) >90 (>60 ml/min/1.73 sqM); Potassium 3.9 mmol/L (3.5-5.1); Sodium 137 mmol/L (137-145); Total Bilirubin 0.6 mg/dL (0.2-1.3); Total Protein 5.9 g/dL (6.3-8.2)
[2024-09-01] MEDS: PANTOPRAZOLE 40 MG TABLET PO SCH (08:54)
[2024-09-01] MEDS: FLUoxetine HCL 20 MG CAP PO SCH (08:54)
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
[2024-09-01] MEDS: LITHIUM CARBONATE 150 MG CAP PO SCH (12:03)
[2024-09-01] MEDS ORDERED: IBUPROFEN 400 MG TAB PO PRN (13:27)
[2024-09-01] MEDS: haloperidoL 5 MG TAB PO PRN (13:29)
[2024-09-01 13:35] LABS: Chol/HDL Ratio 5.24 Ratio; LDL Cholesterol,Calculated 112.4 mg/dL (0.0-131.0)
[2024-09-01] MEDS: ACETAMINOPHEN TAB 325 MG TAB PO PRN (13:37)
--- NOTE | 2024-09-01 14:44 | P.MDCNMH ---
History of Present Illness H&P Date: 09/01/24 History of present illness; patient is a 33-year-old lady with past medical history significant for depression, anxiety, PTSD who presented to the ER for suicidal ideations. Patient is being followed up outpatient by [facility] and was started on psych medications, patient stated over the last couple of weeks she has been feeling worse. Patient is complaining of mood swings and states that she gets angry easily. Patient was having thoughts of hurting herself, patient has not attempted yet but plans to. Patient denies any auditory or visual elucidation. Because of the suicidal thoughts, patient came to the ER Initial lab work done in the ER showed WBC 7.2, hemoglobin 13, platelet count 241, sodium 137, potassium 3.9, BUN 9, creatinine 0.57, glucose 114, LDL 112, HDL 33 UA negative for any infection Urine drug screen positive for marijuana and benzos Patient admitted to psychiatry REVIEW OF SYSTEMS: CONSTITUTIONAL: No fever, no malaise, no fatigue. HEENT: No recent visual problems or hearing problems. Denied any sore throat. CARDIOVASCULAR: No chest pain, orthopnea, PND, no palpitations, no syncope. PULMONARY: No shortness of breath, no cough, no hemoptysis. GASTROINTESTINAL: No diarrhea, no nausea, no vomiting, no abdominal pain. NEUROLOGICAL: No headaches, no weakness, no numbness. HEMATOLOGICAL: Denies any bleeding or petechiae. GENITOURINARY: Denies any burning micturition, frequency, or urgency. MUSCULOSKELETAL/RHEUMATOLOGICAL: Denies any joint pain, swelling, or any muscle pain. Complaining of back pain ENDOCRINE: Denies any polyuria or polydipsia. The rest of the 14-point review of systems is negative. PHYSICAL EXAMINATION: GENERAL: The patient is alert and oriented x3, not in any acute distress. Well developed, well nourished. HEENT: Pupils are round and equally reacting to light. EOMI. No scleral icterus. No conjunctival pallor. Normocephalic, atraumatic. No pharyngeal erythema. No thyromegaly. CARDIOVASCULAR: S1 and S2 present. No murmurs, rubs, or gallops. PULMONARY: Chest is clear to auscultation, no wheezing or crackles. ABDOMEN: Soft, nontender, nondistended, normoactive bowel sounds. No palpable organomegaly. MUSCULOSKELETAL: No joint swelling or deformity. EXTREMITIES: No cyanosis, clubbing, or pedal edema. NEUROLOGICAL: Gross neurological examination did not reveal any focal deficits. SKIN: No rashes. Assessment and plan Suicidal ideation Major depression Bipolar disorder History of PTSD Borderline personality disorder Cannabis use disorder Monitor vital signs Elopement precaution Suicide precaution Continue psych meds per psychiatry team Labs and medication were reviewed.. Continue same treatment. Continue with symptomatic treatment. Resume home medication. Monitor labs and vitals. DVT and GI prophylaxis. Further recommendations as per clinical course of the patient Dictation was produced using [employer] dictation software. please excuse any grammatical, word or spelling errors. Past Medical History Past Medical History: Asthma, GERD/Reflux Additional Past Medical History / Comment(s): migraine, EXERCISE INDUCED ASTHMA History of Any Multi-Drug Resistant Organisms: None Reported Past Surgical History: Adenoidectomy, Bariatric Surgery, Cholecystectomy, Orthopedic Surgery, Tonsillectomy Additional Past Surgical History / Comment(s): Right knee surgery, ganglion cyst removal bilateral hands, hemorrhoidectomy, colonoscopy, EGD. Gastric sleeve 03/19/24, TRIGGER FINGER RELEASE LT MIDDLE FINGER, Past Anesthesia/Blood Transfusion Reactions: Postoperative Nausea & Vomiting (PONV) Past Psychological History: ADD/ADHD, Anxiety, Bipolar, Depression, PTSD Smoking Status: Former smoker Past Alcohol Use History: None Reported Additional Past Alcohol Use History / Comment(s): SMOKING SINCE AGE 18 quit October Past Drug Use History: Marijuana - Past Family History Mother Family Medical History: Cancer, Myocardial Infarction ([place]) Additional Family Medical History / Comment(s): basal cell ca Father Family Medical History: Cancer, COPD, Deep Vein Thrombosis (DVT), Vascular Disorder Additional Family Medical History / Comment(s): kidney ca Medications and Allergies Home Medications Medication Instructions Recorded Confirmed Type Omeprazole [PriLOSEC] 40 mg PO DAILY #30 cap 03/19/24 09/01/24 Rx Acetaminophen [Tylenol Extra 1,000 mg PO Q6HR PRN 04/19/24 09/01/24 History Strength] Amoxic-Pot Clav 875-125Mg 1 tab PO Q12HR #20 tab 08/12/24 09/01/24 Rx [Augmentin 875-125] Allergies Allergy/AdvReac Type Severity Reaction Status Date / Time Metronidazole HCl AdvReac Nausea & Verified 09/01/24 03:25 [From Flagyl] Vomiting & Diarrhea NSAIDS (Non-Steroidal AdvReac Unknown Verified 09/01/24 13:36 Anti-Inflamma Physical Exam Vitals: Vital Signs Temp Pulse Pulse Pulse Resp BP BP 09/01/24 08:56 97.5 F L 70 16 09/01/24 04:55 97.1 F L 60 15 137/89 08/31/24 22:49 97.8 F 60 18 119/72 BP Pulse Ox 09/01/24 08:56 100/71 100 09/01/24 04:55 99 08/31/24 22:49 100 Intake and Output 08/31/24 09/01/24 09/01/24 22:59 06:59 14:59 Other: Weight 74.389 kg 74.049 kg Cranial Nerve Examination - Cranial Nerves Cranial Nerve II- Optic: Intact (Nerves II to XII intact) Cranial Nerve III- Oculomotor: Intact Cranial Nerve IV- Trochlear: Intact Cranial Nerve V- Trigeminal: Intact Cranial Nerve - Abducens: Intact Cranial Nerve VII- Facial: Intact Cranial Nerve VIII- Auditory: Intact Cranial Nerve IX- Glossopharyngeal: Intact Cranial Nerve X- Vagus: Intact Cranial Nerve XI- Accessory: Intact Cranial Nerve XII- Hypoglossal: Intact Results CBC & Chem 7: 09/01/24 07:15 09/01/24 07:15 Labs: Abnormal Lab Results - Last 24 Hours (Table) 08/31/24 09/01/24 Range/Units 23:16 07:15 Total Protein 5.9 L (6.3-8.2) g/dL HDL Cholesterol 33.00 L (40.00-60.00) mg/dL Urine Appearance Turbid H (Clear) Urine Protein Trace H (Negative) Ur Squamous Epith Cells 61 H (0-4) /hpf Calcium Oxalate Crystal Few H (None) /hpf Urine Mucus Many H (None) /hpf Urine Yeast (Budding) Occasional H (None) /hpf U Benzodiazepines Scrn Detected H (NotDetected) U Marijuana (THC) Screen Detected H (NotDetected)
[2024-09-01] MEDS: traZODone HCL 50 MG TAB PO SCH (21:06)
[2024-09-01] MEDS: SERTRALINE 50 MG TAB PO SCH (21:06)
--- NOTE | 2024-09-02 11:33 | P.PN ---
Progress Note - Text Progress Note Date: 09/02/24 Interval history: Patient was seen wandering the hallways and was directable and agreeable to s peak with medical technical writer. She claims that she is doing a bit better with regards to her mood and irritability. Claims that she is not having much depression at this time, was fairly focused on discharge. States that she has been getting along with other people on the unit. Claims that she was able to sleep fairly last night, wants that leave her medications the same. Is been eating well, showering. At this time patient denies any suicidal or homicidal ideations intent or plan. Denies any Auditory or visual hallucinations. Patient denies any side effects from the medications and has been compliant with meds. Mental status exam: General Appearance: Patient appears to be wearing glasses, several tattoos, short stature, stated age is alert, directable, and cooperative. Behavior: No agitated behavior. Patient is calm and directable more cooperative Speech: Patient's speech is fluent and nonpressured. Mood/Affect: Mood is improving mildly, affect is congruent and constricted. Improving mildly Suicidality/Homicidality: Patient denies having any suicidal or homicidal ideation intent or plan. Perceptions: Patient denies any auditory or visual hallucinations. Though content/process: There is no evidence of any delusional thought content and thought process is linear and goal-directed. Memory and concentration: AOX3, grossly intact for the purposes of this session Judgment and insight: improving mildly Assessment/Plan: Continue with current diagnosis. Patient continues to meet criteria for inpatient psychiatric admission for symptom stabilization and safety. Patient will be maintained on current psychotropic medication regimen. Patient will need a lithium level in the next 2 or 3 days. Monitor for medication compliance and for any psychotropic medication side effects. Will continue to monitor ongoing response to treatment. Encouraged participation in milieu.
[2024-09-03 10:32] VITALS: RESP 16
--- NOTE | 2024-09-03 10:49 | P.PN ---
Progress Note - Text Progress Note Date: 09/03/24 Interval history: Patient was seen wandering the hallways and was directable and agreeable to speak with verse writer. Patient claims that she has been going to groups. She claims that she is doing a bit better with regards to her mood and irritability today. Claims that she is tolerating the medications fairly well. Claims that she was upset last night when speaking of her phone her son over the phone and needed taking Ativan to help her sleep. She was agreeable to have her trazodone increased for tonight. We spoke about getting a lithium level on Tuesday. Has been eating well. Anxiety has been improving. At this time patient denies any suicidal or homicidal ideations intent or plan. Denies any Auditory or visual hallucinations. Patient denies any side effects from the medications and has been compliant with meds. Mental status exam: General Appearance: Patient appears to be wearing glasses, several tattoos, short stature, stated age is alert, directable, and cooperative. Behavior: No agitated behavior. Patient is calm and directable more cooperative Speech: Patient's speech is fluent and nonpressured. Mood/Affect: Mood is improving mildly, affect is congruent and constricted. Improving mildly Suicidality/Homicidality: Patient denies having any suicidal or homicidal ideation intent or plan. Perceptions: Patient denies any auditory or visual hallucinations. Though content/process: There is no evidence of any delusional thought content and thought process is linear and goal-directed. Memory and concentration: AOX3, grossly intact for the purposes of this session Judgment and insight: improving mildly Assessment/Plan: Continue with current diagnosis. Patient continues to meet criteria for inpatient psychiatric admission for symptom stabilization and safety. Patient will be maintained on current psychotropic medication regimen. Patient will need a lithium level, scheduled for Tuesday. Increase trazodone to 100 mg nightly for sleep/mood. Monitor for medication compliance and for any psychotropic medication side effects. Will continue to monitor ongoing response to treatment. Encouraged participation in milieu. Likely discharge Tuesday if patient is doing well.
[2024-09-03 17:50] LABS: Appearance,Urine Turbid (Clear); Bilirubin,Urine Negative (Negative); Blood,Urine Negative (Negative); Calcium Oxalate Crystals,Urine Few /hpf; Color,Urine Yellow; Glucose,Urine (UA) Negative (Negative); Ketones,Urine 1+ (Negative); Leukocyte Esterase,Urine Negative (Negative); Mucus,Urine Many /hpf; Nitrite,Urine Negative (Negative); Protein,Urine 1+ (Negative); Specific Gravity,Urine 1.039 (1.001-1.035); Squamous Epithelial Cell,Urine 57 /hpf (0-4); WBC,Urine 8 /hpf (0-5)
[2024-09-03] MEDS: NYSTATIN 100,000 UNIT/GM OINT 30 GM TUBE TOPICAL SCH (20:30)
[2024-09-03] MEDS: CEFDINIR 300 MG CAP PO SCH (20:31)
[2024-09-03] MEDS: traZODone HCL 100 MG TAB PO SCH (20:31)
--- NOTE | 2024-09-03 22:07 | XR ---
EXAMINATION TYPE: XR wrist complete RT DATE OF EXAM: 09/03/2024 7:14 PM CLINICAL INDICATION:Female, 33 years old with history of Pain post fall; PHH, pain COMPARISON: None. TECHNIQUE: XR wrist complete RT; examined in the Frontal, lateral, and oblique. FINDINGS: No acute fractures or dislocation. No evidence of any soft tissue swelling is seen. There is subtle dorsal angulation of the ulna on the lateral view in relation to the radius. IMPRESSION: No acute fractures. Subtle dorsal angulation of the ulna on the lateral view related to the radius ma y be positional however if clinical suspicion for injury is present consider dedicated forearm/elbow radiograph to assess the proximal ulna and right elbow. [facility], , 09/03/2024 10:04 PM
--- NOTE | 2024-09-03 22:08 | XR ---
EXAMINATION TYPE: XR shoulder complete RT DATE OF EXAM: 09/03/2024 7:14 PM CLINICAL INDICATION:Female, 33 years old with history of Pain post fall; PHH, pain COMPARISON: None. TECHNIQUE: XR shoulder complete RT; examined in AP, internally rotated and scapular Y projections. FINDINGS: No evidence of acute osseous pathology, joint dislocation, or soft tissue swelling. The remaining po rtions of the visualized chest are unremarkable. IMPRESSION: No acute osseous pathology. [facility], , 09/03/2024 10:05 PM
--- NOTE | 2024-09-04 12:28 | P.PN ---
Progress Note - Text Progress Note Date: 09/04/24 Interval history: Patient was seen wandering the hallways and was directable and agreeable to s peak with press writer. Patient claims that she has been going to groups, claims that she is doing a bit better today. States that her mood and anxiety have been improving. She claims that she wants to leave her medications at the same dose. States that she is interacting with others more on the unit today. Claims that she did have a bit of a difficult time sleeping last night claims that it may be due to the light coming in from the windows, she wants to stay on the same dose of trazodone. We spoke about getting a lithium level on Tuesday which she is okay with. Has been eating well. At this time patient denies any suicidal or homicidal ideations intent or plan. Denies any Auditory or visual hallucinations. Patient denies any side effects from the medications and has been compliant with meds. Mental status exam: General Appearance: Patient appears to be wearing glasses, several tattoos, short stature, stated age is alert, directable, and cooperative. Behavior: No agitated behavior. Patient is calm and directable more cooperative Speech: Patient's speech is fluent and nonpressured. Mood/Affect: Mood is improving mildly, affect is congruent and constricted. Improving mildly Suicidality/Homicidality: Patient denies having any suicidal or homicidal ideation intent or plan. Perceptions: Patient denies any auditory or visual hallucinations. Though content/process: There is no evidence of any delusional thought content and thought process is linear and goal-directed. More future oriented Memory and concentration: AOX3, grossly intact for the purposes of this session Judgment and insight: improving mildly Assessment/Plan: Continue with current diagnosis. Patient continues to meet criteria for inpatient psychiatric admission for symptom stabilization and safety. Patient will be maintained on current psychotropic medication regimen. Patient will need a lithium level, scheduled for Tuesday. Monitor for medication compliance and for any psychotropic medication side effects. Will continue to monitor ongoing response to treatment. Encouraged participation in milieu. Likely discharge Tuesday if patient is doing well.
[2024-09-04 21:48] VITALS: TEMP 98
[2024-09-05 09:31] VITALS: BP 117/82; PULSE 76
--- NOTE | 2024-09-05 11:25 | P.DS ---
Providers Date of admission: 09/01/24 02:54 Expected date of discharge: 09/05/24 Attending physician: Aubrey Xavier MD Consults: 09/01/24 03:19 Consult Physician Routine Consulting Provider: [facility] Consult Reason/Comments: For H & P for Medical Follow Up Do you want consulting provider notified?: Yes, Notify in am Primary care physician: Manuel Melgar - Discharge Diagnosis(es) (1) Bipolar disorder current episode depressed Current Visit: Yes Status: Acute Priority: High (2) History of posttraumatic stress disorder (PTSD) Current Visit: Yes Status: Acute Priority: High (3) Borderline personality disorder Current Visit: Yes Status: Acute Priority: Medium (4) Cannabis use disorder Current Visit: Yes Status: Acute Priority: Medium Hospital Course: Admission HPI: Admission note was completed by functional tester typewriters "Patient is a 33-year-old female, she is she has 1 kid she lives with her family members in a house, works as a nanny. Patient presented to the hospital yesterday through the ER, was admitting to homicidal and suicidal ideations, increased anger, claiming that the medications are making her feel worse. Patient's UDS was positive for benzodiazepines and THC. Patient was admitted voluntarily the mental health unit, seen by functional tester typewriters today wandering the hallways agreeable to speak. Claims that she talk to the crisis line over the phone and claims that she was "freaking out" and feeling very on edge irritable and also endorsing paranoia. They advised her to come to the hospital for evaluation. She claims that she has been feeling like this for the past couple of months. States that she has significant stressors in a house including finding alternate housing, also claims that her father's health has been deteriorating and he has cancer, states that her son also has mental health issues of his". She claims that she is still feeling homicidal at times if somebody is "angry me" and denies any specific targets, claims that her suicidal thoughts have been on and off, denies any plan at this time. States that she is not having any auditory or visual hallucinations at this time. Sleep has been on and off appetite has been poor. Patient denies any flight of ideas racing thoughts and increased in goal directed behavior. Patient admits to using marijuana frequently about 5-6 joints a day. Denies any other recreational drug use" Hospital course: Upon admission to the unit patient was directable and agreeable to commence treatment and signed adult voluntary form. Patient was initially depressed irritable however with time and treatment patient got along well with other patients on the unit and followed unit protocol. Patient was compliant with the medications and denied any side effects throughout hospital course. Patient was started on lithium 150 mg twice daily for mood stabilization/suicidal thoughts, Zoloft 50 mg daily, trazodone 150 mg nightly as needed for insomnia. Patient spoke of her stressors and engaged in therapy both group/activity therapy. Patient was also seen by medical team for history and physical exam. Throughout the course of the hospitalization patient gradually improved with regards to mood, anxiety, irritability, sleep and became more future oriented with improved insight and judgment. On the day of discharge patient denied any suicidal or homicidal ideations intent or plan denied any auditory or visual hallucinations. Patient endorsed wanting to live for their health and family. The patient denied any access to guns or weapons. Patient denied any paranoia and did not endorse any delusions. Patient does have a significant history of substance abuse and was counseled on abstaining from all substances including alcohol and marijuana. Patient elected to do outpatient substance use treatment program through their outpatient provider.. Patient was also counseled on the medications and need for regular compliance and was encouraged to follow-up with their outpatient appointment for mental health and also for primary care. Prior to discharge a family meeting will be arranged by social service director to answer any questions and ensure safety upon discharge incuding making sure that guns/weapons are either removed from the home or locked away. Mental status exam: General Appearance: Patient appears to be mildly overweight, several tattoos, wearing glasses, stated age is alert, pleasant, and cooperative. Patient is in no acute distress and has improved hygiene and grooming Behavior: Patient is calmly seated without any agitated behavior. Speech: Patient's speech is fluent and nonpressured. Mood/Affect: Patient reports their mood is "good", affect is congruent and euthymic. Suicidality/Homicidality: Patient denies having any suicidal or homicidal ideation intent or plan. Perceptions: Patient denies any auditory or visual hallucinations. Though content/process: There is no evidence of any delusional thought content and thought process is linear and goal-directed. More future oriented Memory and concentration: AOX3, grossly intact for the purposes of this session. Can spell "WORLD" backwards correctly. Judgment and insight: improved with guarded prognosis Impression: Bipolar disorder current episode depressed History of PTSD Borderline personality disorder Cannabis use disorder Plan: -Continue with discharge today as patient has improved and stabilized psychiatrically and is not currently an imminent threat to themself and/or others. Patient will remain at chronically elevated risk for harm to self and/or others due to their impulsivity and substance abuse. -Continue medications: Earth 150 mg twice daily for mood stabilization/suicidal thoughts, Zoloft 50 mg daily for mood/anxiety, trazodone 150 mg nightly as needed for sleep -Patient was counseled on the need for medication compliance and appropriate follow-up at mental health and also primary care for medical issues. Patient verbalized understanding and agreed. -Social work to help coordinate patients discharge today. also to ensure safe home environment that guns/weapons are either removed from the home or locked away. Social work also to arrange for patients follow up appointments with [facility] for psychiatric care along with follow up with primary care provider. -Patient counseled on abstaining from recreational drugs and marijuana and alcohol. Was informed/educated on the adverse effects on their physical and mental health. Patient verbally agreed and understood. -Patient was instructed to return to the hospital or seek immediate medical care if their psychiatric or medical symptoms do worsen or reoccur. Allergies Allergy/AdvReac Type Severity Reaction Status Date / Time Metronidazole HCl AdvReac Nausea & Verified 09/01/24 03:25 [From Flagyl] Vomiting & Diarrhea NSAIDS (Non-Steroidal AdvReac Unknown Verified 09/01/24 13:36 Anti-Inflamma Laboratory Results WBC 7.2 k/uL (3.8-10.6) 09/01/24 07:15 RBC 4.49 m/uL (3.80-5.40) 09/01/24 07:15 Hgb 13.0 gm/dL (11.4-16.0) 09/01/24 07:15 Hct 41.3 % (34.0-46.0) 09/01/24 07:15 MCV 92.0 fL (80.0-100.0) 09/01/24 07:15 MCH 28.9 pg (25.0-35.0) 09/01/24 07:15 MCHC 31.5 g/dL (31.0-37.0) 09/01/24 07:15 RDW 13.2 % (11.5-15.5) 09/01/24 07:15 Plt Count 241 k/uL (150-450) 09/01/24 07:15 MPV 9.6 09/01/24 07:15 Neutrophils % 54 % 09/01/24 07:15 Lymphocytes % 33 % 09/01/24 07:15 Monocytes % 5 % 09/01/24 07:15 Eosinophils % 7 % 09/01/24 07:15 Basophils % 1 % 09/01/24 07:15 Neutrophils # 3.9 k/uL (1.3-7.7) 09/01/24 07:15 Lymphocytes # 2.3 k/uL (1.0-4.8) 09/01/24 07:15 Monocytes # 0.3 k/uL (0-1.0) 09/01/24 07:15 Eosinophils # 0.5 k/uL (0-0.7) 09/01/24 07:15 Basophils # 0.1 k/uL (0-0.2) 09/01/24 07:15 Sodium 137 mmol/L (137-145) 09/01/24 07:15 Potassium 3.9 mmol/L (3.5-5.1) 09/01/24 07:15 Chloride 107 mmol/L (98-107) 09/01/24 07:15 Carbon Dioxide 25 mmol/L (22-30) 09/01/24 07:15 Anion Gap 5 mmol/L 09/01/24 07:15 BUN 9 mg/dL (7-17) 09/01/24 07:15 Creatinine 0.57 mg/dL (0.52-1.04) 09/01/24 07:15 Est GFR (CKD-EPI)AfAm >90 (>60 ml/min/1.73 sqM) 09/01/24 07:15 Est GFR (CKD-EPI)NonAf >90 (>60 ml/min/1.73 sqM) 09/01/24 07:15 Glucose 76 mg/dL (74-99) 09/01/24 07:[address] Glu mg/dL 114 mg/dL 09/01/24 07:15 Hemoglobin A1c 5.6 % (<=6.0) 09/01/24 07:15 Calcium 9.2 mg/dL (8.4-10.2) 09/01/24 07:15 Total Bilirubin 0.6 mg/dL (0.2-1.3) 09/01/24 07:15 Conjugated Bilirubin 0.0 mg/dL (0.0-0.3) 09/01/24 07:15 Unconjugated Bilirubin 0.4 mg/dL (0.0-1.1) 09/01/24 07:15 Delta Bilirubin 0.2 mg/dL (0.0-0.2) 09/01/24 07:15 AST 15 U/L (14-36) 09/01/24 07:15 ALT 9 U/L (4-34) 09/01/24 07:15 Alkaline Phosphatase 51 U/L (38-126) 09/01/24 07:15 Total Protein 5.9 g/dL (6.3-8.2) L 09/01/24 07:15 Albumin 3.6 g/dL (3.5-5.0) 09/01/24 07:15 Triglycerides 138.00 mg/dL (0.00-149.00) 09/01/24 07:15 Cholesterol 173.00 mg/dL (0.00-200.00) 09/01/24 07:15 LDL Cholesterol, Calc 112.4 mg/dL (0.0-131.0) 09/01/24 07:15 VLDL Cholesterol, Calc 27.60 mg/dL (5.00-40.00) 09/01/24 07:15 HDL Cholesterol 33.00 mg/dL (40.00-60.00) L 09/01/24 07:15 Cholesterol/HDL Ratio 5.24 Ratio 09/01/24 07:15 TSH 1.960 mIU/L (0.465-4.680) 09/01/24 07:15 Urine Color Yellow 09/03/24 17:30 Urine Appearance Turbid (Clear) H 09/03/24 17:30 Urine pH 6.0 (5.0-8.0) 09/03/24 17:30 Ur Specific [place] 1.039 (1.001-1.035) H 09/03/24 17:30 Urine Protein 1+ (Negative) H 09/03/24 17:30 Urine Glucose (UA) Negative (Negative) 09/03/24 17:30 Urine Ketones 1+ (Negative) H 09/03/24 17:30 Urine Blood Negative (Negative) 09/03/24 17:30 Urine Nitrite Negative (Negative) 09/03/24 17:30 Urine Bilirubin Negative (Negative) 09/03/24 17:30 Urine Urobilinogen 2.0 mg/dL (<2.0) 09/03/24 17:30 Ur Leukocyte Esterase Negative (Negative) 09/03/24 17:30 Urine RBC 2 /hpf (0-5) 08/31/24 23:16 Urine WBC 8 /hpf (0-5) H 09/03/24 17:30 Ur Squamous Epith Cells 57 /hpf (0-4) H 09/03/24 17:30 Calcium Oxalate Crystal Few /hpf (None) H 09/03/24 17:30 Urine Mucus Many /hpf (None) H 09/03/24 17:30 Urine Yeast (Budding) Occasional /hpf (None) H 08/31/24 23:16 Urine HCG, Qual Not Detected (Not Detectd) 08/31/24 23:16 Urine Opiates Screen Not Detected (NotDetected) 08/31/24 23:16 Ur Oxycodone Screen Not Detected (NotDetected) 08/31/24 23:16 Urine Methadone Screen Not Detected (NotDetected) 08/31/24 23:16 Ur Barbiturates Screen Not Detected (NotDetected) 08/31/24 23:16 U Tricyclic Antidepress Not Detected (NotDetected) 08/31/24 23:16 Ur Phencyclidine Scrn Not Detected (NotDetected) 08/31/24 23:16 Ur Amphetamines Screen Not Detected (NotDetected) 08/31/24 23:16 U Methamphetamines Scrn Not Detected (NotDetected) 08/31/24 23:16 U Benzodiazepines Scrn Detected (NotDetected) H 08/31/24 23:16 Earth 0.3 mmol/L 09/05/24 08:02 Urine Cocaine Screen Not Detected (NotDetected) 08/31/24 23:16 U Marijuana (THC) Screen Detected (NotDetected) H 08/31/24 23:16 SARS-CoV-2 (PCR) Not Detected (Not Detectd) 09/01/24 00:14 Vital Signs Temp 98.0 F 09/04/24 21:47 Pulse 76 09/05/24 09:30 Resp 16 09/05/24 09:30 BP 117/82 09/05/24 09:30 Pulse Ox 99 09/04/24 08:39 FiO2 Patient Condition at Discharge: Stable Plan - Discharge Summary Discharge Rx Participant: Yes New Discharge Prescriptions: New traZODone HCL 150 mg PO HS PRN 30 Days #30 tablet PRN Reason: Insomnia Earth Carbonate 150 mg PO BID 30 Days #60 cap Nystatin 100,000 Unit/gm Oint [Mycostatin Oint] 1 applic TOPICAL BID 30 Days #1 each Cefdinir [Omnicef] 300 mg PO BID 2 Days #4 cap Sertraline [Zoloft] 50 mg PO DAILY 30 Days #30 tab Continue Omeprazole [PriLOSEC] 40 mg PO DAILY 30 Days #30 cap Discontinued Acetaminophen [Tylenol Extra Strength] 1,000 mg PO Q6HR PRN PRN Reason: Pain Amoxic-Pot Clav 875-125Mg [Augmentin 875-125] 1 tab PO Q12HR #20 tab Discharge Medication List Cefdinir [Omnicef] 300 mg PO BID 2 Days #4 cap 09/05/24 [Rx] Earth Carbonate 150 mg PO BID 30 Days #60 cap 09/05/24 [Rx] Nystatin 100,000 Unit/gm Oint [Mycostatin Oint] 1 applic TOPICAL BID 30 Days #1 each 09/05/24 [Rx] Omeprazole [PriLOSEC] 40 mg PO DAILY 30 Days #30 cap 09/05/24 [Rx] Sertraline [Zoloft] 50 mg PO DAILY 30 Days #30 tab 09/05/24 [Rx] traZODone HCL 150 mg PO HS PRN 30 Days #30 tablet 09/05/24 [Rx] Follow up Appointment(s)/Referral(s): [facility] [Outside] - 09/13/24 11:00 am (09/13/2024 11:00AM - 12:00PM Service: [id number] Scheduled 09/19/2024 1:00PM - 2:00PM Service: [id number] Scheduled ) Manuel Melgar DO [Primary Care Provider] - 1-2 days Activity/Diet/Wound Care/Special Instructions: [facility] Discharge Info Avoid the use of street drugs and alcohol. Take all medications as prescribed. When you are in need of refills on your medications, please contact your outpatient medical provider and/or outpatient psychiatrist. Please go to your scheduled outpatient appointments for aftercare treatment. If symptoms return or become worse, call the crisis line at or and/or visit the nearest emergency room for assistance. [place] Suicide and Crisis Lifeline - call or text [phone] Discharge Disposition: HOME SELF-CARE
== END 2024-09-05 12:02 | disposition home or self-care (01) | DRG 753 ==
LOC: EC 22:41 → 3MHU 09-01 02:54
PROVIDERS: ADMIT Psychiatry & Neurology Psychiatry; ATTEND Psychiatry & Neurology Psychiatry
DX: F31.30 Bipolar disorder, current episode depressed, mild or moderate severity, unspecified (principal); F12.10 Cannabis abuse, uncomplicated; F41.9 Anxiety disorder, unspecified; F90.9 Attention-deficit hyperactivity disorder, unspecified type; G43.909 Migraine, unspecified, not intractable, without status migrainosus; K21.9 Gastro-esophageal reflux disease without esophagitis; F43.10 Post-traumatic stress disorder, unspecified; F60.3 Borderline personality disorder; J45.909 Unspecified asthma, uncomplicated; R45.850 Homicidal ideations; R45.851 Suicidal ideations; Z79.899 Other long term (current) drug therapy; Z87.891 Personal history of nicotine dependence; Z91.51 Personal history of suicidal behavior; Z11.52 Encounter for screening for COVID-19; Z71.51 Drug abuse counseling and surveillance of drug abuser; Z28.21 Immunization not carried out because of patient refusal; Z88.6 Allergy status to analgesic agent; Z88.8 Allergy status to other drugs, medicaments and biological substances
CPT/HCPCS: 80053; 80061; 80178; 80306; 81001; 81025; 82075; 82248; 83036; 84443; 85025; 87635; 99285

== ENCOUNTER 2024-09-08 00:17 | Emergency (ER) | payer OTHER ==
[2024-09-08] MEDS: MORPHINE SULFATE 4 MG/ML SYRINGE IM STA (00:58)
--- NOTE | 2024-09-08 01:09 | XR ---
EXAMINATION TYPE: XR elbow complete RT DATE OF EXAM: 09/08/2024 1:02 AM COMPARISON: none CLINICAL INDICATION: Female, 33 years old with history of Pain; PHH, pain TECHNIQUE: XR elbow complete RT; elbow was examined in AP, lateral, and oblique projections. FINDINGS: No evidence of any acute osseous pathology, joint dislocation, or soft tissue swelling is n oted. No evidence of joint effusion is present. IMPRESSION: No evidence of acute fracture. [facility], , 09/08/2024 1:07 AM
--- NOTE | 2024-09-08 01:11 | XR ---
EXAMINATION TYPE: XR forearm RT DATE OF EXAM: 09/08/2024 1:02 AM COMPARISON: none CLINICAL INDICATION: Female, 33 years old with history of Pain; PHH, pain TECHNIQUE: XR forearm RT; forearm was examined in AP and lateral projections. FINDINGS: No acute osseous pathology, soft tissue swelling or joint dislocations are seen. Ulnar negative variance. IMPRESSION: No evidence of acute fracture [facility], , 09/08/2024 1:09 AM
--- NOTE | 2024-09-08 01:39 | ED ---
Upper Extremity HPI - General Chief Complaint: Extremity Injury, Upper Stated Complaint: right arm pain from fall Time Seen by Provider: 09/08/24 00:34 Source: patient, RN notes reviewed Mode of arrival: ambulatory Limitations: no limitations - History of Present Illness Initial Comments: This is a 33-year-old female who presents to the emergency department for a right arm injury. Patient states that she slipped and fell when she was admitted to the hospital on 3 W. This occurred about 5 days ago. She landed on her right elbow and has since had pain to this area. States that she had imaging done at the time and they could not exclude a subtle dislocation by the elbow. States that pain continues to persist. She is taking Tylenol without much relief. MD Complaint: Injury to:: right, elbow - Related Data Previous Rx's Medication Instructions Recorded Cefdinir [Omnicef] 300 mg PO BID 2 Days #4 cap 09/05/24 [place] Carbonate 150 mg PO BID 30 Days #60 cap 09/05/24 Nystatin 100,000 Unit/gm Oint 1 applic TOPICAL BID 30 Days #1 09/05/24 [Mycostatin Oint] each Omeprazole [PriLOSEC] 40 mg PO DAILY 30 Days #30 cap 09/05/24 Sertraline [Zoloft] 50 mg PO DAILY 30 Days #30 tab 09/05/24 traZODone HCL 150 mg PO HS PRN 30 Days #30 tablet 09/05/24 Allergies Allergy/AdvReac Type Severity Reaction Status Date / Time Metronidazole HCl AdvReac Nausea & Verified 09/08/24 00:24 [From Flagyl] Vomiting & Diarrhea NSAIDS (Non-Steroidal AdvReac Unknown Verified 09/08/24 00:24 Anti-Inflamma Review of Systems ROS Statement: Those systems with pertinent positive or pertinent negative responses have been documented in the HPI. ROS Other: All systems not noted in ROS Statement are negative. Past Medical History Past Medical History: Asthma, GERD/Reflux Additional Past Medical History / Comment(s): migraine, EXERCISE INDUCED ASTHMA History of Any Multi-Drug Resistant Organisms: None Reported Past Surgical History: Adenoidectomy, Bariatric Surgery, Cholecystectomy, Orthopedic Surgery, Tonsillectomy Additional Past Surgical History / Comment(s): Right knee surgery, ganglion cyst removal bilateral hands, hemorrhoidectomy, colonoscopy, EGD. Gastric sleeve 03/19/24, TRIGGER FINGER RELEASE LT MIDDLE FINGER, Past Anesthesia/Blood Transfusion Reactions: Postoperative Nausea & Vomiting (PONV) Past Psychological History: ADD/ADHD, Anxiety, Bipolar, Depression, PTSD Smoking Status: Former smoker Past Alcohol Use History: None Reported Past Drug Use History: Marijuana - Past Family History Mother Family Medical History: Cancer, Myocardial Infarction ([place]) Additional Family Medical History / Comment(s): basal cell ca Father Family Medical History: Cancer, COPD, Deep Vein Thrombosis (DVT), Vascular Disorder Additional Family Medical History / Comment(s): kidney ca General Exam Limitations: no limitations General appearance: alert, in no apparent distress Head exam: Present: atraumatic, normocephalic, normal inspection Respiratory exam: Present: normal lung sounds bilaterally. Absent: respiratory distress, wheezes, rales, rhonchi, stridor Cardiovascular Exam: Present: regular rate, normal rhythm Extremities exam: Present: other (Tenderness to palpation over the right elbow. No deformities or swelling. No ecchymosis. Range of motion intact but somewhat limited by pain. 2+ radial pulses.) Psychiatric exam: Present: normal affect, normal mood Skin exam: Present: warm, dry, intact, normal color. Absent: rash Course Vital Signs 09/08/24 09/08/24 00:23 01:57 Temperature 97.9 F 98.3 F Pulse Rate 79 60 Respiratory 18 16 Rate Blood Pressure 154/111 111/69 O2 Sat by Pulse 100 99 Oximetry Medical Decision Making - Medical Decision Making This is a 33-year-old female who presents to the emergency department for right elbow pain. Was pt. sent in by a medical professional or institution? @ -No Did you speak to anyone other than the patient for history? @ -No Did you review nursing and triage notes? @ -Yes, and I agree, it is accurate with regards to the patient's symptoms. Were old charts reviewed? @ -No Differential Diagnosis? @ -Differential Musculoskeletal Muscular strain, contusion, ligament sprain, fracture, arthritis, septic arthritis, bursitis, cellulitis, muscle spasm, nerve compression, DVT, arterial occlusion, herpes zoster, electrolyte abnormality, tumor.... This is not meant to be in all inclusive list EKG interpreted by me (3pts min.)? @ -Not obtained X-rays interpreted by me (1pt min.)? @ -X-ray of the right elbow and forearm obtained. My interpretation identifies no acute fractures. CT interpreted by me (1pt min.)? @ -Not obtained U/S interpreted by me (1pt. min.)? @ -Not obtained What testing was considered but not performed? (CT, X-rays, U/S, labs)? Why? @ -None What meds were considered but not given? Why? @ -None Did you discuss the management of the patient with other professionals? @ -No Did you reconcile home meds? @ -No Was smoking cessation discussed for >3mins.? @ -No Was critical care preformed (if so, how long)? @ -No Were there social determinants of health that impacted care today? How? (Homelessness, low income, unemployed, alcoholism, drug addiction, transportation, low edu. Level, literacy, decrease access to med. care, correction, rehab)? @ -No Was there de-escalation of care discussed even if they declined? (Discuss DNR or withdrawal of care, Hospice)? @ -No What co-morbidities impacted this encounter? (DM, HTN, Smoking, COPD, CAD, Cancer, CVA, Hep., AIDS, mental health diagnosis, sleep apnea, morbid obesity)? @ -None Was patient admitted / discharged? @ -Discharged. X-ray of the right elbow and forearm obtained revealing no acute process. Pain treated in the emergency department. Symptoms likely related to a contusion. Advised she continue with Tylenol as well as ice and elevation. Patient discharged home in stable condition and advised to follow-up with her PCP. Case discussed with ED attending Dr. Meier. Return precautions reviewed in depth, the patient is instructed to return to the emergency department with any new, worsening, or concerning symptoms. Patient verbalized understanding. Undiagnosed new problem with uncertain prognosis? @ -None Drug Therapy requiring intensive monitoring for toxicity (Heparin, Nitro, Insulin, Cardizem)? @ -None Were any procedures done? @ -None Diagnosis/symptom? @ -Fall, right elbow contusion Acute, or Chronic, or Acute on Chronic? @ -Acute Uncomplicated (without systemic symptoms) or Complicated (systemic symptoms)? @ -Uncomplicated Side effects of treatment? @ -None Exacerbation, Progression, or Severe Exacerbation] @ -Not applicable Poses a threat to life or bodily function? @ -No - Radiology Data Radiology results: report reviewed, image reviewed Disposition Clinical Impression: Contusion of right elbow, Fall Disposition: HOME SELF-CARE Condition: Stable Instructions (If sedation given, give patient instructions): Contusion in Adults (ED) Additional Instructions: Return to the emergency department with any new, worsening, or concerning symptoms. Continue to rest, ice, and elevate the arm. Follow up with your primary care provider in 1-2 days. Is patient prescribed a controlled substance at d/c from ED?: No Referrals: Manuel Melgar DO [Primary Care Provider] - 1-2 days Time of Disposition: 01:45
[2024-09-08] MEDS: traMADol 50 MG STARTER PACK 3 TAB BTL PO STA (01:51)
[2024-09-08 02:00] VITALS: BP 111/69; PULSE 60; RESP 16; TEMP 98.3
== END 2024-09-08 01:57 | disposition home or self-care (01) ==
LOC: EC 00:17
DX: S50.01XA Contusion of right elbow, initial encounter (principal); Z88.1 Allergy status to other antibiotic agents; Z88.6 Allergy status to analgesic agent; Z87.891 Personal history of nicotine dependence; W01.0XXA Fall on same level from slipping, tripping and stumbling without subsequent striking against object, initial encounter
CPT/HCPCS: 73080; 73090; 99283; 96372; J2270

== ENCOUNTER 2024-09-15 12:06 | Inpatient (IN) | payer MEDICAID, OTHER ==
--- NOTE | 2024-09-15 13:32 | ED ---
Psych HPI - General Chief Complaint: Psychiatric Symptoms Stated Complaint: Suicidal Time Seen by Provider: 09/15/24 13:25 Source: patient, RN notes reviewed Mode of arrival: wheelchair - History of Present Illness Initial Comments: 33-year-old female presenting for self-harm injuries earlier today. States she got into a verbal altercation with her brother and her father this morning, walked herself into the bathroom, and cut her wrists left forearm with a razor blade because she was angry. States she was not suicidal however the self- inflicted injuries made her feel better. Denies suicidal or homicidal ideation. States she was released from a mental facility 1 week ago. She also endorses cuts on her left thigh from 1 week ago. Last tetanus greater than 10 years. Also endorses racing thoughts and anxiety. - Related Data Home Medications Medication Instructions Recorded Confirmed Cholecalciferol (Vitamin D3) 1,250 mcg PO Q7D 09/15/24 09/15/24 [Vitamin D3 (1250 Mcg = 50,000 Iu)] Gabapentin [Neurontin] 400 mg PO TID PRN 09/15/24 09/15/24 hydrOXYzine pamoate [Vistaril] 25 mg PO DAILY PRN 09/15/24 09/15/24 Previous Rx's Medication Instructions Recorded Angle Inlet Carbonate 150 mg PO BID 30 Days #60 cap 09/05/24 Omeprazole [PriLOSEC] 40 mg PO DAILY 30 Days #30 cap 09/05/24 Sertraline [Zoloft] 50 mg PO DAILY 30 Days #30 tab 09/05/24 traZODone HCL 150 mg PO HS PRN 30 Days #30 tablet 09/05/24 Allergies Allergy/AdvReac Type Severity Reaction Status Date / Time Metronidazole HCl AdvReac Nausea & Verified 09/15/24 19:09 [From Flagyl] Vomiting & Diarrhea NSAIDS (Non-Steroidal AdvReac Unknown Verified 09/15/24 19:09 Anti-Inflamma Review of Systems ROS Statement: Those systems with pertinent positive or pertinent negative responses have been documented in the HPI. ROS Other: All systems not noted in ROS Statement are negative. Past Medical History Past Medical History: Asthma, GERD/Reflux Additional Past Medical History / Comment(s): migraine, EXERCISE INDUCED ASTHMA History of Any Multi-Drug Resistant Organisms: None Reported Past Surgical History: Adenoidectomy, Bariatric Surgery, Cholecystectomy, Orthopedic Surgery, Tonsillectomy Additional Past Surgical History / Comment(s): Right knee surgery, ganglion cyst removal bilateral hands, hemorrhoidectomy, colonoscopy, EGD. Gastric sleeve 03/19/24, TRIGGER FINGER RELEASE LT MIDDLE FINGER, Past Anesthesia/Blood Transfusion Reactions: Postoperative Nausea & Vomiting (PONV) Past Psychological History: ADD/ADHD, Anxiety, Bipolar, Depression, PTSD Smoking Status: Former smoker Past Alcohol Use History: None Reported Past Drug Use History: Marijuana - Past Family History Mother Family Medical History: Cancer, Myocardial Infarction ([place]) Additional Family Medical History / Comment(s): basal cell ca Father Family Medical History: Cancer, COPD, Deep Vein Thrombosis (DVT), Vascular Disorder Additional Family Medical History / Comment(s): kidney ca General Exam Limitations: no limitations General appearance: alert, in no apparent distress Head exam: Present: atraumatic, normocephalic, normal inspection Eye exam: Present: normal appearance, PERRL, EOMI. Absent: scleral icterus, conjunctival injection, periorbital swelling Left Elbow exam: Present: normal inspection, full ROM. Absent: tenderness, swelling Forearm Wrist exam: Present: full ROM, laceration. Absent: normal inspection (5 superficial vertical ventral lacerations extending from antecubital area to distal forearm, no active bleeding), tenderness, swelling Hand Wrist exam: Present: normal inspection, full ROM. Absent: tenderness, swelling Vascular: Present: normal capillary refill, radial pulse. Absent: vascular compromise Neurological exam: Present: alert, oriented X3 Psychiatric exam: Present: normal affect, normal mood. Absent: homicidal ideation, suicidal ideation Skin exam: Present: warm, dry, intact, normal color. Absent: rash Course Vital Signs 09/15/24 09/15/24 09/15/24 12:28 18:53 18:54 Temperature 98.2 F 98.7 F Pulse Rate 65 66 Respiratory 17 16 Rate Blood Pressure 104/71 110/75 O2 Sat by Pulse 98 99 Oximetry Medical Decision Making - Medical Decision Making Was pt. sent in by a medical professional or institution (, PA, OPERATING SYSTEMS PROGRAMMER, urgent care, hospital, or [facility]...) When possible be specific @ -No Did you speak to anyone other than the patient for history (EMS, parent, family, police, friend...)? What history was obtained from this source @ -No Did you review nursing and triage notes (agree or disagree)? Why? @ -I reviewed and agree with nursing and triage notes Were old charts reviewed (outside hosp., previous admission, EMS record, old EKG, old radiological studies, urgent care reports/EKG's, [facility] records)? Report findings @ -No old charts were reviewed Differential Diagnosis (chest pain, altered mental status, abdominal pain women, abdominal pain men, vaginal bleeding, weakness, fever, dyspnea, syncope, headache, dizziness, GI bleed, back pain, seizure, CVA, palpatations, mental health, musculoskeletal)? @ -Differential Mental Health Depression, anxiety, bipolar, psychosis, schizophrenia, borderline personality, situational depression, adjustment disorder, behavioral disorder, brain tumor, malingering, substance abuse, encephalopathy, medication reaction, dementia, hypothyroidism, degenerative neurologic disorder, lupus.... This is not meant to be all-inclusive list EKG interpreted by me (3pts min.). @ -None X-rays interpreted by me (1pt min.). @ -None done CT interpreted by me (1pt min.). @ -None done U/S interpreted by me (1pt. min.). @ -None done What testing was considered but not performed or refused? (CT, X-rays, U/S, labs)? Why? @ -None What meds were considered but not given or refused? Why? @ -None Did you discuss the management of the patient with other professionals (professionals i.e. , PA, OPERATING SYSTEMS PROGRAMMER, lab, RT, psych nurse, social worker health services, binder cutter, teacher, stream control officer, catalytic case operator)? Give summary @ -I spoke with EPS who recommends admission for further psychiatric evaluation and treatment. Patient will be discharged as she is not agreeable to admission Was smoking cessation discussed for >3mins.? @ -No Was critical care preformed (if so, how long)? @ -No Were there social determinants of health that impacted care today? How? (Homelessness, low income, unemployed, alcoholism, drug addiction, transp ortation, low edu. Level, literacy, decrease access to med. care, nursing home, rehab)? @ -No Was there de-escalation of care discussed even if they declined (Discuss DNR or withdrawal of care, Hospice)? DNR status @ -No What co-morbidities impacted this encounter? (DM, HTN, Smoking, COPD, CAD, Cancer, CVA, ARF, Chemo, Hep., AIDS, mental health diagnosis, sleep apnea, morbid obesity)? @ -None Was patient admitted / discharged? Hospital course, mention meds given and route, prescriptions, significant lab abnormalities, going to OR and other pertinent info. @ -33-year-old female presenting for self-harm to left forearm. There are 5 vertical, superficial lacerations present on left forearm. Wounds are thoroughly irrigated and Steri-Strips applied. Tetanus was updated. Patient has been cleared to be seen by EPS who recommends admission. I agree with this plan. Patient will need certification as she is not agreeable to admission. Case was discussed with my ED attending Dr. Rod. Undiagnosed new problem with uncertain prognosis? @ -No Drug Therapy requiring intensive monitoring for toxicity (Heparin, Nitro, Insulin, Cardizem)? @ -No Were any procedures done? @ -No Diagnosis/symptom? @ -Self harming behavior Acute, or Chronic, or Acute on Chronic? @ -Acute Uncomplicated (without systemic symptoms) or Complicated (systemic symptoms)? @ -Complicated Side effects of treatment? @ -No Exacerbation, Progression, or Severe Exacerbation? @ -No Poses a threat to life or bodily function? How? (Chest pain, [place], NH, pneumonia, PE, COPD, DKA, ARF, appy, cholecystitis, CVA, Diverticulitis, Homicidal, Suicidal, threat to staff... and all critical care pts) @ -Yes - Lab Data Lab Results 09/15/24 Range/Units 13:35 Urine Opiates Screen Not Detected (NotDetected) Ur Oxycodone Screen Not Detected (NotDetected) Urine Methadone Screen Not Detected (NotDetected) Ur Barbiturates Screen Not Detected (NotDetected) U Tricyclic Antidepress Not Detected (NotDetected) Ur Phencyclidine Scrn Not Detected (NotDetected) Ur Amphetamines Screen Not Detected (NotDetected) U Methamphetamines Scrn Not Detected (NotDetected) U Benzodiazepines Scrn Not Detected (NotDetected) Urine Cocaine Screen Not Detected (NotDetected) U Marijuana (THC) Screen Detected H (NotDetected) Disposition Clinical Impression: Self-harming behavior Disposition: ADMITTED IP TO THIS HOSP Referrals: Manuel Melgar DO [Primary Care Provider] - 1-2 days Time of Disposition: 19:23
[2024-09-15 13:56] LABS: Amphetamine Screen,Urine Not Detected (NotDetected); Barbiturate Screen,Urine Not Detected (NotDetected); Benzodiazepines Screen,Urine Not Detected (NotDetected); Cocaine Screen,Urine Not Detected (NotDetected); Methadone Screen, Urine Not Detected (NotDetected); Opiate Screen,Urine Not Detected (NotDetected); Oxycodone Screen, Urine Not Detected (NotDetected); Phencyclidine Screen,Urine Not Detected (NotDetected); Tricyclic Antidepressant,Urine Not Detected (NotDetected); Urn Cannabinoid Scrn Detected (NotDetected)
[2024-09-15] MEDS: DIPH,PERTUS(ACELL)TETVAC-LF 0.5 ML VIAL IM ONE (16:19)
[2024-09-15] MEDS ORDERED: MAGNESIUM HYDROXIDE 2,400 MG/30 ML CUP PO PRN (21:56)
[2024-09-15] MEDS ORDERED: LORazepam 2 MG/ML INJ IM PRN (21:56)
[2024-09-15] MEDS ORDERED: MAG HYDROX/AL HYDROX/SIMETH 355 ML BOTTLE PO PRN (21:56)
[2024-09-15] MEDS: LORazepam 0.5 MG TAB PO PRN (22:59)
[2024-09-16] MEDS: ERGOCALCIFEROL 1,250 MCG (50,000 IU) CAPSULE PO SCH (00:08)
[2024-09-16] MEDS: SERTRALINE 50 MG TAB PO SCH (08:24)
[2024-09-16] MEDS: LITHIUM CARBONATE 150 MG CAP PO SCH (08:24)
[2024-09-16] MEDS: PANTOPRAZOLE 40 MG TABLET PO SCH (08:24)
[2024-09-16 08:30] LABS: Basophils # (A) 0.1 k/uL (0-0.2); Basophils % (A) 1 %; Eosinophils # (A) 0.7 k/uL (0-0.7); Eosinophils % (A) 6 %; HCT 42.3 % (34.0-46.0); HGB 13.6 gm/dL (11.4-16.0); Lymphocytes # (A) 2.1 k/uL (1.0-4.8); Lymphocytes % (A) 18 %; MCH 28.6 pg (25.0-35.0); MCHC 32.3 g/dL (31.0-37.0); MCV 88.6 fL (80.0-100.0); Mean Platelet Volume 8.8; Monocytes # (A) 0.4 k/uL (0-1.0); Monocytes % (A) 3 %; Neutrophils # (A) 8.2 k/uL (1.3-7.7); Neutrophils % (A) 71 %; Platelet Count 304 k/uL (150-450); RBC 4.77 m/uL (3.80-5.40); RDW 12.9 % (11.5-15.5); WBC 11.6 k/uL (3.8-10.6)
[2024-09-16 09:27] LABS: ALT 12 U/L (4-34); AST 15 U/L (14-36); African American GFR (CKD) >90 (>60 ml/min/1.73 sqM); Albumin 3.9 g/dL (3.5-5.0); Alkaline Phosphatase 66 U/L (38-126); Anion Gap 8 mmol/L; Bilirubin, Delta 0.2 mg/dL (0.0-0.2); Bilirubin,Unconjugated 0.5 mg/dL (0.0-1.1); Blood Urea Nitrogen 8 mg/dL (7-17); Calcium 9.6 mg/dL (8.4-10.2); Carbon Dioxide 25 mmol/L (22-30); Chloride 107 mmol/L (98-107); Glucose 88 mg/dL (74-99); Lithium <0.2 mmol/L; Non-African American GFR(CKD) >90 (>60 ml/min/1.73 sqM); Potassium 4.6 mmol/L (3.5-5.1); Sodium 140 mmol/L (137-145); Total Bilirubin 0.7 mg/dL (0.2-1.3); Total Protein 6.3 g/dL (6.3-8.2)
--- NOTE | 2024-09-16 11:13 | P.HP ---
Psychiatric H&P - . H&P Date: 09/16/24 History & Physical: Allergies Allergy/AdvReac Type Severity Reaction Status Date / Time Metronidazole HCl AdvReac Nausea & Verified 09/15/24 19:09 [From Flagyl] Vomiting & Diarrhea NSAIDS (Non-Steroidal AdvReac Unknown Verified 09/15/24 19:09 Anti-Inflamma Vital Signs Temp 98.0 F 09/16/24 08:25 Pulse 68 09/16/24 08:25 Resp 16 09/16/24 08:25 BP 107/68 09/16/24 08:25 Pulse Ox 99 09/16/24 08:25 FiO2 Intake & Output 09/15/24 09/16/24 09/16/24 18:59 06:59 18:59 Weight 75.296 kg 73.652 kg Laboratory Last Values Urine HCG, Qual Not Detected (Not Detectd) 09/15/24 13:35 Urine Opiates Screen Not Detected (NotDetected) 09/15/24 13:35 Ur Oxycodone Screen Not Detected (NotDetected) 09/15/24 13:35 Urine Methadone Screen Not Detected (NotDetected) 09/15/24 13:35 Ur Barbiturates Screen Not Detected (NotDetected) 09/15/24 13:35 U Tricyclic Antidepress Not Detected (NotDetected) 09/15/24 13:35 Ur Phencyclidine Scrn Not Detected (NotDetected) 09/15/24 13:35 Ur Amphetamines Screen Not Detected (NotDetected) 09/15/24 13:35 U Methamphetamines Scrn Not Detected (NotDetected) 09/15/24 13:35 U Benzodiazepines Scrn Not Detected (NotDetected) 09/15/24 13:35 Urine Cocaine Screen Not Detected (NotDetected) 09/15/24 13:35 U Marijuana (THC) Screen Detected (NotDetected) H 09/15/24 13:35 SARS-CoV-2 (PCR) Not Detected (Not Detectd) 09/15/24 19:59 09/16/24 08:29 IDENTIFYING DATA: Patient is a , employed, 33-year-old female who is presenting with suicidal ideation HPI: Patient presented to the ED with multiple superficial lacerations. Collateral history provided by her mother indicated that patient has been "making suicidal statements about wanting to kill herself ". Patient is calm and cooperative on assessment this morning. She states that she felt physically trapped in the bathroom by her mother and brother who were arguing. She decided to cut herself in an attempt to get her family to give her space. She denies having it be a suicide attempt. Patient is minimizing making suicidal statements in the past week. However, she endorses having numerous stressors recently including her leaving the home abruptly which caused her to feel abandoned and living with numerous family members with difficult interpersonal conflicts. She reports tolerating lithium, Zoloft, and trazodone well currently. She endorses compliance with the medication. She states that despite being on the medications, she continues to have elevated amounts of anxiety and difficulty regulating her mood and frustration tolerance. She reports having trouble controlling her anxiety and states that she worries about "everything ". She expresses that her daily anxiety leads her to have higher amounts of distress over triggers. She reports continuing to her outbursts and being impulsive at baseline. Patient denies current suicidal ideation, intent, and plan. She denies homicidal ideation. She denies auditory visual hallucinations. She denies symptoms consistent with katelyn. She denies all other substance use except using cannabis daily. She denies access to firearms or weapons. PSYCH HX: Patient has a history of borderline personality disorder, bipolar disorder, PTSD. Hx of being on Prozac and trazodone. States that she follows up at [facility] with [facility] nurse practitioner, claims that she is starting to get enrolled in a DBT program at [facility]. States that she has had 3 suicide attempts in the past including overdosing cutting and attempting to drown herself. Patient was most recently admitted in August 2024 at this unit. She was discharged on 09/05/24. At the time, she was discharged on lithium 150 mg twice a day, Zoloft 50 mg daily, and trazodone 150 mg at night as needed. PMH: Past Medical History: Asthma, GERD/Reflux Additional Past Medical History / Comment(s): migraine, EXERCISE INDUCED ASTHMA History of Any Multi-Drug Resistant Organisms: None Reported Past Surgical History: Adenoidectomy, Bariatric Surgery, Cholecystectomy, Orthopedic Surgery, Tonsillectomy Additional Past Surgical History / Comment(s): Right knee surgery, ganglion cyst removal bilateral hands, hemorrhoidectomy, colonoscopy, EGD. Gastric sleeve 03/19/24, TRIGGER FINGER RELEASE LT MIDDLE FINGER, Past Anesthesia/Blood Transfusion Reactions: Postoperative Nausea & Vomiting (PONV) Past Psychological History: ADD/ADHD, Anxiety, Bipolar, Depression, PTSD Smoking Status: Former smoker Past Alcohol Use History: None Reported Past Drug Use History: Marijuana ALLERGIES: As per EMR SUBSTANCE HX: as per HPI SOCIAL/LEGAL HX: Patient was born and raised in [facility], claims that she completed up to the ninth grade in school, states that she has been to prison in the past for assault and battery charges and also domestic violence. She is she has 1 kid she lives with her family in a house, she works as a nanny. FAM PSYCH HX: hat her father has bipolar, mother has depression and anxiety, sister has depression, brother has bipolar MENTAL STATUS EXAM: General Appearance: Patient appears to be mildly overweight, hair dyed purple blue, several tattoos, stated age is alert, irritable at times, attempts to cooperate. Patient appears to have fair hygiene and grooming. Behavior: Patient is seated without any agitated behavior. Speech: Patient's speech is fluent and nonpressured. Mood/Affect: Patient reports their mood is anxious, affect is congruent and constricted. Suicidality/Homicidality: Patient denies suicidal and homicidal ideation Perceptions: Patient denies any visual hallucinations and denies any auditory h allucinations Though content/process: There is no evidence of any delusional thought content and thought process is linear and goal-directed. Memory and concentration: AOX3, grossly intact for the purposes of this session. Can spell "WORLD" backwards Judgment and insight: Poor impulsive STRENGTHS/WEAKNESSES: strength is that patient is resilient. Weakness is that patient has poor judgment and is impulsive INTELLECT: average IMPRESSIONS: Depressive disorder, unspecified. Hx bipolar Generalized anxiety disorder Borderline Personality Disorder Cannabis use disorder PLAN: -Patient is admitted under voluntary status to [facility]HU for stabilization of psychiatric symptoms and safety. Patient signed adult voluntary form and medication consent and is placed in patient's chart. -Medications : Resume lithium 150 mg twice a day for mood augmentation and suicidal ideation, continue Zoloft 50 mg daily for depression and anxiety, start Clonidine 0.1 mg BID for anxiety, continue trazodone 150 mg at bedtime as needed for sleep -Ativan PRN for agitation/anxiety -NRT -not needed as patient does not smoke -Patient was counselled on substance abuse and desired to cut back on use. Motivational interviewing. -Patient was informed of the risks, benefits and side effects of the medication and patient verbally consented to taking the medications. Patient signed med consent form and was placed in chart. -Internal Medicine consult to perform medical evaluation and physical. -SW on board for discharge planning. Encourage patient to participate in groups to work on coping skills. 09/16/24 08:30 09/16/24 10:50
--- NOTE | 2024-09-16 12:23 | P.CONS ---
History of Present Illness - History of Present Illness This is a pleasant 33 years old female with past medical history of multiple medical problems including asthma and bipolar disorder. Presents to the mental health unit for psychiatric symptoms. Other than that she denies any specific symptoms like no chest pain or dyspnea. No specific GI/ symptoms no headache dizziness. She is walking and gait is fine normal. She denies smoking or illicit drugs. Hemodynamic stable and she is afebrile. Labs showing mild leukocytosis of 11.6 rest of CBC, BMP and LFT were unremarkable. TSH is normal at 2.7. Urine hCG is not detected. Urine drug screen is positive for marijuana. Platter less than 0.2. COVID test was negative. Review of Systems Review of systems CONSTITUTIONAL: No fever, no malaise, no fatigue. HEENT: No recent visual problems or hearing problems. Denied any sore throat. CARDIOVASCULAR: No orthopnea, PND, no palpitations, no syncope. PULMONARY: No shortness of breath, no cough, no hemoptysis. GASTROINTESTINAL: No diarrhea, no nausea, no vomiting, no abdominal pain. Normoactive bowel sounds. NEUROLOGICAL: No headaches, no weakness, no numbness. HEMATOLOGICAL: Denies any bleeding or petechiae. GENITOURINARY: Denies any burning micturition, frequency, or urgency. MUSCULOSKELETAL/RHEUMATOLOGICAL: Denies any joint pain, swelling, or any muscle pain. ENDOCRINE: Denies any polyuria or polydipsia. Past Medical History Past Medical History: Asthma, GERD/Reflux Additional Past Medical History / Comment(s): migraine, EXERCISE INDUCED ASTHMA History of Any Multi-Drug Resistant Organisms: None Reported Past Surgical History: Adenoidectomy, Bariatric Surgery, Cholecystectomy, Orthopedic Surgery, Tonsillectomy Additional Past Surgical History / Comment(s): Right knee surgery, ganglion cyst removal bilateral hands, hemorrhoidectomy, colonoscopy, EGD. Gastric sleeve 03/19/24, TRIGGER FINGER RELEASE LT MIDDLE FINGER, Past Anesthesia/Blood Transfusion Reactions: Postoperative Nausea & Vomiting (PONV) Past Psychological History: ADD/ADHD, Anxiety, Bipolar, Depression, PTSD Smoking Status: Former smoker Past Alcohol Use History: None Reported Additional Past Alcohol Use History / Comment(s): SMOKING SINCE AGE 18 quit October Past Drug Use History: Marijuana Additional Drug Use History / Comment(s): edibles-INSTRUCTED TO REFRAIN FROM USE FOR AT LEAST 24 HOURS PRIOR TO PROCEDURE - Past Family History Mother Family Medical History: Cancer, Myocardial Infarction ([place]) Additional Family Medical History / Comment(s): basal cell ca Father Family Medical History: Cancer, COPD, Deep Vein Thrombosis (DVT), Vascular D isorder Additional Family Medical History / Comment(s): kidney ca Medications and Allergies Home Medications Medication Instructions Recorded Confirmed Type Platter Carbonate 150 mg PO BID 30 Days #60 cap 09/05/24 09/15/24 Rx Omeprazole [PriLOSEC] 40 mg PO DAILY 30 Days #30 cap 09/05/24 09/15/24 Rx Sertraline [Zoloft] 50 mg PO DAILY 30 Days #30 tab 09/05/24 09/15/24 Rx traZODone HCL 150 mg PO HS PRN 30 Days #30 tablet 09/05/24 09/15/24 Rx Cholecalciferol (Vitamin D3) 1,250 mcg PO Q7D 09/15/24 09/15/24 History [Vitamin D3 (1250 Mcg = 50,000 Iu)] Gabapentin [Neurontin] 400 mg PO TID PRN 09/15/24 09/15/24 History hydrOXYzine pamoate [Vistaril] 25 mg PO DAILY PRN 09/15/24 09/15/24 History Allergies Allergy/AdvReac Type Severity Reaction Status Date / Time Metronidazole HCl AdvReac Nausea & Verified 09/15/24 19:09 [From Flagyl] Vomiting & Diarrhea NSAIDS (Non-Steroidal AdvReac Unknown Verified 09/15/24 19:09 Anti-Inflamma Physical Exam Vitals: Vital Signs Temp Pulse Pulse Resp BP BP Pulse Ox 09/16/24 08:25 98.0 F 68 16 107/68 99 09/15/24 21:42 97.2 F L 62 16 130/70 95 09/15/24 18:54 110/75 09/15/24 18:53 98.7 F 66 16 99 09/15/24 12:28 98.2 F 65 17 104/71 98 Intake and Output 09/15/24 09/16/24 09/16/24 22:59 06:59 14:59 Other: Weight 73.652 kg 74.8 kg GENERAL: The patient is alert and oriented x3, not in any acute distress. Well developed, well nourished. HEENT: Pupils are round and equally reacting to light. EOMI. No scleral icterus. No conjunctival pallor. Normocephalic, atraumatic. No pharyngeal erythema. No thyromegaly. CARDIOVASCULAR: S1 and S2 present. No murmurs, rubs, or gallops. PULMONARY: Chest is clear to auscultation, no wheezing , no crackles. ABDOMEN: Soft, nontender, nondistended, normoactive bowel sounds. No palpable organomegaly. MUSCULOSKELETAL: No joint swelling or deformity. EXTREMITIES: No cyanosis, clubbing, or pedal edema. NEUROLOGICAL: Gross neurological examination did not reveal any focal deficits. SKIN: No rashes. no petechiae. Results CBC & Chem 7: 09/16/24 08:06 09/16/24 08:06 Labs: Abnormal Lab Results - Last 24 Hours (Table) 09/15/24 09/16/24 Range/Units 13:35 08:06 WBC 11.6 H (3.8-10.6) k/uL Neutrophils # 8.2 H (1.3-7.7) k/uL U Marijuana (THC) Screen Detected H (NotDetected) Assessment and Plan Assessment: Assessment and plan: -Depression and other psych illnesses management as per psych primary team -Hypertension, continue with clonidine to help her mentation -Asthma, not an active issue -Obesity with BMI 31.2 -GERD: Continue with Protonix Low risk for DVT, patient is mobile Thank you for consulting us Recommend patient follow-up with PCP Dr. Melgar in 1 week after discharge
[2024-09-16 13:34] LABS: Chol/HDL Ratio 5.28 Ratio; LDL Cholesterol,Calculated 102.4 mg/dL (0.0-131.0)
[2024-09-16] MEDS: cloNIDine HCL 0.1 MG TAB PO SCH (20:22)
[2024-09-16] MEDS: traZODone HCL 50 MG TAB PO PRN (20:23)
--- NOTE | 2024-09-17 11:13 | P.PN ---
Progress Note - Text Progress Note Date: 09/17/24 Interval History: Patient was seen today wandering the hallways agreeable to speak to tag writer. She was fairly focused on discharge today, minimizing the suicide attempt and cutting herself. Claims that she was in distress at home. Her lithium level on admission was low. Patient was minimizing her mood and also anxiety. Claims that her mother took time off of work to watch her. She was fairly argumentative today, irritable. She was also tearful when she was informed that she would not be discharged today. Claims that she is sleeping fairly at nighttime. Claims that she is going to some groups. Claims to have a fair appetite. Denies any suicidal homicidal ideations intent or plan denies any auditory or visual hallucinations. MENTAL STATUS EXAM: General Appearance: Patient appears to be mildly overweight, hair dyed purple blue, several tattoos, stated age is alert, irritable at times, attempts to cooperate. Patient appears to have fair hygiene and grooming. Behavior: Patient is seated without any agitated behavior. Irritable, argumentative Speech: Patient's speech is fluent and nonpressured. Mood/Affect: Patient reports their mood is anxious, minimize, affect is congruent and labile Suicidality/Homicidality: Patient denies suicidal and homicidal ideation Perceptions: Patient denies any visual hallucinations and denies any auditory hallucinations Though content/process: There is no evidence of any delusional thought content and thought process is linear and goal-directed. Minimizing her need for hospitalization, focused on discharge Memory and concentration: AOX3, grossly intact for the purposes of this session Judgment and insight: Poor impulsive IMPRESSIONS: Depressive disorder, unspecified. Hx bipolar Generalized anxiety disorder Borderline Personality Disorder Cannabis use disorder PLAN: -Patient is admitted under voluntary status to MHU for stabilization of psychiatric symptoms and safety. Patient signed adult voluntary form and medication consent and is placed in patient's chart. -Medications : Increase lithium 450 mg daily for mood augmentation and suicidal ideation, increase Zoloft 100 mg daily for depression and anxiety, Clonidine 0.1 mg BID for anxiety, continue trazodone 150 mg at bedtime for sleep -Ativan and Vistaril PRN for agitation/anxiety -NRT -not needed as patient does not smoke -SW on board for discharge planning. Encourage patient to participate in groups to work on coping skills. Hopeful for discharge in 2 to 3 days if patient is improving
[2024-09-17] MEDS: hydrOXYzine pamoate 25 MG CAP PO PRN (11:57)
[2024-09-17] MEDS: traZODone HCL 50 MG TAB PO SCH (20:17)
[2024-09-17] MEDS: LITHIUM CARBONATE 150 MG CAP PO ONE (20:17)
[2024-09-18] MEDS: LITHIUM CARBONATE ER 450 MG TABLET.ER PO SCH (08:08)
[2024-09-18] MEDS: SERTRALINE 100 MG TAB PO SCH (08:08)
--- NOTE | 2024-09-18 10:23 | P.PN ---
Progress Note - Text Progress Note Date: 09/18/24 Interval History: Patient was seen today wandering the hallways agreeable to speak to short story writer. Kirit hao apologized for yesterday's outburst when she threw the water in the hallway. She claims that she was just upset that she was not being able to be released back home to her son. Claims that she feels much calmer today thanked short story writer for adjusting her medications. Denies any irritability denies any mood swings. Claims that her mood/depression and anxiety have been improving. Denies any issues with her medications at this time. We will check a lithium level tomorrow morning. She was less focused on discharge today has been going to groups. Has been eating well and also states that she slept well last night. Denies any suicidal homicidal ideations intent or plan denies any auditory or visual hallucinations. MENTAL STATUS EXAM: General Appearance: Patient appears to be mildly overweight, hair dyed purple blue, several tattoos, stated age is alert,attempts to cooperate. Patient appears to have fair hygiene and grooming. Behavior: Patient is seated without any agitated behavior. More cooperative today Speech: Patient's speech is fluent and nonpressured. Mood/Affect: Patient reports their mood is improving, affect is congruent Suicidality/Homicidality: Patient denies suicidal and homicidal ideation Perceptions: Patient denies any visual hallucinations and denies any auditory hallucinations Though content/process: There is no evidence of any delusional thought content and thought process is linear and goal-directed. Less focused on discharge Memory and concentration: AOX3, grossly intact for the purposes of this session Judgment and insight: Improving mildly IMPRESSIONS: Depressive disorder, unspecified. Hx bipolar Generalized anxiety disorder Borderline Personality Disorder Cannabis use disorder PLAN: -Patient is admitted under voluntary status to MHU for stabilization of psychiatric symptoms and safety. Patient signed adult voluntary form and medication consent and is placed in patient's chart. -Medications : lithium 450 mg daily for mood augmentation and suicidal ideation, Zoloft 100 mg daily for depression and anxiety, Clonidine 0.1 mg BID for anxiety, continue trazodone 150 mg at bedtime for sleep -Ativan and Vistaril PRN for agitation/anxiety -NRT -not needed as patient does not smoke -SW on board for discharge planning. Encourage patient to participate in groups to work on coping skills. Hopeful for discharge tomorrow if patient is improving. will check lithium level in the am.
[2024-09-19] MEDS: ACETAMINOPHEN TAB 325 MG TAB PO PRN (08:52)
[2024-09-19 10:04] VITALS: BP 106/65; PULSE 65; RESP 20; TEMP 96.6
--- NOTE | 2024-09-19 10:49 | P.DS ---
Providers Date of admission: 09/15/24 21:31 Expected date of discharge: 09/19/24 Attending physician: Aubrey Xavier MD Consults: 09/15/24 21:56 Consult Physician Routine Consulting Provider: [facility] Consult Reason/Comments: History and Physical, New Admission Do you want consulting provider notified?: Yes Primary care physician: Manuel Melgar - Discharge Diagnosis(es) (1) Depressive disorder Current Visit: Yes Status: Acute Priority: High (2) Generalized anxiety disorder Current Visit: Yes Status: Acute Priority: High (3) Borderline personality disorder Current Visit: Yes Status: Acute Priority: High (4) Cannabis use disorder Current Visit: Yes Status: Acute Priority: Medium Hospital Course: Admission HPI: Admission note was completed by Dr Kramer "Patient is a , employed, 33-year-old female who is presenting with suicidal ideation. Patient presented to the ED with multiple superficial lacerations. Collateral history provided by her mother indicated that patient has been "making suicidal statements about wanting to kill herself ". Patient is calm and cooperative on assessment this morning. She states that she felt physically trapped in the bathroom by her mother and brother who were arguing. She decided to cut herself in an attempt to get her family to give her space. She denies having it be a suicide attempt. Patient is minimizing making suicidal statements in the past week. However, she endorses having numerous stressors recently including her leaving the home abruptly which caused her to feel abandoned and living with numerous family members with difficult interpersonal conflicts. She reports tolerating lithium, Zoloft, and trazodone well currently. She endorses compliance with the medication. She states that despite being on the medications, she continues to have elevated amounts of anxiety and difficulty regulating her mood and frustration tolerance. She reports having trouble controlling her anxiety and states that she worries about "everything ". She expresses that her daily anxiety leads her to have higher amounts of distress over triggers. She reports continuing to her outbursts and being impulsive at baseline. Patient denies current suicidal ideation, intent, and plan. She denies homicidal ideation. She denies auditory visual hallucinations. She denies symptoms consistent with katelyn. She denies all other substance use except using cannabis daily. She denies access to firearms or weapons." Hospital course: Upon admission to the unit patient was directable and agreeable to commence treatment and signed adult voluntary form. Patient was initially irritable hostile however with time and treatment patient got along well with other patients on the unit and followed unit protocol. Patient was compliant with the medications and denied any side effects throughout hospital course. Patient was started on an increased dose of lithium 450 mg daily for mood augm entation/suicidal ideations, Zoloft 100 mg daily for mood/anxiety, trazodone 150 mg nightly for sleep/mood. Patient spoke of her stressors and engaged in therapy both group/activity therapy. Patient was also seen by medical team for history and physical exam. Patient had a lithium level on day of discharge which was 0.3. throughout the course of the hospitalization patient gradually improved with regards to mood, anxiety, lability/mood stabilization, sleep and returned back to their baseline level of functioning. On the day of discharge patient denied any suicidal or homicidal ideations intent or plan denied any auditory or visual hallucinations. Patient endorsed wanting to live for their health and family. The patient denied any access to guns or weapons. Patient denied any paranoia and did not endorse any delusions. Patient does have a significant history of substance abuse and was counseled on abstaining from all substances including alcohol and marijuana. Patient was offered however declined inpatient substance-abuse rehab. Patient elected to do outpatient substance use treatment program through their outpatient provider. Patient was also counseled on the medications and need for regular compliance and was encouraged to follow-up with their outpatient appointment for mental health and also for primary care. Prior to discharge a family meeting will be arranged by social media senior associate to answer any questions and ensure safety upon discharge incuding making sure that guns/weapons are either removed from the home or locked away. Mental status exam: General Appearance: Patient appears to be mildly overweight, several tattoos, wearing glasses, stated age is alert, pleasant, and cooperative. Patient is in no acute distress and has improved hygiene and grooming Behavior: Patient is calmly seated without any agitated behavior. Speech: Patient's speech is fluent and nonpressured. Mood/Affect: Patient reports their mood is "better", affect is congruent and euthymic. Suicidality/Homicidality: Patient denies having any suicidal or homicidal ideation intent or plan. Perceptions: Patient denies any auditory or visual hallucinations. Though content/process: There is no evidence of any delusional thought content and thought process is linear and goal-directed. More future oriented Memory and concentration: AOX3, grossly intact for the purposes of this session. Can spell "WORLD" backwards correctly. Judgment and insight: improved with guarded prognosis Impression: Depressive disorder unspecified Generalized anxiety disorder Borderline personality disorder Cannabis use disorder Plan: -Continue with discharge today as patient has improved and stabilized psychiatrically and is not currently an imminent threat to themself and/or others. Patient will remain at chronically elevated risk for harm to self and/or others due to their impulsivity and substance abuse. -Continue medications: Lithobid 450 mg daily for mood stabilization/augmentation, Zoloft 100 mg daily for depression/anxiety, will hold clonidine at this time due to hypotension, trazodone 150 mg nightly for sleep/mood. -Patient was counseled on the need for medication compliance and appropriate follow-up at mental health and also primary care for medical issues. Patient verbalized understanding and agreed. -Social work to help coordinate patients discharge today. also to ensure safe home environment that guns/weapons are either removed from the home or locked away. Social work also to arrange for patients follow up appointments with [facility] for psychiatric care along with follow up with primary care provider. -Patient counseled on abstaining from recreational drugs and marijuana and alcohol. Was informed/educated on the adverse effects on their physical and mental health. Patient verbally agreed and understood. -Patient was instructed to return to the hospital or seek immediate medical care if their psychiatric or medical symptoms do worsen or reoccur. Allergies Allergy/AdvReac Type Severity Reaction Status Date / Time Metronidazole HCl AdvReac Nausea & Verified 09/15/24 19:09 [From Flagyl] Vomiting & Diarrhea NSAIDS (Non-Steroidal AdvReac Unknown Verified 09/15/24 19:09 Anti-Inflamma Laboratory Results WBC 11.6 k/uL (3.8-10.6) H 09/16/24 08:06 RBC 4.77 m/uL (3.80-5.40) 09/16/24 08:06 Hgb 13.6 gm/dL (11.4-16.0) 09/16/24 08:06 Hct 42.3 % (34.0-46.0) 09/16/24 08:06 MCV 88.6 fL (80.0-100.0) 09/16/24 08:06 MCH 28.6 pg (25.0-35.0) 09/16/24 08:06 MCHC 32.3 g/dL (31.0-37.0) 09/16/24 08:06 RDW 12.9 % (11.5-15.5) 09/16/24 08:06 Plt Count 304 k/uL (150-450) 09/16/24 08:06 MPV 8.8 09/16/24 08:06 Neutrophils % 71 % 09/16/24 08:06 Lymphocytes % 18 % 09/16/24 08:06 Monocytes % 3 % 09/16/24 08:06 Eosinophils % 6 % 09/16/24 08:06 Basophils % 1 % 09/16/24 08:06 Neutrophils # 8.2 k/uL (1.3-7.7) H 09/16/24 08:06 Lymphocytes # 2.1 k/uL (1.0-4.8) 09/16/24 08:06 Monocytes # 0.4 k/uL (0-1.0) 09/16/24 08:06 Eosinophils # 0.7 k/uL (0-0.7) 09/16/24 08:06 Basophils # 0.1 k/uL (0-0.2) 09/16/24 08:06 Sodium 140 mmol/L (137-145) 09/16/24 08:06 Potassium 4.6 mmol/L (3.5-5.1) 09/16/24 08:06 Chloride 107 mmol/L (98-107) 09/16/24 08:06 Carbon Dioxide 25 mmol/L (22-30) 09/16/24 08:06 Anion Gap 8 mmol/L 09/16/24 08:06 BUN 8 mg/dL (7-17) 09/16/24 08:06 Creatinine 0.69 mg/dL (0.52-1.04) 09/16/24 08:06 Est GFR (CKD-EPI)AfAm >90 (>60 ml/min/1.73 sqM) 09/16/24 08:06 Est GFR (CKD-EPI)NonAf >90 (>60 ml/min/1.73 sqM) 09/16/24 08:06 Glucose 88 mg/dL (74-99) 09/16/24 08:[address] Glu mg/dL 111 mg/dL 09/16/24 08:06 Hemoglobin A1c 5.5 % (<=6.0) 09/16/24 08:06 Calcium 9.6 mg/dL (8.4-10.2) 09/16/24 08:06 Total Bilirubin 0.7 mg/dL (0.2-1.3) 09/16/24 08:06 Conjugated Bilirubin 0.0 mg/dL (0.0-0.3) 09/16/24 08:06 Unconjugated Bilirubin 0.5 mg/dL (0.0-1.1) 09/16/24 08:06 Delta Bilirubin 0.2 mg/dL (0.0-0.2) 09/16/24 08:06 AST 15 U/L (14-36) 09/16/24 08:06 ALT 12 U/L (4-34) 09/16/24 08:06 Alkaline Phosphatase 66 U/L (38-126) 09/16/24 08:06 Total Protein 6.3 g/dL (6.3-8.2) 09/16/24 08:06 Albumin 3.9 g/dL (3.5-5.0) 09/16/24 08:06 Triglycerides 165.00 mg/dL (0.00-149.00) H 09/16/24 08:06 Cholesterol 167.00 mg/dL (0.00-200.00) 09/16/24 08:06 LDL Cholesterol, Calc 102.4 mg/dL (0.0-131.0) 09/16/24 08:06 VLDL Cholesterol, Calc 33.00 mg/dL (5.00-40.00) 09/16/24 08:06 HDL Cholesterol 31.60 mg/dL (40.00-60.00) L 09/16/24 08:06 Cholesterol/HDL Ratio 5.28 Ratio 09/16/24 08:06 TSH 2.760 mIU/L (0.465-4.680) 09/16/24 08:06 Urine HCG, Qual Not Detected (Not Detectd) 09/15/24 13:35 Urine Opiates Screen Not Detected (NotDetected) 09/15/24 13:35 Ur Oxycodone Screen Not Detected (NotDetected) 09/15/24 13:35 Urine Methadone Screen Not Detected (NotDetected) 09/15/24 13:35 Ur Barbiturates Screen Not Detected (NotDetected) 09/15/24 13:35 U Tricyclic Antidepress Not Detected (NotDetected) 09/15/24 13:35 Ur Phencyclidine Scrn Not Detected (NotDetected) 09/15/24 13:35 Ur Amphetamines Screen Not Detected (NotDetected) 09/15/24 13:35 U Methamphetamines Scrn Not Detected (NotDetected) 09/15/24 13:35 U Benzodiazepines Scrn Not Detected (NotDetected) 09/15/24 13:35 [place] 0.3 mmol/L 09/19/24 08:44 Urine Cocaine Screen Not Detected (NotDetected) 09/15/24 13:35 U Marijuana (THC) Screen Detected (NotDetected) H 09/15/24 13:35 SARS-CoV-2 (PCR) Not Detected (Not Detectd) 09/15/24 19:59 Vital Signs Temp 96.6 F L 09/19/24 09:00 Pulse 65 09/19/24 09:00 Resp 20 09/19/24 09:00 BP 106/65 09/19/24 09:00 Pulse Ox 99 09/18/24 21:00 FiO2 Patient Condition at Discharge: Stable Plan - Discharge Summary Discharge Rx Participant: Yes New Discharge Prescriptions: New Pantoprazole [Protonix] 40 mg PO AC-BRKFST 30 Days #30 tab Acetaminophen Tab [Tylenol] 650 mg PO Q4HR PRN tab PRN Reason: Mild Pain (Scale 1 To 3) [place] Carbonate ER [Lithobid] 450 mg PO DAILY 30 Days #30 tab hydrOXYzine pamoate [Vistaril] 25 mg PO DAILY PRN 30 Days #30 cap PRN Reason: Anxiety Sertraline [Zoloft] 100 mg PO DAILY 30 Days #30 tab Continue Cholecalciferol (Vitamin D3) [Vitamin D3 (1250 Mcg = 50,000 Iu)] 1,250 mcg PO Q7D traZODone HCL 150 mg PO HS PRN 30 Days #30 tablet PRN Reason: Insomnia Discontinued hydrOXYzine pamoate [Vistaril] 25 mg PO DAILY PRN PRN Reason: Anxiety [place] Carbonate 150 mg PO BID 30 Days #60 cap Sertraline [Zoloft] 50 mg PO DAILY 30 Days #30 tab Omeprazole [PriLOSEC] 40 mg PO DAILY 30 Days #30 cap Gabapentin [Neurontin] 400 mg PO TID PRN PRN Reason: Pain Discharge Medication List Cholecalciferol (Vitamin D3) [Vitamin D3 (1250 Mcg = 50,000 Iu)] 1,250 mcg PO Q7D 09/15/24 [History] Acetaminophen Tab [Tylenol] 650 mg PO Q4HR PRN tab 09/19/24 [Rx] [place] Carbonate ER [Lithobid] 450 mg PO DAILY 30 Days #30 tab 09/19/24 [Rx] Pantoprazole [Protonix] 40 mg PO AC-BRKFST 30 Days #30 tab 09/19/24 [Rx] Sertraline [Zoloft] 100 mg PO DAILY 30 Days #30 tab 09/19/24 [Rx] hydrOXYzine pamoate [Vistaril] 25 mg PO DAILY PRN 30 Days #30 cap 09/19/24 [Rx] traZODone HCL 150 mg PO HS PRN 30 Days #30 tablet 09/19/24 [Rx] Follow up Appointment(s)/Referral(s): [facility] [Outside] - 09/20/24 8:00 am ([facility] w Dr. Turner 09/20/24 @ 800 am 09/20 @ 8:[address] Turner 09/21 @ 10:00 with Sharyn Butler 09/25 @ 9:30 with Kandis Negro 09/25 @ 11:00 with Ambika Osborn) Manuel Melgar DO [Primary Care Provider] - 1-2 days Activity/Diet/Wound Care/Special Instructions: [facility] Discharge Info Avoid the use of street drugs and alcohol. Take all medications as prescribed. When you are in need of refills on your medications, please contact your outpatient medical provider and/or outpatient psychiatrist. Please go to your scheduled outpatient appointments for aftercare treatment. If symptoms return or become worse, call the crisis line at or and/or visit the nearest emergency room for assistance. National Suicide and Crisis Lifeline - call or text 988 Discharge Disposition: HOME SELF-CARE
== END 2024-09-19 12:33 | disposition home or self-care (01) | DRG 751 ==
LOC: EC 12:06 → 3MHU 21:31
PROVIDERS: ADMIT Psychiatry & Neurology Psychiatry; ATTEND Psychiatry & Neurology Psychiatry
DX: F32.A Depression, unspecified (principal); F12.10 Cannabis abuse, uncomplicated; F41.1 Generalized anxiety disorder; F43.10 Post-traumatic stress disorder, unspecified; F60.3 Borderline personality disorder; E66.9 Obesity, unspecified; I10 Essential (primary) hypertension; G43.909 Migraine, unspecified, not intractable, without status migrainosus; J45.990 Exercise induced bronchospasm; J45.909 Unspecified asthma, uncomplicated; I95.9 Hypotension, unspecified; K21.9 Gastro-esophageal reflux disease without esophagitis; F90.9 Attention-deficit hyperactivity disorder, unspecified type; Z68.31 Body mass index [BMI] 31.0-31.9, adult; Z79.899 Other long term (current) drug therapy; Z87.891 Personal history of nicotine dependence; Z91.51 Personal history of suicidal behavior; Z71.51 Drug abuse counseling and surveillance of drug abuser; Z71.89 Other specified counseling; Z88.6 Allergy status to analgesic agent; Z88.2 Allergy status to sulfonamides; Z98.84 Bariatric surgery status
CPT/HCPCS: 80053; 80061; 80178; 80306; 81025; 82248; 83036; 84443; 85025; 87635; 90471; 90715; 99285

== ENCOUNTER 2024-10-24 23:33 | Emergency (ER) | payer OTHER ==
[2024-10-24 23:40] VITALS: TEMP 98.2
[2024-10-25] MEDS: KETOROLAC 15 MG/ML 1 ML VIAL IM STA (01:15)
--- NOTE | 2024-10-25 03:14 | ED ---
Lower Extremity Injury HPI - General Chief Complaint: Extremity Injury, Lower Stated Complaint: Knee pain Time Seen by Provider: 10/24/24 23:58 Source: patient Mode of arrival: wheelchair - History of Present Illness Initial Comments: 33-year-old female presenting with chief complaint of right knee pain. Patient states that yesterday she was walking down the steps on her porch when a piece of wood slipped causing her to fall. She hit her knee and since then has had a burning pain in her knee. Particularly along the lateral aspect of the knee. Feels better when it is held in slight flexion. Worse with weightbearing and complete extension. No numbness or tingling. There is some very mild swelling. - Related Data Home Medications Medication Instructions Recorded Confirmed Cholecalciferol (Vitamin D3) 1,250 mcg PO Q7D 09/15/24 09/15/24 [Vitamin D3 (1250 Mcg = 50,000 Iu)] Previous Rx's Medication Instructions Recorded Acetaminophen Tab [Tylenol] 650 mg PO Q4HR PRN tab 09/19/24 [place] Carbonate ER [Lithobid] 450 mg PO DAILY 30 Days #30 tab 09/19/24 Pantoprazole [Protonix] 40 mg PO AC-BRKFST 30 Days #30 tab 09/19/24 Sertraline [Zoloft] 100 mg PO DAILY 30 Days #30 tab 09/19/24 hydrOXYzine pamoate [Vistaril] 25 mg PO DAILY PRN 30 Days #30 cap 09/19/24 traZODone HCL 150 mg PO HS PRN 30 Days #30 tablet 09/19/24 Allergies Allergy/AdvReac Type Severity Reaction Status Date / Time Metronidazole HCl AdvReac Nausea & Verified 09/15/24 19:09 [From Flagyl] Vomiting & Diarrhea NSAIDS (Non-Steroidal AdvReac Unknown Verified 09/15/24 19:09 Anti-Inflamma Review of Systems ROS Statement: Those systems with pertinent positive or pertinent negative responses have been documented in the HPI. ROS Other: All systems not noted in ROS Statement are negative. Past Medical History Past Medical History: Asthma, GERD/Reflux Additional Past Medical History / Comment(s): migraine, EXERCISE INDUCED ASTHMA History of Any Multi-Drug Resistant Organisms: None Reported Past Surgical History: Adenoidectomy, Bariatric Surgery, Cholecystectomy, Orthopedic Surgery, Tonsillectomy Additional Past Surgical History / Comment(s): Right knee surgery, ganglion cyst removal bilateral hands, hemorrhoidectomy, colonoscopy, EGD. Gastric sleeve 03/19/24, TRIGGER FINGER RELEASE LT MIDDLE FINGER, Past Anesthesia/Blood Transfusion Reactions: Postoperative Nausea & Vomiting (PONV) Past Psychological History: ADD/ADHD, Anxiety, Bipolar, Depression, PTSD Smoking Status: Former smoker Past Alcohol Use History: None Reported Past Drug Use History: Marijuana - Past Family History Mother Family Medical History: Cancer, Myocardial Infarction ([place]) Additional Family Medical History / Comment(s): basal cell ca Father Family Medical History: Cancer, COPD, Deep Vein Thrombosis (DVT), Vascular Disorder Additional Family Medical History / Comment(s): kidney ca General Exam Limitations: no limitations General appearance: alert, in no apparent distress Head exam: Present: atraumatic, normocephalic, normal inspection Eye exam: Present: normal appearance, EOMI Neck exam: Present: normal inspection. Absent: meningismus Respiratory exam: Absent: respiratory distress Cardiovascular Exam: Present: regular rate Right Knee exam: Present: full ROM, tenderness, swelling (Very mild). Absent: ecchymosis, deformity Neurovascular tendon exam: Present: no vascular compromise Neurological exam: Present: alert, oriented X3 Psychiatric exam: Present: normal affect, normal mood Skin exam: Present: warm, dry, normal color Course Vital Signs 10/24/24 10/25/24 23:36 03:22 Temperature 98.2 F Pulse Rate 58 L 64 Respiratory 18 16 Rate Blood Pressure 100/71 117/75 O2 Sat by Pulse 98 98 Oximetry Medical Decision Making - Medical Decision Making Was pt. sent in by a medical professional or institution (, PA, WEB APPLICATION DEV SPECIALIST, urgent care, hospital, or senior living...) When possible be specific @ -No Did you speak to anyone other than the patient for history (EMS, parent, family, police, friend...)? What history was obtained from this source @ -No Did you review nursing and triage notes (agree or disagree)? Why? @ -I reviewed and agree with nursing and triage notes Were old charts reviewed (outside hosp., previous admission, EMS record, old EKG, old radiological studies, urgent care reports/EKG's, senior living records)? Report findings @ -No old charts were reviewed Differential Diagnosis (chest pain, altered mental status, abdominal pain women, abdominal pain men, vaginal bleeding, weakness, fever, dyspnea, syncope, headache, dizziness, GI bleed, back pain, seizure, CVA, palpatations, mental health, musculoskeletal)? @ -Differential Musculoskeletal Muscular strain, contusion, ligament sprain, fracture, arthritis, septic arthritis, bursitis, cellulitis, muscle spasm, nerve compression, DVT, arterial occlusion, herpes zoster, electrolyte abnormality, tumor.... This is not meant to be in all inclusive list EKG interpreted by me (3pts min.). @ -As above X-rays interpreted by me (1pt min.). @ -No obvious acute process seen by my interpretation of the knee x-ray. Formal report is still pending CT interpreted by me (1pt min.). @ -None done U/S interpreted by me (1pt. min.). @ -None done What testing was considered but not performed or refused? (CT, X-rays, U/S, labs)? Why? @ -None What meds were considered but not given or refused? Why? @ -None Did you discuss the management of the patient with other professionals (professionals i.e. , PA, WEB APPLICATION DEV SPECIALIST, lab, RT, psych nurse, social services, hot press operator, teacher, energy control officer, counseling case manager)? Give summary @ -No Was smoking cessation discussed for >3mins.? @ -No Was critical care preformed (if so, how long)? @ -No Were there social determinants of health that impacted care today? How? (Homelessness, low income, unemployed, alcoholism, drug addiction, transportation, low edu. Level, literacy, decrease access to med. care, alf, rehab)? @ -No Was there de-escalation of care discussed even if they declined (Discuss DNR or withdrawal of care, Hospice)? DNR status @ -No What co-morbidities impacted this encounter? (DM, HTN, Smoking, COPD, CAD, Cancer, CVA, ARF, Chemo, Hep., AIDS, mental health diagnosis, sleep apnea, morbid obesity)? @ -None Was patient admitted / discharged? Hospital course, mention meds given and route, prescriptions, significant lab abnormalities, going to OR and other pertinent info. @ -33-year-old female presenting with chief complaint of right knee pain. She slipped off her porch yesterday. History and physical examination are conduc alexi. She is neurovascularly intact. X-ray shows no obvious acute process. Patient is educated on today's findings and supportive management at home. Follow-up with PCP. Report back to ER with any new or worsening symptoms. Discussed return parameters and answered all questions. Patient conveyed verbal understanding and agreed to the plan. I discussed this case in detail with my attending Dr. Raymond Undiagnosed new problem with uncertain prognosis? @ -No Drug Therapy requiring intensive monitoring for toxicity (Heparin, Nitro, Insulin, Cardizem)? @ -No Were any procedures done? @ -No Diagnosis/symptom? @ -Knee pain Acute, or Chronic, or Acute on Chronic? @ -Acute Uncomplicated (without systemic symptoms) or Complicated (systemic symptoms)? @ -Uncomplicated Side effects of treatment? @ -No Exacerbation, Progression, or Severe Exacerbation? @ -No Poses a threat to life or bodily function? How? (Chest pain, [place], [place], pneumonia, PE, COPD, DKA, ARF, appy, cholecystitis, CVA, Diverticulitis, Homicidal, Suicidal, threat to staff... and all critical care pts) @ -No Disposition Clinical Impression: Knee pain Disposition: HOME SELF-CARE Condition: Good Instructions (If sedation given, give patient instructions): Knee Pain (ED) Additional Instructions: Follow-up with PCP. Report back to ER with any new or worsening symptoms. Take Motrin and Tylenol as needed for pain control. Rest, ice, compress, elevate the knee. Is patient prescribed a controlled substance at d/c from ED?: No Referrals: Andriy Meneses MD [Primary Care Provider] - 1-2 days Time of Disposition: 03:14
[2024-10-25 03:22] VITALS: BP 117/75; PULSE 64; RESP 16
--- NOTE | 2024-10-25 06:45 | XR ---
EXAMINATION TYPE: XR knee complete RT DATE OF EXAM: 10/25/2024 CLINICAL INDICATION: Female, 33 years old with history of injury, pain TECHNIQUE: Frontal, lateral, and oblique views of the knee were obtained. COMPARISON: Right knee x-rays May 20, 2013. FINDINGS: There is no acute fracture/dislocation evident in right knee. The tri-compartment joint s paces appear within normal limits. The overlying soft tissue appears unremarkable. IMPRESSION: There is no acute fracture or dislocation in the right knee. No significant change from prior. [facility], , 10/25/2024 6:43 AM
== END 2024-10-25 03:23 | disposition home or self-care (01) ==
LOC: EC 23:33
DX: M25.561 Pain in right knee (principal); Z87.891 Personal history of nicotine dependence; Z88.1 Allergy status to other antibiotic agents; Z88.6 Allergy status to analgesic agent; W01.0XXA Fall on same level from slipping, tripping and stumbling without subsequent striking against object, initial encounter; Y93.01 Activity, walking, marching and hiking
CPT/HCPCS: 73562; 99283; 96372; J1885

== ENCOUNTER 2024-11-15 21:32 | Emergency (ER) | payer OTHER ==
[2024-11-15 21:40] VITALS: RESP 18; TEMP 98.4
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
[2024-11-15] MEDS: Acetaminophen-Codeine 300-30mg TAB PO STA (22:11)
--- NOTE | 2024-11-15 23:49 | CT ---
EXAM: CT Head Without Intravenous Contrast CLINICAL HISTORY: ITS.REASON CT Reason: pain, GALINDO TECHNIQUE: Axial computed tomography images of the head/brain without intravenous contrast. CTDI is 25.8 mGy and DLP is 753.6 mGy-cm. This CT exam was performed using one or more of the following dose reduction techniques: automated exposure control, adjustment of the mA and/or kV according to patient size, and/or use of iterative reconstruction technique. COMPARISON: No relevant prior studies available. FINDINGS: No acute intracranial hemorrhage. No midline shift or mass effect. The territorial suarez-white matter differentiation is maintained throughout. The ventricles and sulci are commensurate with age. The visualized orbits appear grossly unremarkable. The calvarium is intact. The visualized paranasal sinuses and mastoid air cells are grossly clear. IMPRESSION: No acute intracranial hemorrhage, midline shift, or mass effect. EXAM: CT Cervical Spine Without Intravenous Contrast CLINICAL HISTORY: ITS.REASON CT Reason: pain, GALINDO TECHNIQUE: Axial computed tomography images of the cervical spine without intravenous contrast. CTDI is 8.8 mGy and DLP is 245.6 mGy-cm. This CT exam was performed using one or more of the following dose reduction techniques: automated exposure control, adjustment of the mA and/or kV according to patient size, and/or use of iterative reconstruction technique. COMPARISON: No relevant prior studies available. FINDINGS: The vertebral body heights are maintained. The craniocervical junction is intact. The atlanto-dens interval is maintained. The dens is intact. There is no spondylolisthesis. The intervertebral disc spaces are preserved. There is no spinal canal or neural foraminal stenosis. IMPRESSION: No acute fracture or subluxation of the cervical spine.
--- NOTE | 2024-11-16 00:02 | CT ---
EXAM: CT Maxillofacial Without Intravenous Contrast CLINICAL HISTORY: ITS.REASON CT Reason: pain, GALINDO TECHNIQUE: Axial computed tomography images of the face without intravenous contrast. CTDI is 25.8 mGy and DLP is 753.6 mGy-cm. This CT exam was performed using one or more of the following dose reduction techniques: automated exposure control, adjustment of the mA and/or kV according to patient size, and/or use of iterative reconstruction technique. COMPARISON: No relevant prior studies available. FINDINGS: The mandible is intact. Intact maxillary alveolus. No orbital floor fracture. The intraorbital contents are grossly unremarkable. Intact nasal bone, nasal septum, and maxillary spine. The zygomatic arches and pterygoid processes are intact. IMPRESSION: No facial bone fracture.
[2024-11-16 00:36] VITALS: BP 121/79; PULSE 61
== END 2024-11-16 00:43 | disposition home or self-care (01) ==
LOC: EC 21:32
DX: S00.83XA Contusion of other part of head, initial encounter (principal); Z87.891 Personal history of nicotine dependence; Z88.1 Allergy status to other antibiotic agents; Z88.6 Allergy status to analgesic agent; W51.XXXA Accidental striking against or bumped into by another person, initial encounter
CPT/HCPCS: 70450; 70486; 72125; 99284

== ENCOUNTER → 2024-12-14 | Outpatient (CLI) | payer OTHER ==
--- NOTE | 2025-01-07 08:04 | P.HOLTER ---
Holter monitor shows sinus mechanism, heart rates ranging from 38-143 beats minute Nighttime bradycardia No arrhythmias When patient triggered an event, sinus tachycardia was noted
--- NOTE | 2025-01-08 08:22 | HM ---
Holter monitor shows sinus mechanism, heart rates ranging from 38-143 beats minute. Nighttime bradycardia. No arrhythmias. When patient triggered an event, sinus tachycardia was noted. MTDD
== END | disposition home or self-care (01) ==
LOC: RADECHMAIN 13:00
PROVIDERS: ATTEND Family Medicine
DX: R00.0 Tachycardia, unspecified (principal); R00.2 Palpitations; R00.1 Bradycardia, unspecified
CPT/HCPCS: 93225

== ENCOUNTER 2024-12-18 00:12 | Emergency (ER) | payer OTHER ==
[2024-12-18 00:17] VITALS: RESP 18
--- NOTE | 2024-12-18 00:57 | ED ---
General Adult HPI - General Chief complaint: Back Pain/Injury Stated complaint: Upper back pain Time Seen by Provider: 12/18/24 00:53 Source: patient Mode of arrival: wheelchair Limitations: no limitations - History of Present Illness Initial comments: 34-year-old female presents to the emergency department for evaluation of upper back and neck pain. Patient states that this started 2 days ago. She notes that this started after lifting up her friend's kids. She notes that the pain is made worse with movement. She notes this afternoon that the pain was improved but when she went to bed this evening it seemed to be worse again. She denies any chest pain, shortness of breath. She notes that the pain is reproducible and worse with movement. She does note taking her muscle relaxers which has helped somewhat. - Related Data Home Medications Medication Instructions Recorded Confirmed Cholecalciferol (Vitamin D3) 1,250 mcg PO Q7D 09/15/24 09/15/24 [Vitamin D3 (1250 Mcg = 50,000 Iu)] Previous Rx's Medication Instructions Recorded Acetaminophen Tab [Tylenol] 650 mg PO Q4HR PRN tab 09/19/[address] [place] Carbonate ER [Lithobid] 450 mg PO DAILY 30 Days #30 tab 09/19/24 Pantoprazole [Protonix] 40 mg PO AC-BRKFST 30 Days #30 tab 09/19/24 Sertraline [Zoloft] 100 mg PO DAILY 30 Days #30 tab 09/19/24 hydrOXYzine pamoate [Vistaril] 25 mg PO DAILY PRN 30 Days #30 cap 09/19/24 traZODone HCL 150 mg PO HS PRN 30 Days #30 tablet 09/19/24 Lidocaine 5% Patch [Lidoderm 5% 1 patch TOPICAL DAILY #30 patch 12/18/24 Patch] Allergies Allergy/AdvReac Type Severity Reaction Status Date / Time Metronidazole HCl AdvReac Nausea & Verified 11/15/24 21:40 [From Flagyl] Vomiting & Diarrhea NSAIDS (Non-Steroidal AdvReac Unknown Verified 11/15/24 21:40 Anti-Inflamma Review of Systems ROS Statement: Those systems with pertinent positive or pertinent negative responses have been documented in the HPI. ROS Other: All systems not noted in ROS Statement are negative. Past Medical History Past Medical History: Asthma, GERD/Reflux Additional Past Medical History / Comment(s): migraine, EXERCISE INDUCED ASTHMA History of Any Multi-Drug Resistant Organisms: None Reported Past Surgical History: Adenoidectomy, Bariatric Surgery, Cholecystectomy, Orthopedic Surgery, Tonsillectomy Additional Past Surgical History / Comment(s): Right knee surgery, ganglion cyst removal bilateral hands, hemorrhoidectomy, colonoscopy, EGD. Gastric sleeve 03/19/24, TRIGGER FINGER RELEASE LT MIDDLE FINGER, Past Anesthesia/Blood Transfusion Reactions: Postoperative Nausea & Vomiting (PONV) Past Psychological History: ADD/ADHD, Anxiety, Bipolar, Depression, PTSD Smoking Status: Former smoker Past Alcohol Use History: None Reported Past Drug Use History: Marijuana - Past Family History Mother Family Medical History: Cancer, Myocardial Infarction ([place]) Additional Family Medical History / Comment(s): basal cell ca Father Family Medical History: Cancer, COPD, Deep Vein Thrombosis (DVT), Vascular Disorder Additional Family Medical History / Comment(s): kidney ca General Exam Limitations: no limitations General appearance: alert, in no apparent distress Head exam: Present: atraumatic, normocephalic, normal inspection Eye exam: Present: normal appearance, PERRL, EOMI. Absent: scleral icterus, conjunctival injection, periorbital swelling ENT exam: Present: normal exam, mucous membranes moist Respiratory exam: Present: normal lung sounds bilaterally. Absent: respiratory distress, wheezes, rales, rhonchi, stridor Cardiovascular Exam: Present: regular rate, normal rhythm, normal heart sounds. Absent: systolic murmur, diastolic murmur, rubs, gallop, clicks Extremities exam: Present: normal inspection, full ROM, normal capillary refill. Absent: tenderness, pedal edema, joint swelling, calf tenderness Back exam: Present: normal inspection Neurological exam: Present: alert, oriented X3 Psychiatric exam: Present: normal affect, normal mood Skin exam: Present: warm, dry, intact, normal color. Absent: rash Course Vital Signs 12/18/24 00:14 Temperature 97.8 F Pulse Rate 61 Respiratory 18 Rate Blood Pressure 123/85 O2 Sat by Pulse 98 Oximetry Medical Decision Making - Medical Decision Making Was pt. sent in by a medical professional or institution (, PA, DISK SHARPENER, urgent care, hospital, or residential...) When possible be specific @ -No Did you speak to anyone other than the patient for history (EMS, parent, family, police, friend...)? What history was obtained from this source @ -No Did you review nursing and triage notes (agree or disagree)? Why? @ -I reviewed and agree with nursing and triage notes Were old charts reviewed (outside hosp., previous admission, EMS record, old EKG, old radiological studies, urgent care reports/EKG's, residential records)? Report findings @ -No old charts were reviewed Differential Diagnosis (chest pain, altered mental status, abdominal pain women, abdominal pain men, vaginal bleeding, weakness, fever, dyspnea, syncope, headache, dizziness, GI bleed, back pain, seizure, CVA, palpatations, mental health, musculoskeletal)? @ -Differential Back Pain: Strain, zoster, cauda equina syndrome, epidural abscess, vertebral osteomyelitis, discitis, fracture, subluxation, disc herniation, DJD, spinal stenosis, dissection, AAA, pancreatitis, peptic ulcer disease, pyelonephritis, kidney stone, this is not meant to be an all-inclusive list. EKG interpreted by me (3pts min.). @ -None X-rays interpreted by me (1pt min.). @ -None done CT interpreted by me (1pt min.). @ -None done U/S interpreted by me (1pt. min.). @ -None done What testing was considered but not performed or refused? (CT, X-rays, U/S, labs)? Why? @ -None What meds were considered but not given or refused? Why? @ -None Did you discuss the management of the patient with other professionals (professionals i.e. , PA, DISK SHARPENER, lab, RT, psych nurse, social science analyst, glove presser, teacher, airline pilot/first officer, manager of case)? Give summary @ -No Was smoking cessation discussed for >3mins.? @ -No Was critical care preformed (if so, how long)? @ -No Were there social determinants of health that impacted care today? How? (Homelessness, low income, unemployed, alcoholism, drug addiction, transportation, low edu. Level, literacy, decrease access to med. care, [facility]ci, rehab)? @ -No Was there de-escalation of care discussed even if they declined (Discuss DNR or withdrawal of care, Hospice)? DNR status @ -No What co-morbidities impacted this encounter? (DM, HTN, Smoking, COPD, CAD, Cancer, CVA, ARF, Chemo, Hep., AIDS, mental health diagnosis, sleep apnea, morbid obesity)? @ -None Was patient admitted / discharged? Hospital course, mention meds given and route, prescriptions, significant lab abnormalities, going to OR and other pertinent info. @ -Discharge. Patient presented emergency department for neck and back discomfort. Pain improved with muscle relaxers, anti-inflammatories. Patient does not have any red flag symptoms at this time including loss of bowel or bladder function, saddle anesthesia. Patient will be discharged home with lidocaine patches. Patient is understanding agreeable with plan. Patient stable at time of discharge. Case discussed with Dr. Rod. Undiagnosed new problem with uncertain prognosis? @ -No Drug Therapy requiring intensive monitoring for toxicity (Heparin, Nitro, Insulin, Cardizem)? @ -No Were any procedures done? @ -No Diagnosis/symptom? @ -Back strain Acute, or Chronic, or Acute on Chronic? @ -Acute Uncomplicated (without systemic symptoms) or Complicated (systemic symptoms)? @ -Uncomplicated Side effects of treatment? @ -No Exacerbation, Progression, or Severe Exacerbation? @ -No Poses a threat to life or bodily function? How? (Chest pain, [place], [place], pneumonia, PE, COPD, DKA, ARF, appy, cholecystitis, CVA, Diverticulitis, Homicidal, Suicidal, threat to staff... and all critical care pts) @ -No Disposition Clinical Impression: Muscle strain Disposition: HOME SELF-CARE Condition: Stable Instructions (If sedation given, give patient instructions): Acute Neck Pain (ED) Additional Instructions: Please follow with your doctor. Return to the emergency department for new or worsening symptoms. Prescriptions: Lidocaine 5% Patch [Lidoderm 5% Patch] 1 patch TOPICAL DAILY #30 patch Is patient prescribed a controlled substance at d/c from ED?: No Referrals: Andriy Meneses MD [Primary Care Provider] - 1-2 days
[2024-12-18] MEDS: ORPHENADRINE 30 MG/ML 2 ML VIAL IM STA (01:26)
[2024-12-18] MEDS: LIDOCAINE 4% PATCH TOPICAL ONE (01:26)
[2024-12-18] MEDS: KETOROLAC 15 MG/ML 1 ML VIAL IM STA (01:26)
[2024-12-18 02:21] VITALS: BP 113/71; PULSE 57; TEMP 98.7
== END 2024-12-18 02:21 | disposition home or self-care (01) ==
LOC: EC 00:12
DX: S39.012A Strain of muscle, fascia and tendon of lower back, initial encounter (principal); Z87.891 Personal history of nicotine dependence; Z88.6 Allergy status to analgesic agent; Z88.1 Allergy status to other antibiotic agents; X50.9XXA Other and unspecified overexertion or strenuous movements or postures, initial encounter
CPT/HCPCS: 99283; 96372 ×2; J2360; J1885

== ENCOUNTER 2024-12-19 21:41 | Emergency (ER) | payer OTHER ==
[2024-12-19 21:48] VITALS: RESP 18
--- NOTE | 2024-12-19 23:31 | ED ---
General Adult HPI - General Chief complaint: Back Pain/Injury Stated complaint: upper back pain Time Seen by Provider: 12/19/24 21:53 Source: patient, RN notes reviewed Mode of arrival: ambulatory Limitations: no limitations - History of Present Illness Initial comments: 74-year-old female presents to the emergency department for evaluation of neck discomfort. Patient states that this occurred after lifting a heavy box today. She did have some neck discomfort prior to this from lifting a different object which she was evaluated for yesterday. This seemed to exacerbate the pain that she was having. She notes that it is worse with movements of the neck and upper extremities. She denies any recent fever, chills. Denies any abdominal pain, nausea, vomiting, diarrhea. Denies numbness, tingling. - Related Data Home Medications Medication Instructions Recorded Confirmed Acetaminophen Tab [Tylenol] 650 mg PO Q4HR PRN 12/19/24 12/19/24 Lurasidone [Latuda] 20 mg PO DAILY 12/19/24 12/19/24 hydrOXYzine pamoate [Vistaril] 50 mg PO BID PRN 12/19/24 12/19/24 traZODone HCL 150 mg PO HS 12/19/24 12/19/24 Previous Rx's Medication Instructions Recorded [place] Carbonate ER [Lithobid] 450 mg PO DAILY 30 Days #30 tab 09/19/24 Pantoprazole [Protonix] 40 mg PO AC-BRKFST 30 Days #30 tab 09/19/24 Allergies Allergy/AdvReac Type Severity Reaction Status Date / Time Metronidazole HCl AdvReac Nausea & Verified 12/19/24 21:48 [From Flagyl] Vomiting & Diarrhea NSAIDS (Non-Steroidal AdvReac Unknown Verified 12/19/24 21:48 Anti-Inflamma Review of Systems ROS Statement: Those systems with pertinent positive or pertinent negative responses have been documented in the HPI. ROS Other: All systems not noted in ROS Statement are negative. Past Medical History Past Medical History: Asthma, GERD/Reflux Additional Past Medical History / Comment(s): migraine, EXERCISE INDUCED ASTHMA History of Any Multi-Drug Resistant Organisms: None Reported Past Surgical History: Adenoidectomy, Bariatric Surgery, Cholecystectomy, Orthopedic Surgery, Tonsillectomy Additional Past Surgical History / Comment(s): Right knee surgery, ganglion cyst removal bilateral hands, hemorrhoidectomy, colonoscopy, EGD. Gastric sleeve 03/19, TRIGGER FINGER RELEASE LT MIDDLE FINGER, Past Anesthesia/Blood Transfusion Reactions: Postoperative Nausea & Vomiting (PONV) Past Psychological History: ADD/ADHD, Anxiety, Bipolar, Depression, PTSD Smoking Status: Current every day smoker Past Alcohol Use History: None Reported Past Drug Use History: Marijuana - Past Family History Mother Family Medical History: Cancer, Myocardial Infarction ([place]) Additional Family Medical History / Comment(s): basal cell ca Father Family Medical History: Cancer, COPD, Deep Vein Thrombosis (DVT), Vascular Disorder Additional Family Medical History / Comment(s): kidney ca General Exam Limitations: no limitations General appearance: alert, in no apparent distress Head exam: Present: atraumatic, normocephalic, normal inspection Eye exam: Present: normal appearance, PERRL, EOMI. Absent: scleral icterus, conjunctival injection, periorbital swelling ENT exam: Present: normal exam, mucous membranes moist Neck exam: Present: tenderness (Tenderness over the trapezius muscles). Absent: meningismus, lymphadenopathy Respiratory exam: Present: normal lung sounds bilaterally. Absent: respiratory distress, wheezes, rales, rhonchi, stridor Cardiovascular Exam: Present: regular rate, normal rhythm, normal heart sounds. Absent: systolic murmur, diastolic murmur, rubs, gallop, clicks Extremities exam: Present: normal inspection, full ROM, normal capillary refill, other (Radial pulses 2+). Absent: tenderness, pedal edema, joint swelling, calf tenderness Back exam: Present: normal inspection Neurological exam: Present: alert, oriented X3 Psychiatric exam: Present: normal affect, normal mood Skin exam: Present: warm, dry, intact, normal color. Absent: rash Course Vital Signs 12/19/24 12/20/24 21:44 00:00 Temperature 98.2 F 98.0 F Pulse Rate 68 79 Respiratory 18 18 Rate Blood Pressure 108/62 111/79 O2 Sat by Pulse 99 99 Oximetry Medical Decision Making - Medical Decision Making Was pt. sent in by a medical professional or institution (, PA, FORMS EXAMINER, urgent care, hospital, or [facility]...) When possible be specific @ -No Did you speak to anyone other than the patient for history (EMS, parent, family, police, friend...)? What history was obtained from this source @ -No Did you review nursing and triage notes (agree or disagree)? Why? @ -I reviewed and agree with nursing and triage notes Were old charts reviewed (outside hosp., previous admission, EMS record, old EKG, old radiological studies, urgent care reports/EKG's, [facility] records)? Report findings @ -No old charts were reviewed Differential Diagnosis (chest pain, altered mental status, abdominal pain women, abdominal pain men, vaginal bleeding, weakness, fever, dyspnea, syncope, headache, dizziness, GI bleed, back pain, seizure, CVA, palpatations, mental health, musculoskeletal)? @ -Differential Back Pain: Strain, zoster, cauda equina syndrome, epidural abscess, vertebral osteomyelitis, discitis, fracture, subluxation, disc herniation, DJD, spinal stenosis, dissection, AAA, pancreatitis, peptic ulcer disease, pyelonephritis, kidney stone, this is not meant to be an all-inclusive list. EKG interpreted by me (3pts min.). @ -None X-rays interpreted by me (1pt min.). @ -None done CT interpreted by me (1pt min.). @ -None done U/S interpreted by me (1pt. min.). @ -None done What testing was considered but not performed or refused? (CT, X-rays, U/S, labs)? Why? @ -None What meds were considered but not given or refused? Why? @ -None Did you discuss the management of the patient with other professionals (professionals i.e. , PA, FORMS EXAMINER, lab, RT, psych nurse, social media content manager, clam shovel operator, teacher, chief administrative officer, shelter case manager)? Give summary @ -No Was smoking cessation discussed for >3mins.? @ -No Was critical care preformed (if so, how long)? @ -No Were there social determinants of health that impacted care today? How? (Ho melessness, low income, unemployed, alcoholism, drug addiction, transportation, low edu. Level, literacy, decrease access to med. care, skilled nursing, rehab)? @ -No Was there de-escalation of care discussed even if they declined (Discuss DNR or withdrawal of care, Hospice)? DNR status @ -No What co-morbidities impacted this encounter? (DM, HTN, Smoking, COPD, CAD, Cancer, CVA, ARF, Chemo, Hep., AIDS, mental health diagnosis, sleep apnea, morbid obesity)? @ -None Was patient admitted / discharged? Hospital course, mention meds given and route, prescriptions, significant lab abnormalities, going to OR and other pertinent info. @ -Discharge. Patient presented emergency department for evaluation of neck discomfort. This appears to be muscular. Patient provided medication for pain control in the emergency department. She will be discharged home advised follow-up to her PCP. She is understanding agreeable plan. Patient stable for discharge. Case discussed with Dr. Rod. Undiagnosed new problem with uncertain prognosis? @ -No Drug Therapy requiring intensive monitoring for toxicity (Heparin, Nitro, Insulin, Cardizem)? @ -No Were any procedures done? @ -No Diagnosis/symptom? @ -Muscle strain Acute, or Chronic, or Acute on Chronic? @ -Acute Uncomplicated (without systemic symptoms) or Complicated (systemic symptoms)? @ -Uncomplicated Side effects of treatment? @ -No Exacerbation, Progression, or Severe Exacerbation? @ -No Poses a threat to life or bodily function? How? (Chest pain, [place], [place], pneumonia, PE, COPD, DKA, ARF, appy, cholecystitis, CVA, Diverticulitis, Homicidal, Suicidal, threat to staff... and all critical care pts) @ -No Disposition Clinical Impression: Muscle strain Disposition: HOME SELF-CARE Condition: Stable Instructions (If sedation given, give patient instructions): Cervical Strain (ED) Additional Instructions: Please follow-up your doctor. Return to the emergency department for new or worsening symptoms. Is patient prescribed a controlled substance at d/c from ED?: No Referrals: Andriy Meneses MD [Primary Care Provider] - 1-2 days
[2024-12-19] MEDS: KETOROLAC 15 MG/ML 1 ML VIAL IM STA (23:36)
[2024-12-19] MEDS: ORPHENADRINE 30 MG/ML 2 ML VIAL IM STA (23:37)
[2024-12-19] MEDS: ACET/COD 300 MG/30 MG STARTER PACK 6 TAB BTL PO STA (23:38)
[2024-12-19] MEDS: LIDOCAINE 4% PATCH TOPICAL ONE (23:38)
[2024-12-20 00:01] VITALS: BP 111/79; PULSE 79; TEMP 98
== END 2024-12-20 | disposition home or self-care (01) ==
LOC: EC 21:41
DX: S29.012A Strain of muscle and tendon of back wall of thorax, initial encounter (principal); F17.200 Nicotine dependence, unspecified, uncomplicated; Z88.6 Allergy status to analgesic agent; Z88.1 Allergy status to other antibiotic agents; X50.0XXA Overexertion from strenuous movement or load, initial encounter
CPT/HCPCS: 99283; 96372; J2360; J1885

== ENCOUNTER → 2024-12-24 | Day surgery (SDC) | payer OTHER ==
[~2024-12-24] MED LIST changes: -LIDOCAINE 1% (10MG/ML) FOR IV START INTRADERMA PRN; -ONDANSETRON 4 MG/2 ML VIAL IVP PRN; +SODIUM CHLORIDE 0.9% 1,000 ML IV SCH
[2024-12-24] MEDS: IV FLUID CONTINUATION 1,000 ML IV ONE (07:25)
--- NOTE | 2024-12-24 14:38 | P.EPPROC ---
- EP Procedure Note Electrophysiology Procedure Note: Diagnosis Recurrent presyncope Twelve-lead EKG shows sinus rhythm normal [place] narrow QRS normal ST segments Baseline blood pressure on tilt table testing 115/70 mmHg, pulse rate 50 beats minute Patient was tilted uprigt at an angle of 70 degrees per protocol No significant change in heart rate or blood pressure No symptoms Patient laid supine the end of the procedure Impression normal twelve-lead EKG with sinus bradycardia 47 beats a minute No evidence for neurocardiogenic syncope normal heart rate and blood pressure response to upright tilt
== END ==
LOC: CATHEP 05:36
PROVIDERS: ATTEND Internal Medicine Clinical Cardiac Electrophysiology
DX: R55 Syncope and collapse (principal); Z88.8 Allergy status to other drugs, medicaments and biological substances
CPT/HCPCS: 81025; 93660